=== PATIENT | female | born 1960 | race Caucasian/White ===

== ENCOUNTER → 2016-06-18 | Outpatient (CLI) | payer MEDICAID ==
[2016-06-18 16:48] LABS: MEAN PLATELET VOLUME 10.9 FL (7.4-10.4); RED BLOOD COUNT 4.73 10^6/uL (4.35-5.85); RED CELL DISTRIBUTION WIDTH 14.8 % (10.0-14.5)
[2016-06-18 17:09] LABS: ALBUMIN 4.1 G/DL (3.2-4.5); CALCIUM 8.8 MG/DL (8.5-10.1); CREATININE SERUM 1.57 MG/DL (0.60-1.30); MAGNESIUM 1.9 MG/DL (1.8-2.4); PHOSPHORUS 4.1 MG/DL (2.3-4.7)
[2016-06-18 17:16] LABS: BILIRUBIN,URINE NEGATIVE (NEGATIVE); KETONES,URINE NEGATIVE (NEGATIVE); LEUKOCYTE ESTERASE ,URINE 3+ (NEGATIVE); NITRITE,URINE NEGATIVE (NEGATIVE); PH,URINE 5 (5-9); PROTEIN,URINE 1+ (NEGATIVE); UROBILINOGEN,URINE NORMAL (NORMAL)
[2016-06-18 17:37] LABS: SQUAMOUS EPITHELIAL CELL,UR 25-50 /HPF; WBC,URINE 50-100 /HPF
[2016-06-18 17:45] LABS: PROTEIN/CREATININE RATIO 0.05
== END ==
LOC: LAB 16:12
PROVIDERS: ATTEND Internal Medicine Nephrology
DX: N18.3 Chronic kidney disease, stage 3 (moderate) (principal); J44.9 Chronic obstructive pulmonary disease, unspecified; E55.9 Vitamin D deficiency, unspecified; R60.9 Edema, unspecified
CPT/HCPCS: 36415; 80069; 81000; 82306; 82570; 83735; 84156; 85027; 87088

== ENCOUNTER → 2016-12-20 | Outpatient (CLI) | payer MEDICAID ==
[2016-12-20 12:57] LABS: BASOPHILS % (AUTO) 0 % (0-10); EOSINOPHILS # (AUTO) 0.2 10^3/uL (0.0-0.3); EOSINOPHILS % (AUTO) 3 % (0-10); LYMPHOCYTES # (AUTO) 1.6 X 10^3 (1.0-4.0); LYMPHOCYTES % (AUTO) 26 % (12-44); MEAN CORPUSCULAR HEMOGLOBIN 29 PG (25-34); MEAN CORPUSCULAR HGB CONC 33 G/DL (32-36); MEAN CORPUSCULAR VOLUME 89 FL (80-99); MEAN PLATELET VOLUME 10.7 FL (7.4-10.4); MONOCYTES # (AUTO) 0.4 X 10^3 (0.0-1.0); MONOCYTES % (AUTO) 6 % (0-12); NEUTROPHILS # (AUTO) 3.8 X 10^3 (1.8-7.8); NEUTROPHILS % (AUTO) 64 % (42-75); PLATELET COUNT 203 10^3/uL (130-400); RED BLOOD COUNT 4.82 10^6/uL (4.35-5.85); RED CELL DISTRIBUTION WIDTH 14.3 % (10.0-14.5)
[2016-12-20 13:16] LABS: ALBUMIN 4.3 GM/DL (3.2-4.5); CALCIUM 9.4 MG/DL (8.5-10.1); CREATININE SERUM 1.31 MG/DL (0.60-1.30); PHOSPHORUS 3.5 MG/DL (2.3-4.7); POTASSIUM 4.1 MMOL/L (3.6-5.0); URIC ACID 8.4 MG/DL (2.6-7.2)
[2016-12-20 13:26] LABS: PROTEIN/CREATININE RATIO 0.06
--- NOTE | 2016-12-20 13:35 | Diagnostic Imaging Report ---
PROCEDURE: CT abdomen and pelvis without contrast. TECHNIQUE: Multiple contiguous axial images were obtained through the abdomen and pelvis without the use of intravenous contrast. INDICATION: Followup renal cyst. COMPARISON: Renal ultrasound 06/23/2015. DISCUSSION: The visualized lung bases are well-aerated. Normal heart size. No pleural or pericardial fluid. The liver is enlarged measuring 20 cm. The spleen is also enlarged measuring 13.8 x 13.2 x 11.1 cm. The gallbladder is surgically absent. Suspect fatty infiltration of the liver. The stomach, pancreas, adrenal glands, and uterus are unremarkable. Urinary bladder is decompressed. 4 mm ill-defined calcification noted within the cortex of the right kidney. There are likely cysts noted within the bilateral kidneys, though evaluation is severely limited due to lack of intravenous contrast. No hydronephrosis or renal stone identified otherwise. Contrast is noted within the colon which is otherwise unremarkable. No abnormal small bowel loops are identified. No obstruction, pneumatosis, pneumoperitoneum. Fat-containing ventral hernia extends into the patient's lower abdominal wall and pannus. No ascites or pathologically enlarged lymph nodes identified. Degenerative changes are noted within the lumbar spine and sacroiliac joints. No acute osseous abnormality identified. IMPRESSION: 1. There are rounded low-attenuation lesions within the bilateral kidneys which could represent cyst, though are poorly characterized by CT due to lack of IV contrast. 2. 4 mm nonobstructing right renal calculus versus parenchymal calcification. 3. Hepatosplenomegaly of uncertain etiology. Dictated by: Dictated on workstation # [id number]
[2016-12-21 06:36] LABS: FOLIC ACID 7.2 ng/mL (1.5-24.0)
== END ==
LOC: RAD 12:29
PROVIDERS: ATTEND Internal Medicine Nephrology
DX: N20.0 Calculus of kidney (principal); N28.9 Disorder of kidney and ureter, unspecified; R16.2 Hepatomegaly with splenomegaly, not elsewhere classified; I12.9 Hypertensive chronic kidney disease with stage 1 through stage 4 chronic kidney disease, or unspecified chronic kidney disease; N18.3 Chronic kidney disease, stage 3 (moderate); E66.01 Morbid (severe) obesity due to excess calories; E21.1 Secondary hyperparathyroidism, not elsewhere classified
CPT/HCPCS: 36415; 74176; 80069; 82306; 82570; 82607; 82746; 83540; 83550; 83735; 84156; 84550; 85025

== ENCOUNTER → 2017-03-12 | Outpatient (CLI) | payer MEDICAID ==
--- NOTE | 2017-03-12 10:43 | Diagnostic Imaging Report ---
EXAMINATION: Upper and lower extremity pressure measurements of ankle/brachial index and pulse volume recording at the ankle. INDICATION: Claudication FINDINGS: The ankle/brachial index on the right side is 1.2, (1.2 PT, and 1.1 DP) and on the left is (1.2 PT, and 1.1 DP). Pulse volume recording waveforms appear normal . IMPRESSION: Normal ÁLVARO, bilaterally. Dictated by: Dictated on workstation # [id number]
== END ==
LOC: RAD 09:17
PROVIDERS: ATTEND Nurse Practitioner Family
DX: I67.2 Cerebral atherosclerosis (principal)
CPT/HCPCS: 93922

== ENCOUNTER → 2017-06-19 | Outpatient (CLI) | payer MEDICAID ==
[~2017-06-19] MED LIST: AMLO10TA2 PO; CHOL200059 PO; HYDR-34 PO; LEVO75TA6 PO; MULT-35 PO; PARO20TA5 PO
--- NOTE | 2017-06-19 14:20 | Diagnostic Imaging Report ---
Indication: Routine screening Comparison: No prior mammograms are available for comparison. The current study was also evaluated with a Computer Aided Detection (CAD) system. Findings: Both breasts are primarily involutional. Small nodular densities are noted in both breasts. There are benign calcifications bilaterally. No spiculated mass or malignant-appearing microcalcifications are seen. Axillae are unremarkable. Impression: BI-RADS category 2 No mammographic features suspicious for malignancy are identified. ACR BI-RADS Category 2: Benign findings. Result letter will be mailed to the patient. Note: At least 10% of breast cancer is not imaged by mammography. Dictated by: Dictated on workstation # [id number]
== END ==
LOC: RAD 12:27
PROVIDERS: ATTEND Nurse Practitioner Family
DX: Z12.31 Encounter for screening mammogram for malignant neoplasm of breast (principal)
CPT/HCPCS: 77067

== ENCOUNTER 2017-06-20 05:38 | Outpatient (CLI) | payer MEDICAID ==
[~2017-06-20] VITALS: Ht 152.4 cm; Wt 131.5 kg
[2017-06-20] MEDS ORDERED: HYDR-34 PO (10:21)
[2017-06-20] MEDS ORDERED: AMLO10TA2 PO (10:21)
[2017-06-20] MEDS ORDERED: CHOL200059 PO (10:21)
[2017-06-20] MEDS ORDERED: MULT-35 PO (10:21)
[2017-06-20] MEDS ORDERED: LEVO75TA6 PO (10:21)
[2017-06-20] MEDS ORDERED: PARO20TA5 PO ×2 (10:21)
== END 2017-06-20 10:28 ==
LOC: PREOP 05:38
PROVIDERS: ATTEND Surgery
DX: Z01.818 Encounter for other preprocedural examination (principal); Z12.11 Encounter for screening for malignant neoplasm of colon

== ENCOUNTER → 2017-06-25 | Outpatient (CLI) | payer MEDICAID ==
[2017-06-25 12:24] LABS: BASOPHILS # (AUTO) 0.1 10^3/uL (0.0-0.1); BASOPHILS % (AUTO) 1 % (0-10); EOSINOPHILS # (AUTO) 0.3 10^3/uL (0.0-0.3); EOSINOPHILS % (AUTO) 3 % (0-10); HEMATOCRIT 45 % (35-52); HEMOGLOBIN 14.9 G/DL (11.5-16.0); LYMPHOCYTES # (AUTO) 2.8 X 10^3 (1.0-4.0); LYMPHOCYTES % (AUTO) 28 % (12-44); MEAN CORPUSCULAR HEMOGLOBIN 30 PG (25-34); MEAN CORPUSCULAR HGB CONC 33 G/DL (32-36); MEAN CORPUSCULAR VOLUME 89 FL (80-99); MEAN PLATELET VOLUME 10.7 FL (7.4-10.4); MONOCYTES # (AUTO) 0.6 X 10^3 (0.0-1.0); MONOCYTES % (AUTO) 6 % (0-12); NEUTROPHILS # (AUTO) 6.2 X 10^3 (1.8-7.8); NEUTROPHILS % (AUTO) 62 % (42-75); PLATELET COUNT 249 10^3/uL (130-400); RED BLOOD COUNT 5.05 10^6/uL (4.35-5.85); RED CELL DISTRIBUTION WIDTH 14.1 % (10.0-14.5); WHITE BLOOD COUNT 9.9 10^3/uL (4.3-11.0)
[2017-06-25 12:30] LABS: BILIRUBIN,URINE NEGATIVE (NEGATIVE); CLARITY,URINE CLEAR; COLOR,URINE YELLOW; GLUCOSE, URINE (UA) NEGATIVE (NEGATIVE); KETONES,URINE NEGATIVE (NEGATIVE); LEUKOCYTE ESTERASE ,URINE 1+ (NEGATIVE); NITRITE,URINE NEGATIVE (NEGATIVE); PH,URINE 7 (5-9); PROTEIN,URINE NEGATIVE (NEGATIVE); UROBILINOGEN,URINE NORMAL (NORMAL)
[2017-06-25 12:38] LABS: BACTERIA,URINE TRACE /HPF
[2017-06-25 12:42] LABS: ALBUMIN 4.3 GM/DL (3.2-4.5); CALCIUM 9.8 MG/DL (8.5-10.1); CREATININE SERUM 1.27 MG/DL (0.60-1.30); PHOSPHORUS 3.2 MG/DL (2.3-4.7); POTASSIUM 4.3 MMOL/L (3.6-5.0)
[2017-06-25 12:47] LABS: URINE CREATININE FOR RATIO 93 MG/DL (30-125); URINE PROTEIN FOR RATIO ONLY < 6 MG/DL (6-12)
== END ==
LOC: LAB 11:55
PROVIDERS: ATTEND Internal Medicine Nephrology
DX: I12.9 Hypertensive chronic kidney disease with stage 1 through stage 4 chronic kidney disease, or unspecified chronic kidney disease (principal); N18.3 Chronic kidney disease, stage 3 (moderate); R60.9 Edema, unspecified; E21.1 Secondary hyperparathyroidism, not elsewhere classified
CPT/HCPCS: 36415; 80069; 81000; 82306; 82570; 83036; 83735; 83970; 84156; 85025

== ENCOUNTER → 2017-10-28 | Outpatient (CLI) | payer MEDICAID ==
[2017-10-28 11:58] LABS: ABG BASE EXCESS -2.4 MMOL/L (-2.5-2.5); ABG OXYGEN SATURATION 98 % (94-100); ABG PCO2 34 MMHG (35-45); ABG PH 7.42 (7.37-7.43); ABG PO2 93 MMHG (79-93); ABG TCO2 22.3 MMOL/L (21.0-31.0)
[2017-10-28 11:59] LABS: ALLENS TEST YES-POS; INSPIRED O2 ROOM AIR; PATIENT TEMP 99.9; VENTILATOR NO
== END ==
LOC: LAB 11:17
PROVIDERS: ATTEND Nurse Practitioner Family
DX: J98.4 Other disorders of lung (principal)
CPT/HCPCS: 36600; 82805

== ENCOUNTER → 2018-03-05 | Outpatient (CLI) | payer MEDICAID ==
[~2018-03-05] MED LIST changes: -AMLO10TA2 PO; +AMLO10TA6 PO
[2018-03-05 14:33] LABS: HEMOGLOBIN 13.4 G/DL (11.5-16.0); MEAN PLATELET VOLUME 11.3 FL (7.4-10.4); RED BLOOD COUNT 4.55 10^6/uL (4.35-5.85); RED CELL DISTRIBUTION WIDTH 14.4 % (10.0-14.5); WHITE BLOOD COUNT 8.1 10^3/uL (4.3-11.0)
[2018-03-05 14:50] LABS: BILIRUBIN,URINE NEGATIVE (NEGATIVE); CLARITY,URINE CLEAR; COLOR,URINE YELLOW; GLUCOSE, URINE (UA) NEGATIVE (NEGATIVE); KETONES,URINE NEGATIVE (NEGATIVE); LEUKOCYTE ESTERASE ,URINE 2+ (NEGATIVE); NITRITE,URINE NEGATIVE (NEGATIVE); PH,URINE 5 (5-9); PROTEIN,URINE 1+ (NEGATIVE); UROBILINOGEN,URINE NORMAL (NORMAL)
[2018-03-05 14:54] LABS: ALBUMIN 4.2 GM/DL (3.2-4.5); CALCIUM 9.2 MG/DL (8.5-10.1); CREATININE SERUM 1.84 MG/DL (0.60-1.30); PHOSPHORUS 3.5 MG/DL (2.3-4.7); POTASSIUM 4.2 MMOL/L (3.6-5.0)
== END ==
LOC: LAB 14:12
PROVIDERS: ATTEND Internal Medicine Nephrology
DX: I12.9 Hypertensive chronic kidney disease with stage 1 through stage 4 chronic kidney disease, or unspecified chronic kidney disease (principal); N18.3 Chronic kidney disease, stage 3 (moderate); E21.1 Secondary hyperparathyroidism, not elsewhere classified; E55.9 Vitamin D deficiency, unspecified
CPT/HCPCS: 36415; 80069; 81002; 82306; 82570; 83735; 83970; 84156; 85027

== ENCOUNTER → 2018-03-22 | Outpatient (CLI) | payer MEDICAID | LOC: RAD 09:26 | PROVIDERS: ATTEND Nurse Practitioner Family | DX: M19.011 Primary osteoarthritis, right shoulder (principal); Z53.8 Procedure and treatment not carried out for other reasons ==

== ENCOUNTER → 2018-03-31 | Outpatient (CLI) | payer MEDICAID ==
[2018-03-31 13:38] LABS: BASOPHILS % (AUTO) 0 % (0-10); EOSINOPHILS # (AUTO) 0.2 10^3/uL (0.0-0.3); EOSINOPHILS % (AUTO) 3 % (0-10); HEMATOCRIT 42 % (35-52); LYMPHOCYTES # (AUTO) 2.2 X 10^3 (1.0-4.0); LYMPHOCYTES % (AUTO) 29 % (12-44); MEAN CORPUSCULAR HEMOGLOBIN 29 PG (25-34); MEAN CORPUSCULAR HGB CONC 33 G/DL (32-36); MEAN CORPUSCULAR VOLUME 86 FL (80-99); MEAN PLATELET VOLUME 10.6 FL (7.4-10.4); MONOCYTES # (AUTO) 0.5 X 10^3 (0.0-1.0); MONOCYTES % (AUTO) 6 % (0-12); NEUTROPHILS # (AUTO) 4.5 X 10^3 (1.8-7.8); NEUTROPHILS % (AUTO) 61 % (42-75); PLATELET COUNT 243 10^3/uL (130-400); RED CELL DISTRIBUTION WIDTH 14.4 % (10.0-14.5); WHITE BLOOD COUNT 7.4 10^3/uL (4.3-11.0)
[2018-03-31 13:46] LABS: BILIRUBIN,URINE NEGATIVE (NEGATIVE); CLARITY,URINE CLEAR; COLOR,URINE YELLOW; GLUCOSE, URINE (UA) NEGATIVE (NEGATIVE); KETONES,URINE NEGATIVE (NEGATIVE); LEUKOCYTE ESTERASE ,URINE 1+ (NEGATIVE); NITRITE,URINE NEGATIVE (NEGATIVE); PH,URINE 5 (5-9); PROTEIN,URINE 1+ (NEGATIVE); UROBILINOGEN,URINE NORMAL (NORMAL)
--- NOTE | 2018-03-31 13:49 | Diagnostic Imaging Report ---
PROCEDURE: US Renal Bilateral. TECHNIQUE: Multiple real-time grayscale images were obtained over the kidneys in various projections bilaterally. INDICATION: Stage III chronic kidney disease and hypertension. FINDINGS: Right kidney measures 9.9 x 4.2 x 4.3 cm and the left kidney measures 10.2 x 4.3 x 5.7 cm. Cortical thickness and echogenicity is normal bilaterally. No calculi or hydronephrosis is identified. There are bilateral renal cysts. Largest cyst on the right is medially located measuring approximately 14 mm in diameter. Largest cyst on the left is approximately 2.8 x 3.3 cm. The bladder demonstrates a right ureteral jet. Left ureteral jet was not visualized. No bladder wall thickening or mass is seen IMPRESSION: Bilateral renal cysts. No other significant abnormality is seen. Dictated by: Dictated on workstation # [id number]
[2018-03-31 14:06] LABS: ALBUMIN 4.4 GM/DL (3.2-4.5); CALCIUM 9.8 MG/DL (8.5-10.1); CREATININE SERUM 1.37 MG/DL (0.60-1.30); MAGNESIUM 2.1 MG/DL (1.8-2.4); PHOSPHORUS 3.4 MG/DL (2.3-4.7); POTASSIUM 3.8 MMOL/L (3.6-5.0)
[2018-03-31 14:13] LABS: BACTERIA,URINE TRACE /HPF
== END ==
LOC: RAD 12:49
PROVIDERS: ATTEND Internal Medicine Nephrology
DX: N28.1 Cyst of kidney, acquired (principal); I12.9 Hypertensive chronic kidney disease with stage 1 through stage 4 chronic kidney disease, or unspecified chronic kidney disease; N18.3 Chronic kidney disease, stage 3 (moderate); E21.1 Secondary hyperparathyroidism, not elsewhere classified; E55.9 Vitamin D deficiency, unspecified
CPT/HCPCS: 36415; 76770; 80069; 81000; 82306; 82570; 83735; 83970; 84156; 85025; 87088

== ENCOUNTER → 2018-07-18 | Outpatient (CLI) | payer MEDICAID ==
[~2018-07-18] MED LIST changes: -AMLO10TA6 PO; +AMLO10TA7 PO
[2018-07-18 12:14] LABS: BASOPHILS % (AUTO) 0 % (0-10); EOSINOPHILS # (AUTO) 0.2 10^3/uL (0.0-0.3); EOSINOPHILS % (AUTO) 3 % (0-10); HEMATOCRIT 44 % (35-52); HEMOGLOBIN 14.2 G/DL (11.5-16.0); LYMPHOCYTES # (AUTO) 2.8 X 10^3 (1.0-4.0); LYMPHOCYTES % (AUTO) 30 % (12-44); MEAN CORPUSCULAR HEMOGLOBIN 28 PG (25-34); MEAN CORPUSCULAR HGB CONC 32 G/DL (32-36); MEAN CORPUSCULAR VOLUME 86 FL (80-99); MEAN PLATELET VOLUME 11.1 FL (7.4-10.4); MONOCYTES # (AUTO) 0.5 X 10^3 (0.0-1.0); MONOCYTES % (AUTO) 5 % (0-12); NEUTROPHILS # (AUTO) 5.9 X 10^3 (1.8-7.8); NEUTROPHILS % (AUTO) 62 % (42-75); PLATELET COUNT 282 10^3/uL (130-400); RED CELL DISTRIBUTION WIDTH 14.7 % (10.0-14.5); WHITE BLOOD COUNT 9.5 10^3/uL (4.3-11.0)
[2018-07-18 12:31] LABS: ALBUMIN 4.4 GM/DL (3.2-4.5); CREATININE SERUM 1.5 MG/DL (0.60-1.30); MAGNESIUM 2.2 MG/DL (1.8-2.4); PHOSPHORUS 3.4 MG/DL (2.3-4.7); POTASSIUM 3.9 MMOL/L (3.6-5.0)
== END ==
LOC: LAB 11:46
PROVIDERS: ATTEND Internal Medicine Nephrology
DX: I12.9 Hypertensive chronic kidney disease with stage 1 through stage 4 chronic kidney disease, or unspecified chronic kidney disease (principal); N18.4 Chronic kidney disease, stage 4 (severe); E21.1 Secondary hyperparathyroidism, not elsewhere classified; E87.2 Acidosis
CPT/HCPCS: 36415; 80069; 82570; 83735; 84156; 85025

== ENCOUNTER → 2018-08-26 | Outpatient (CLI) | payer MEDICAID ==
[~2018-08-26] VITALS: Ht 152.4 cm; Wt 142.0 kg
[~2018-08-26] MED LIST changes: +CATHETER FLUSH 10 ML SYR IV PRN; +REGADENOSON 0.4 MG/5 ML SYR (LEXISCAN) IV ONE
[2018-08-26 08:55] VITALS: BP 145/76
--- NOTE | 2018-08-26 19:50 | STRESS TEST ---
DATE OF SERVICE: 08/26/2018 RESTING AND POST REGADENOSON TECHNETIUM-99M TETROFOSMIN SPECT CT IMAGING ORDERING PHYSICIAN: Ricky Dave MD, STEPHON, FACP, FACC. PRIMARY PHYSICIAN: [facility]. CLINICAL DIAGNOSES: Shortness of breath. Baseline images were carried out after injection of 10.92 mCi technetium-99m Tetrofosmin. This was followed by 0.4 mg regadenoson and 31.6 mCi technetium-99m Tetrofosmin for stress imaging. The electrocardiogram showed sinus rhythm at baseline. It did not change significantly with regadenoson infusion. The patient noted some shortness of breath following the infusion. It resolved in a few minutes. Review of images at rest and following stress does not indicate any significant perfusion defects consistent with significant myocardial ischemia or infarction. Gated images show normal global left ventricular systolic function and normal regional wall motion. Left ventricular ejection fraction is calculated to be 74%. Left ventricular end diastolic volume is 57 mL. TID is absent (0.97). CONCLUSIONS: 1. No evidence of significant myocardial ischemia or infarction is seen. 2. Normal regional wall motion. 3. Normal global left ventricular systolic function with a calculated ejection fraction of 74%. Job ID: [id number] DocumentID: [id number] Dictated Date: 08/26/2018 16:29:00 [employer] Date: 08/26/2018 19:49:59 Dictated By: RICKY DAVE MD, STEPHON, FACP, FACC,
== END ==
LOC: CARD 07:00
PROVIDERS: ATTEND Internal Medicine Cardiovascular Disease
DX: R06.02 Shortness of breath (principal); G47.33 Obstructive sleep apnea (adult) (pediatric); I77.9 Disorder of arteries and arterioles, unspecified; I10 Essential (primary) hypertension; E66.8 Other obesity; R53.81 Other malaise
CPT/HCPCS: 78452; 93017; 93225; 93226

== ENCOUNTER → 2018-10-28 | Outpatient (CLI) | payer MEDICAID ==
[~2018-10-28] MED LIST changes: -CATHETER FLUSH 10 ML SYR IV PRN; -REGADENOSON 0.4 MG/5 ML SYR (LEXISCAN) IV ONE
--- NOTE | 2018-10-28 14:48 | Diagnostic Imaging Report ---
PROCEDURE: US Renal Bilateral. TECHNIQUE: Multiple real-time grayscale images were obtained over the kidneys in various projections bilaterally. INDICATION: Renal cysts. FINDINGS: The previous renal ultrasound exam of 03/31/2018 noted bilateral renal cysts. The largest cyst on the right measured 14 mm in maximum diameter while the largest cyst on the left was estimated to be 2.8 x 3.3 cm. The cyst arising from the left kidney seen on the previous exam is again visualized. The cyst now measures 2.6 x 1.8 x 3.0 cm and does appear to contain several internal echoes. This may be slightly complicated by infection and/or hemorrhage. The cyst associated with the right kidney seen previously now measures 1.4 x 1.0 x 1.4 cm. This cyst also contains internal echoes suggesting that it has been complicated by infection and/or hemorrhage. There is no other cyst identified and there is no sign of a solid mass. There is no evidence for hydronephrosis. The renal cortices are normal in thickness and echogenicity. The kidneys are normal in size with the right kidney measuring 10.8 x 4.2 x 5.2 cm and the left kidney estimated to be 10.2 x 4.6 x 3.5 cm. The bladder was not imaged during the course of this exam. IMPRESSION: The cysts associated with the kidneys seen previously now appear to be complicated by infection and/or hemorrhage. If further imaging is desired, then CT will be recommended. If the CT exam is not performed, then a short-term (three-month) follow-up renal ultrasound exam will be recommended for further study. Dictated by: Dictated on workstation # [id number]
== END ==
LOC: RAD 11:07
PROVIDERS: ATTEND Internal Medicine Nephrology
DX: N28.1 Cyst of kidney, acquired (principal)
CPT/HCPCS: 76770

== ENCOUNTER → 2018-11-12 | Outpatient (CLI) | payer MEDICAID ==
[2018-11-12 11:43] LABS: ALBUMIN 4.2 GM/DL (3.2-4.5); BILIRUBIN,TOTAL 0.8 MG/DL (0.1-1.0); CALCIUM 9.5 MG/DL (8.5-10.1); CREATININE SERUM 1.36 MG/DL (0.60-1.30)
== END ==
LOC: LAB 11:03
PROVIDERS: ATTEND Internal Medicine Cardiovascular Disease
DX: I12.9 Hypertensive chronic kidney disease with stage 1 through stage 4 chronic kidney disease, or unspecified chronic kidney disease (principal); N18.4 Chronic kidney disease, stage 4 (severe); R06.02 Shortness of breath; G47.33 Obstructive sleep apnea (adult) (pediatric); E78.5 Hyperlipidemia, unspecified; E66.8 Other obesity; Z68.44 Body mass index [BMI] 60.0-69.9, adult
CPT/HCPCS: 36415; 80053; 80061

== ENCOUNTER → 2019-01-16 | Outpatient (CLI) | payer MEDICAID ==
[2019-01-16 12:07] LABS: BILIRUBIN,URINE NEGATIVE (NEGATIVE); CLARITY,URINE CLEAR; COLOR,URINE YELLOW; GLUCOSE, URINE (UA) NEGATIVE (NEGATIVE); KETONES,URINE 1+ (NEGATIVE); LEUKOCYTE ESTERASE ,URINE 3+ (NEGATIVE); NITRITE,URINE NEGATIVE (NEGATIVE); PH,URINE 5 (5-9); PROTEIN,URINE 2+ (NEGATIVE); UROBILINOGEN,URINE NORMAL (NORMAL)
[2019-01-16 12:10] LABS: BASOPHILS % (AUTO) 0 % (0-10); EOSINOPHILS # (AUTO) 0.2 10^3/uL (0.0-0.3); EOSINOPHILS % (AUTO) 3 % (0-10); HEMATOCRIT 47 % (35-52); HEMOGLOBIN 15.4 G/DL (11.5-16.0); LYMPHOCYTES # (AUTO) 2.7 X 10^3 (1.0-4.0); LYMPHOCYTES % (AUTO) 28 % (12-44); MEAN CORPUSCULAR HEMOGLOBIN 28 PG (25-34); MEAN CORPUSCULAR HGB CONC 33 G/DL (32-36); MEAN CORPUSCULAR VOLUME 86 FL (80-99); MEAN PLATELET VOLUME 11.6 FL (7.4-10.4); MONOCYTES # (AUTO) 0.6 X 10^3 (0.0-1.0); MONOCYTES % (AUTO) 6 % (0-12); NEUTROPHILS % (AUTO) 63 % (42-75); PLATELET COUNT 249 10^3/uL (130-400); RED CELL DISTRIBUTION WIDTH 14.4 % (10.0-14.5); WHITE BLOOD COUNT 9.5 10^3/uL (4.3-11.0)
[2019-01-16 12:20] LABS: WBC,URINE 25-50 /HPF
[2019-01-16 12:22] LABS: BACTERIA,URINE MODERATE /HPF
[2019-01-16 12:28] LABS: ALBUMIN 4.5 GM/DL (3.2-4.5); CREATININE SERUM 1.52 MG/DL (0.60-1.30); MAGNESIUM 2.2 MG/DL (1.6-2.4); PHOSPHORUS 3.7 MG/DL (2.3-4.7); URIC ACID 9.5 MG/DL (2.6-7.2)
== END ==
LOC: LAB 11:46
PROVIDERS: ATTEND Internal Medicine Nephrology
DX: I12.9 Hypertensive chronic kidney disease with stage 1 through stage 4 chronic kidney disease, or unspecified chronic kidney disease (principal); N18.3 Chronic kidney disease, stage 3 (moderate); E21.1 Secondary hyperparathyroidism, not elsewhere classified; R60.9 Edema, unspecified
CPT/HCPCS: 36415; 80069; 81000; 82306; 82570; 83735; 83970; 84156; 84550; 85025; 87077; 87088

== ENCOUNTER → 2019-02-17 | Outpatient (CLI) | payer MEDICAID ==
--- NOTE | 2019-02-17 12:39 | Diagnostic Imaging Report ---
EXAMINATION: Right breast ultrasound, limited. INDICATION: Right axillary pain and lump. FINDINGS: The diagnostic mammogram performed earlier today failed to show any sign of malignancy or an acute abnormality involving the right axilla. On this exam, there is a single lymph node in this area. This lymph node measures 3.1 x 2.8 x 1.6 cm. While this is enlarged for a normal axillary lymph node (normal lymph node 1.5 cm or less), it does appear to be predominantly replaced by fat, and there is no abnormality of the cortex to suggest a neoplastic or infectious process. Even so, if clinical concern regarding an underlying abnormality persists, then biopsy should still be considered. No other abnormality is noted. IMPRESSION: There is a prominent lymph node in the right axilla, but there is no sign of malignancy and there is no acute abnormality identified. Clinical follow-up is recommended. ACR BI-RADS Category 1: Negative. Dictated by: Dictated on workstation # [id number]
--- NOTE | 2019-02-17 13:44 | Diagnostic Imaging Report ---
Bilateral diagnostic mammogram. Indication: Right axillary pain and lump. This study was compared to the prior exam of 06/19/2017. At this time the patient does complain of pain and a lump in the right axilla. A marker was placed over the area of concern. There is no primary or secondary sign of malignancy evident in this area. There is no acute abnormality to account for the patient's pain either. There is a prominent lymph node in this region measuring approximately 3.2 cm in maximum dimension. However this lymph node seems to be predominantly replaced by fat and consequently unlikely be related to a pathologic process. The breasts are predominantly fatty. There are benign-appearing calcifications both breasts. There is no primary or secondary sign malignancy noted. Impression: There is no evidence for malignancy and there is no acute abnormality to account for the pain in the right axilla. Ultrasound would be recommended for further study. ACR BI-RADS Category 0: Incomplete. (Needs additional imaging evaluation). Result letter will be mailed to the patient. Note: At least 10% of breast cancer is not imaged by mammography. Dictated by: Dictated on workstation # [id number]
== END ==
LOC: RAD 11:20
PROVIDERS: ATTEND Nurse Practitioner Family
DX: R59.0 Localized enlarged lymph nodes (principal); M79.601 Pain in right arm
CPT/HCPCS: 77066

== ENCOUNTER 2019-11-05 19:47 | Emergency (ER) | payer MEDICAID ==
[~2019-11-05] VITALS: Ht 152 cm; Wt 136.0 kg
[2019-11-05] MEDS ORDERED: ACETAMINOPHEN 325 MG TABLET PO ONE (20:00)
--- NOTE | 2019-11-05 20:00 | ED Fall/Injury ---
General Stated Complaint: FELL,LEFT ARM,RIGHT LEG PAIN Source: patient, RN/MD, RN notes reviewed Exam Limitations: no limitations History of Present Illness Date Seen by Provider: Nov 05, 2019 Time Seen by Provider: 19:50 Initial Comments This patient is a 59-year-old female presents to the emergency department for fall 2. Patient states that she does not walk well and has bad knees patient uses a scooter to ambulate around the house. And also uses a cane. When she stands. Patient states she is normally doesn't have issues with fall as she is off balance. Patient states she locked herself out of the house 2 days ago and tried to stand on a lawn chair to try to get the door unlocked and she had a fall. Patient states she subsequently had another fall tonight she just cannot turn and lost her balance. Patient states she's been underneath a lot of stress at home due to her brother's legal problems. And just not thinking clearly due to worry and not nursing home where she steps. Patient is complaining of right knee pain and left elbow pain. Patient checks in does have a low-grade temperature patient denies any cough or congestion. We'll do medical evaluation treatment is needed. Occurred: yesterday Injuries/Pain Location: upper extremity, lower extremity Context: lost balance Loss of Consciousness: no loss of consciousness Allergies and Home Medications Allergies Coded Allergies: No Known Allergies (Unverified Allergy, Unknown, 06/20/17) Home Medications Amlodipine Besylate 10 Mg Tablet, 10 MG PO DAILY, (Reported) Cholecalciferol (Vitamin D3) 2,000 Unit Tablet, 3,000 UNIT PO DAILY, (Reported) Hydrocodone Bit/Acetaminophen 1 Each Tablet, 1 EACH PO TID, (Reported) Levothyroxine Sodium 75 Mcg Tablet, 75 MCG PO DAILY, (Reported) Multivitamin 1 Each Tablet, 1 EACH PO DAILY, (Reported) Paroxetine HCl 20 Mg Tablet, 40 MG PO HS, (Reported) Paroxetine HCl 20 Mg Tablet, 20 MG PO DAILY, (Reported) Patient Home Medication List Home Medication List Reviewed: Yes Review of Systems Review of Systems Constitutional: see HPI Eyes: Denies No Symptoms Reported, Denies See HPI, Denies Blindness, Denies Blurred Vision, Denies Drainage, Denies Decreased Acuity, Denies Foreign Body Sensation, Denies Inflammation, Denies Pain, Denies Photophobia, Denies Previous Injury, Denies Shadows, Denies Tunnel Vision, Denies Vision Changes, Denies Contact Lenses, Denies Glasses, Denies Other Ears, Nose, Mouth, Throat: denies no symptoms reported, denies see HPI, denies ear pain, denies ear discharge, denies nose pain, denies nose discharge, denies epistaxis, denies mouth pain, denies mouth swelling, denies loose teeth, denies throat pain, denies throat swelling Respiratory: No no symptoms reported, No see HPI, No cough, No dyspnea on exertion, No hemoptysis, No orthopnea, No phlegm, No short of breath, No stridor, No wheezing, No other Cardiovascular: No no symptoms reported, No see HPI, No chest pain, No edema, No Hx of Intervention, No palpitations, No syncope, No vascular heart diseas, No other Genitourinary: No no symptoms reported, No see HPI, No decreased output, No discharge, No dysuria, No frequency, No hematuria, No hesitancy, No incontinence, No nocturia, No pain, No other Musculoskeletal: see HPI, joint pain Skin: No no symptoms reported, No see HPI, No change in color, No change in hair/nails, No dryness, No hx of skin cancer, No lesions, No lumps, No pruritus, No rash, No other All Other Systems Reviewed Negative Unless Noted: Yes Past Vhpiizs-Jgwtxt-Wcpnhf Hx Patient Social History Recent Foreign Travel: No Contact w/Someone Who Travel: No Physical Exam Vital Signs Vital Signs - First Documented 11/05/19 19:50 Temp 38.1 Pulse 88 Resp 18 B/P (MAP) 158/92 (114) Pulse Ox 96 O2 Delivery Room Air Capillary Refill : Height, Weight, BMI Height: 5'0.00" Weight: 313lbs. 0.0oz. 141.707647ko; 61.1 BMI Method: General Appearance: WD/WN, no apparent distress HEENT: PERRL/EOMI, normal ENT inspection, TMs normal, pharynx normal Neck: non-tender, full range of motion, supple, normal inspection Cardiovascular: normal peripheral pulses, regular rate, rhythm, no edema, no gallop, no JVD, no murmur Respiratory: chest non-tender, lungs clear, normal breath sounds, no respiratory distress, no accessory muscle use Gastrointestinal: normal bowel sounds, non tender, soft, no organomegaly, no pulsatile mass Back: normal inspection, no CVA tenderness, no vertebral tenderness Extremities: other (tender range of motion of left elbow. Patient states it h urts to try to straighten her elbow. No obvious signs of injury or deformity. Patient's right knee complains of soreness when bending. No obvious signs of injury. Patient is morbidly obese.) Progress/Results/Core Measures Results/Orders Lab Results Laboratory Tests Test 11/05/19 20:03 Range/Units Urine Color DARK YELLOW Urine Clarity SL CLOUDY Urine pH 5.5 5-9 Urine Specific [place] >=1.030 1.016-1.022 Urine Protein TRACE H NEGATIVE Urine Glucose (UA) NEGATIVE NEGATIVE Urine Ketones NEGATIVE NEGATIVE Urine Nitrite NEGATIVE NEGATIVE Urine Bilirubin NEGATIVE NEGATIVE Urine Urobilinogen 0.2 < = 1.0 MG/DL Urine Leukocyte Esterase TRACE H NEGATIVE Urine RBC (Auto) NEGATIVE NEGATIVE Urine RBC 0-2 /HPF Urine WBC 5-10 H /HPF Urine Squamous Epithelial Cells 10-25 H /HPF Urine Crystals NONE /LPF Urine Bacteria MODERATE H /HPF Urine Casts PRESENT /LPF Urine Hyaline Casts 5-10 H /LPF Urine Mucus LARGE H /LPF Urine Culture Indicated YES My Orders Orders - NANCIE LEACH MD Knee 3 View Right (11/05/19 19:56) Elbow 3 View Left (11/05/19 19:56) Urinalysis (11/05/19 19:56) Acetaminophen Tablet/Caplet (Tylenol T (11/05/19 20:00) Urine Culture (11/05/19 20:03) Medications Given in ED Current Medications Medications Dose Ordered Sig/Harini Route Start Time Stop Time Status Last Admin Dose Admin Acetaminophen 650 mg ONCE ONCE PO 11/05/19 20:00 11/05/19 20:01 DC 11/05/19 20:09 650 MG Vital Signs/I&O 11/05/19 19:50 Temp 38.1 Pulse 88 Resp 18 B/P (MAP) 158/92 (114) Pulse Ox 96 O2 Delivery Room Air Progress Progress Note : Time: 21:05 Progress Note Negative evaluation for anything acute.. I did discuss at length with patient about her chronic osteoarthritis of her knees in reporting that for status. Frankie olvera will need to be referred back to her primary care physician to discuss pain medications. Patient has chronic kidney disease and nonsteroidals would not be a good choice for the patient. The patient is reluctant to use hydrocodone she is a history of depression. She states understanding these instructions. We did also discuss patient's urinalysis. With significant amount of bacteria and WBCs. Trace leukocytes. Low-grade fever. Patient is agreeable to be placed on Keflex for the last couple of days. She will follow up with her PCP in 2-3 days. Patient states she will take Tylenol for fever. Encourage by mouth fluids. Tylenol as needed for fever or pain. Follow-up with her primary care physician address any other pain concerns. Take medications as prescribed. Understanding her urinalysis will be sent for culture. Diagnostic Imaging Diagonstic Imaging: Xray Plain Films/CT/US/NM/MRI: elbow, knee Comments Negative for acute patient's severe osteoarthritis in the knees. Reviewed: Reviewed [place] Study Departure Impression Primary Impression: Dysuria Additional Impressions: Fall Left elbow pain Right knee pain Osteoarthritis Disposition: 01 HOME, SELF-CARE Condition: Stable Departure-Patient Inst. Decision time for Depature: 21:08 Referrals: [facility] (PCP) Primary Care Physician ROB REYNOLDS APRN (Family) Primary Care Physician Patient Instructions: Chronic Knee Pain (DC), Osteoarthritis (DC) Add. Discharge Instructions: Encourage by mouth fluids. Tylenol as needed for fever or pain. Follow-up with her primary care physician address any other pain concerns. Take medications as prescribed. Understanding her urinalysis will be sent for culture. Scripts Cephalexin (Cephalexin) 500 Mg Tablet 500 MG PO BID, #10 TAB 0 Refills Prov: NANCIE LEACH MD 11/05/19 NANCIE LEACH MD Nov 05, 2019 20:00
[2019-11-05 20:14] LABS: CLARITY,URINE SL CLOUDY; COLOR,URINE DARK YELLOW
[2019-11-05 20:15] LABS: BACTERIA,URINE MODERATE /HPF; BILIRUBIN,URINE NEGATIVE (NEGATIVE); GLUCOSE, URINE (UA) NEGATIVE (NEGATIVE); KETONES,URINE NEGATIVE (NEGATIVE); LEUKOCYTE ESTERASE ,URINE TRACE (NEGATIVE); NITRITE,URINE NEGATIVE (NEGATIVE); PH,URINE 5.5 (5-9); PROTEIN,URINE TRACE (NEGATIVE); RBC,URINE 0-2 /HPF
--- NOTE | 2019-11-05 20:36 | Diagnostic Imaging Report ---
INDICATION: Knee pain. COMPARISON: None. EXAMINATION: Three radiographic views of the right knee were obtained. FINDINGS: There are advanced tricompartmental osteoarthritic changes. This consists of severe joint space narrowing with prominent osteophyte formations. There is also sclerotic remodeling of the articular surfaces, greatest involving the medial tibiofemoral compartment. There is, however, no evidence of acute fracture. Osseous structures are intact. Joint spaces are maintained. There is no large joint effusion. IMPRESSION: 1. No acute fracture or dislocation of the right knee. 2. Severe osteoarthritic changes of the right knee. Dictated by: Dictated on workstation # [id number]
--- NOTE | 2019-11-05 20:37 | Diagnostic Imaging Report ---
INDICATION: Elbow pain. COMPARISON: None. EXAMINATION: Three views of the left elbow. FINDINGS: No fracture, dislocation or other acute bony abnormality identified. Joint spaces are well maintained throughout. The soft tissues appear unremarkable. No radiopaque foreign body is identified. IMPRESSION: No acute fracture or dislocation of the left elbow. Dictated by: Dictated on workstation # [id number]
[2019-11-05] MEDS ORDERED: CEPH500T PO (21:10)
[2019-11-05 21:15] VITALS: BP 149/88
--- OUTSIDE RECORDS SUMMARY | 2019-11-05 22:16 | XMS REPORT ---
Author Author [employer] lead warehouse associate [employer] [facility] Address [address] [address] Care Team Providers Care Lithographic Etcher Name Role Phone MADL, POLY Unavailable MADL, POLY Unavailable Unavailable CAROL WHITLOCK Unavailable Unavailable CINTHYA ALI Unavailable Unavailable LEROY HOLT Unavailable NUSRAT MAX Unavailable CINTHYA, ALI Unavailable MADL, POLY Unavailable MADL, POLY Unavailable MADL, POLY Unavailable MADL, POLY Unavailable TATIANA DENNIS Unavailable MADL, POLY Unavailable MADL, POLY Unavailable TATIANA DENNIS Unavailable LALI CRUZ Unavailable JENS SIERRA Unavailable MADL, POLY Unavailable MADL, POLY Unavailable MADL, POLY Unavailable JENS Corado Unavailable MADL, POLY Unavailable MADL, POLY Unavailable MADL, POLY Unavailable MADL, POLY Unavailable MADL, POLY Unavailable MADL, POLY Unavailable MADL, POLY Unavailable ARTIE, DANII Unavailable ARTIE, DANII Unavailable ARTIE, DANII Unavailable CAROL WHITLOCK APRN Unavailable Unavailable OSMAR GUEVARA MD, V Unavailable Unavailable FATOU WHITEHEAD APRN Unavailable Unavailable CINTHYA [facility] Unavailable UnavailQUINTEN Contreras DO Unavailable Unavailable MADL, POLY Unavailable RODOLFO, ROB Unavailable RODOLFO, ROB Unavailable RODOLFO, ROB Unavailable RODOLFO, ROB Unavailable RODOLFO, ROB Unavailable CINTHYA [facility]COSO [facility] Unavailable UnavailOSMAR Diez MD, V Unavailable Unavailable LUIS KABA MD Unavailable Unavailable FATOU WHITEHEAD APRN Unavailable Unavailable CAROL WHITLOCK APRN Unavailable Unavailable MADL, POLY L TONGUE BINDER Unavailable Unavailable HUMBLE JUÁREZ DO Unavailable Unavailable QUINTEN SADLER DO Unavailable Unavailable ROB REYNOLDS CHIEF OF PLANNING Unavailable Unavailable ROB REYNOLDS Unavailable Unavailable [facility] PCP Unavailable Unavailable Unavailable Unavailable Unavailable Unavailable Unavailable Unavailable Allergies Normalized Allergy Reported Date of Reaction(s) Care Provider Facility Allergy Type classification allergen Allergy Onset Drug Allergy DULoxetine DULoxetine 12-20-2017 - Headaches [facility] (1 source.) Translations: [address]97 [facility] [ [facility]] [facility] (21920) DA (21 Unclassified No Known 04-21-2015 - no information FERNANDA NOVA Not Available sources.) Allergies CHINYERE (91496) Medications Current Medications Medication Ingredient Drug Dose Dates Status Sig Sig Care Class(es) (Normalized) (Original) Provid er cephalexin Cephalexin Cephalospor 11-06-19 Active no Cephale roland no 500 mg oral in 20 information Active 500 name tablet (1 Antibacteri ORAL Twice A source.) al Day November 05, 2019 9:10pm no Multivitami no Active no Multivitamin no information n information information Active 1 name (1 source.) preparation ORAL Daily Completed/Discontinued Medications Medication Ingredient Drug Dose Dates Status Sig Sig Care Class(es) (Normalized) (Original) Provid er DULoxetine DULoxetine Serotonin 30 mg 10-19-19 Suspende take 1 Cymbalta 30 no 60 mg Translation and 18 d capsule by MG Orally nam e delayed s: [ Norepinephr mouth once Once a day x release Cymbalta 60 ine daily, then 1 week then oral mg, Reuptake take 2 increase to capsule (4 duloxetine Inhibitor capsules by 2 caps po sources.) 30 MG mouth once daily 1 Delayed daily capsule Oct, 2017 30 Oral day(s) Capsule Not-Taking [Cymbalta], Cymbalta 30 MG, Cymbalta 30 MG, Cymbalta 60 mg] 60 mg 10-18-2017 Suspended no Cymbalta no name inform 60 mg ation Orally Once a day 1 capsule 24h Oct, 30 day(s) Not-Taki ng Problems Active Problems Problem Normalized Date Last Normalized Normalized Provider Fa cility Classification Problem(s) Recorded Problem Problem Sta tus Duration Fluid and Acidosis Episodic Active LUIS KHALID Not Avail able electrolyte MD (90189) disorders (2 sources.) Other upper Allergic Chronic Active FATOU Not Availab le respiratory rhinitis, VENTURA (99324) disease (3 unspecified sources.) Deficiency and Anemia due to Chronic Active LUIS KHALID [facility] Via other anemia enzyme , MD Abbott (2 sources.) disorder, Hospital - unspecified [place] (76340) Other nervous Anesthesia of Episodic Active POLY MADL [facility] system skin 43643 [facility] disorders (11 Translations: [place] sources.) [ - Numbness [place] (28946) of right foot R20.0, - Numbness of right foot R20.0] Other Body mass Chronic Active [facility] nutritional; index (BMI) 40225 [facility] endocrine; and 50-59.9 , of [facility] metabolic adult [place] (63112) disorders (14 Translations: sources.) [ - BMI 50.0-59.9, adult Z68.43] Other Body mass Chronic Active HONEY DAVE [facility] Via nutritional; index (BMI) MD FACC [facility] endocrine; and 60.0-69.9, Hospital - metabolic adult [place] disorders (1 (36993) source.) Calculus of Calculus of Episodic Active LUIS KHALID Not Available urinary tract kidney , (48347) (4 sources.) Other and Cardiomegaly Chronic Active POLY MADL Communi ty ill-defined Translations: 92335 [facility] heart disease [ - [place] (11 sources.) Cardiomegaly [place] (98245) I51.7, - Cardiomegaly I51.7] Other and Cardiomegaly Chronic Active POLY MADL Communi ty ill-defined Translations: 67679 [facility] heart disease [ - [place] (11 sources.) Cardiomegaly [place] (26099) 429.3, - Cardiomegaly 429.3] Other nervous Carpal tunnel Chronic Active POLY MADL [facility] system syndrome, 20000 [facility] disorders (11 right upper [place] sources.) limb [place] (25196) Translations: [ Carpal tunnel syndrome, right, Carpal tunnel syndrome, right] Other and Cerebral Chronic Active POLY MADL [facility] Via ill-defined atherosclerosi [place] cerebrovascula s Hospital - r disease (3 [place] sources.) (39265) Other diseases Cyst of Episodic Active LUIS KHALID [facility] Via of kidney and kidney, MD [facility] ureters (6 acquired Hospital - sources.) [place] (03411) Other Disorder of Chronic Active ALI CINTHYA , Not Beth ilable circulatory arteries and [facility] (14773) disease (3 arterioles, sources.) unspecified Other diseases Disorder of Episodic Active LUIS KHALID N ot Available of kidney and kidney and , (54352) ureters (4 ureter, sources.) unspecified Other liver Hepatomegaly Episodic Active LUIS KHALID Not Available diseases (4 with , (84496) sources.) splenomegaly, not elsewhere classified Disorders of Hyperlipidemia Chronic Active ALI CINTHYA , [facility] Via lipid , unspecified [facility] metabolism (1 Hospital - source.) [place] (47672) Lymphadenitis Localized Episodic Active ROB RODOLFO [facility] Vi a (2 sources.) enlarged lymph [facility] nodes Hospital - [place] (35076) Other Morbid Chronic Active QUINTEN DOROTEO , Not Avai lable nutritional; (severe) DO (68620) endocrine; and obesity due to metabolic excess disorders (21 calories sources.) Translations: [ - Morbid obesity E66.01, - Morbid obesity E66.01] Residual Obstructive Chronic Active CAROL Not Availa ble codes; sleep apnea CHINYERE (22056) unclassified (adult) (10 sources.) (pediatric) Other nervous Other chronic Chronic Active POLY MADL [facility] system pain 26305 [facility] disorders (20 Translations: of [facility] sources.) [ - Chronic [place] (35618) pain G89.29, - Chronic pain G89.29] Other lower Other Episodic Active [facility] Via respiratory disorders of [facility] (2 lung [facility] - sources.) [place] (22954) Other lower Other forms of Episodic Active POLY MADL Com munity respiratory dyspnea 09930 [facility] disease (11 Translations: of [facility] sources.) [ - Exertional [place] (89217) dyspnea R06.09, - Exertional dyspnea R06.09] Malaise and Other malaise Episodic Active ALI CINTHYA , Not Available fatigue (3 MD FACC (36985) sources.) Other Other obesity Chronic Active ALI CINTHYA , Not A vailable nutritional; FACC (79258) endocrine; and metabolic disorders (4 sources.) Other Pain in left Episodic Active POLY MADL Communi ty non-traumatic hip 01898 [facility] joint Translations: of [facility] disorders (20 [ - Left hip [place] (97251) sources.) pain M25.552, - Left hip pain M25.552] Other Pain in right Episodic Active ROB [facility] Vi a connective arm [facility] tissue disease Hospital - (2 sources.) [place] (55503) Other Pain in right Episodic Active POLY MADL Commun ity non-traumatic shoulder 47452 [facility] joint Translations: of [facility] disorders (13 [ - Pain in [place] (76214) sources.) right shoulder M25.511, - Pain in right shoulder M25.511] Other Pain in Episodic Active POLY MADL Community non-traumatic unspecified 46018 [facility] joint joint of [facility] disorders (11 Translations: [place] (55401) sources.) [ - Joint pain M25.50, - Joint pain M25.50] Other nervous Paresthesia of Episodic Active POLY MADL C [facility]munity system hand 80388 [facility] disorders (11 Translations: of [facility] sources.) [ Right hand [place] (22880) paresthesia, Right hand paresthesia] Other nervous Paresthesia of Episodic Active POLY MADL [facility]ity system skin 84311 [facility] disorders (11 Translations: of [facility] sources.) [ - Right hand [place] (98145) paresthesia R20.2, - Right hand paresthesia R20.2] Pneumonia Pneumonia, Episodic Active FATOU Not Availab le (except that unspecified VENTURA (63341) caused by organism tuberculosis or sexually transmitted disease) (3 sources.) Residual Procedure and Episodic Active ROB RODOLFO [facility] Vi a codes; treatment not [place] unclassified carried out Hospital - (1 source.) for other [place] reasons (39693) Other Secondary Chronic Active LUIS KHALID Not Avai lable endocrine hyperparathyMD franklin (81430) disorders (19 idism, not sources.) elsewhere classified Other Shoulder pain Episodic Active POLY MADL Commun ity non-traumatic Translations: 38437 [facility] joint [ Pain in of [place] disorders (11 right [place] (77100) sources.) shoulder, Pain in right shoulder] Asthma (3 Unspecified Chronic Active QUINTEN SADLER , Not A vailable sources.) asthma, DO (08249) uncomplicated Past or Other Problems Problem Normalized Date Last Normalized Normalized Provider Fa cility Classification Problem(s) Recorded Problem Problem Sta tus Duration Residual Edema, Episodic Completed OSMAR ISMAEL , Not Avail able codes; unspecified (84363) unclassified (12 sources.) Procedures Procedure Normalized Procedure Procedure Result Performer Facility Date 12-20-2017 Collection venous no information [facility] name [facility] blood venipuncture [facility] (46141) 12-20-2017 LAB NOT BILLED BY no information no name [facility] (03237) Immunizations The data below is from unstructured sources No Known ImmunizationsNo immunization records.No immunization records.No immunization records.No immunization records. No Known Immunizations No Known Immunizations No Known Immunizations No Known Immunizations No Known Immunizations No Known Immunizations No Known Immunizations No Known Immunizations No Known Immunizations No Known Immunizations No Known Immunizations No Known Immunizations No Known Immunizations No Known Immunizations No Known Immunizations No Known Immunizations No Known Immunizations No Known Immunizations No Known Immunizations No Known Immunizations No Known Immunizations No Known Immunizations No Known Immunizations No Known Immunizations No Known Immunizations No Known Immunizations No Known Immunizations No Known Immunizations No Known Immunizations No Known Immunizations No Known Immunizations No Known Immunizations No Known Immunizations No Known Immunizations No Known Immunizations No Known Immunizations No Known Immunizations No Known Immunizations No Known Immunizations No Known Immunizations No Known Immunizations No Known Immunizations No Known Immunizations No Known Immunizations No Known Immunizations No Known Immunizations No Known Immunizations No Known Immunizations No Known Immunizations No Known Immunizations No Known Immunizations No Known Immunizations No Known Immunizations No Known Immunizations No Known Immunizations No Known Immunizations No Known Immunizations No Known Immunizations No Known Immunizations No Known Immunizations No Known Immunizations No Known Immunizations No Known Immunizations No Known ImmunizationsNo Immunization Information AvailableNo Immunization Information Available Results Test Name Value Interpretation Reference Range Date Time Fa cility (Normalized) (Normalized) (Medline Reference) not yet categorized on 2019-06-02 Exp date Dec 2020 (no code) [facility] (64599) Lot [id number] (no code) [facility] (53185) Previous A1c none available (no code) [facility] (31088) laboratory on 2019-06-02 HbA1c (Bld) 6.0 % (no code) 0 - 5.7 % [facility] [Mass fraction] [facility] (57851) TSH Qn 4.39 m[IU]/L (N) 0.4 - 4 m[IU]/L [facility] (50929) laboratory on 2019-04-21 TSH Qn 5.30 m[IU]/L (H) 0.4 - 4 m[IU]/L [facility] (43914) other on 2018-08-20 Albumin/Globulin 1.8 (N) [facility] lth [Mass ratio] [facility] (11834) Calcidiol 45 ng/mL (N) 20 - 50 ng/mL [facility] [Mass/Vol] [facility] (27075) Cholesterol in 137 (H) [facility]alt [facility] LDL [Mass/Vol] [facility] (68548) Cholesterol non 175 (H) [facility] th HDL [Mass/Vol] [facility] (39331) Cholesterol.tota 4.8 (N) [facility] l/Cholesterol in [facility] HDL [Mass ratio] [facility] (44845) GFR/1.73 sq 44 (L) 90 - 120 [facility] M.predicted MDRD mL/min/{1.73_m2} mL/min/{1.73_m2} [facility] (S/P/Bld) [Vol [facility] rate/Area] (14946) Globulin (S) 2.6 (N) [facility] [Mass/Vol] [facility] (58348) metabolic panel on 2018-08-20 Albumin 4.7 g/dL (N) 3.4 - 5.4 g/dL [facility] [Mass/Vol] [facility] (00180) ALP [Catalytic 89 U/L (N) 44 - 147 U/L [facility] activity/Vol] [facility] (72606) ALT [Catalytic 38 U/L (H) 4 - 40 U/L Community ealt activity/Vol] [facility] (63782) AST [Catalytic 29 U/L (N) 10 - 34 U/L [facility] activity/Vol] [facility] (37923) Bilirubin 0.8 mg/dL (N) 0.1 - 1.2 mg/dL [facility] [Mass/Vol] [facility] (76252) Calcium 9.9 mg/dL (N) 8.5 - 10.2 mg/dL [facility] [Mass/Vol] [facility] (68429) Chloride 103 mmol/L (N) 95 - 106 mmol/L [facility] [Moles/Vol] [facility] (57254) CO2 [Moles/Vol] 24 mmol/L (N) 23 - 29 mmol/L [facility] (46132) Creatinine 1.33 mg/dL (H) [facility] [Mass/Vol] [facility] (71050) GFR/1.73 sq M 51 (L) 90 - 120 Community [facility] alth predicted among mL/min/{1.73_m2} mL/min/{1.73_m2} [facility] [place] MDRD [facility] (S/P/Bld) [Vol (72437) rate/Area] Glucose 143 mg/dL (H) 60 - 125 mg/dL [facility] [Mass/Vol] [facility] (53187) Magnesium 2.3 mg/dL (N) 1.7 - 2.2 mg/dL [facility] [Mass/Vol] [facility] (69875) Phosphate 3.8 mg/dL (N) 2.4 - 4.1 mg/dL [facility] [Mass/Vol] [facility] (70707) Potassium 4.4 mmol/L (N) 3.7 - 5.2 mmol/L [facility] [Moles/Vol] [facility] (69523) Protein 7.3 g/dL (N) 6.4 - 8.3 g/dL [facility] [Mass/Vol] [facility] (56522) Sodium 140 mmol/L (N) 135 - 145 mmol/L [facility] [Moles/Vol] [facility] (54772) Urea nitrogen 16 mg/dL (N) 7 - 20 mg/dL [facility] [Mass/Vol] [facility] (57340) Urea 12 mg/mg (N) 6 - 22 mg/mg Community alth nitrogen/Creatin [facility] [Mass ratio] [facility] (97023) cardiac on 2018-08-20 Cholesterol 221 mg/dL (H) 180 - 200 mg/dL [facility] [Mass/Vol] [facility] (79033) Cholesterol in 46 mg/dL (L) [facility] HDL [Mass/Vol] [facility] (11228) Triglyceride 248 mg/dL (H) 0 - 150 mg/dL [facility] [Mass/Vol] [facility] (35155) tsh on 2017-12-20 Thyrotropin Qn 3.15 m[IU]/L (no code) 0.4 - 4 m[IU]/L 12-20-2017 [facility] Health 13:00-0400 [facility] (39964) thyroid on 2017-02-28 Thyrotropin Qn 3.200 (no code) 02-28-2017 Not Availab le 08:26-0400 (01379) cardiac on 2017-02-28 Natriuretic 13.1 pg/mL (no code) 0 - 100 pg/mL 02-28-2017 no in formation peptide B mass 16:06-0400 conc (Bld) thyroid on 2016-11-14 TSH Qn 4.370 (no code) 11-14-2016 Not Available 07:48-0400 (82291) thyroid on 2016-07-13 TSH Qn 2.630 (no code) 07-13-2016 Not Available 09:110500 (60895) other on 2016-05-30 Albumin/Globulin 1.9 {ratio} (no code) 1 - 2.5 {ratio} 7 Not Available [Mass ratio] 09:51-0500 (37252) Globulin (S) 2.4 g/dL (no code) 2 - 3.5 g/dL 05-30-2016 Not Av ailable [Mass/Vol] 09:51-0500 (22901) metabolic panel on 2016-05-30 Albumin 4.6 g/dL (no code) 3.4 - 5.4 g/dL 05-30-2016 Not Beth ilable [Mass/Vol] 09:51-0500 (57267) ALP [Catalytic 78 U/L (no code) 44 - 147 U/L 05-30-2016 Not Available activity/Vol] 09:51-0500 (83822) ALT [Catalytic 24 U/L (no code) 4 - 40 U/L 05-30-2016 Not Av ailable activity/Vol] 09:51-0500 (77920) AST [Catalytic 24 U/L (no code) 10 - 34 U/L 05-30-2016 Not A vailable activity/Vol] 09:51-0500 (00262) Bilirubin 0.7 mg/dL (no code) 0.1 - 1.2 mg/dL 05-30-2016 Not Av ailable [Mass/Vol] 09:510500 (15019) Calcium 9.1 mg/dL (no code) 8.5 - 10.2 mg/dL 05-30-2016 Not A vailable [Mass/Vol] 09:510500 (96054) Chloride 100 mmol/L (no code) 95 - 106 mmol/L 05-30-2016 Not A vailable [Moles/Vol] 09:360500 (04955) CO2 [Moles/Vol] 19 mmol/L (no code) 23 - 29 mmol/L 05-30-2016 N ot Available 09:510500 (11874) Creatinine 1.63 mg/dL (H) 05-30-2016 Not Available [Mass/Vol] 09:510500 (13103) GFR/1.73 sq M 41 (L) 90 - 120 05-30-2016 Not Avai lable predicted among mL/min/{1.73_m2} mL/min/{1.73_m2} 09:510500 (71053) blacks MDRD (S/P/Bld) [Vol rate/Area] GFR/1.73 sq M 35 (L) 90 - 120 05-30-2016 Not Avai lable predicted among mL/min/{1.73_m2} mL/min/{1.73_m2} 09:510500 (01953) non-blacks MDRD (S/P/Bld) [Vol rate/Area] Glucose 116 mg/dL (H) 60 - 125 mg/dL 05-30-2016 Not Beth ilable [Mass/Vol] 09:510500 (68570) Potassium 4.5 mmol/L (no code) 3.7 - 5.2 mmol/L 05-30-2016 Not Available [Moles/Vol] 09:360500 (52285) Protein 7.0 g/dL (no code) 6.4 - 8.3 g/dL 05-30-2016 Not Beth ilable [Mass/Vol] 09:510500 (05010) Sodium 140 mmol/L (no code) 135 - 145 mmol/L 05-30-2016 Not Available [Moles/Vol] 09:36-0500 (32461) Urea nitrogen 18 mg/dL (no code) 7 - 20 mg/dL 05-30-2016 Not A vailable [Mass/Vol] 09:51-0500 (82327) Urea 11 mg/mg (no code) 6 - 22 mg/mg 05-30-2016 Not Avail able nitrogen/Creatin 09:51-0500 (96732) ine [Mass ratio] Vital Signs Vital Sign Value Interpretation Reference Date Time Care Prov ider Facility (Normalized) (Normalized) Range BMI (Body Mass 58.19 kg/m2 (no code) 15 - 25 kg/m2 12-20-2017 [facility] Community Index) 15:00-[address] [place] [address] (51194) BMI (Body Mass 56.83 kg/m2 (no code) 15 - 25 kg/m2 10-18-2017 [facility] Community Index) 14:20-[address] (85629) Body 98.3 [degF] (no code) 97.8 - 99.0 12-20-2017 [facility] Community Temperature [degF] 15:00-[address] [place] [address] (25643) Height 152.4 cm (no code) cm 12-20-2017 [facility] 15:00-[address] [place] [address] (31776) Height 152.4 cm (no code) cm 10-18-2017 [facility] 14:200400 [address] (72820) Weight 135.17 kg (no code) kg 12-20-2017 [facility] mmunity 15:00-[address] [place] [address] (71968) Weight 132 kg (no code) kg 10-18-2017 [facility] 14:20-[address] ([address]136) Interventions No Information Plan of Treatment Normalized Care Care Detail Care Activity Date Care Provider F acility Activity (ACUTE) Acute Visit [facility] 03-05-[address] [facility] [address] [place] [address] (25612) Bacteria identified no information no information [facility] Nom (U) [phone] (Work Phone: [place] [phone] ) (49213) Patient Education no information no information [facility] [address] [address] (Work Phone: [place] [phone] ) (93748) Patient referral no information no information [facility] [address] [address] (Work Phone: [place] [phone] ) (02308) Goals Patient Goal Desired Goal no information no information Social History Normalized Code Original Code Date Value no information no information 11-05-2019 Denies Use no information no information 11-05-2019 No Sex Assigned At Sex Assigned At no information F emale Functional Status The data below is from unstructured sourcesNo functional status results.No functional status results.No functional status results.No Functional Status information availableNo Functional Status information available Mental Status The data below is from unstructured sourcesNo Mental Status Information Available Encounters Encounter Normalized Encounter Encounter Diagnosis Care Provi efrain Organization Date Type 03-05-2018 (ACUTE) Acute Visit Pain in right shoulder TR ISTA RODOLFO (no phone) [facility] (no phone) 12-23-2017 [facility] Hypothyroidism, ROB RODOLFO ( no phone) [facility] unspecified (no phone) 11-05-2019 Emergency department no information (no phone) [facility] patient visit Hospital (no phone) 11-06-2019 03-31-2018 Patient encounter no information no name no or ganization name 03-22-2018 Patient encounter no information no name no or ganization name 03-05-2018 Patient encounter no information no name no or ganization name 12-20-2017 Patient encounter no information no name no or ganization name 10-28-2017 Patient encounter no information no name no or ganization name 10-18-2017 Patient encounter no information no name no or ganization name 09-11-2017 Patient encounter no information no name no or ganization name 08-28-2017 Patient encounter no information no name no or ganization name 06-25-2017 Patient encounter no information no name no or ganization name 06-20-2017 Patient encounter no information no name no or ganization name - 06-20-2017 06-19-2017 Patient encounter no information no name no or ganization name 06-04-2017 Patient encounter no information no name no or ganization name 03-12-2017 Patient encounter no information no name no or ganization name 12-20-2016 Patient encounter no information no name no or ganization name 06-18-2016 Patient encounter no information no name no or ganization name 02-01-2016 Patient encounter no information no name no or ganization name 10-13-2015 Patient encounter no information no name no or ganization name 10-13-2015 Patient encounter no information no name no or ganization name 07-18-2015 Patient encounter no information no name no or ganization name 04-21-2015 Patient encounter no information no name no or ganization name 04-20-2015 Patient encounter no information no name no or ganization name 03-01-2015 Patient encounter no information no name no or ganization name 09-23-2019 Patient encounter no information [facility] Marquita RODOLFO (no Community Health procedure phone) [facility] (no phone) 06-02-2019 Patient encounter no information no name no or ganization name procedure 04-21-2019 Patient encounter no information no name no or ganization name procedure 02-17-2019 Patient encounter no information no name no or ganization name procedure 02-17-2019 Patient encounter no information no name no or ganization name procedure 02-10-2019 Patient encounter no information no name no or ganization name procedure 01-27-2019 Patient encounter no information no name no or ganization name procedure 01-16-2019 Patient encounter no information no name no or ganization name procedure 11-12-2018 Patient encounter no information no name no or ganization name procedure 11-03-2018 Patient encounter no information no name no or ganization name procedure 11-03-2018 Patient encounter no information no name no or ganization name procedure 10-28-2018 Patient encounter no information no name no or ganization name procedure 10-28-2018 Patient encounter no information no name no or ganization name procedure 10-28-2018 Patient encounter no information no name no or ganization name procedure 08-26-2018 Patient encounter no information no name no or ganization name procedure 08-20-2018 Patient encounter no information no name no or ganization name procedure 07-18-2018 Patient encounter no information no name no or ganization name procedure 07-02-2018 Patient encounter no information no name no or ganization name procedure 05-29-2018 Patient encounter no information no name no or ganization name procedure 03-20-2018 Telephone encounter no information ROB RODOLFO (no phone) [facility] (no phone) 03-12-2018 Telephone encounter Primary ROB RODOLFO (no trini ne) [facility] osteoarthritis, right (no phone) shoulder 02-17-2018 Telephone encounter no information ROB RODOLFO (no phone) [facility] (no phone) no information Encounter for other no name no organiz ation name preprocedural examination Medical Equipment The data below is from unstructured sourcesNo Medical Equipment Information available Payers Normalized Payer Value Unknown no information ([id number]) Evaluation note Note Type Note Facility Evaluation No Assessments Information Available A scension note Via [facility] ([id number]) Summary Purpose eClinicalWorks SubmissioneClinicalWorks SubmissioneClinicalWorks SubmissioneClinicalWorks SubmissioneClinicalWorks SubmissioneClinicalWorks SubmissioneClinicalWorks SubmissioneClinicalWorks SubmissioneClinicalWorks SubmissioneClinicalWorks SubmissioneClinicalWorks SubmissioneClinicalWorks SubmissioneClinicalWorks SubmissioneClinicalWorks SubmissioneClinicalWorks SubmissioneClinicalWorks SubmissioneClinicalWorks SubmissioneClinicalWorks SubmissioneClinicalWorks SubmissioneClinicalWorks SubmissioneClinicalWorks SubmissioneClinicalWorks Submission Discharge Instructions No hospital discharge instructions. Advance Directives Advance Directive Response Recorded Date/Time Advance Directives No Ju 2019 7:50pm Health Care Power of [place] No November 05, 2019 7:50pm Resuscitation Status Full Code November 05, 2019 7:50pm Chief Complaint and Reason for Visit Chief Complaint Trauma-Non Activatio n Reason for Visit [id number] Additional Source Comments This clinical document has been generated using [employer] software that has been certified by the Office of the National Coordinator for Health Information Technology (ONC 15.99.04.3023.Diam.31.00.0.838300) and the National Committee for Cow [employer]er (NCQA, as an eMeasure certified technology). FOR RECORDS PERTAINING TO PATIENTS WHO ARE OR HAVE BEEN ENROLLED IN A CHEMICAL D EPENDENCY/SUBSTANCE ABUSE PROGRAM, SOME INFORMATION MAY BE OMITTED. This clinica l summary was aggregated from multiple sources. Caution should be exercised in using it in the provision of clinical care. This summary normalizes information from multiple sources, and as a consequence, information in this document may ma terially change the coding, format and clinical context of patient data. In jacki tion, data may be omitted in some cases. CLINICAL DECISIONS SHOULD BE BASED ON T HE PRIMARY CLINICAL RECORDS. [employer] provides no warranty or guara ntee of the accuracy or completeness of information in this document.The followi information is based on time limited clinical information UNRECOGNIZED CONTENT PROVIDED BELOW FOR UNRECOGNIZED SECTION MEDICAL (GENERAL) HISTORY Type Description Date Medical History Arthritis Medical History chronic obstructive pulmonary disease (COPD) Medical History depression Medical History cardiomegaly 2002 & Has Seen Dr. Dave Medical History Cervicalgia Medical History Anxiety and depression Medical History Hypothyroidism Medical History Carotid artery plaque Medical History Hypothyroidism, unspecifie d Medical History Elevated serum creatinine Medical History NO IV CONTRAST CKD P ER NEPHROLOGY Surgical History cholecystectomy 1988 Surgical History orthopedic surgery, right knee 2002 Surgical History section 1979 Surgical History tubal ligation 1979 Hospitalization History Pneumonia as a kid Type Description Date Medical History Arthritis Medical History chronic obstructive pulmonary disease (COPD) Medical History depression Medical History cardiomegaly 2002 & Has Seen Dr. Dave Medical History Cervicalgia Medical History Anxiety and depression Medical History Hypothyroidism Medical History Carotid artery plaque Medical History Elevated serum creatinine Medical History NO IV CONTRAST CKD P ER NEPHROLOGY Medical History Carpal Tunnel Bilaterally Medical History consult colonoscopy w [place] 06/19/17, did not go to procedure; pt reports she will reschedule 08/28/17 Surgical History cholecystectomy 1988 Surgical History orthopedic surgery, right knee 2002 Surgical History section 1979 Surgical History tubal ligation 1979 Hospitalization History Pneumonia as a kid Type Description Date Medical History Arthritis Medical History chronic obstructive pulmonary disease (COPD) Medical History depression Medical History cardiomegaly 2002 & Has Seen Dr. Dave Medical History Cervicalgia Medical History Anxiety and depression Medical History Hypothyroidism Medical History Carotid artery plaque Medical History Elevated serum creatinine Medical History NO IV CONTRAST CKD P ER NEPHROLOGY Medical History Carpal Tunnel Bilaterally Medical History consult colonoscopy w [place] 06/19/17, did not go to procedure; pt reports she will reschedule 08/28/17 Medical History Cataract Surgical History cholecystectomy 1988 Surgical History orthopedic surgery, right knee 2002 Surgical History section 1979 Surgical History tubal ligation 1979 Hospitalization History Pneumonia as a kid UNRECOGNIZED CONTENT PROVIDED BELOW FOR UNRECOGNIZED SECTION REASON FOR VISIT Eye examEstablish Care-tcuppettRN, Needing refills on medicationsrefill rxReques ts return callReturned callMRI order
--- OUTSIDE RECORDS SUMMARY | 2019-11-05 22:16 | XMS REPORT ---
Author Author Irasema REYNOLDS Organization [facility] Address [address] [place] [address] Care Team Providers Care Manager Division Name Role Phone HEDY REYNOLDSTA Unavailable PROBLEMS Type Condition ICD9-CM Code IOE95-SN Code Onset Dates Condition S tatus SNOMED Code Problem Carpal tunnel syndrome, right G56.01 Active 128624707191149 Problem Primary osteoarthritis of right shoulder M19.011 Active 36223435 Problem Cardiomegaly I51.7 Active 1060064 Problem OFELIA (obstructive sleep apnea) G47.33 Active 22517356 Problem COPD with acute exacerbation J44.1 A ctive 489922074 Problem Neck pain M54.2 Active 44205241 Problem Epigastric pain R10.13 Active 7992 2009 Problem Essential hypertension I10 Active 10086167 Problem Arthritis M19.90 Active 2897303 Problem Abnormal serum creatinine level R79.9 Active 669690970 Problem Chronic fatigue R53.82 Active 5270 2003 Problem Right hand paresthesia R20.2 Active 023647244 Problem Stasis dermatitis of both legs I87.2 Active 23042181 Problem Hypertension I10 Active 7761030 3 Problem Depression F32.9 Active 33350797 Problem Hypothyroid E03.9 Active 03273427 Problem Gastroesophageal reflux disease without esophagitis K21.9 Active 112871477 Problem CKD (chronic kidney disease) stage 3, GFR 30-59 ml/min N18.3 Active 685073543 Problem Nocturnal enuresis N39.44 Active 8 903471 Problem Vitamin D deficiency E55.9 Active 51013012 Problem Posttraumatic stress disorder F43.10 Active 06745393 Problem Sleep apnea G47.30 Active 36530596 Problem Low back pain M54.5 Active 147065 004 Problem Pain in right shoulder M25.511 Active 40276548 Problem Swelling of ankle M25.473 Active 26 0047921 Problem Cervical spine arthritis M46.92 Activ e 539107415 Problem Arthritis, lumbar spine M47.9 Active 929200617 Problem Chronic pain G89.29 Active 4285309 1 ALLERGIES No Information ENCOUNTERS Encounter Location Date Diagnosis [place] [address] [address] Mar, [place] [address] [place] [id number] [place] [phone] Feb, Primary osteoarthritis of ri ght shoulder M19.011 [place] [address] [place] [id number] [place] [id number] 17 Feb, 2018 Pain in right shoulder M25.5 11 and BMI 50.0-59.9, adult Z68.43 [place] [address] [address] Feb, [place] [address] [address] Dec, Hypothyroid E03.9 [place] [address] [address] Dec, [place] [address] [address] Dec, Hypothyroid E03.9 ; CKD (chr onic kidney disease) stage 3, GFR 30-59 ml/min N18.3 ; Chronic pain G89.29 ; Depression F32.9 and BMI 50.0-59.9, adult Z68.43 [place] [address] [address] Oct, [place] [address] [address] Oct, [place] [address] [address] Oct, BMI 50.0-59.9, adult Z68.43 ; OFELIA (obstructive sleep apnea) G47.33 ; Depression F32.9 and Hypertension I10 [place] [address] [address] September, [place] [address] [place] [id number] [place] [phone] September, [place] [address] [address] September, Chronic pain G89.29 [place] [id number] [place] [phone] Aug, Hypothyroid E03.9 ; Chronic pain G89.29 ; BMI 50.0-59.9, adult Z68.43 ; COPD with acute exacerbation J44.1 ; CKD (chronic kidney disease) stage 3, GFR 30-59 ml/min N18.3 ; Depression F32.9 ; Gastroesophageal reflux disease without esophagitis K21.9 ; Left hip pain M25.552 ; Swelling of both lower extremities M79.89 and Stasis dermatitis of both legs I87.2 [place] [id number] [place] [id number] 05 Jul, 2017 Chronic pain G89.29 [place] [address] [place] [id number] [place] [phone] May, Chronic pain G89.29 [place] [address] [place] [id number] [place] [id number] 16 May, 2017 [place] [address] [place] [id number] [place] [phone] May, Hypothyroid E03.9 ; Chronic pain G89.29 ; BMI 50.0-59.9, adult Z68.43 ; COPD with acute exacerbation J44.1 ; CKD (chronic kidney disease) stage 3, GFR 30-59 ml/min N18.3 ; Depression F32.9 ; Gastroesophageal reflux disease without esophagitis K21.9 ; Left hip pain M25.552 ; Swelling of both lower extremities M79.89 ; Stasis dermatitis of both legs I87.2 ; Screening breast examination Z12.31 and Encounter for screening colonoscopy Z12.11 [place] [id number] [place] [phone] May, Depression [address]32[address]9 [facility] [address] [id number] [address] [place] [phone] May, Chronic pain G89.29 [facility] [address] [id number] [address] [place] [phone] Apr, Chronic pain G89.29 and COPD with acute exacerbation J44.1 [facility] [address] [facility] [id number] [address] [place] [phone] Mar, [facility] [address] [facility] [id number] [address] [place] [phone] Mar, Chronic pain G89.29 [facility] [address] [facility] [id number] [address] [place] [phone] Mar, [facility] [address] [facility] [id number] [address] [place] [phone] Feb, Hypothyroid E03.9 ; Chronic pain G89.29 ; COPD with acute exacerbation J44.1 ; CKD (chronic kidney disease) stage 3, GFR 30-59 ml/min N18.3 ; Depression F32.9 ; Gastroesophageal reflux disease without esophagitis K21.9 ; Right hand paresthesia R20.2 ; Left hip pain M25.552 ; Swelling of both lower extremities M79.89 and Stasis dermatitis of both legs I87.2 [facility] [address] [facility] [id number] [address] [place] [id number] Jan, Depression F32.9 [facility] [address] [id number] [address] [place] [id number] Jan, Chronic pain G89.29 [facility] [address] [facility] [id number] [address] [place] [phone] Dec, Chronic pain G89.29 [facility] [address] [facility] [id number] [address] [place] [phone] Nov, [facility] [address] [facility] [id number] [address] [place] [phone] Nov, [facility] [address] [facility] [id number] [address] [place] [phone] Oct, Skin tag L91.8 ; Hypothyroid E03.9 ; Chronic pain G89.29 ; COPD with acute exacerbation J44.1 and CKD (chronic kidney disease) stage 3, GFR 30- 59 ml/min N18.3 [facility] [address] [facility] [id number] [address] [place] [phone] September, [facility] [address] [id number] [address] [place] [phone] September, [facility] [address] [facility] [id number] [address] [place] [phone] Jul, [facility] [address] [facility] [id number] [address] [place] [phone] Jul, [facility] [address] [facility] [id number] [address] [place] [phone] Jul, [facility] [address] [facility] [id number] [address] [place] [id number] Jul, Hypothyroid E03.9 [facility] [address] [facility] [id number] [address] [place] [phone] Jun, Hypothyroid E03.9 ; Chronic pain G89.29 ; CKD (chronic kidney disease) stage 3, GFR 30-59 ml/min N18.3 ; Arthritis M19.90 ; Hypertension I10 ; Depression F32.9 ; Gastroesophageal reflux disease without esophagitis K21.[address] [facility] [address] [facility] [id number] [address] [place] [phone] Jun, [facility] [address] [facility] [id number] [address] [place] [phone] Jun, Chronic pain G89.29 [facility] [address] [facility] [id number] [address] [place] [phone] May, Hypothyroid E03.9 ; Chronic pain G89.29 ; CKD (chronic kidney disease) stage 3, GFR 30-59 ml/min N18.3 ; Arthritis M19.90 ; Hypertension I10 and Depression F32.9 [place] [address] [facility] [id number] [address] [place] [phone] May, [place] [address] [place] [id number] [address] [place] [phone] Mar, Hypothyroid E03.9 [place] [address] [place] [id number] [address] [place] [phone] Mar, [place] [address] [place] [id number] [place] [phone] Mar, Chronic pain G89.29 ; CKD (c hronic kidney disease) stage 3, GFR 30- 59 ml/min N18.3 ; Hypothyroid E03.9 ; Arthritis M19.90 ; Vitamin D deficiency E55.9 ; Hypertension I10 ; Depression F32.9 and Nocturnal enuresis N39.44 [place] [address] [place] [id number] [place] [phone] Mar, [place] [address] [place] [id number] [place] [phone] Jan, Chronic pain G89.29 ; Arthri tis M19.90 ; Hypothyroid E03.9 ; Chronic fatigue R53.82 ; Depression F32.9 ; CKD (chronic kidney disease) stage 3, GFR 30-59 ml/min N18.3 ; Gastroesophageal reflux disease without esophagitis K21.9 and Numbness of right foot R20.0 [place] [address] [place] [id number] [address] [place] [id number] Nov, [place] [address] [place] [id number] [place] [phone] Nov, Chronic pain G89.29 ; Arthri tis M19.90 ; Abnormal serum creatinine level R79.9 ; Hypothyroid E03.9 and Chronic fatigue R53.82 [place] [address] [address] September, Chronic pain G89.29 ; Arthri tis M19.90 ; Epigastric pain R10.13 and COPD with acute exacerbation J44.1 [place] [address] [address] Aug, COPD with acute lower respir atory infection J44.0 ; Joint pain M25.50 and Chronic pain G89.29 [place] [address] [address] Aug, COPD with acute lower respir atory infection J44.0 [place] [address] [address] Aug, [place] [address] [address] Jul, Cervical spine arthritis M46 .92 ; Hypothyroid E03.9 ; Arthritis, lumbar spine M47.9 ; Sleep apnea G47.30 ; Chronic pain G89.29 and Swelling of ankle M25.473 [place] [address] [address] Jul, [place] [address] [address] Jun, [place] [address] [address] Jun, [place] [address] [address] Jun, Hypothyroid E03.9 ; OFELIA (obs tructive sleep apnea) G47.33 ; Pain in right shoulder M25.511 ; Neck pain M54.2 ; Low back pain M54.5 ; Depression F32.9 ; Hypertension I10 and Essential hypertension I10 [place] [address] [address] Jun, Posttraumatic stress disorde r F43.10 and Depression F32.[id number] [place] [phone] 10 Jun, 2015 Sleep apnea in adult G47.33 [facility] [address] [facility] [id number] [address] [place] [phone] [address], [address] [facility] [address] [facility] [id number] [address] [place] [phone] 03 Jun, 2015 Hypothyroidism, unspecified E03.9 ; Chronic obstructive pulmonary disease J44.9 ; Essential hypertension I10 and Morbid obesity E66.01 [place] [address] [facility] [id number] [address] [place] [phone] May, [place] [address] [facility] [id number] [address] [place] [phone] 22 Apr, 2015 COPD (chronic obstructive pu lmonary disease) J44.9 [place] [address] [place] [id number] [address] [place] [id number] 17 Apr, 2015 Shortness of breath R06.02 [place] [address] [facility] [id number] [address] [place] [phone] Apr, Chest discomfort R07.89 ; Ex ertional dyspnea R06.09 ; Morbid obesity E66.01 ; Bradycardia R00.1 and Hypothyroidism, unspecified E03.9 [place] [address] [facility] [id number] [address] [place] [phone] 18 Mar, 2015 Cardiomegaly I51.7 [place] [address] [facility] [id number] [address] [place] [phone] 18 Mar, 2015 [place] [address] [facility] [id number] [address] [place] [id number] 12 Mar, 2015 Hypothyroidism, unspecified E03.9 [place] [address] [facility] [id number] [address] [place] [phone] Mar, [place] [address] [facility] [id number] [address] [place] [phone] Mar, Shortness of breath R06.02 ; Midline low back pain without sciatica M54.5 and Hypothyroidism, unspecified E03.9 [place] [address] [address] Mar, Chest discomfort R07.89 ; Sh ortness of breath R06.02 ; Morbid obesity E66.01 and Bradycardia R00.1 [place] [address] [address] Mar, Shortness of breath R06.02 ; Hypothyroidism, unspecified E03.9 and Elevated serum creatinine R79.89 [place] [address] [address] Feb, Hypothyroidism, unspecified E03.9 and Hypothyroidism 244.9 [place] [address] [address] Feb, Midline low back pain withou t sciatica M54.5 [place] [address] [address] Jan, [place] [address] [address] Jan, Hypothyroidism 244.9 ; Anxie ty and depression 300.4 ; Carotid artery plaque 433.10 and Elevated serum creatinine 790.99 [place] [address] [address] Dec, [place] [address] [address] Dec, [place] [address] [address] Dec, [place] [address] [address] Dec, [place] [address] [address] Dec, Cardiomegaly 429.3 ; COPD (c hronic obstructive pulmonary disease) 496 ; Cervicalgia 723.1 and Anxiety and depression 300.4 IMMUNIZATIONS No Known Immunizations SOCIAL HISTORY Never Assessed REASON FOR VISIT MRI order PLAN OF CARE VITAL SIGNS MEDICATIONS Unknown Medications RESULTS No Results PROCEDURES No Known procedures INSTRUCTIONS MEDICATIONS ADMINISTERED No Known Medications MEDICAL (GENERAL) HISTORY Type Description Date Medical History Arthritis Medical History chronic obstructive pulmonary disease (C OPD) Medical History depression Medical History cardiomegaly 2002 & Has Seen Dr. Dave Medical History Cervicalgia Medical History Anxiety and depression Medical History Hypothyroidism Medical History Carotid artery plaque Medical History Elevated serum creatinine Medical History NO IV CONTRAST CKD PER NEPHROLOGY Medical History Carpal Tunnel Bilaterally Medical History consult colonoscopy w [place] 06/19/17, did not go to procedure; pt reports she will reschedule 08/28/17 Medical History Cataract Surgical History cholecystectomy 1988 Surgical History orthopedic surgery, right knee 2002 Surgical History section 1979 Surgical History tubal ligation 1979 Hospitalization History Pneumonia as a kid
--- OUTSIDE RECORDS SUMMARY | 2019-11-05 22:16 | XMS REPORT ---
Author Author Irasema REYNOLDS Organization [facility] Address [address] [place] [address] Care Team Providers Care Photolithographic Stripper Name Role Phone HEDY REYNOLDSTA Unavailable PROBLEMS Type Condition ICD9-CM Code [id number] Code Onset Dates Condition S tatus SNOMED Code Problem Carpal tunnel syndrome, right G56.01 Active [id number] Problem Primary osteoarthritis of right shoulder M19.011 Active 70097745 Problem Cardiomegaly I51.7 Active 8545432 Problem OFELIA (obstructive sleep apnea) G47.33 Active 99557555 Problem COPD with acute exacerbation J44.1 A ctive 813907822 Problem Neck pain M54.2 Active 38531442 Problem Epigastric pain R10.13 Active 7992 2009 Problem Essential hypertension I10 Active 76905898 Problem Arthritis M19.90 Active 4972031 Problem Abnormal serum creatinine level R79.9 Active 154524762 Problem Chronic fatigue R53.82 Active 5270 2003 Problem Right hand paresthesia R20.2 Active 427393817 Problem Stasis dermatitis of both legs I87.2 Active 19016719 Problem Hypertension I10 Active 5346425 3 Problem Depression F32.9 Active 68301251 Problem Hypothyroid E03.9 Active 86249550 Problem Gastroesophageal reflux disease without esophagitis K21.9 Active 122712386 Problem CKD (chronic kidney disease) stage 3, GFR 30-59 ml/min N18.3 Active 395585573 Problem Nocturnal enuresis N39.44 Active 8 339333 Problem Vitamin D deficiency E55.9 Active 50853623 Problem Posttraumatic stress disorder F43.10 Active 19141751 Problem Sleep apnea G47.30 Active 50332918 Problem Low back pain M54.5 Active 930436 004 Problem Pain in right shoulder M25.511 Active 07435251 Problem Swelling of ankle M25.473 Active 26 4517392 Problem Cervical spine arthritis M46.92 Activ e 024528868 Problem Arthritis, lumbar spine M47.9 Active 254229409 Problem Chronic pain G89.29 Active 3246217 1 ALLERGIES No Information ENCOUNTERS Encounter Location Date Diagnosis [facility] [address] [address] 24 Feb, 2018 Primary osteoarthritis of ri ght shoulder M19.011 [facility] [address] [place] [id number] [place] [phone] 17 Feb, 2018 Pain in right shoulder M25.5 11 and BMI 50.0-59.9, adult Z68.43 [place] [address] [place] [id number] [place] [address] Feb, [place] [address] [address] Dec, Hypothyroid E03.9 [place] [address] [address] Dec, [place] [address] [place] [id number] [place] [address] Dec, Hypothyroid E03.9 ; CKD ([facility] on kidney disease) stage 3, GFR 30-59 ml/min N18.3 ; Chronic pain G89.29 ; Depression F32.9 and BMI 50.0-59.9, adult Z68.43 [place] [address] [address] Oct, [place] [address] [address] Oct, [place] [address] [address] Oct, BMI 50.0-59.9, adult Z68.43 ; OFELIA (obstructive sleep apnea) G47.33 ; Depression F32.9 and Hypertension I10 [place] [address] [place] [id number] [place] [address] September, [facility] [id number] [place] [address] September, [place] [address] [address] September, Chronic pain G89.29 [place] [address] [address] 11 Aug, 2017 Hypothyroid E03.9 ; Chronic pain G89.29 ; BMI 50.0-59.9, adult Z68.43 ; COPD with acute exacerbation J44.1 ; CKD (chronic kidney disease) stage 3, GFR 30-59 ml/min N18.3 ; Depression F32.9 ; Gastroesophageal reflux disease without esophagitis K21.9 ; Left hip pain M25.552 ; Swelling of both lower extremities M79.89 and Stasis dermatitis of both legs I87.2 [place] [address] [place] [id number] [place] [address] 05 Jul, 2017 Chronic pain G89.29 [place] [address] [address] May, Chronic pain G89.29 [place] [address] [address] May, [place] [address] [address] 16 May, 2017 Hypothyroid E03.9 ; Chronic pain G89.29 ; [...] Z12.31 and Encounter for screening colonoscopy Z12.11 [place] [address] [place] [id number] [place] [address] 16 May, 2017 Depression F32.9 [place] [address] [place] [address] May, Chronic pain G89.29 [facility] [address] [facility] [id number] [address] [place] [address] Apr, Chronic pain G89.29 and COPD with acute exacerbation J44.1 [facility] [address] [facility] [id number] [address] [place] [address] Mar, [facility] [address] [facility] [id number] [address] [place] [address] Mar, Chronic pain G89.29 [facility] [address] [facility] [id number] [address] [place] [address] Mar, [facility] [address] [place] [id number] [place] [address] Feb, Hypothyroid E03.9 ; Chronic pain G89.29 ; COPD with acute exacerbation J44.1 ; CKD (chronic kidney disease) stage 3, GFR 30-59 ml/min N18.3 ; Depression F32.9 ; Gastroesophageal reflux disease without esophagitis K21.9 ; Right hand paresthesia R20.2 ; Left hip pain M25.552 ; Swelling of both lower extremities M79.89 and Stasis dermatitis of both legs I87.2 [facility] [address] [place] [id number] [place] [address] 08 Jan, 2017 Depression F32.9 [facility] [address] [place] [id number] [place] [address] 08 Jan, 2017 Chronic pain G89.29 [facility] [address] [facility] [id number] [address] [place] [address] Dec, Chronic pain G89.29 [facility] [address] [facility] [id number] [address] [place] [address] Nov, [facility] [address] [place] [id number] [place] [address] Nov, [facility] [address] [place] [id number] [place] [address] Oct, Skin tag L91.8 ; Hypothyroid E03.9 ; Chronic pain G89.29 ; COPD with acute exacerbation J44.1 and CKD (chronic kidney disease) stage 3, GFR 30- 59 ml/min N18.3 [facility] [address] [id number] [address] [place] [address] September, [facility] [address] [facility] [id number] [address] [place] [address] September, [facility] [address] [id number] [address] [place] [address] Jul, [facility] [address] [facility] [id number] [address] [place] [address] Jul, [facility] [address] [facility] [id number] [address] [place] [address] Jul, [facility] [address] [facility] [id number] [address] [place] [address] Jul, Hypothyroid E03.9 [facility] [address] [facility] [id number] [address] [place] [address] Jun, Hypothyroid E03.9 ; Chronic pain G89.29 ; CKD (chronic kidney disease) stage 3, GFR 30-59 ml/min N18.3 ; Arthritis M19.90 ; Hypertension I10 ; Depression F32.9 ; Gastroesophageal reflux disease without esophagitis K21.9 and Bronchitis J40 [facility] [address] [facility] [id number] [address] [place] [address] Jun, [facility] [address] [facility] [id number] [address] [place] [address] Jun, Chronic pain G89.29 [facility] [address] [facility] [id number] [address] [place] [address] May, Hypothyroid E03.9 ; Chronic pain G89.29 ; CKD (chronic kidney disease) stage 3, GFR 30-59 ml/min N18.3 ; Arthritis M19.90 ; Hypertension I10 and Depression F32.9 [place] [address] [place] [id number] [place] [address] May, [place] [address] [place] [id number] [place] [address] Mar, Hypothyroid E03.9 [place] [address] [place] [id number] [place] [address] Mar, [place] [address] [place] [id number] [place] [address] Mar, Chronic pain G89.29 ; CKD (c hronic kidney disease) stage 3, GFR 30- 59 ml/min N18.3 ; Hypothyroid E03.9 ; Arthritis M19.90 ; Vitamin D deficiency E55.9 ; Hypertension I10 ; Depression F32.9 and Nocturnal enuresis N39.44 [place] [address] [address] Mar, [place] [address] [place] [id number] [place] [address] Jan, Chronic pain G89.29 ; Arthri tis M19.90 ; Hypothyroid E03.9 ; Chronic fatigue R53.82 ; Depression F32.9 ; CKD (chronic kidney disease) stage 3, GFR 30-59 ml/min N18.3 ; Gastroesophageal reflux disease without esophagitis K21.9 and Numbness of right foot R20.0 [place] [address] [place] [id number] [place] [address] Nov, [place] [address] [place] [id number] [place] [address] Nov, Chronic pain G89.29 ; Arthri tis M19.90 ; Abnormal serum creatinine level R79.9 ; Hypothyroid E03.9 and Chronic fatigue R53.82 [place] [address] [place] [id number] [place] [address] September, Chronic pain G89.29 ; Arthri tis M19.90 ; Epigastric pain R10.13 and COPD with acute exacerbation J44.1 [place] [address] [place] [id number] [place] [address] Aug, COPD with acute lower respir atory infection J44.0 ; Joint pain M25.50 and Chronic pain G89.29 [place] [address] [place] [id number] [place] [phone] Aug, COPD with acute lower respir atory infection J44.0 [place] [address] [place] [id number] [place] [phone] Aug, [place] [address] [address] Jul, Cervical spine arthritis M46 .92 ; Hypothyroid E03.9 ; Arthritis, lumbar spine M47.9 ; Sleep apnea G47.30 ; Chronic pain G89.29 and Swelling of ankle M25.473 [place] [address] [place] [id number] [place] [address] Jul, [place] [address] [place] [id number] [place] [address] Jun, [place] [address] [address] Jun, [place] [address] [place] [id number] [place] [address] Jun, Hypothyroid E03.9 ; OFELIA (obs tructive sleep apnea) G47.33 ; Pain in right shoulder M25.511 ; Neck pain M54.2 ; Low back pain M54.5 ; Depression F32.9 ; Hypertension I10 and Essential hypertension I10 [place] [address] [place] [id number] [place] [phone] Jun, Posttraumatic stress disorde r F43.10 and Depression F32.9 [facility] [id number] [place] [address] 10 Feb, 2016 Sleep apnea in adult G47.33 [place] [address] [address] 08 Jun, 2015 [place] [address] [address] 03 Jun, 2015 Hypothyroidism, unspecified E03.9 ; Chronic obstructive pulmonary disease J44.9 ; Essential hypertension I10 and Morbid obesity E66.01 [place] [address] [address] May, [place] [address] [address] Apr, COPD (chronic obstructive pu lmonary disease) J44.9 [place] [address] [address] 17 Apr, 2015 Shortness of breath R06.02 [place] [address] [address] Apr, Chest discomfort R07.89 ; Ex ertional dyspnea R06.09 ; Morbid obesity E66.01 ; Bradycardia R00.1 and Hypothyroidism, unspecified E03.9 [place] [address] [address] Mar, Cardiomegaly I51.7 [place] [address] [address] Mar, [place] [address] [address] Mar, Hypothyroidism, unspecified E03.9 [place] [address] [address] Mar, [place] [address] [address] Mar, Shortness of breath R06.02 ; Midline low back pain without sciatica M54.5 and Hypothyroidism, unspecified E03.9 [place] [address] [address] Mar, Chest discomfort R07.89 ; Sh ortness of breath R06.02 ; Morbid obesity E66.01 and Bradycardia R00.1 [place] [address] [address] Mar, Shortness of breath R06.02 ; Hypothyroidism, unspecified E03.9 and Elevated serum creatinine R79.89 [place] [address] [address] Feb, Hypothyroidism, unspecified E03.9 and Hypothyroidism 244.[address] [address] Feb, Midline low back pain withou t sciatica M54.[address] [address] Jan, [place] [address] [address] Jan, Hypothyroidism 244.9 ; Anxie ty and depression 300.4 ; Carotid artery plaque 433.10 and Elevated serum creatinine 790.99 [place] [address] [address] Dec, [place] [address] [address] Dec, [place] [address] [address] Dec, [place] [address] [address] Dec, [place] [address] [address] Dec, Cardiomegaly 429.3 ; COPD (c hronic obstructive pulmonary disease) 496 ; Cervicalgia 723.1 and Anxiety and depression 300.4 IMMUNIZATIONS No Known Immunizations SOCIAL HISTORY Never Assessed REASON FOR VISIT Returned call PLAN OF CARE VITAL SIGNS MEDICATIONS Unknown [...]
--- OUTSIDE RECORDS SUMMARY | 2019-11-05 22:17 | XMS REPORT ---
Author Irasema Cool Organization [employer] Address Unknown Phone Unavailable Care Team Providers Care Breaker Up Name Role Phone CAROL WHITLOCK CP Unavailable Allergies No Known Allergies Problems Problem Type Condition ICD-9 Code Onset Dates Condition Statu s Problem Carotid artery plaque 433.10 Active Problem Cardiomegaly 429.3 Active Problem Hypothyroidism 244.9 Active Problem Anxiety and depression 300.4 Activ e Problem COPD (chronic obstructive pulmonary disease) 496 Active Problem Cervicalgia 723.1 Active Medications No Known Medications Results No Known Results Summary Purpose [employer] Submission
--- OUTSIDE RECORDS SUMMARY | 2019-11-05 22:17 | XMS REPORT ---
Author Irasema Porter Organization [employer] Address Unknown Phone Unavailable Care Team Providers Care Linux Systems Engineer Name Role Phone POLY STOKES CP Unavailable Allergies No Known Allergies Problems Problem Type Condition Code Onset Dates Condition Statu s Problem Neck pain M54.2 Active Problem OFELIA (obstructive sleep apnea) G47.33 Active Problem Pain in right shoulder M25.511 Activ e Problem Arthritis, lumbar spine M47.9 Acti ve Problem Sleep apnea G47.30 Active Problem Cervical spine arthritis M46.92 Act sahara Problem Posttraumatic stress disorder F43.10 Active Problem Hypothyroid E03.9 Active Problem Chronic pain G89.29 Active Problem Swelling of ankle M25.473 Active Problem Essential hypertension I10 Activ e Problem Hypertension I10 Active Problem Depression F32.9 Active Problem Cardiomegaly I51.7 Active Problem Low back pain M54.5 Active Medications No Known Medications Results No Known Results Summary Purpose [employer] Submission
--- OUTSIDE RECORDS SUMMARY | 2019-11-05 22:17 | XMS REPORT ---
Author Irasema Porter Organization [employer] Address Unknown Phone Unavailable Care Team Providers Care Technical Associate Name Role Phone POLY STOKES CP Unavailable Allergies No Known Allergies Problems Problem Type Condition Code Onset Dates Condition Statu s Problem Swelling of ankle M25.473 Active Problem Sleep apnea G47.30 Active Problem Chronic pain G89.29 Active Problem Chronic fatigue R53.82 Active Problem Arthritis M19.90 Active Problem Abnormal serum creatinine level R79.9 Active Problem Cervical spine arthritis M46.92 Act sahara Problem Arthritis, lumbar spine M47.9 Acti ve Problem Epigastric pain R10.13 Active Problem COPD with acute exacerbation J44.1 Active Problem Hypertension I10 Active Problem Depression F32.9 Active Problem Cardiomegaly I51.7 Active Problem Essential hypertension I10 Activ e Problem Pain in right shoulder M25.511 Activ e Problem OFELIA (obstructive sleep apnea) G47.33 Active Problem Low back pain M54.5 Active Problem Hypothyroid E03.9 Active Problem Neck pain M54.2 Active Problem Posttraumatic stress disorder F43.10 Active Medications No Known Medications Results No Known Results Summary Purpose [employer] Submission
--- OUTSIDE RECORDS SUMMARY | 2019-11-05 22:17 | XMS REPORT ---
Author Irasema Allen [facility] [employer] Address Unknown Phone Unavailable Care Team Providers Care Cupola Patcher Helper Name Role Phone HONEY MENDES CP Unavailable Allergies, Adverse Reactions, Alerts Substance Reaction Event Type N.K.D.A. Info Not Available Non Drug Allergy Problems Problem Type Condition Code Onset Dates Condition Statu s Problem Anxiety and depression 300.4 Activ e Problem COPD (chronic obstructive pulmonary disease) 496 Active Problem Cervicalgia 723.1 Active Problem Hypothyroidism, unspecified E03.9 Active Problem Midline low back pain without sciatica M54.5 Active Problem Shortness of breath R06.02 Active Problem Carotid artery plaque 433.10 Active Problem Cardiomegaly 429.3 Active Problem Elevated serum creatinine R79.89 Ac tive Problem Hypothyroidism 244.9 Active Assessment Bradycardia R00.1 Active Assessment Morbid obesity E66.01 Active Assessment Shortness of breath R06.02 Active Assessment Chest discomfort R07.89 Active Medications Medication Code System Code Instructions Start Date End Date Status Dosage Lasix [facility] [address]-59 20 MG Orally Once a day for 5 days Mar 28, 2015 1 tablet Paxil [facility] [address]-72 20 MG Orally 2 times a day 1 tablet in the morning Flovent HFA [facility] [address]-98 44 MCG/ACT Inhalation Twice a day Dec 23, 2014 2 puffs Lisinopril [facility] [address]-37 20 MG Orally Once a day 1 tablet Albuterol Sulfate [facility] [address]-00 (2.5 MG/3ML) 0 .083% Inhalation every 6 hours as needed for shortness of breath Mar 28, 2015 3 ml Albuterol Sulfate HFA [facility] [address]-78 108 (90 Ba se) MCG/ACT Inhalation every 4 hrs Mar 28, 2015 2 puffs as neede d Levothyroxine Sodium [facility] [address]-83 50 MCG Orally Once a day Dec 24, 2014 1 tablet Procedures Procedure Coding System Code Date ELECTROCARDIOGRAM, TRACING CPT-4 42427 Mar 202014 Office Visit, Est Pt., Level 4 CPT-4 90721 N 2014 MEASURE BLOOD OXYGEN LEVEL CPT-4 57883 Mar 202014 Vital Signs Date/Time: Mar 30, 2015 Cardiac Monitoring Heart Rate 76 bpm Weight 298 lbs Height 60 in BMI 58.19 Index Oximetry 95 % Blood Pressure Diastolic 72 mmHg Blood Pressure Systolic 110 mmHg Results Name Result Date Reference Range Unit Abnormali ty Flag HOLTER MONITOR (OUTPATIENT) Summary Purpose [employer] Submission
--- OUTSIDE RECORDS SUMMARY | 2019-11-05 22:17 | XMS REPORT ---
Author Irasema Cool Organization [employer] Address Unknown Phone Unavailable Care Team Providers Care Compugraph Operator Name Role Phone CAROL WHITLOCK CP Unavailable [...] R79.89 Ac tive Problem Hypothyroidism 244.9 Active Medications No Known Medications Results No Known Results Summary Purpose [employer] Submission
--- OUTSIDE RECORDS SUMMARY | 2019-11-05 22:17 | XMS REPORT ---
Author Irasema Cool [facility] [employer] Address Unknown Phone Unavailable Care Team Providers Care Product Picker Name Role Phone CAROL WHITLOCK CP Unavailable Allergies, Adverse Reactions, Alerts Substance [...] Ac tive Problem Hypothyroidism 244.9 Active Assessment Hypothyroidism, unspecified E03.9 Active Assessment Midline low back pain without sciatica M54.5 Active Assessment Shortness of breath R06.02 Active Medications Medication Code System Code Instructions Start Date End Date Status Dosage Flovent HFA [facility] [address]-23 44 MCG/ACT Inhalation Twice a day Dec 23, 2014 2 puffs Paxil [facility] [address]-41 20 MG Orally 2 times a day 1 tablet in the morning Albuterol Sulfate HFA [facility] [address]-81 108 (90 Ba se) MCG/ACT Inhalation every 4 hrs Mar 28, 2015 2 puffs as neede d Lasix [facility] [address]-44 20 MG Orally Once a day for 5 days Mar 28, 2015 1 tablet Lisinopril [facility] [address]-87 20 MG Orally Once a day 1 tablet Levothyroxine Sodium [facility] [address]-08 75 MCG Orally Once a day Mar 30, 2015 1 tablet Albuterol Sulfate [facility] [address]-03 (2.5 MG/3ML) 0 .083% Inhalation every 6 hours as needed for shortness of breath Mar 28, 2015 3 ml Procedures Procedure Coding System Code Date Office Visit, Est Pt., Level 3 CPT-4 09855 N 2014 MEASURE BLOOD OXYGEN LEVEL CPT-4 30636 Mar 202014 Vital Signs Date/Time: Mar 30, 2015 Temperature 98.7 F Weight 299.5 lbs Height 60 in Oximetry 96 % Blood Pressure Diastolic 76 mmHg Blood Pressure Systolic 118 mmHg Cardiac Monitoring Heart Rate 70 bpm BMI 58.49 Index Results No Known Results Summary Purpose [employer] Submission
--- OUTSIDE RECORDS SUMMARY | 2019-11-05 22:17 | XMS REPORT ---
Author Irasema Porter Organization [employer] Address Unknown Phone Unavailable Care Team Providers Care Trials Manager Name Role Phone POLY STOKES CP Unavailable Allergies, Adverse Reactions, Alerts Substance [...] I10 Activ e Problem Hypertension I10 Active Assessment COPD with acute lower respiratory infection J44.0 Active Problem Depression F32.9 Active Problem Cardiomegaly I51.7 Active Problem Low back pain M54.5 Active Medications Medication Code System Code Instructions Start Date End Date Status Dosage PredniSONE [facility] [address]-65 10 MG Orally twice a day AugustSeptember 13, 2015 1 tablet Albuterol Sulfate [facility] [address]-59 (2.5 MG/3ML) 0 .083% Inhalation every 6 hours as needed for shortness of breath Mar 28, 2015 3 ml Paxil [facility] [address]-79 20 MG Orally 2 times a day 1 tablet in the morning Levaquin [facility] [address]-20 500 MG Orally Once a day September 07 016 September 19, 2015 1 tablet day one then 1/2 tablet x 10 da ys [employer] [facility] [address]-31 7.5-325 MG Orally 1 bid prn August 10, 2015 1 tablet as needed Flovent HFA [facility] [address]-26 44 MCG/ACT Inhalation Twice a day Dec 23, 2014 2 puffs Albuterol Sulfate HFA [facility] [address]-21 108 (90 Ba se) MCG/ACT Inhalation every 4 hrs Mar 28, 2015 2 puffs as neede d Levothyroxine Sodium [facility] [address]-80 75 MCG Orally Once a day 1 Procedures Procedure Coding System Code Date CHEST X-RAY CPT-4 77735 September 08, 2015 Office Visit, Est Pt., Level 4 CPT-4 10651 A pril 2015 MEASURE BLOOD OXYGEN LEVEL CPT-4 09913 September 08, 2015 THER/PROPH/DIAG INJ, SC/IM CPT-4 80803 September 08, 2015 ROCEPHIN 1 GM (IM) CPT-4 J0696 September 07 6 Vital Signs Date/Time: September 08, 2015 Temperature 98.1 F Weight 310.7 lbs Height 60 in Oximetry 97 % Blood Pressure Diastolic 84 mmHg Blood Pressure Systolic 122 mmHg Cardiac Monitoring Heart Rate 90 bpm BMI 60.67 Index Results No Known Results Summary Purpose [employer] Submission
--- OUTSIDE RECORDS SUMMARY | 2019-11-05 22:17 | XMS REPORT ---
Author Irasema Porter Organization [employer] Address Unknown Phone Unavailable Care Team Providers Care Rubber Goods Repairer Name Role Phone POLY STOKES CP Unavailable Allergies, Adverse Reactions, Alerts Substance Reaction Event Type N.K.D.A. Info Not Available Non Drug Allergy Problems Problem Type Condition Code Onset Dates Condition Statu s Problem Hypothyroid E03.9 Active Assessment Chronic fatigue R53.82 Active Problem Posttraumatic stress disorder F43.10 Active Assessment Hypothyroid E03.9 Active Problem Swelling of ankle M25.473 Active Problem Sleep apnea G47.30 Active Problem Chronic pain G89.29 Active Problem Chronic fatigue R53.82 Active Problem Arthritis M19.90 Active Assessment Chronic pain G89.29 Active Assessment Arthritis M19.90 Active Problem Abnormal serum creatinine level R79.9 Active Assessment Abnormal serum creatinine level R79.9 Active Problem [...] Problem Low back pain M54.5 Active Problem Neck pain M54.2 Active Medications Medication Code System Code Instructions Start Date End Date Status Dosage Flovent HFA [facility] [address]-39 44 MCG/ACT Inhalation Twice a day Dec 23, 2014 2 puffs Albuterol Sulfate HFA [facility] [address]-50 108 (90 Ba se) MCG/ACT Inhalation every 4 hrs Mar 28, 2015 2 puffs as neede d Vale [facility] [address]-88 7.5-325 MG Orally 1 bid prn 1 tablet as needed Omeprazole [facility] [address]-02 40 mg Orally Once a day October 13, 2015 1 capsule Paroxetine HCl [facility] [address]-17 20 MG CRISTO E ONE TABLET BY MOUTH TWICE DAILY Levothyroxine Sodium [facility] [address]-74 75 MCG Orally Once a day 1 Albuterol Sulfate [facility] [address]-04 (2.5 MG/3ML) 0 .083% Inhalation every 6 hours as needed for shortness of breath 3 ml Procedures Procedure Coding System Code Date COMPREHEN METABOLIC PANEL CPT-4 35411 November VENIPUNCT, ROUTINE* CPT-4 07187 November 23 6 ASSAY THYROID STIM HORMONE CPT-4 83565 November 24, 2015 Office Visit, Est Pt., Level 4 CPT-4 50430 J [facility] 2015 Vital Signs Date/Time: November 24, 2015 Cardiac Monitoring Heart Rate 66 bpm Weight 317.4 lbs Height 60 in Blood Pressure Diastolic 63 mmHg Blood Pressure Systolic 139 mmHg Results No Known Results Summary Purpose eClinicalWorks Submission
--- OUTSIDE RECORDS SUMMARY | 2019-11-05 22:17 | XMS REPORT ---
Author Irasema Cool Organization [employer] Address Unknown Phone Unavailable Care Team Providers Care Box Printer Name Role Phone CAROL WHITLOCK CP Unavailable Allergies No Known Allergies Problems Problem Type Condition Code Onset Dates Condition Statu s Problem Cervicalgia 723.1 Active Problem Cardiomegaly 429.3 Active Problem COPD (chronic obstructive pulmonary disease) 496 Active Problem Anxiety and depression 300.4 Activ e Problem Shortness of breath R06.02 Active Problem Hypothyroidism, unspecified E03.9 Active Problem Cardiomegaly I51.7 Active Problem Hypothyroidism 244.9 Active Problem Carotid artery plaque 433.10 Active Problem Midline low back pain without sciatica M54.5 Active Problem Elevated serum creatinine R79.89 Ac tive Medications Medication Code System Code Instructions Start Date End Date Status Dosage Levothyroxine Sodium [facility] [address]-83 75 MCG Orally Once a day 1 Results No Known Results Summary Purpose eClinicalWorks Submission
--- OUTSIDE RECORDS SUMMARY | 2019-11-05 22:17 | XMS REPORT ---
Author Irasema Cool Organization [employer] Address Unknown Phone Unavailable Care Team Providers Care Rn Outpatient Surgery Name Role Phone CAROL WHITLOCK CP Unavailable Allergies No Known Allergies Problems Problem Type Condition Code Onset Dates Condition Statu s Problem Anxiety and depression 300.4 Activ e Problem COPD (chronic obstructive pulmonary disease) 496 Active Problem Cervicalgia 723.1 Active Assessment Hypothyroidism, unspecified E03.9 Active Problem Hypothyroidism, unspecified E03.9 Active Problem Midline low back pain without sciatica M54.5 Active Problem Shortness of breath R06.02 Active Problem Carotid artery plaque 433.10 Active Problem Cardiomegaly 429.3 Active Problem Elevated serum creatinine R79.89 Ac tive Problem Hypothyroidism 244.9 Active Medications No Known Medications Results No Known Results Summary Purpose eClinicalWorks Submission
--- OUTSIDE RECORDS SUMMARY | 2019-11-05 22:17 | XMS REPORT ---
Author Irasema Cool Organization [employer] Address Unknown Phone Unavailable Care Team Providers Care Sulfonation Equipment Operator Name Role Phone CAROL WHITLOCK CP Unavailable Allergies No Known Allergies Problems Problem Type Condition Code Onset Dates Condition Statu s Problem Cervicalgia 723.1 Active Problem Cardiomegaly 429.3 Active Problem COPD (chronic obstructive pulmonary disease) 496 Active Assessment COPD (chronic obstructive pulmonary disease) J44.9 Active Problem Anxiety and depression 300.4 Activ e Problem Shortness of breath R06.02 Active Problem Hypothyroidism, unspecified E03.9 Active Problem Cardiomegaly I51.7 Active Problem Hypothyroidism 244.9 Active Problem Carotid artery plaque 433.10 Active Problem Midline low back pain without sciatica M54.5 Active Problem Elevated serum creatinine R79.89 Ac tive Medications No Known Medications Results No Known Results Summary Purpose eClinicalWorks Submission
--- OUTSIDE RECORDS SUMMARY | 2019-11-05 22:17 | XMS REPORT ---
Author Author Irasema REYNOLDS Organization [facility] Address [address] [place] [address] Care Team Providers Care Linoleum Floor Installer Name Role Phone KING ROB Unavailable PROBLEMS Type Condition ICD9-CM Code KWS66-MT Code Onset Dates Condition S tatus SNOMED Code Problem Carpal tunnel syndrome, right G56.01 Active [id number] Problem Cardiomegaly I51.7 Active 2723178 Problem OFELIA (obstructive sleep apnea) G47.33 Active 46793714 Problem COPD with acute exacerbation J44.1 A ctive 153178963 Problem Neck pain M54.2 Active 53289389 Problem Epigastric pain R10.13 Active 7992 2009 Problem Essential hypertension I10 Active 54625081 Problem Arthritis M19.90 Active 5329854 Problem Abnormal serum creatinine level R79.9 Active 378439520 Problem Chronic fatigue R53.82 Active 5270 2003 Problem Right hand paresthesia R20.2 Active 555941270 Problem Stasis dermatitis of both legs I87.2 Active 81221342 Problem Hypertension I10 Active 5777792 3 Problem Depression F32.9 Active 36263963 Problem Hypothyroid E03.9 Active 26489967 Problem Gastroesophageal reflux disease without esophagitis K21.9 Active 535448592 Problem CKD (chronic kidney disease) stage 3, GFR 30-59 ml/min N18.3 Active 429810348 Problem Nocturnal enuresis N39.44 Active 8 296538 Problem Vitamin D deficiency E55.9 Active 30477476 Problem Posttraumatic stress disorder F43.10 Active 54767096 Problem Sleep apnea G47.30 Active 33936650 Problem Low back pain M54.5 Active 081332 004 Problem Pain in right shoulder M25.511 Active 95340889 Problem Swelling of ankle M25.473 Active 26 7541481 Problem Cervical spine arthritis M46.92 Activ e 224034335 Problem Arthritis, lumbar spine M47.9 Active 646180746 Problem Chronic pain G89.29 Active 2611072 1 ALLERGIES No Information ENCOUNTERS Encounter Location Date Diagnosis [facility] [address] [facility] [id number] [address] [place] [phone] Feb, [facility] [address] [facility] [id number] [address] [place] [phone] Feb, [facility] [address] [place] [id number] [place] [phone] Dec, Hypothyroid E03.9 [facility] [address] [place] [id number] [place] [phone] Dec, [facility] [address] [facility] [id number] [place] [phone] Dec, Hypothyroid E03.9 ; CKD ([facility] on kidney disease) stage 3, GFR 30-59 ml/min N18.3 ; Chronic pain G89.29 ; Depression F32.9 and BMI 50.0-59.9, adult Z68.43 [facility] [address] [place] [id number] [place] [phone] Oct, [facility] [address] [place] [id number] [place] [phone] Oct, [facility] [address] [place] [id number] [place] [phone] Oct, BMI 50.0-59.9, adult Z68.43 ; OFELIA (obstructive sleep apnea) G47.33 ; Depression F32.9 and Hypertension I10 [facility] [address] [place] [id number] [place] [phone] September, [facility] [address] [facility] [id number] [address] [place] [phone] September, [facility] [address] [place] [id number] [place] [phone] September, Chronic pain G89.29 [facility] [address] [place] [id number] [place] [phone] Aug, Hypothyroid E03.9 ; Chronic pain G89.29 ; BMI 50.0-59.9, adult Z68.43 ; COPD with acute exacerbation J44.1 ; CKD (chronic kidney disease) stage 3, GFR 30-59 ml/min N18.3 ; Depression F32.9 ; Gastroesophageal reflux disease without esophagitis K21.9 ; Left hip pain M25.552 ; Swelling of both lower extremities M79.89 and Stasis dermatitis of both legs I87.2 [place] [address] [facility] [id number] [address] [place] [phone] Jul, Chronic pain G89.29 [place] [address] [facility] [id number] [address] [place] [phone] May, Chronic pain G89.29 [place] [address] [place] [id number] [place] [phone] May, [place] [address] [place] [id number] [place] [phone] May, Hypothyroid E03.9 ; Chronic pain G89.29 [...] Z12.31 and Encounter for screening colonoscopy Z12.11 [place] [address] [facility] [id number] [address] [place] [phone] 16 May, 2017 Depression F32.9 [place] [address] [facility] [id number] [address] [place] [phone] 04 May, 2017 Chronic pain G89.29 [place] [address] [place] [id number] [place] [phone] Apr, Chronic pain G89.29 and COPD with acute exacerbation J44.1 [place] [address] [place] [id number] [place] [phone] Mar, [facility] [address] [facility] [id number] [address] [place] [phone] Mar, Chronic pain G89.29 [facility] [address] [facility] [id number] [address] [place] [phone] Mar, [facility] [address] [place] [id number] [place] [phone] Feb, Hypothyroid E03.9 ; Chronic pain G89.29 ; COPD with acute exacerbation J44.1 ; CKD (chronic kidney disease) stage 3, GFR 30-59 ml/min N18.3 ; Depression F32.9 ; Gastroesophageal reflux disease without esophagitis K21.9 ; Right hand paresthesia R20.2 ; Left hip pain M25.552 ; Swelling of both lower extremities M79.89 and Stasis dermatitis of both legs I87.2 [place] [address] [place] [id number] [place] [phone] Jan, Depression F32.9 [facility] [address] [facility] [id number] [address] [place] [phone] Jan, Chronic pain G89.29 [facility] [address] [place] [id number] [place] [phone] Dec, Chronic pain G89.29 [place] [address] [facility] [id number] [address] [place] [phone] Nov, [facility] [address] [place] [id number] [place] [phone] Nov, [facility] [address] [facility] [id number] [address] [place] [phone] Oct, Skin tag L91.8 ; Hypothyroid E03.9 ; Chronic pain G89.29 ; COPD with acute exacerbation J44.1 and CKD (chronic kidney disease) stage 3, GFR 30- 59 ml/min N18.3 [facility] [address] [place] [id number] [place] [phone] September, [facility] [address] [facility] [id number] [address] [place] [phone] September, [facility] [address] [facility] [id number] [address] [place] [phone] Jul, [facility] [address] [facility] [id number] [address] [place] [phone] Jul, [facility] [address] [facility] [id number] [address] [place] [phone] Jul, [facility] [address] [facility] [id number] [address] [place] [phone] Jul, Hypothyroid E03.9 [facility] [address] [facility] [id number] [address] [place] [phone] Jun, Hypothyroid E03.9 ; Chronic pain G89.29 ; CKD (chronic kidney disease) stage 3, GFR 30-59 ml/min N18.3 ; Arthritis M19.90 ; Hypertension I10 ; Depression F32.9 ; Gastroesophageal reflux disease without esophagitis K21.9 and Bronchitis J40 [facility] [address] [facility] [id number] [address] [place] [phone] Jun, [facility] [address] [facility] [id number] [address] [place] [phone] Jun, Chronic pain G89.29 [facility] [address] [facility] [id number] [address] [place] [phone] May, Hypothyroid E03.9 ; Chronic pain G89.29 ; CKD (chronic kidney disease) stage 3, GFR 30-59 ml/min N18.3 ; Arthritis M19.90 ; Hypertension I10 and Depression F32.9 [facility] [address] [facility] [id number] [address] [place] [phone] May, [facility] [address] [facility] [id number] [address] [place] [phone] Mar, Hypothyroid E03.9 [place] [address] [place] [id number] [address] [place] [phone] Mar, [place] [address] [address] Mar, Chronic pain G89.29 ; CKD (c hronic kidney disease) stage 3, GFR 30- 59 ml/min N18.3 ; Hypothyroid E03.9 ; Arthritis M19.90 ; Vitamin D deficiency E55.9 ; Hypertension I10 ; Depression F32.9 and Nocturnal enuresis N39.44 [place] [address] [address] Mar, [address] [address] 14 Jan, 2016 Chronic pain G89.29 ; Arthri tis M19.90 ; Hypothyroid E03.9 ; Chronic fatigue R53.82 ; Depression F32.9 ; CKD (chronic kidney disease) stage 3, GFR 30-59 ml/min N18.3 ; Gastroesophageal reflux disease without esophagitis K21.9 and Numbness of right foot R20.[address] [address] Nov, [address] [address] Nov, Chronic pain G89.29 ; Arthri tis M19.90 ; Abnormal serum creatinine level R79.9 ; Hypothyroid E03.9 and Chronic fatigue R53.82 [place] [address] [place] [id number] [place] [phone] September, Chronic pain G89.29 ; Arthri tis M19.90 ; Epigastric pain R10.13 and COPD with acute exacerbation J44.[address] [phone] Aug, COPD with acute lower respir atory infection J44.0 ; Joint pain M25.50 and Chronic pain G89.[address] [id number] [address] [place] [phone] Aug, COPD with acute lower respir atory infection J44.0 [place] [address] [address] Aug, [place] [address] [address] Jul, Cervical spine arthritis M46 .92 ; Hypothyroid E03.9 ; Arthritis, lumbar spine M47.9 ; Sleep apnea G47.30 ; Chronic pain G89.29 and Swelling of ankle M25.473 [place] [address] [address] Jul, [place] [address] [address] Jun, [place] [address] [address] Jun, [place] [address] [address] Jun, Hypothyroid E03.9 ; OFELIA (obs tructive sleep apnea) G47.33 ; Pain in right shoulder M25.511 ; Neck pain M54.2 ; Low back pain M54.5 ; Depression F32.9 ; Hypertension I10 and Essential hypertension I10 [address] [address] Jun, Posttraumatic stress disorde r F43.10 and Depression F32.9 [facility] [id number] [place] [phone] Jun, Sleep apnea in adult G47.33 [place] [id number] [place] [phone] 08 Jun, 2015 [place] [address] [place] [id number] [place] [phone] Jun, Hypothyroidism, unspecified E03.9 ; Chronic obstructive pulmonary disease J44.9 ; Essential hypertension I10 and Morbid obesity E66.01 [facility] [address] [place] [id number] [place] [phone] 18 May, 2015 [facility] [address] [place] [id number] [place] [phone] Apr, COPD (chronic obstructive pu lmonary disease) J44.9 [facility] [address] [place] [id number] [place] [phone] 17 Apr, 2015 Shortness of breath R06.02 [place] [address] [place] [id number] [place] [phone] 09 Apr, 2015 Chest discomfort R07.89 ; Ex ertional dyspnea R06.09 ; Morbid obesity E66.01 ; Bradycardia R00.1 and Hypothyroidism, unspecified E03.9 [place] [address] [address] 18 Mar, 2015 Cardiomegaly I51.7 [place] [address] [place] [id number] [place] [phone] 18 Mar, 2015 [place] [address] [address] 12 Mar, 2015 Hypothyroidism, unspecified E03.9 [place] [address] [address] 11 Mar, 2015 [place] [address] [place] [id number] [place] [phone] Mar, Shortness of breath R06.02 ; Midline low back pain without sciatica M54.5 and Hypothyroidism, unspecified E03.9 [place] [address] [place] [id number] [place] [address] 11 Mar, 2015 Chest discomfort R07.89 ; Sh ortness of breath R06.02 ; Morbid obesity E66.01 and Bradycardia R00.1 [place] [address] [address] Mar, Shortness of breath R06.02 ; Hypothyroidism, unspecified E03.9 and Elevated serum creatinine R79.89 [place] [address] [address] Feb, Hypothyroidism, unspecified E03.9 and Hypothyroidism 244.9 [place] [address] [address] Feb, Midline low back pain withou t sciatica M54.5 [place] [address] [address] Jan, [place] [address] [address] Jan, Hypothyroidism 244.9 ; Anxie ty and depression 300.4 ; Carotid artery plaque 433.10 and Elevated serum creatinine 790.99 [place] [address] [address] Dec, [place] [address] [address] Dec, [place] [address] [address] Dec, [place] [address] [address] Dec, [place] [address] [address] Dec, Cardiomegaly 429.3 ; COPD (c hronic obstructive pulmonary disease) 496 ; Cervicalgia 723.1 and Anxiety and depression 300.4 IMMUNIZATIONS No Known Immunizations SOCIAL HISTORY Never Assessed REASON FOR VISIT Requests return call PLAN OF CARE VITAL SIGNS MEDICATIONS [...] Tunnel Bilaterally Medical History consult colonoscopy w Gonzalez 06/19/17, did not go to procedure; pt reports she will reschedule 08/28/17 Medical History Cataract Surgical History cholecystectomy 1988 Surgical History orthopedic surgery, right knee 2002 Surgical History section 1979 Surgical History tubal ligation 1979 Hospitalization History Pneumonia as a kid
--- OUTSIDE RECORDS SUMMARY | 2019-11-05 22:17 | XMS REPORT ---
Author Irasema Porter Organization [employer] Address Unknown Phone Unavailable Care Team Providers Care City Carrier Name Role Phone POLY STOKES CP Unavailable [...] Active Problem Swelling of ankle M25.473 Active Assessment Chronic pain G89.29 Active Assessment Joint pain M25.50 Active Problem Essential hypertension I10 Activ e Problem Hypertension I10 Active Assessment COPD with acute lower respiratory infection J44.0 Active Problem Depression F32.9 Active Problem Cardiomegaly I51.7 Active Problem Low back pain M54.5 Active Medications Medication Code System Code Instructions Start Date End Date Status Dosage Albuterol Sulfate [facility] [address]-90 (2.5 MG/3ML) 0 .083% Inhalation every 6 hours as needed for shortness of breath 3 ml Lamont [facility] [address]-72 7.5-325 MG Orally 1 bid prn August 10, 2015 1 tablet as needed Paroxetine HCl [facility] [address]-68 20 MG CRISTO E ONE TABLET BY MOUTH TWICE DAILY Albuterol Sulfate HFA [facility] [address]-71 108 (90 Ba se) MCG/ACT Inhalation every 4 hrs Mar 28, 2015 2 puffs as neede d Levothyroxine Sodium [facility] [address]-62 75 MCG Orally Once a day [address] [facility] [address]-95 500 MG Orally Once a day 1 tablet day one then 1/2 tablet x 10 days Flovent HFA [facility] [address]-83 44 MCG/ACT Inhalation Twice a day Dec 23, 2014 2 puffs Procedures Procedure Coding System Code Date RHEUMATOID FACTOR, QUANT CPT-4 21749 August 192015 RBC SED RATE, AUTOMATED CPT-4 88917 August MEASURE BLOOD OXYGEN LEVEL CPT-4 03330 September 14, 2015 C-REACTIVE PROTEIN CPT-4 66973 September 13 6 ANTINUCLEAR ANTIBODIES CPT-4 17392 September 14, 2015 Office Visit, Est Pt., Level 4 CPT-4 56013 A pril 2015 VENIPUNCT, ROUTINE* CPT-4 71796 September 13 16 Vital Signs Date/Time: September 14, 2015 Temperature 98.2 F Weight 314.9 lbs Height 60 in Oximetry 94 % Blood Pressure Diastolic 78 mmHg Blood Pressure Systolic 130 mmHg Cardiac Monitoring Heart Rate 80 bpm BMI 61.49 Index Results No Known Results Summary Purpose eClinicalWorks Submission
--- OUTSIDE RECORDS SUMMARY | 2019-11-05 22:17 | XMS REPORT ---
Author Irasema Allen [facility] eClinicalWorks Address Unknown Phone Unavailable Care Team Providers Care Medical Office Professional Instructor Name Role Phone HONEY MENDES CP Unavailable Allergies, Adverse Reactions, Alerts Substance Reaction Event Type N.K.D.A. Info Not Available Non Drug Allergy Problems Problem Type Condition Code Onset Dates Condition Statu s Problem Cervicalgia 723.1 Active Problem Cardiomegaly 429.3 Active Problem COPD (chronic obstructive pulmonary disease) 496 Active Problem Shortness of breath R06.02 Active Problem Hypothyroidism, unspecified E03.9 Active Problem Cardiomegaly I51.7 Active Problem Hypothyroidism 244.9 Active Problem Carotid artery plaque 433.10 Active Problem Midline low back pain without sciatica M54.5 Active Problem Elevated serum creatinine R79.89 Ac tive Assessment Morbid obesity E66.01 Active Assessment Exertional dyspnea R06.09 Active Assessment Hypothyroidism, unspecified E03.9 Active Assessment Chest discomfort R07.89 Active Assessment Bradycardia R00.1 Active Problem Anxiety and depression 300.4 Activ e Medications Medication Code System Code Instructions Start Date End Date Status Dosage Levothyroxine Sodium [facility] [address]-31 75 MCG Orally Once a day Mar 30, 2015 1 tablet Lisinopril [facility] [address]-25 20 MG Orally Once a day 1 tablet Albuterol Sulfate [facility] [address]-50 (2.5 MG/3ML) 0 .083% Inhalation every 6 hours as needed for shortness of breath Mar 28, 2015 3 ml Paxil [facility] [address]-57 20 MG Orally 2 times a day 1 tablet in the morning Albuterol Sulfate A [facility] [address]-20 108 (90 Ba se) MCG/ACT Inhalation every 4 hrs Mar 28, 2015 2 puffs as neede d Flovent HFA [facility] [address]-35 44 MCG/ACT Inhalation Twice a day Dec 23, 2014 2 puffs Procedures Procedure Coding System Code Date Office Visit, Est Pt., Level 4 CPT-4 46760 D ec 2014 MEASURE BLOOD OXYGEN LEVEL CPT-4 04835 Apr Vital Signs Date/Time: Apr 27, 2015 Cardiac Monitoring Heart Rate 72 bpm Weight 299 lbs Height 60 in BMI 58.39 Index Oximetry 96 % Blood Pressure Diastolic 74 mmHg Blood Pressure Systolic 124 mmHg Results No Known Results Summary Purpose eClinicalWorks Submission
--- OUTSIDE RECORDS SUMMARY | 2019-11-05 22:17 | XMS REPORT ---
Author Irasema Cool Organization eClinicalWorks Address Unknown Phone Unavailable Care Team Providers Care Optician Manager Name Role Phone CAROL WHITLOCK CP Unavailable Allergies No Known Allergies Problems Problem Type Condition Code Onset Dates Condition Statu s Problem Cervicalgia 723.1 Active Problem Cardiomegaly 429.3 Active Problem COPD (chronic obstructive pulmonary disease) 496 Active Assessment Shortness of breath R06.02 Active Problem Anxiety and depression 300.4 Activ [...]
--- OUTSIDE RECORDS SUMMARY | 2019-11-05 22:17 | XMS REPORT ---
Author Irasema Porter Organization eClinicalWorks Address Unknown Phone Unavailable Care Team Providers Care Dumper Mold Cleaner Name Role Phone POLY STOKES CP Unavailable [...]
--- OUTSIDE RECORDS SUMMARY | 2019-11-05 22:17 | XMS REPORT ---
Author Irasema Cool [facility] eClinicalWorks Address Unknown Phone Unavailable Care Team Providers Care Molder Name Role Phone CAROL WHITLOCK CP Unavailable Allergies, Adverse Reactions, Alerts Substance Reaction Event Type N.K.D.A. Info Not Available Non Drug Allergy Problems Problem Type Condition Code Onset Dates Condition Statu s Assessment Hypothyroidism, unspecified E03.9 Active Problem Anxiety and depression 300.4 Activ e Assessment Shortness of breath R06.02 Active Assessment Elevated serum creatinine R79.89 Ac tive Problem Elevated serum creatinine R79.89 Ac tive Problem Hypothyroidism 244.9 Active Problem Midline low back pain without sciatica M54.5 Active Problem COPD (chronic obstructive pulmonary disease) 496 Active Problem Cervicalgia 723.1 Active Problem Carotid artery plaque 433.10 Active Problem Cardiomegaly 429.3 Active Medications Medication Code System Code Instructions Start Date End Date Status Dosage Flovent HFA [facility] [address]-37 44 MCG/ACT Inhalation Twice a day Dec 23, 2014 2 puffs Lisinopril [facility] [address]-12 20 MG Orally Once a day 1 tablet Levothyroxine Sodium [facility] [address]-99 50 MCG Orally Once a day Dec 24, 2014 1 tablet Lasix [facility] [address]-55 20 MG Orally Once a day Mar 28, 2015 1 tablet Albuterol Sulfate [facility] [address]-31 (2.5 MG/3ML) 0 .083% Inhalation every 6 hours as needed for shortness of breath Mar 28, 2015 3 ml Albuterol Sulfate HFA [facility] [address]-28 108 (90 Ba se) MCG/ACT Inhalation every 4 hrs Mar 28, 2015 2 puffs as neede d Paxil [facility] [address]-08 20 MG Orally 2 times a day 1 tablet in the morning Procedures Procedure Coding System Code Date VENIPUNCT, ROUTINE* CPT-4 76178 Mar 28, 2015 COMPLETE CBC W/AUTO DIFF WBC CPT-4 67495 Mar 28, 2015 COMPREHEN METABOLIC PANEL CPT-4 95377 Mar MEASURE BLOOD OXYGEN LEVEL CPT-4 27937 Mar THER/PROPH/DIAG INJ, SC/IM CPT-4 52223 Mar DEPO MEDROL 40 MG/ML CPT-4 J1030 Mar 28 5 DEXAMETHASONE 4MG/ML (PER 1 MG) CPT-4 J1100 Mar 28, 2015 NATRIURETIC PEPTIDE CPT-4 55339 Mar 28, 2015 ASSAY THYROID STIM HORMONE CPT-4 93710 Mar Office Visit, Est Pt., Level 3 CPT-4 12839 N 2014 CHEST X-RAY CPT-4 80143 Mar 28, 2015 Vital Signs Date/Time: Mar 28, 2015 Temperature 98.4 F Weight 298.3 lbs Height 60 in Oximetry 96 % Blood Pressure Diastolic 89 mmHg Blood Pressure Systolic 113 mmHg Cardiac Monitoring Heart Rate 77 bpm BMI 58.25 Index Results Name Result Date Reference Range Unit Abnormali ty Flag Xray : Chest (IN HOUSE) ROUTINE VENIPUNCTURE TSH Summary Purpose eClinicalWorks Submission
--- OUTSIDE RECORDS SUMMARY | 2019-11-05 22:17 | XMS REPORT ---
Author Irasema Cool Organization eClinicalWorks Address Unknown Phone Unavailable Care Team Providers Care Room Cleaner Name Role Phone CAROL WHITLOCK CP Unavailable Allergies No Known Allergies Problems Problem Type Condition Code Onset Dates Condition Statu s Problem Cervicalgia 723.1 Active Problem Cardiomegaly 429.3 Active Problem COPD (chronic obstructive pulmonary disease) 496 Active Assessment Cardiomegaly I51.7 Active Problem Anxiety and depression 300.4 Activ e Problem Shortness of breath R06.02 Active Problem Hypothyroidism, unspecified E03.9 Active Problem Cardiomegaly I51.7 Active Problem Hypothyroidism 244.9 Active Problem Carotid artery plaque 433.10 Active Problem Midline low back pain without sciatica M54.5 Active Problem Elevated serum creatinine R79.89 Ac tive Medications Medication Code System Code Instructions Start Date End Date Status Dosage Lisinopril [facility] [address]-70 20 MG Orally Once a day 1 tablet Results No Known Results Summary Purpose eClinicalWorks Submission
--- OUTSIDE RECORDS SUMMARY | 2019-11-05 22:17 | XMS REPORT ---
Author Irasema Cool Organization eClinicalWorks Address Unknown Phone Unavailable Care Team Providers Care V Groove Cutter Name Role Phone CAROL WHITLOCK CP Unavailable Allergies, Adverse Reactions, Alerts Substance Reaction Event Type N.K.D.A. Info Not Available Non Drug Allergy Problems Problem Type Condition ICD-9 Code Onset Dates Condition Statu s Assessment Elevated serum creatinine 790.99 Ac tive Assessment Anxiety and depression 300.4 Activ e Assessment Carotid artery plaque 433.10 Active Problem Carotid artery plaque 433.10 Active Problem Cardiomegaly 429.3 Active Problem Hypothyroidism 244.9 Active Problem Anxiety and depression 300.4 Activ e Assessment Hypothyroidism 244.9 Active Problem COPD (chronic obstructive pulmonary disease) 496 Active Problem Cervicalgia 723.1 Active Medications Medication Code System Code Instructions Start Date End Date Status Dosage Flovent HFA [facility] [address]-33 44 MCG/ACT Inhalation Twice a day Dec 23, 2014 2 puffs Levothyroxine Sodium [facility] [address]-59 50 MCG Orally Once a day Dec 24, 2014 1 tablet Lisinopril [facility] [address]-38 20 MG Orally Once a day 1 tablet Paxil [facility] [address]-65 20 MG Orally 2 times a day 1 tablet in the morning Procedures Procedure Coding System Code Date Office Visit, Est Pt., Level 3 CPT-4 57384 S ept 2014 COMPREHEN METABOLIC PANEL CPT-4 87736 Jan Vital Signs Date/Time: Jan 26, 2015 Temperature 98.6 F Weight 301.3 lbs Height 60 in BMI 58.84 Index Blood Pressure Diastolic 80 mmHg Blood Pressure Systolic 118 mmHg Cardiac Monitoring Heart Rate 92 bpm Results Name Result Date Reference Range Unit Abnormali ty Flag CMP Summary Purpose eClinicalWorks Submission
--- OUTSIDE RECORDS SUMMARY | 2019-11-05 22:17 | XMS REPORT ---
Author Irasema Cool Organization eClinicalWorks Address Unknown Phone Unavailable Care Team Providers Care Workplace Rehabilitation Officer Name Role Phone CAROL WHITLOCK CP Unavailable Allergies No Known Allergies Problems Problem Type Condition Code Onset Dates Condition Statu s Assessment Midline low back pain without sciatica M54.5 Active Problem Hypothyroidism 244.9 Active Problem Carotid artery plaque 433.10 Active Problem Midline low back pain without sciatica M54.5 Active Problem Cervicalgia 723.1 Active Problem Anxiety and depression 300.4 Activ e Problem Cardiomegaly 429.3 Active Problem COPD (chronic obstructive pulmonary disease) 496 Active Medications Medication Code System Code Instructions Start Date End Date Status Dosage Tramadol HCl [facility] [address]-55 50 MG Orally Once a day Mar 01, 2015 Mar 31, 2015 1 tablet as needed Results No Known Results Summary Purpose eClinicalWorks Submission
--- OUTSIDE RECORDS SUMMARY | 2019-11-05 22:18 | XMS REPORT ---
Author Author Irasema STOKES [facility] Address [address] [place] [address] Care Team Providers Care Radio Machinist Name Role Phone POLY STOKES Unavailable PROBLEMS Type Condition ICD9-CM Code MRZ09-FH Code Onset Dates Condition S tatus SNOMED Code Problem Carpal tunnel syndrome, right G56.01 Active 635416422257387 Problem Cardiomegaly I51.7 Active 3953243 Problem OFELIA (obstructive sleep apnea) G47.33 Active 75435898 Problem COPD with acute exacerbation J44.1 A ctive 311670555 Problem Neck pain M54.2 Active 43953878 Problem Epigastric pain R10.13 Active 7992 2009 Problem Essential hypertension I10 Active 85187971 Problem Arthritis M19.90 Active 7106366 Problem Abnormal serum creatinine level R79.9 Active 671471004 Problem Chronic fatigue R53.82 Active 5270 2003 Problem Right hand paresthesia R20.2 Active 518531331 Problem Stasis dermatitis of both legs I87.2 Active 65706998 Problem Hypertension I10 Active 3494478 3 Problem Depression F32.9 Active 19986909 Problem Hypothyroid E03.9 Active 70407666 Problem Gastroesophageal reflux disease without esophagitis K21.9 Active 332844659 Problem CKD (chronic kidney disease) stage 3, GFR 30-59 ml/min N18.3 Active 557367095 Problem Nocturnal enuresis N39.44 Active 8 759273 Problem Vitamin D deficiency E55.9 Active 28965421 Problem Posttraumatic stress disorder F43.10 Active 18694697 Problem Sleep apnea G47.30 Active 20291313 Problem Low back pain M54.5 Active 095104 004 Problem Pain in right shoulder M25.511 Active 72495391 Problem Swelling of ankle M25.473 Active 26 3961118 Problem Cervical spine arthritis M46.92 Activ e 869011337 Problem Arthritis, lumbar spine M47.9 Active 819010853 Problem Chronic pain G89.29 Active 0281776 1 ALLERGIES No Information ENCOUNTERS Encounter Location Date Diagnosis [facility] [address] [address] Dec, Hypothyroid E03.9 [facility] [address] [address] Dec, [place] [address] [address] Dec, Hypothyroid E03.9 ; CKD (chr onic kidney disease) stage 3, GFR 30-59 ml/min N18.3 ; Chronic pain G89.29 ; Depression F32.9 and BMI 50.0-59.9, adult Z68.43 [place] [address] [address] Oct, [place] [address] [address] Oct, [place] [address] [address] Oct, BMI 50.0-59.9, adult Z68.43 ; OFELIA (obstructive sleep apnea) G47.33 ; Depression F32.9 and Hypertension I10 [place] [address] [address] September, [place] [address] [address] September, [place] [address] [address] September, Chronic pain G89.29 [place] [address] [address] Aug, Hypothyroid E03.9 ; Chronic pain G89.29 ; BMI 50.0-59.9, adult Z68.43 ; COPD with acute exacerbation J44.1 ; CKD (chronic kidney disease) stage 3, GFR 30-59 ml/min N18.3 ; Depression F32.9 ; Gastroesophageal reflux disease without esophagitis K21.9 ; Left hip pain M25.552 ; Swelling of both lower extremities M79.89 and Stasis dermatitis of both legs I87.2 [place] [address] [address] [facility] [id number] [address] [place] [address] Jul, Chronic pain G89.29 [place] [address] [address] [facility] [id number] [address] [place] [address] May, Chronic pain G89.29 [place] [address] [place] [id number] [address] [place] [address] May, [place] [address] [place] [id number] [place] [address] May, Hypothyroid E03.9 ; Chronic pain G89.29 [...] Z12.31 and Encounter for screening colonoscopy Z12.11 [place] [address] [place] [id number] [address] [place] [address] 16 May, 2017 Depression F32.9 [place] [address] [address] [facility] [id number] [address] [place] [phone] 04 May, 2017 Chronic pain G89.29 [place] [address] [address] [facility] [id number] [address] [place] [address] Apr, Chronic pain G89.29 and COPD with acute exacerbation J44.1 [place] [address] [address] [facility] [id number] [address] [place] [address] Mar, [place] [address] [address] [facility] [id number] [address] [place] [address] Mar, Chronic pain G89.29 [facility] [address] [id number] [address] [place] [address] Mar, [facility] [address] [id number] [address] [place] [address] Feb, Hypothyroid E03.9 ; Chronic pain G89.29 ; COPD with acute exacerbation J44.1 ; CKD (chronic kidney disease) stage 3, GFR 30-59 ml/min N18.3 ; Depression F32.9 ; Gastroesophageal reflux disease without esophagitis K21.9 ; Right hand paresthesia R20.2 ; Left hip pain M25.552 ; Swelling of both lower extremities M79.89 and Stasis dermatitis of both legs I87.2 [facility] [address] [id number] [address] [place] [phone] Jan, Depression F32.9 [facility] [address] [id number] [address] [place] [address] Jan, Chronic pain G89.29 [facility] [address] [id number] [address] [place] [address] Dec, Chronic pain G89.29 [facility] [address] [id number] [address] [place] [phone] Nov, [facility] [address] [id number] [address] [place] [address] Nov, [facility] [address] [id number] [address] [place] [phone] Oct, Skin tag L91.8 ; Hypothyroid E03.9 ; Chronic pain G89.29 ; COPD with acute exacerbation J44.1 and CKD (chronic kidney disease) stage 3, GFR 30- 59 ml/min N18.3 [facility] [address] [id number] [address] [place] [phone] September, [facility] [address] [id number] [address] [place] [address] September, [facility] [address] [id number] [address] [place] [address] Jul, [facility] [address] [facility] [id number] [address] [place] [phone] Jul, [facility] [address] [place] [id number] [address] [place] [phone] Jul, [facility] [address] [place] [id number] [address] [place] [address] Jul, Hypothyroid E03.9 [facility] [address] [place] [id number] [address] [place] [address] Jun, Hypothyroid E03.9 ; Chronic pain G89.29 ; CKD (chronic kidney disease) stage 3, GFR 30-59 ml/min N18.3 ; Arthritis M19.90 ; Hypertension I10 ; Depression F32.9 ; Gastroesophageal reflux disease without esophagitis K21.9 and Bronchitis J40 [facility] [address] [place] [id number] [address] [place] [address] Jun, [facility] [address] [place] [id number] [address] [place] [address] Jun, Chronic pain G89.29 [facility] [address] [place] [id number] [address] [place] [address] May, Hypothyroid E03.9 ; Chronic pain G89.29 ; CKD (chronic kidney disease) stage 3, GFR 30-59 ml/min N18.3 ; Arthritis M19.90 ; Hypertension I10 and Depression F32.9 [facility] [address] [facility] [id number] [address] [place] [phone] May, [facility] [address] [place] [id number] [address] [place] [id number] Mar, Hypothyroid E03.9 [facility] [address] [facility] [id number] [address] [place] [phone] Mar, [facility] [address] [place] [id number] [address] [place] [address] Mar, Chronic pain G89.29 ; CKD (c hronic kidney disease) stage 3, GFR 30- 59 ml/min N18.3 ; Hypothyroid E03.9 ; Arthritis M19.90 ; Vitamin D deficiency E55.9 ; Hypertension I10 ; Depression F32.9 and Nocturnal enuresis N39.44 [place] [id number] [place] [address] Mar, [place] [address] [address] Jan, Chronic pain G89.29 ; Arthri tis M19.90 ; Hypothyroid E03.9 ; Chronic fatigue R53.82 ; Depression F32.9 ; CKD (chronic kidney disease) stage 3, GFR 30-59 ml/min N18.3 ; Gastroesophageal reflux disease without esophagitis K21.9 and Numbness of right foot R20.[address] [address] Nov, [place] [address] [address] Nov, Chronic pain G89.29 ; Arthri tis M19.90 ; Abnormal serum creatinine level R79.9 ; Hypothyroid E03.9 and Chronic fatigue R53.82 [place] [address] [place] [id number] [place] [address] September, Chronic pain G89.29 ; Arthri tis M19.90 ; Epigastric pain R10.13 and COPD with acute exacerbation J44.1 [place] [address] [place] [id number] [address] [place] [address] Aug, COPD with acute lower respir atory infection J44.0 ; Joint pain M25.50 and Chronic pain G89.29 [place] [address] [place] [id number] [place] [address] Aug, COPD with acute lower respir atory infection J44.0 [place] [address] [place] [id number] [place] [address] Aug, [place] [address] [place] [id number] [place] [address] Jul, Cervical spine arthritis M46 .92 ; Hypothyroid E03.9 ; Arthritis, lumbar spine M47.9 ; Sleep apnea G47.30 ; Chronic pain G89.29 and Swelling of ankle M25.473 [place] [address] [address] Jul, [place] [address] [address] Jun, [place] [address] [address] Jun, [place] [address] [address] Jun, Hypothyroid E03.9 ; OFELIA (obs tructive sleep apnea) G47.33 ; Pain in right shoulder M25.511 ; Neck pain M54.2 ; Low back pain M54.5 ; Depression F32.9 ; Hypertension I10 and Essential hypertension I10 [address] [address] Jun, Posttraumatic stress disorde r F43.10 and Depression F32.9 [place] [id number] [place] [address] Jun, Sleep apnea in adult G47.33 [place] [address] [place] [id number] [place] [address] Jun, [place] [address] [place] [id number] [place] [address] Jun, Hypothyroidism, unspecified E03.9 ; Chronic obstructive pulmonary disease J44.9 ; Essential hypertension I10 and Morbid obesity E66.01 [place] [address] [place] [id number] [place] [phone] May, [place] [id number] [place] [address] Apr, COPD (chronic obstructive pu lmonary disease) J44.9 [place] [address] [address] 17 Apr, 2015 Shortness of breath R06.02 [place] [address] [address] Apr, Chest discomfort R07.89 ; Ex ertional dyspnea R06.09 ; Morbid obesity E66.01 ; Bradycardia R00.1 and Hypothyroidism, unspecified E03.9 [place] [address] [address] Mar, Cardiomegaly I51.7 [place] [address] [address] 18 Mar, 2015 [place] [address] [address] Mar, Hypothyroidism, unspecified E03.9 [place] [address] [address] Mar, [place] [address] [address] Mar, Shortness of breath R06.02 ; Midline low back pain without sciatica M54.5 and Hypothyroidism, unspecified E03.9 [place] [address] [address] Mar, Chest discomfort R07.89 ; Sh ortness of breath R06.02 ; Morbid obesity E66.01 and Bradycardia R00.1 [place] [address] [address] Mar, Shortness of breath R06.02 ; Hypothyroidism, unspecified E03.9 and Elevated serum creatinine R79.89 [place] [address] [address] Feb, Hypothyroidism, unspecified E03.9 and Hypothyroidism 244.9 [facility] [address] [address] Feb, Midline low back pain withou t sciatica M54.5 [facility] [address] [place] [id number] [place] [address] Jan, [facility] [address] [address] Jan, Hypothyroidism 244.9 ; Anxie ty and depression 300.4 ; Carotid artery plaque 433.10 and Elevated serum creatinine 790.99 [place] [address] [address] Dec, [facility] [address] [address] Dec, [place] [address] [address] Dec, [place] [address] [address] Dec, [place] [address] [address] Dec, Cardiomegaly 429.3 ; COPD (c hronic obstructive pulmonary disease) 496 ; Cervicalgia 723.1 and Anxiety and depression 300.4 IMMUNIZATIONS No Known Immunizations SOCIAL HISTORY Never Assessed REASON FOR VISIT Eye exam PLAN OF CARE VITAL SIGNS MEDICATIONS Unknown [...]
--- OUTSIDE RECORDS SUMMARY | 2019-11-05 22:18 | XMS REPORT ---
Author Author Irasema CRUZ [facility] Address [address] [place] [address] Care Team Providers Care Life Science Technician Name Role Phone LALI CRUZ Unavailable PROBLEMS Type Condition ICD9-CM Code RAP72-IB Code Onset Dates Condition S tatus SNOMED Code Problem Carpal tunnel syndrome, right G56.01 Active [id number] Problem Cardiomegaly I51.7 Active 7662257 Problem OFELIA (obstructive sleep apnea) G47.33 Active 28341921 Problem COPD with acute exacerbation J44.1 A ctive 279760788 Problem Neck pain M54.2 Active 44325694 Problem Epigastric pain R10.13 Active 7992 2009 Problem Essential hypertension I10 Active 80909311 Problem Arthritis M19.90 Active 5108825 Problem Abnormal serum creatinine level R79.9 Active 327598260 Problem Chronic fatigue R53.82 Active 5270 2003 Problem Right hand paresthesia R20.2 Active 875980236 Problem Stasis dermatitis of both legs I87.2 Active 18827432 Problem Hypertension I10 Active 6274046 3 Problem Depression F32.9 Active 50780057 Problem Hypothyroid E03.9 Active 93285145 Problem Gastroesophageal reflux disease without esophagitis K21.9 Active 977737137 Problem CKD (chronic kidney disease) stage 3, GFR 30-59 ml/min N18.3 Active 763197177 Problem Nocturnal enuresis N39.44 Active 8 821963 Problem Vitamin D deficiency E55.9 Active 74547759 Problem Posttraumatic stress disorder F43.10 Active 71966011 Problem Sleep apnea G47.30 Active 84261508 Problem Low back pain M54.5 Active 033254 004 Problem Pain in right shoulder M25.511 Active 72117833 Problem Swelling of ankle M25.473 Active 26 3001443 Problem Cervical spine arthritis M46.92 Activ e 501156908 Problem Arthritis, lumbar spine M47.9 Active 687217583 Problem Chronic pain G89.29 Active 5011070 1 ALLERGIES No Information ENCOUNTERS Encounter Location Date Diagnosis [place] [id number] [place] [id number] [place] [phone] 11 Aug, 2017 Hypothyroid E03.9 ; Chronic pain G89.29 ; BMI 50.0-59.9, adult Z68.43 ; COPD with acute exacerbation J44.1 ; CKD (chronic kidney disease) stage 3, GFR 30-59 ml/min N18.3 ; Depression F32.9 ; Gastroesophageal reflux disease without esophagitis K21.9 ; Left hip pain M25.552 ; Swelling of both lower extremities M79.89 and Stasis dermatitis of both legs I87.2 [place] [address] [address] 05 Jul, 2017 Chronic pain G89.29 [place] [address] [place] [id number] [place] [phone] May, Chronic pain G89.29 [place] [address] [address] 16 May, 2017 [place] [address] [address] 16 May, 2017 Hypothyroid E03.9 ; Chronic [...] Z12.31 and Encounter for screening colonoscopy Z12.[address] [address] 16 May, 2017 Depression F32.9 [place] [address] [place] [id number] [place] [id number] 04 May, 2017 Chronic pain G89.29 [place] [address] [address] Apr, Chronic pain G89.29 and COPD with acute exacerbation J44.1 [facility] [address] [id number] [address] [place] [phone] Mar, [facility] [address] [id number] [address] [place] [phone] Mar, Chronic pain G89.29 [facility] [address] [id number] [address] [place] [phone] Mar, [facility] [address] [id number] [address] [place] [phone] Feb, Hypothyroid E03.9 ; Chronic pain G89.29 ; COPD with acute exacerbation J44.1 ; CKD (chronic kidney disease) stage 3, GFR 30-59 ml/min N18.3 ; Depression F32.9 ; Gastroesophageal reflux disease without esophagitis K21.9 ; Right hand paresthesia R20.2 ; Left hip pain M25.552 ; Swelling of both lower extremities M79.89 and Stasis dermatitis of both legs I87.2 [facility] [address] [id number] [address] [place] [phone] 08 Jan, 2017 Depression F32.9 [facility] [address] [id number] [address] [place] [phone] 08 Jan, 2017 Chronic pain G89.29 [facility] [address] [id number] [address] [place] [phone] Dec, Chronic pain G89.29 [facility] [address] [id number] [address] [place] [phone] Nov, [facility] [address] [id number] [address] [place] [phone] Nov, [facility] [address] [id number] [address] [place] [phone] Oct, Skin tag L91.8 ; Hypothyroid E03.9 ; Chronic pain G89.29 ; COPD with acute exacerbation J44.1 and CKD (chronic kidney disease) stage 3, GFR 30- 59 ml/min N18.3 [facility] [address] [id number] [address] [place] [phone] September, [facility] [address] [id number] [address] [place] [phone] September, [facility] [address] [id number] [address] [place] [phone] Jul, [facility] [address] [id number] [address] [place] [phone] Jul, [facility] [address] [id number] [address] [place] [phone] Jul, [facility] [address] [id number] [address] [place] [phone] Jul, Hypothyroid E03.9 [facility] [address] [id number] [address] [place] [phone] Jun, Hypothyroid E03.9 ; Chronic pain G89.29 ; CKD (chronic kidney disease) stage 3, GFR 30-59 ml/min N18.3 ; Arthritis M19.90 ; Hypertension I10 ; Depression F32.9 ; Gastroesophageal reflux disease without esophagitis K21.9 and Bronchitis J40 [facility] [address] [place] [id number] [place] [phone] Jun, [facility] [address] [id number] [address] [place] [phone] Jun, Chronic pain G89.29 [facility] [address] [id number] [address] [place] [address] May, Hypothyroid E03.9 ; Chronic pain G89.29 ; CKD (chronic kidney disease) stage 3, GFR 30-59 ml/min N18.3 ; Arthritis M19.90 ; Hypertension I10 and Depression F32.9 [facility] [address] [place] [id number] [place] [phone] May, [place] [address] [address] Mar, Hypothyroid E03.9 [place] [address] [address] Mar, [place] [address] [address] Mar, Chronic pain G89.29 ; CKD (c hronic kidney disease) stage 3, GFR 30- 59 ml/min N18.3 ; Hypothyroid E03.9 ; Arthritis M19.90 ; Vitamin D deficiency E55.9 ; Hypertension I10 ; Depression F32.9 and Nocturnal enuresis N39.44 [place] [address] [address] Mar, [place] [address] [address] Jan, Chronic pain G89.29 ; Arthri tis M19.90 ; Hypothyroid E03.9 ; Chronic fatigue R53.82 ; Depression F32.9 ; CKD (chronic kidney disease) stage 3, GFR 30-59 ml/min N18.3 ; Gastroesophageal reflux disease without esophagitis K21.9 and Numbness of right foot R20.0 [place] [address] [address] Nov, [place] [address] [address] Nov, Chronic pain G89.29 ; Arthri tis M19.90 ; Abnormal serum creatinine level R79.9 ; Hypothyroid E03.9 and Chronic fatigue R53.82 [place] [address] [address] September, Chronic pain G89.29 ; Arthri tis M19.90 ; Epigastric pain R10.13 and COPD with acute exacerbation J44.1 [place] [address] [address] Aug, COPD with acute lower respir atory infection J44.0 ; Joint pain M25.50 and Chronic pain G89.29 [place] [address] [address] Aug, COPD with acute lower respir atory infection J44.0 [place] [address] [address] Aug, [place] [address] [address] Jul, Cervical spine arthritis M46 .92 ; Hypothyroid E03.9 ; Arthritis, lumbar spine M47.9 ; Sleep apnea G47.30 ; Chronic pain G89.29 and Swelling of ankle M25.473 [place] [address] [address] Jul, [place] [address] [address] Jun, [place] [address] [address] Jun, [place] [address] [address] Jun, Hypothyroid E03.9 ; OFELIA (obs tructive sleep apnea) G47.33 ; Pain in right shoulder M25.511 ; Neck pain M54.2 ; Low back pain M54.5 ; Depression F32.9 ; Hypertension I10 and Essential hypertension I10 [place] [id number] [place] [address] Jun, Posttraumatic stress disorde r F43.10 and Depression F32.9 [facility] [id number] [address] Jun, Sleep apnea in adult G47.33 [place] [address] [place] [id number] [place] [id number] 08 Jun, 2015 [place] [address] [id number] [address] [place] [phone] 03 Jun, 2015 Hypothyroidism, unspecified E03.9 ; Chronic obstructive pulmonary disease J44.9 ; Essential hypertension I10 and Morbid obesity E66.01 [facility] [address] [id number] [address] [place] [phone] 18 May, 2015 [place] [address] [address] Apr, COPD (chronic obstructive pu lmonary disease) J44.9 [place] [address] [place] [id number] [place] [phone] 17 Apr, 2015 Shortness of breath R06.02 [place] [address] [place] [id number] [place] [address] 09 Apr, 2015 Chest discomfort R07.89 ; Ex ertional dyspnea R06.09 ; Morbid obesity E66.01 ; Bradycardia R00.1 and Hypothyroidism, unspecified E03.9 [place] [address] [address] 18 Mar, 2015 Cardiomegaly I51.7 [place] [address] [place] [id number] [place] [phone] 18 Mar, 2015 [place] [address] [address] Mar, Hypothyroidism, unspecified E03.9 [place] [address] [place] [id number] [place] [phone] Mar, [place] [address] [address] Mar, Shortness of breath R06.02 ; Midline low back pain without sciatica M54.5 and Hypothyroidism, unspecified E03.9 [place] [address] [place] [id number] [place] [phone] 11 Mar, 2015 Chest discomfort R07.89 ; Sh ortness of breath R06.02 ; Morbid obesity E66.01 and Bradycardia R00.1 [place] [address] [address] Mar, Shortness of breath R06.02 ; Hypothyroidism, unspecified E03.9 and Elevated serum creatinine R79.89 [place] [address] [address] Feb, Hypothyroidism, unspecified E03.9 and Hypothyroidism 244.9 [place] [address] [address] Feb, Midline low back pain withou t sciatica M54.5 [place] [address] [address] Jan, [place] [address] [address] Jan, Hypothyroidism 244.9 ; Anxie ty and depression 300.4 ; Carotid artery plaque 433.10 and Elevated serum creatinine 790.99 [place] [address] [address] Dec, [place] [address] [address] Dec, [place] [address] [address] Dec, [place] [address] [address] Dec, [place] [address] [address] Dec, Cardiomegaly 429.3 ; COPD (c hronic obstructive pulmonary disease) 496 ; Cervicalgia 723.1 and Anxiety and depression 300.4 IMMUNIZATIONS No Known Immunizations SOCIAL HISTORY Never Assessed REASON FOR VISIT Controlled Med Refill PLAN OF CARE VITAL SIGNS MEDICATIONS Medication Instructions Dosage Frequency Start Date End Date Duration S tatus Otoe 7.5-325 MG Orally 3 times a day TAKE ONE TABLET BY MOUTH THREE TIMES DAILY NEEDED 8h 08 Jan, 2017 28 Active RESULTS No Results PROCEDURES No Known procedures [...]
--- OUTSIDE RECORDS SUMMARY | 2019-11-05 22:18 | XMS REPORT ---
Author Irasema Cool Organization [employer] Address Unknown Phone Unavailable Care Team Providers Care Railroad Car Letterer Name Role Phone CAROL WHITLOCK CP Unavailable Allergies No Known Allergies Problems Problem Type Condition Code Onset Dates Condition Statu s Assessment Hypothyroidism, unspecified E03.9 Active Assessment Hypothyroidism 244.9 Active Problem Hypothyroidism 244.9 Active Problem Carotid artery plaque 433.10 Active Problem Hypothyroidism, unspecified E03.9 Active Problem Cervicalgia 723.1 Active Problem Anxiety and depression 300.4 Activ e Problem Cardiomegaly 429.3 Active Problem COPD (chronic obstructive pulmonary disease) 496 Active Medications Medication Code System Code Instructions Start Date End Date Status Dosage Levothyroxine Sodium [facility] [id number] 50 MCG Orally Once a day Dec 24, 2014 1 tablet Results No Known Results Summary Purpose [employer] Submission
--- OUTSIDE RECORDS SUMMARY | 2019-11-05 22:18 | XMS REPORT ---
Author Author Irasema ALVA [facility] Address [address] [place] [address] Care Team Providers Care Time Buyer Name Role Phone DANII ALVA Unavailable PROBLEMS Type Condition ICD9-CM Code [id number] Code Onset Dates Condition S tatus SNOMED Code Problem Carpal tunnel syndrome, right G56.01 Active [id number] Problem Cardiomegaly I51.7 Active 9611750 Problem OFELIA (obstructive sleep apnea) G47.33 Active 70004306 Problem COPD with acute exacerbation J44.1 A ctive 756332265 Problem Neck pain M54.2 Active 09438319 Problem Epigastric pain R10.13 Active 7992 2009 Problem Essential hypertension I10 Active 18649602 Problem Arthritis M19.90 Active 2332121 Problem Abnormal serum creatinine level R79.9 Active 018982825 Problem Chronic fatigue R53.82 Active 5270 2003 Problem Right hand paresthesia R20.2 Active 869028970 Problem Stasis dermatitis of both legs I87.2 Active 14825247 Problem Hypertension I10 Active 2502813 3 Problem Depression F32.9 Active 63031343 Problem Hypothyroid E03.9 Active 36532533 Problem Gastroesophageal reflux disease without esophagitis K21.9 Active 510147115 Problem CKD (chronic kidney disease) stage 3, GFR 30-59 ml/min N18.3 Active 601415070 Problem Nocturnal enuresis N39.44 Active 8 701296 Problem Vitamin D deficiency E55.9 Active 41499699 Problem Posttraumatic stress disorder F43.10 Active 00256782 Problem Sleep apnea G47.30 Active 73753647 Problem Low back pain M54.5 Active 600889 004 Problem Pain in right shoulder M25.511 Active 99560469 Problem Swelling of ankle M25.473 Active 26 6217943 Problem Cervical spine arthritis M46.92 Activ e 347590372 Problem Arthritis, lumbar spine M47.9 Active 287090555 Problem Chronic pain G89.29 Active 4268842 1 ALLERGIES No Information ENCOUNTERS Encounter Location Date Diagnosis [place] [id number] [address] Dec, Hypothyroid E03.9 [facility] [address] [address] Dec, [place] [address] [address] Dec, Hypothyroid E03.9 ; CKD (chr onic kidney disease) stage 3, GFR 30-59 ml/min N18.3 ; Chronic pain G89.29 ; Depression F32.9 and BMI 50.0-59.9, adult Z68.43 [place] [address] [address] Oct, [place] [address] [address] Oct, [place] [address] [address] Oct, BMI 50.0-59.9, adult Z68.43 ; OFELIA (obstructive sleep apnea) G47.33 ; Depression F32.9 and Hypertension I10 [place] [address] [address] September, [place] [address] [address] September, [place] [address] [address] September, Chronic pain G89.29 [place] [address] [address] Aug, Hypothyroid E03.9 ; Chronic pain G89.29 ; BMI 50.0-59.9, adult Z68.43 ; COPD with acute exacerbation J44.1 ; CKD (chronic kidney disease) stage 3, GFR 30-59 ml/min N18.3 ; Depression F32.9 ; Gastroesophageal reflux disease without esophagitis K21.9 ; Left hip pain M25.552 ; Swelling of both lower extremities M79.89 and Stasis dermatitis of both legs I87.2 [place] [address] [place] [id number] [place] [address] Jul, Chronic pain G89.29 [place] [address] [place] [id number] [address] [place] [address] May, Chronic pain G89.29 [place] [address] [place] [id number] [place] [address] May, [place] [address] [place] [id number] [place] [address] May, Hypothyroid E03.9 ; Chronic pain G89.29 [...] Z12.31 and Encounter for screening colonoscopy Z12.11 [place] [address] [place] [id number] [place] [address] May, Depression F32.9 [place] [address] [place] [id number] [place] [address] 04 May, 2017 Chronic pain G89.29 [place] [address] [place] [id number] [place] [address] Apr, Chronic pain G89.29 and COPD with acute exacerbation J44.1 [place] [address] [place] [id number] [place] [address] Mar, [place] [address] [place] [id number] [place] [address] Mar, Chronic pain G89.29 [facility] [address] [id number] [address] [place] [address] Mar, [facility] [address] [id number] [address] [place] [address] Feb, Hypothyroid E03.9 ; Chronic pain G89.29 ; COPD with acute exacerbation J44.1 ; CKD (chronic kidney disease) stage 3, GFR 30-59 ml/min N18.3 ; Depression F32.9 ; Gastroesophageal reflux disease without esophagitis K21.9 ; Right hand paresthesia R20.2 ; Left hip pain M25.552 ; Swelling of both lower extremities M79.89 and Stasis dermatitis of both legs I87.2 [facility] [address] [id number] [address] [place] [address] Jan, Depression F32.9 [facility] [address] [id number] [address] [place] [address] Jan, Chronic pain G89.29 [facility] [address] [id number] [address] [place] [address] Dec, Chronic pain G89.29 [facility] [address] [id number] [address] [place] [address] Nov, [facility] [address] [id number] [address] [place] [address] Nov, [facility] [address] [id number] [address] [place] [address] Oct, Skin tag L91.8 ; Hypothyroid E03.9 ; Chronic pain G89.29 ; COPD with acute exacerbation J44.1 and CKD (chronic kidney disease) stage 3, GFR 30- 59 ml/min N18.3 [facility] [address] [id number] [address] [place] [address] September, [facility] [address] [id number] [address] [place] [address] September, [facility] [address] [id number] [address] [place] [address] Jul, [facility] [address] [facility] [place] [place] [id number] [address] [place] [address] Jul, [facility] [address] [place] [id number] [address] [place] [address] Jul, [facility] [address] [place] [id number] [address] [place] [address] Jul, Hypothyroid E03.9 [facility] [address] [place] [id number] [address] [place] [address] Jun, Hypothyroid E03.9 ; Chronic pain G89.29 ; CKD (chronic kidney disease) stage 3, GFR 30-59 ml/min N18.3 ; Arthritis M19.90 ; Hypertension I10 ; Depression F32.9 ; Gastroesophageal reflux disease without esophagitis K21.9 and Bronchitis J40 [facility] [address] [place] [id number] [address] [place] [address] Jun, [facility] [address] [place] [id number] [address] [place] [address] Jun, Chronic pain G89.29 [facility] [address] [place] [id number] [place] [address] May, Hypothyroid E03.9 ; Chronic pain G89.29 ; CKD (chronic kidney disease) stage 3, GFR 30-59 ml/min N18.3 ; Arthritis M19.90 ; Hypertension I10 and Depression F32.9 [facility] [address] [facility] [place] [place] [id number] [address] [place] [address] May, [facility] [address] [place] [id number] [address] [place] [address] Mar, Hypothyroid E03.9 [facility] [address] [facility] [place] [id number] [address] [place] [address] Mar, [facility] [address] [place] [id number] [address] [place] [address] Mar, Chronic pain G89.29 ; CKD (c hronic kidney disease) stage 3, GFR 30- 59 ml/min N18.3 ; Hypothyroid E03.9 ; Arthritis M19.90 ; Vitamin D deficiency E55.9 ; Hypertension I10 ; Depression F32.9 and Nocturnal enuresis N39.44 [place] [address] [place] [id number] [address] [place] [address] Mar, [place] [address] [place] [id number] [address] [place] [address] Jan, Chronic pain G89.29 ; Arthri tis M19.90 ; Hypothyroid E03.9 ; Chronic fatigue R53.82 ; Depression F32.9 ; CKD (chronic kidney disease) stage 3, GFR 30-59 ml/min N18.3 ; Gastroesophageal reflux disease without esophagitis K21.9 and Numbness of right foot R20.0 [place] [address] [place] [id number] [address] [place] [address] Nov, [place] [address] [place] [id number] [address] [place] [address] Nov, Chronic pain G89.29 ; Arthri tis M19.90 ; Abnormal serum creatinine level R79.9 ; Hypothyroid E03.9 and Chronic fatigue R53.82 [place] [address] [place] [id number] [address] [place] [address] September, Chronic pain G89.29 ; Arthri tis M19.90 ; Epigastric pain R10.13 and COPD with acute exacerbation J44.1 [place] [address] [facility] [place] [id number] [address] [place] [address] Aug, COPD with acute lower respir atory infection J44.0 ; Joint pain M25.50 and Chronic pain G89.29 [place] [address] [facility] [place] [id number] [address] [place] [address] Aug, COPD with acute lower respir atory infection J44.0 [place] [address] [place] [id number] [address] [place] [address] Aug, [place] [id number] [place] [address] Jul, Cervical spine arthritis M46 .92 ; Hypothyroid E03.9 ; Arthritis, lumbar spine M47.9 ; Sleep apnea G47.30 ; Chronic pain G89.29 and Swelling of ankle M25.473 [place] [address] [address] Jul, [place] [address] [place] [id number] [address] [place] [address] Jun, [place] [address] [address] Jun, [place] [address] [place] [id number] [address] [place] [address] Jun, Hypothyroid E03.9 ; OFELIA (obs tructive sleep apnea) G47.33 ; Pain in right shoulder M25.511 ; Neck pain M54.2 ; Low back pain M54.5 ; Depression F32.9 ; Hypertension I10 and Essential hypertension I10 [place] [address] [place] [id number] [address] [place] [address] Jun, Posttraumatic stress disorde r F43.10 and Depression F32.9 [place] [id number] [place] [phone] Jun, Sleep apnea in adult G47.33 [place] [address] [place] [id number] [address] [place] [address] Jun, [place] [address] [place] [id number] [address] [place] [address] Jun, Hypothyroidism, unspecified E03.9 ; Chronic obstructive pulmonary disease J44.9 ; Essential hypertension I10 and Morbid obesity E66.01 [place] [address] [place] [id number] [address] [place] [address] May, [place] [address] [address] Apr, COPD (chronic obstructive pu lmonary disease) J44.9 [place] [address] [address] 17 Apr, 2015 Shortness of breath R06.02 [place] [address] [address] Apr, Chest discomfort R07.89 ; Ex ertional dyspnea R06.09 ; Morbid obesity E66.01 ; Bradycardia R00.1 and Hypothyroidism, unspecified E03.9 [place] [address] [address] Mar, Cardiomegaly I51.7 [place] [address] [address] 18 Mar, 2015 [place] [address] [address] Mar, Hypothyroidism, unspecified E03.9 [place] [address] [address] Mar, [place] [address] [address] Mar, Shortness of breath R06.02 ; Midline low back pain without sciatica M54.5 and Hypothyroidism, unspecified E03.9 [place] [address] [address] Mar, Chest discomfort R07.89 ; Sh ortness of breath R06.02 ; Morbid obesity E66.01 and Bradycardia R00.1 [place] [address] [address] Mar, Shortness of breath R06.02 ; Hypothyroidism, unspecified E03.9 and Elevated serum creatinine R79.89 [place] [address] [address] Feb, Hypothyroidism, unspecified E03.9 and Hypothyroidism 244.9 [facility] [address] [address] Feb, Midline low back pain withou t sciatica M54.5 [facility] [address] [facility] [place] [id number] [address] [place] [address] Jan, [facility] [address] [address] Jan, Hypothyroidism 244.9 ; Anxie ty and depression 300.4 ; Carotid artery plaque 433.10 and Elevated serum creatinine 790.99 [place] [address] [address] Dec, [facility] [address] [address] Dec, [place] [address] [address] Dec, [place] [address] [address] Dec, [place] [address] [address] Dec, Cardiomegaly 429.3 ; COPD (c hronic obstructive pulmonary disease) 496 ; Cervicalgia 723.1 and Anxiety and depression 300.4 IMMUNIZATIONS No Known Immunizations SOCIAL HISTORY Never Assessed REASON FOR VISIT home health PLAN OF CARE VITAL SIGNS MEDICATIONS Unknown [...]
--- OUTSIDE RECORDS SUMMARY | 2019-11-05 22:18 | XMS REPORT ---
Author Author Irasema [facility]OK[facility] Address [address] [place] [address] Care Team Providers Care Brim Buster Name Role Phone POLY STOKES Unavailable PROBLEMS Type Condition ICD9-CM Code [id number] Code Onset Dates Condition S tatus SNOMED Code Problem Cardiomegaly I51.7 Active 6424017 Problem OFELIA (obstructive sleep apnea) G47.33 Active 32865425 Problem COPD with acute exacerbation J44.1 A ctive 999040400 Problem Neck pain M54.2 Active 75863905 Problem Epigastric pain R10.13 Active 7992 2009 Problem Essential hypertension I10 Active 88895192 Problem Arthritis M19.90 Active 5309904 Problem Abnormal serum creatinine level R79.9 Active 581355621 Problem Chronic fatigue R53.82 Active 5270 2003 Problem Right hand paresthesia R20.2 Active 925924725 Problem Stasis dermatitis of both legs I87.2 Active 85135083 Problem Hypertension I10 Active 5259942 3 Problem Depression F32.9 Active 36015993 Problem Hypothyroid E03.9 Active 55180059 Problem Gastroesophageal reflux disease without esophagitis K21.9 Active 719282997 Problem CKD (chronic kidney disease) stage 3, GFR 30-59 ml/min N18.3 Active 878384114 Problem Nocturnal enuresis N39.44 Active 8 477966 Problem Vitamin D deficiency E55.9 Active 31030670 Problem Posttraumatic stress disorder F43.10 Active 85136173 Problem Sleep apnea G47.30 Active 96202626 Problem Low back pain M54.5 Active 632512 004 Problem Pain in right shoulder M25.511 Active 30559358 Problem Swelling of ankle M25.473 Active 26 0725884 Problem Cervical spine arthritis M46.92 Activ e 621558245 Problem Arthritis, lumbar spine M47.9 Active 461990076 Problem Chronic pain G89.29 Active 9052590 1 ALLERGIES No Information SOCIAL HISTORY Never Assessed PLAN OF CARE VITAL SIGNS MEDICATIONS Medication Instructions Dosage Frequency Start Date End Date Duration S chana Nunez 7.5-325 MG TAKE ONE TABLET BY MOUTH THREE TIMES DAILY NEEDED 28 Active RESULTS No Results PROCEDURES No Known procedures IMMUNIZATIONS No Known Immunizations MEDICAL (GENERAL) HISTORY Type Description Date Medical History Arthritis Medical History chronic obstructive pulmonary disease (C OPD) Medical History depression Medical History cardiomegaly 2002 & Has Seen Dr. Dave Medical History Cervicalgia Medical History Anxiety and depression Medical History Hypothyroidism Medical History Carotid artery plaque Medical History Hypothyroidism, unspecified Medical History Elevated serum creatinine Medical History NO IV CONTRAST CKD PER NEPHROLOGY Surgical History cholecystectomy 1988 Surgical History orthopedic surgery, right knee 2002 Surgical History section 1979 Surgical History tubal ligation 1979 Hospitalization History Pneumonia as a kid
--- OUTSIDE RECORDS SUMMARY | 2019-11-05 22:18 | XMS REPORT ---
Author Author Irasema ALVA [facility] Address [address] [place] [address] Care Team Providers Care Quality Audit Representative Name Role Phone DANII ALVA Unavailable PROBLEMS Type Condition ICD9-CM Code [id number] Code Onset Dates Condition S tatus SNOMED Code Problem Carpal tunnel syndrome, right G56.01 Active 106099608247501 Problem Cardiomegaly I51.7 Active 1278729 Problem OFELIA (obstructive sleep apnea) G47.33 Active 34339273 Problem COPD with acute exacerbation J44.1 A ctive 806205344 Problem Neck pain M54.2 Active 25463734 Problem Epigastric pain R10.13 Active 7992 2009 Problem Essential hypertension I10 Active 27540742 Problem Arthritis M19.90 Active 9107695 Problem Abnormal serum creatinine level R79.9 Active 155166064 Problem Chronic fatigue R53.82 Active 5270 2003 Problem Right hand paresthesia R20.2 Active 349595860 Problem Stasis dermatitis of both legs I87.2 Active 95062045 Problem Hypertension I10 Active 3028063 3 Problem Depression F32.9 Active 95160049 Problem Hypothyroid E03.9 Active 91032584 Problem Gastroesophageal reflux disease without esophagitis K21.9 Active 575858750 Problem CKD (chronic kidney disease) stage 3, GFR 30-59 ml/min N18.3 Active 366727684 Problem Nocturnal enuresis N39.44 Active 8 523717 Problem Vitamin D deficiency E55.9 Active 04825603 Problem Posttraumatic stress disorder F43.10 Active 92508593 Problem Sleep apnea G47.30 Active 28705771 Problem Low back pain M54.5 Active 362713 004 Problem Pain in right shoulder M25.511 Active 03602270 Problem Swelling of ankle M25.473 Active 26 5921961 Problem Cervical spine arthritis M46.92 Activ e 629369427 Problem Arthritis, lumbar spine M47.9 Active 762926629 Problem Chronic pain G89.29 Active 9897998 1 ALLERGIES No Information ENCOUNTERS Encounter Location Date Diagnosis [place] [id number] [address] Dec, Hypothyroid E03.9 [facility] [address] [address] Dec, [place] [address] [address] Dec, Hypothyroid E03.9 ; CKD (chr onic kidney disease) stage 3, GFR 30-59 ml/min N18.3 ; Chronic pain G89.29 ; Depression F32.9 and BMI 50.0-59.9, adult Z68.43 [place] [address] [address] Oct, [place] [address] [address] Oct, [place] [address] [address] Oct, BMI 50.0-59.9, adult Z68.43 ; OFELIA (obstructive sleep apnea) G47.33 ; Depression F32.9 and Hypertension I10 [place] [address] [address] September, [place] [address] [address] September, [place] [address] [address] September, Chronic pain G89.29 [place] [address] [address] Aug, Hypothyroid E03.9 ; Chronic pain G89.29 ; BMI 50.0-59.9, adult Z68.43 ; COPD with acute exacerbation J44.1 ; CKD (chronic kidney disease) stage 3, GFR 30-59 ml/min N18.3 ; Depression F32.9 ; Gastroesophageal reflux disease without esophagitis K21.9 ; Left hip pain M25.552 ; Swelling of both lower extremities M79.89 and Stasis dermatitis of both legs I87.2 [place] [address] [address] [place] [id number] [place] [address] Jul, Chronic pain G89.29 [place] [address] [place] [id number] [place] [address] May, Chronic pain G89.29 [place] [address] [place] [id number] [place] [address] May, [place] [address] [place] [id number] [place] [address] May, Hypothyroid E03.9 ; Chronic pain G89.29 [...] Z12.31 and Encounter for screening colonoscopy Z12.11 [place] [address] [place] [id number] [place] [address] May, Depression F32.9 [place] [address] [place] [id number] [place] [phone] 04 May, 2017 Chronic pain G89.29 [place] [address] [place] [id number] [place] [address] Apr, Chronic pain G89.29 and COPD with acute exacerbation J44.1 [place] [address] [place] [id number] [place] [phone] Mar, [place] [address] [place] [id number] [place] [address] Mar, Chronic pain G89.29 [facility] [address] [id number] [address] [place] [address] Mar, [facility] [address] [id number] [address] [place] [address] Feb, Hypothyroid E03.9 ; Chronic pain G89.29 ; COPD with acute exacerbation J44.1 ; CKD (chronic kidney disease) stage 3, GFR 30-59 ml/min N18.3 ; Depression F32.9 ; Gastroesophageal reflux disease without esophagitis K21.9 ; Right hand paresthesia R20.2 ; Left hip pain M25.552 ; Swelling of both lower extremities M79.89 and Stasis dermatitis of both legs I87.2 [facility] [address] [id number] [address] [place] [address] Jan, Depression F32.9 [facility] [address] [id number] [address] [place] [address] Jan, Chronic pain G89.29 [facility] [address] [id number] [address] [place] [address] Dec, Chronic pain G89.29 [facility] [address] [id number] [address] [place] [address] Nov, [facility] [address] [id number] [address] [place] [address] Nov, [facility] [address] [id number] [address] [place] [address] Oct, Skin tag L91.8 ; Hypothyroid E03.9 ; Chronic pain G89.29 ; COPD with acute exacerbation J44.1 and CKD (chronic kidney disease) stage 3, GFR 30- 59 ml/min N18.3 [facility] [address] [id number] [address] [place] [address] September, [facility] [address] [id number] [address] [place] [address] September, [facility] [address] [id number] [address] [place] [address] Jul, [facility] [address] [facility] [id number] [address] [place] [address] Jul, [facility] [address] [place] [id number] [place] [address] Jul, [facility] [address] [place] [id number] [place] [address] Jul, Hypothyroid E03.9 [facility] [address] [place] [id number] [place] [address] Jun, Hypothyroid E03.9 ; Chronic pain G89.29 ; CKD (chronic kidney disease) stage 3, GFR 30-59 ml/min N18.3 ; Arthritis M19.90 ; Hypertension I10 ; Depression F32.9 ; Gastroesophageal reflux disease without esophagitis K21.9 and Bronchitis J40 [facility] [address] [place] [id number] [place] [address] Jun, [facility] [address] [place] [id number] [place] [address] Jun, Chronic pain G89.29 [facility] [address] [place] [id number] [place] [address] May, Hypothyroid E03.9 ; Chronic pain G89.29 ; CKD (chronic kidney disease) stage 3, GFR 30-59 ml/min N18.3 ; Arthritis M19.90 ; Hypertension I10 and Depression F32.9 [facility] [address] [facility] [id number] [address] [place] [address] May, [facility] [address] [place] [id number] [place] [address] Mar, Hypothyroid E03.9 [facility] [address] [facility] [id number] [address] [place] [address] Mar, [facility] [address] [place] [id number] [place] [address] Mar, Chronic pain G89.29 ; CKD (c hronic kidney disease) stage 3, GFR 30- 59 ml/min N18.3 ; Hypothyroid E03.9 ; Arthritis M19.90 ; Vitamin D deficiency E55.9 ; Hypertension I10 ; Depression F32.9 and Nocturnal enuresis N39.44 [place] [address] [place] [id number] [place] [address] Mar, [place] [address] [place] [id number] [place] [address] Jan, Chronic pain G89.29 ; Arthri tis M19.90 ; Hypothyroid E03.9 ; Chronic fatigue R53.82 ; Depression F32.9 ; CKD (chronic kidney disease) stage 3, GFR 30-59 ml/min N18.3 ; Gastroesophageal reflux disease without esophagitis K21.9 and Numbness of right foot R20.0 [place] [address] [place] [id number] [place] [address] Nov, [place] [address] [place] [id number] [place] [address] Nov, Chronic pain G89.29 ; Arthri tis M19.90 ; Abnormal serum creatinine level R79.9 ; Hypothyroid E03.9 and Chronic fatigue R53.82 [place] [address] [place] [id number] [place] [address] September, Chronic pain G89.29 ; Arthri tis M19.90 ; Epigastric pain R10.13 and COPD with acute exacerbation J44.1 [place] [address] [facility] [id number] [address] [place] [address] Aug, COPD with acute lower respir atory infection J44.0 ; Joint pain M25.50 and Chronic pain G89.29 [place] [address] [facility] [id number] [address] [place] [address] Aug, COPD with acute lower respir atory infection J44.0 [place] [address] [place] [id number] [place] [address] Aug, [place] [id number] [place] [address] Jul, Cervical spine arthritis M46 .92 ; Hypothyroid E03.9 ; Arthritis, lumbar spine M47.9 ; Sleep apnea G47.30 ; Chronic pain G89.29 and Swelling of ankle M25.473 [place] [address] [address] Jul, [place] [address] [place] [id number] [place] [address] Jun, [place] [address] [address] Jun, [place] [address] [place] [id number] [place] [address] Jun, Hypothyroid E03.9 ; OFELIA (obs tructive sleep apnea) G47.33 ; Pain in right shoulder M25.511 ; Neck pain M54.2 ; Low back pain M54.5 ; Depression F32.9 ; Hypertension I10 and Essential hypertension I10 [place] [address] [place] [id number] [place] [address] Jun, Posttraumatic stress disorde r F43.10 and Depression F32.9 [place] [id number] [place] [address] Jun, Sleep apnea in adult G47.33 [place] [address] [place] [id number] [place] [address] Jun, [place] [address] [place] [id number] [place] [address] Jun, Hypothyroidism, unspecified E03.9 ; Chronic obstructive pulmonary disease J44.9 ; Essential hypertension I10 and Morbid obesity E66.01 [place] [address] [place] [id number] [place] [address] May, [place] [address] [address] Apr, COPD (chronic obstructive pu lmonary disease) J44.9 [place] [address] [address] 17 Apr, 2015 Shortness of breath R06.02 [place] [address] [address] Apr, Chest discomfort R07.89 ; Ex ertional dyspnea R06.09 ; Morbid obesity E66.01 ; Bradycardia R00.1 and Hypothyroidism, unspecified E03.9 [place] [address] [address] Mar, Cardiomegaly I51.7 [place] [address] [address] 18 Mar, 2015 [place] [address] [address] Mar, Hypothyroidism, unspecified E03.9 [place] [address] [address] Mar, [place] [address] [address] Mar, Shortness of breath R06.02 ; Midline low back pain without sciatica M54.5 and Hypothyroidism, unspecified E03.9 [place] [address] [address] Mar, Chest discomfort R07.89 ; Sh ortness of breath R06.02 ; Morbid obesity E66.01 and Bradycardia R00.1 [place] [address] [address] Mar, Shortness of breath R06.02 ; Hypothyroidism, unspecified E03.9 and Elevated serum creatinine R79.89 [place] [address] [address] Feb, Hypothyroidism, unspecified E03.9 and Hypothyroidism 244.9 [facility] [address] [address] Feb, Midline low back pain withou t sciatica M54.5 [facility] [address] [facility] [id number] [address] [place] [address] Jan, [facility] [address] [address] Jan, Hypothyroidism 244.9 ; Anxie ty and depression 300.4 ; Carotid artery plaque 433.10 and Elevated serum creatinine 790.99 [place] [address] [address] Dec, [place] [address] [address] Dec, [place] [address] [address] Dec, [place] [address] [address] Dec, [place] [address] [address] Dec, Cardiomegaly 429.3 ; COPD (c hronic [...]
--- OUTSIDE RECORDS SUMMARY | 2019-11-05 22:18 | XMS REPORT ---
Author Author Irasema STOKES [facility] Address [address] [place] [address] Care Team Providers Care Heat Treating Bluer Name Role Phone POLY STOKES Unavailable PROBLEMS Type Condition ICD9-CM Code SRD13-JL Code Onset Dates Condition S tatus SNOMED Code Problem Carpal tunnel syndrome, right G56.01 Active [id number] Problem Cardiomegaly I51.7 Active 8304283 Problem OFELIA (obstructive sleep apnea) G47.33 Active 06884527 Problem COPD with acute exacerbation J44.1 A ctive 256615335 Problem Neck pain M54.2 Active 39961366 Problem Epigastric pain R10.13 Active 7992 2009 Problem Essential hypertension I10 Active 23816322 Problem Arthritis M19.90 Active 4691847 Problem Abnormal serum creatinine level R79.9 Active 638469108 Problem Chronic fatigue R53.82 Active 5270 2003 Problem Right hand paresthesia R20.2 Active 850734631 Problem Stasis dermatitis of both legs I87.2 Active 39473083 Problem Hypertension I10 Active 6482435 3 Problem Depression F32.9 Active 97220797 Problem Hypothyroid E03.9 Active 59049841 Problem Gastroesophageal reflux disease without esophagitis K21.9 Active 506903029 Problem CKD (chronic kidney disease) stage 3, GFR 30-59 ml/min N18.3 Active 315788057 Problem Nocturnal enuresis N39.44 Active 8 104541 Problem Vitamin D deficiency E55.9 Active 29270623 Problem Posttraumatic stress disorder F43.10 Active 73755156 Problem Sleep apnea G47.30 Active 50271585 Problem Low back pain M54.5 Active 790263 004 Problem Pain in right shoulder M25.511 Active 43879618 Problem Swelling of ankle M25.473 Active 26 2262788 Problem Cervical spine arthritis M46.92 Activ e 264283305 Problem Arthritis, lumbar spine M47.9 Active 855455944 Problem Chronic pain G89.29 Active 1621501 1 ALLERGIES No Information ENCOUNTERS Encounter Location Date Diagnosis [facility] [address] [address] Dec, Hypothyroid E03.9 [facility] [address] [address] Dec, [place] [address] [address] Dec, Hypothyroid E03.9 ; CKD (chr onic kidney disease) stage 3, GFR 30-59 ml/min N18.3 ; Chronic pain G89.29 ; Depression F32.9 and BMI 50.0-59.9, adult Z68.43 [place] [address] [address] Oct, [place] [address] [address] Oct, [place] [address] [address] Oct, BMI 50.0-59.9, adult Z68.43 ; OFELIA (obstructive sleep apnea) G47.33 ; Depression F32.9 and Hypertension I10 [place] [address] [address] September, [place] [address] [address] September, [place] [address] [address] September, Chronic pain G89.29 [place] [address] [address] Aug, Hypothyroid E03.9 ; Chronic pain G89.29 ; BMI 50.0-59.9, adult Z68.43 ; COPD with acute exacerbation J44.1 ; CKD (chronic kidney disease) stage 3, GFR 30-59 ml/min N18.3 ; Depression F32.9 ; Gastroesophageal reflux disease without esophagitis K21.9 ; Left hip pain M25.552 ; Swelling of both lower extremities M79.89 and Stasis dermatitis of both legs I87.2 [place] [address] [address] [facility] [id number] [address] [place] [address] Jul, Chronic pain G89.29 [place] [address] [address] [facility] [id number] [address] [place] [address] May, Chronic pain G89.29 [place] [address] [address] [place] [id number] [address] [place] [address] May, [place] [address] [place] [id number] [place] [address] May, Hypothyroid E03.9 ; Chronic pain G89.29 [...] Z12.31 and Encounter for screening colonoscopy Z12.11 [place] [address] [address] [place] [id number] [address] [place] [address] 16 May, 2017 Depression F32.9 [place] [address] [address] [facility] [id number] [address] [place] [address] 04 May, 2017 Chronic pain G89.29 [place] [address] [address] [facility] [id number] [address] [place] [address] Apr, Chronic pain G89.29 and COPD with acute exacerbation J44.1 [place] [address] [address] [facility] [id number] [address] [place] [address] Mar, [place] [address] [address] [facility] [id number] [address] [place] [address] Mar, Chronic pain G89.29 [facility] [address] [id number] [address] [place] [address] Mar, [facility] [address] [id number] [address] [place] [address] Feb, Hypothyroid E03.9 ; Chronic pain G89.29 ; COPD with acute exacerbation J44.1 ; CKD (chronic kidney disease) stage 3, GFR 30-59 ml/min N18.3 ; Depression F32.9 ; Gastroesophageal reflux disease without esophagitis K21.9 ; Right hand paresthesia R20.2 ; Left hip pain M25.552 ; Swelling of both lower extremities M79.89 and Stasis dermatitis of both legs I87.2 [facility] [address] [id number] [address] [place] [address] Jan, Depression F32.9 [facility] [address] [id number] [address] [place] [address] Jan, Chronic pain G89.29 [facility] [address] [id number] [address] [place] [address] Dec, Chronic pain G89.29 [facility] [address] [id number] [address] [place] [address] Nov, [facility] [address] [id number] [address] [place] [address] Nov, [facility] [address] [id number] [address] [place] [address] Oct, Skin tag L91.8 ; Hypothyroid E03.9 ; Chronic pain G89.29 ; COPD with acute exacerbation J44.1 and CKD (chronic kidney disease) stage 3, GFR 30- 59 ml/min N18.3 [facility] [address] [id number] [address] [place] [address] September, [facility] [address] [id number] [address] [place] [address] September, [facility] [address] [id number] [address] [place] [address] Jul, [facility] [address] [facility] [id number] [address] [place] [address] Jul, [facility] [address] [place] [id number] [address] [place] [address] Jul, [facility] [address] [place] [id number] [address] [place] [address] Jul, Hypothyroid E03.9 [facility] [address] [place] [id number] [address] [place] [address] Jun, Hypothyroid E03.9 ; Chronic pain G89.29 ; CKD (chronic kidney disease) stage 3, GFR 30-59 ml/min N18.3 ; Arthritis M19.90 ; Hypertension I10 ; Depression F32.9 ; Gastroesophageal reflux disease without esophagitis K21.9 and Bronchitis J40 [facility] [address] [place] [id number] [address] [place] [address] Jun, [facility] [address] [place] [id number] [address] [place] [address] Jun, Chronic pain G89.29 [facility] [address] [place] [id number] [address] [place] [address] May, Hypothyroid E03.9 ; Chronic pain G89.29 ; CKD (chronic kidney disease) stage 3, GFR 30-59 ml/min N18.3 ; Arthritis M19.90 ; Hypertension I10 and Depression F32.9 [facility] [address] [facility] [id number] [address] [place] [address] May, [facility] [address] [place] [id number] [address] [place] [address] Mar, Hypothyroid E03.9 [facility] [address] [facility] [id number] [address] [place] [address] Mar, [facility] [address] [place] [id number] [address] [place] [address] Mar, Chronic pain G89.29 ; CKD (c hronic kidney disease) stage 3, GFR 30- 59 ml/min N18.3 ; Hypothyroid E03.9 ; Arthritis M19.90 ; Vitamin D deficiency E55.9 ; Hypertension I10 ; Depression F32.9 and Nocturnal enuresis N39.44 [place] [id number] [place] [address] Mar, [place] [address] [address] Jan, Chronic pain G89.29 ; Arthri tis M19.90 ; Hypothyroid E03.9 ; Chronic fatigue R53.82 ; Depression F32.9 ; CKD (chronic kidney disease) stage 3, GFR 30-59 ml/min N18.3 ; Gastroesophageal reflux disease without esophagitis K21.9 and Numbness of right foot R20.[address] [address] Nov, [place] [address] [address] Nov, Chronic pain G89.29 ; Arthri tis M19.90 ; Abnormal serum creatinine level R79.9 ; Hypothyroid E03.9 and Chronic fatigue R53.82 [place] [address] [address] [place] [id number] [address] [place] [address] September, Chronic pain G89.29 ; Arthri tis M19.90 ; Epigastric pain R10.13 and COPD with acute exacerbation J44.1 [place] [address] [place] [id number] [address] [place] [address] Aug, COPD with acute lower respir atory infection J44.0 ; Joint pain M25.50 and Chronic pain G89.29 [place] [address] [place] [id number] [address] [place] [address] Aug, COPD with acute lower respir atory infection J44.0 [place] [address] [place] [id number] [place] [address] Aug, [place] [address] [place] [id number] [address] [place] [address] Jul, Cervical spine arthritis M46 .92 ; Hypothyroid E03.9 ; Arthritis, lumbar spine M47.9 ; Sleep apnea G47.30 ; Chronic pain G89.29 and Swelling of ankle M25.473 [place] [address] [address] Jul, [place] [address] [address] Jun, [place] [address] [address] Jun, [place] [address] [address] Jun, Hypothyroid E03.9 ; OFELIA (obs tructive sleep apnea) G47.33 ; Pain in right shoulder M25.511 ; Neck pain M54.2 ; Low back pain M54.5 ; Depression F32.9 ; Hypertension I10 and Essential hypertension I10 [address] [address] Jun, Posttraumatic stress disorde r F43.10 and Depression F32.9 [place] [address] [id number] [place] [address] Jun, Sleep apnea in adult G47.33 [place] [address] [place] [id number] [address] [place] [address] Jun, [place] [address] [place] [id number] [address] [place] [address] Jun, Hypothyroidism, unspecified E03.9 ; Chronic obstructive pulmonary disease J44.9 ; Essential hypertension I10 and Morbid obesity E66.01 [place] [address] [address] [place] [id number] [address] [place] [address] May, [place] [id number] [place] [address] Apr, COPD (chronic obstructive pu lmonary disease) J44.9 [place] [address] [address] 17 Apr, 2015 Shortness of breath R06.02 [place] [address] [address] Apr, Chest discomfort R07.89 ; Ex ertional dyspnea R06.09 ; Morbid obesity E66.01 ; Bradycardia R00.1 and Hypothyroidism, unspecified E03.9 [place] [address] [address] Mar, Cardiomegaly I51.7 [place] [address] [address] 18 Mar, 2015 [place] [address] [address] Mar, Hypothyroidism, unspecified E03.9 [place] [address] [address] Mar, [place] [address] [address] Mar, Shortness of breath R06.02 ; Midline low back pain without sciatica M54.5 and Hypothyroidism, unspecified E03.9 [place] [address] [address] Mar, Chest discomfort R07.89 ; Sh ortness of breath R06.02 ; Morbid obesity E66.01 and Bradycardia R00.1 [place] [address] [address] Mar, Shortness of breath R06.02 ; Hypothyroidism, unspecified E03.9 and Elevated serum creatinine R79.89 [place] [address] [address] Feb, Hypothyroidism, unspecified E03.9 and Hypothyroidism 244.9 [facility] [address] [address] Feb, Midline low back pain withou t sciatica M54.5 [facility] [address] [place] [id number] [address] [place] [address] Jan, [facility] [address] [address] Jan, Hypothyroidism 244.9 ; Anxie ty and depression 300.4 ; Carotid artery plaque 433.10 and Elevated serum creatinine 790.99 [place] [address] [address] Dec, [facility] [address] [address] Dec, [place] [address] [address] Dec, [facility] [address] [address] Dec, [place] [address] [address] Dec, Cardiomegaly 429.3 ; COPD (c hronic obstructive pulmonary disease) 496 ; Cervicalgia 723.1 and Anxiety and depression 300.4 IMMUNIZATIONS No Known Immunizations SOCIAL HISTORY Never Assessed REASON FOR VISIT Medication question PLAN OF CARE VITAL SIGNS MEDICATIONS Unknown [...]
--- OUTSIDE RECORDS SUMMARY | 2019-11-05 22:18 | XMS REPORT ---
Author Irasema Cool Organization [employer] Address Unknown Phone Unavailable Care Team Providers Care Toddler Caregiver Name Role Phone CAROL WHITLOCK CP Unavailable [...]
--- OUTSIDE RECORDS SUMMARY | 2019-11-05 22:18 | XMS REPORT ---
Author Author Irasema REYNOLDS Organization [facility] Address [address] [place] [address] Care Team Providers Care Segment Assembler Name Role Phone HEDY REYNOLDSTA Unavailable PROBLEMS Type Condition ICD9-CM Code XNB97-SX Code Onset Dates Condition S tatus SNOMED Code Problem Carpal tunnel syndrome, right G56.01 Active [id number] Problem Cardiomegaly I51.7 Active 5301414 Problem OFELIA (obstructive sleep apnea) G47.33 Active 44536892 Problem COPD with acute exacerbation J44.1 A ctive 627876037 Problem Neck pain M54.2 Active 90306774 Problem Epigastric pain R10.13 Active 7992 2009 Problem Essential hypertension I10 Active 83463727 Problem Arthritis M19.90 Active 3845783 Problem Abnormal serum creatinine level R79.9 Active 896227206 Problem Chronic fatigue R53.82 Active 5270 2003 Problem Right hand paresthesia R20.2 Active 729673452 Problem Stasis dermatitis of both legs I87.2 Active 01268797 Problem Hypertension I10 Active 9057959 3 Problem Depression F32.9 Active 20047066 Problem Hypothyroid E03.9 Active 44723643 Problem Gastroesophageal reflux disease without esophagitis K21.9 Active 210328387 Problem CKD (chronic kidney disease) stage 3, GFR 30-59 ml/min N18.3 Active 032781618 Problem Nocturnal enuresis N39.44 Active 8 665157 Problem Vitamin D deficiency E55.9 Active 86173657 Problem Posttraumatic stress disorder F43.10 Active 03374086 Problem Sleep apnea G47.30 Active 77023272 Problem Low back pain M54.5 Active 145982 004 Problem Pain in right shoulder M25.511 Active 89730599 Problem Swelling of ankle M25.473 Active 26 8104682 Problem Cervical spine arthritis M46.92 Activ e 394267210 Problem Arthritis, lumbar spine M47.9 Active 575014603 Problem Chronic pain G89.29 Active 2168890 1 ALLERGIES Substance Reaction Event Type Date Status Snow Headaches Drug Allergy Dec, Active ENCOUNTERS Encounter Location Date Diagnosis [facility] [address] [address] Dec, Hypothyroid E03.9 [facility] [address] [address] Dec, [facility] [address] [address] Dec, Hypothyroid E03.9 ; CKD (chr onic kidney disease) stage 3, GFR 30-59 ml/min N18.3 ; Chronic pain G89.29 ; Depression F32.9 and BMI 50.0-59.9, adult Z68.43 [facility] [address] [address] Oct, [place] [address] [address] Oct, [facility] [address] [address] Oct, BMI 50.0-59.9, adult Z68.43 ; OFELIA (obstructive sleep apnea) G47.33 ; Depression F32.9 and Hypertension I10 [facility] [address] [address] September, [facility] [address] [address] September, [place] [address] [address] September, Chronic pain G89.29 [place] [address] [place] [id number] [place] [address] Aug, Hypothyroid E03.9 ; Chronic pain G89.29 ; BMI 50.0-59.9, adult Z68.43 ; COPD with acute exacerbation J44.1 ; CKD (chronic kidney disease) stage 3, GFR 30-59 ml/min N18.3 ; Depression F32.9 ; Gastroesophageal reflux disease without esophagitis K21.9 ; Left hip pain M25.552 ; Swelling of both lower extremities M79.89 and Stasis dermatitis of both legs I87.2 [place] [address] [facility] [id number] [address] [place] [address] Jul, Chronic pain G89.29 [place] [address] [place] [id number] [place] [address] May, Chronic pain G89.29 [place] [address] [place] [id number] [place] [address] May, [place] [address] [place] [id number] [place] [address] May, Hypothyroid E03.9 ; Chronic pain G89.29 [...] Z12.31 and Encounter for screening colonoscopy Z12.11 [place] [address] [place] [id number] [place] [address] 16 May, 2017 Depression F32.9 [place] [address] [facility] [id number] [address] [place] [phone] 04 May, 2017 Chronic pain G89.29 [place] [address] [facility] [id number] [address] [place] [address] Apr, Chronic pain G89.29 and COPD with acute exacerbation J44.1 [place] [address] [place] [id number] [place] [address] Mar, [place] [address] [place] [id number] [place] [address] Mar, Chronic pain G89.29 [facility] [address] [facility] [id number] [address] [place] [address] Mar, [facility] [address] [facility] [id number] [address] [place] [address] Feb, Hypothyroid E03.9 ; Chronic pain G89.29 ; COPD with acute exacerbation J44.1 ; CKD (chronic kidney disease) stage 3, GFR 30-59 ml/min N18.3 ; Depression F32.9 ; Gastroesophageal reflux disease without esophagitis K21.9 ; Right hand paresthesia R20.2 ; Left hip pain M25.552 ; Swelling of both lower extremities M79.89 and Stasis dermatitis of both legs I87.2 [facility] [address] [facility] [id number] [address] [place] [address] Jan, Depression F32.9 [facility] [address] [place] [id number] [place] [address] Jan, Chronic pain G89.29 [facility] [address] [facility] [id number] [address] [place] [address] Dec, Chronic pain G89.29 [facility] [address] [facility] [id number] [address] [place] [address] Nov, [facility] [address] [place] [id number] [place] [address] Nov, [facility] [address] [place] [id number] [place] [address] Oct, Skin tag L91.8 ; Hypothyroid E03.9 ; Chronic pain G89.29 ; COPD with acute exacerbation J44.1 and CKD (chronic kidney disease) stage 3, GFR 30- 59 ml/min N18.3 [facility] [address] [facility] [id number] [address] [place] [address] September, [facility] [address] [place] [id number] [place] [address] September, [facility] [address] [facility] [id number] [address] [place] [address] Jul, [facility] [address] [facility] [id number] [address] [place] [address] Jul, [facility] [address] [facility] [id number] [address] [place] [address] Jul, [facility] [address] [facility] [id number] [address] [place] [address] Jul, Hypothyroid E03.9 [facility] [address] [facility] [id number] [address] [place] [address] Jun, Hypothyroid E03.9 ; Chronic pain G89.29 ; CKD (chronic kidney disease) stage 3, GFR 30-59 ml/min N18.3 ; Arthritis M19.90 ; Hypertension I10 ; Depression F32.9 ; Gastroesophageal reflux disease without esophagitis K21.9 and Bronchitis J40 [facility] [address] [facility] [id number] [address] [place] [address] Jun, [facility] [address] [facility] [id number] [address] [place] [address] Jun, Chronic pain G89.29 [facility] [address] [facility] [id number] [address] [place] [address] May, Hypothyroid E03.9 ; Chronic pain G89.29 ; CKD (chronic kidney disease) stage 3, GFR 30-59 ml/min N18.3 ; Arthritis M19.90 ; Hypertension I10 and Depression F32.9 [facility] [address] [facility] [id number] [address] [place] [address] May, [facility] [address] [facility] [id number] [address] [place] [address] Mar, Hypothyroid E03.9 [facility] [address] [facility] [id number] [address] [place] [address] Mar, [facility] [address] [facility] [id number] [address] [place] [address] Mar, Chronic pain G89.29 ; CKD (c hronic kidney disease) stage 3, GFR 30- 59 ml/min N18.3 ; Hypothyroid E03.9 ; Arthritis M19.90 ; Vitamin D deficiency E55.9 ; Hypertension I10 ; Depression F32.9 and Nocturnal enuresis N39.44 [place] [address] [facility] [id number] [address] [place] [address] Mar, [place] [address] [facility] [id number] [address] [place] [address] Jan, Chronic pain G89.29 ; Arthri tis M19.90 ; Hypothyroid E03.9 ; Chronic fatigue R53.82 ; Depression F32.9 ; CKD (chronic kidney disease) stage 3, GFR 30-59 ml/min N18.3 ; Gastroesophageal reflux disease without esophagitis K21.9 and Numbness of right foot R20.0 [place] [address] [place] [id number] [address] [place] [address] Nov, [place] [address] [place] [id number] [place] [address] Nov, Chronic pain G89.29 ; Arthri tis M19.90 ; Abnormal serum creatinine level R79.9 ; Hypothyroid E03.9 and Chronic fatigue R53.82 [place] [address] [facility] [id number] [address] [place] [id number] September, Chronic pain G89.29 ; Arthri tis M19.90 ; Epigastric pain R10.13 and COPD with acute exacerbation J44.1 [place] [address] [facility] [id number] [address] [place] [address] Aug, COPD with acute lower respir atory infection J44.0 ; Joint pain M25.50 and Chronic pain G89.29 [place] [address] [facility] [id number] [address] [place] [address] Aug, COPD with acute lower respir atory infection J44.0 [place] [address] [place] [id number] [place] [address] Aug, [place] [address] [address] Jul, Cervical spine arthritis M46 .92 ; Hypothyroid E03.9 ; Arthritis, lumbar spine M47.9 ; Sleep apnea G47.30 ; Chronic pain G89.29 and Swelling of ankle M25.473 [place] [address] [address] Jul, [place] [address] [address] Jun, [address] [address] Jun, [place] [address] [address] Jun, Hypothyroid E03.9 ; OFELIA (obs tructive sleep apnea) G47.33 ; Pain in right shoulder M25.511 ; Neck pain M54.2 ; Low back pain M54.5 ; Depression F32.9 ; Hypertension I10 and Essential hypertension I10 [place] [id number] [place] [address] 18 Jun, 2015 Posttraumatic stress disorde r F43.10 and Depression F32.9 [facility] [id number] [place] [address] Jun, Sleep apnea in adult G47.[address] [id number] [address] [place] [address] Jun, [address] [address] 03 Jun, 2015 Hypothyroidism, unspecified E03.9 ; Chronic obstructive pulmonary disease J44.9 ; Essential hypertension I10 and Morbid obesity E66.[address] [address] May, [facility] [address] [address] Apr, COPD (chronic obstructive pu lmonary disease) J44.9 [place] [address] [address] 17 Apr, 2015 Shortness of breath R06.02 [place] [address] [address] Apr, Chest discomfort R07.89 ; Ex ertional dyspnea R06.09 ; Morbid obesity E66.01 ; Bradycardia R00.1 and Hypothyroidism, unspecified E03.9 [place] [address] [address] 18 Mar, 2015 Cardiomegaly I51.7 [place] [address] [address] 18 Mar, 2015 [place] [address] [address] Mar, Hypothyroidism, unspecified E03.9 [place] [address] [address] Mar, [place] [address] [address] Mar, Shortness of breath R06.02 ; Midline low back pain without sciatica M54.5 and Hypothyroidism, unspecified E03.9 [place] [address] [address] Mar, Chest discomfort R07.89 ; Sh ortness of breath R06.02 ; Morbid obesity E66.01 and Bradycardia R00.1 [place] [address] [address] 09 Mar, 2015 Shortness of breath R06.02 ; Hypothyroidism, unspecified E03.9 and Elevated serum creatinine R79.89 [place] [address] [address] Feb, Hypothyroidism, unspecified E03.9 and Hypothyroidism 244.9 [place] [address] [address] Feb, Midline low back pain withou t sciatica M54.5 [place] [address] [place] [id number] [place] [address] Jan, [place] [address] [address] Jan, Hypothyroidism 244.9 ; Anxie ty and depression 300.4 ; Carotid artery plaque 433.10 and Elevated serum creatinine 790.99 [place] [address] [address] Dec, [place] [address] [address] Dec, [place] [address] [address] Dec, [place] [address] [address] Dec, [place] [address] [address] Dec, Cardiomegaly 429.3 ; COPD (c hronic obstructive pulmonary disease) 496 ; Cervicalgia 723.1 and Anxiety and depression 300.4 IMMUNIZATIONS No Known Immunizations SOCIAL HISTORY Never Assessed REASON FOR VISIT Establish Care-[facility], Needing refills on medications PLAN OF CARE Activity Details Follow Up 3 months or as indicated by lab Reason:HTN VITAL SIGNS Height 60 in 2017-12-20 Weight 298.0 lbs 2017-12-20 Temperature 98.3 degrees Fahrenheit 2017-12-20 Heart Rate 84 bpm 2017-12-20 Respiratory Rate 20 2017-12-20 BMI 58.19 kg/m2 2017-12-20 Blood pressure systolic 118 mmHg 2017-12-20 Blood pressure diastolic 76 mmHg 2017-12-20 MEDICATIONS Medication Instructions Dosage Frequency Start Date End Date Duration S tatus Vitamin D Orally Once a day 1 tablet 24h Act sahara Norvasc 10 MG Orally Once a day 1 tablet 24h Active Multi For Her Active Cymbalta 30 MG Orally Once a day x 1 week then increase to 2 caps po daily 1 capsule Oct, 30 day(s) Not-Taking Omeprazole 40 mg Orally Once a day 1 capsule 24h 30 day(s) Active ProAir HFA 108 (90 Base) MCG/ACT Inhalation every 4 hrs prn 2 puffs as needed Active Cymbalta 60 mg Orally Once a day 1 capsule 24h Oct, 30 day(s) Not-Taking Levothyroxine Sodium 88 MCG Orally Once a day 1 tablet 24h Active RESULTS Name Result Date Reference Range TSH 2017-12-20 TSH 3.15 0.40-4.50 PROCEDURES Procedure Date Ordered Result Body Site [facility] Dec 20, 2017 VENIPUNCT, ROUTINE* Dec 20, 2017 INSTRUCTIONS MEDICATIONS ADMINISTERED No Known Medications MEDICAL [...]
--- OUTSIDE RECORDS SUMMARY | 2019-11-05 22:19 | XMS REPORT ---
Author Author Irasema REYNOLDS Organization [facility] Address [address] [place] [address] Care Team Providers Care Principal Biostatistician Name Role Phone HEDY REYNOLDSTA Unavailable PROBLEMS Type Condition ICD9-CM Code UWF95-VC Code Onset Dates Condition S tatus SNOMED Code Problem Carpal tunnel syndrome, right G56.01 Active [id number] Problem Cardiomegaly I51.7 Active 3326824 Problem OFELIA (obstructive sleep apnea) G47.33 Active 87647175 Problem COPD with acute exacerbation J44.1 A ctive 444905743 Problem Neck pain M54.2 Active 84795000 Problem Epigastric pain R10.13 Active 7992 2009 Problem Essential hypertension I10 Active 90344313 Problem Arthritis M19.90 Active 1591071 Problem Abnormal serum creatinine level R79.9 Active 440485211 Problem Chronic fatigue R53.82 Active 5270 2003 Problem Right hand paresthesia R20.2 Active 374619654 Problem Stasis dermatitis of both legs I87.2 Active 94487779 Problem Hypertension I10 Active 5810745 3 Problem Depression F32.9 Active 15007924 Problem Hypothyroid E03.9 Active 87394663 Problem Gastroesophageal reflux disease without esophagitis K21.9 Active 000075632 Problem CKD (chronic kidney disease) stage 3, GFR 30-59 ml/min N18.3 Active 947719833 Problem Nocturnal enuresis N39.44 Active 8 014052 Problem Vitamin D deficiency E55.9 Active 03082032 Problem Posttraumatic stress disorder F43.10 Active 15079842 Problem Sleep apnea G47.30 Active 30033757 Problem Low back pain M54.5 Active 771938 004 Problem Pain in right shoulder M25.511 Active 13334374 Problem Swelling of ankle M25.473 Active 26 2641261 Problem Cervical spine arthritis M46.92 Activ e 662804295 Problem Arthritis, lumbar spine M47.9 Active 612444346 Problem Chronic pain G89.29 Active 4804871 1 ALLERGIES No Information ENCOUNTERS Encounter Location Date Diagnosis [place] [id number] [address] Dec, Hypothyroid E03.9 [place] [address] [address] Dec, [place] [address] [address] Dec, Hypothyroid E03.9 ; CKD (chr onic kidney disease) stage 3, GFR 30-59 ml/min N18.3 ; Chronic pain G89.29 ; Depression F32.9 and BMI 50.0-59.9, adult Z68.43 [place] [address] [address] Oct, [place] [address] [address] Oct, [place] [address] [address] Oct, BMI 50.0-59.9, adult Z68.43 ; OFELIA (obstructive sleep apnea) G47.33 ; Depression F32.9 and Hypertension I10 [place] [address] [address] September, [place] [address] [address] September, [place] [address] [address] September, Chronic pain G89.29 [place] [address] [address] Aug, Hypothyroid E03.9 ; Chronic pain G89.29 ; BMI 50.0-59.9, adult Z68.43 ; COPD with acute exacerbation J44.1 ; CKD (chronic kidney disease) stage 3, GFR 30-59 ml/min N18.3 ; Depression F32.9 ; Gastroesophageal reflux disease without esophagitis K21.9 ; Left hip pain M25.552 ; Swelling of both lower extremities M79.89 and Stasis dermatitis of both legs I87.2 [place] [address] [address] Jul, Chronic pain G89.29 [place] [address] [address] May, Chronic pain G89.29 [place] [address] [place] [id number] [place] [address] May, [place] [address] [address] May, Hypothyroid E03.9 ; Chronic pain G89.29 [...] Z12.31 and Encounter for screening colonoscopy Z12.11 [place] [address] [address] 16 May, 2017 Depression F32.9 [place] [address] [address] 04 May, 2017 Chronic pain G89.29 [place] [address] [place] [id number] [place] [phone] Apr, Chronic pain G89.29 and COPD with acute exacerbation J44.1 [place] [address] [place] [id number] [place] [phone] Mar, [place] [address] [place] [id number] [place] [address] Mar, Chronic pain G89.29 [place] [address] [facility] [id number] [address] [place] [phone] Mar, [facility] [address] [facility] [id number] [address] [place] [phone] Feb, Hypothyroid E03.9 ; Chronic pain G89.29 ; COPD with acute exacerbation J44.1 ; CKD (chronic kidney disease) stage 3, GFR 30-59 ml/min N18.3 ; Depression F32.9 ; Gastroesophageal reflux disease without esophagitis K21.9 ; Right hand paresthesia R20.2 ; Left hip pain M25.552 ; Swelling of both lower extremities M79.89 and Stasis dermatitis of both legs I87.2 [facility] [address] [facility] [id number] [address] [place] [phone] Jan, Depression F32.9 [facility] [address] [facility] [id number] [address] [place] [phone] Jan, Chronic pain G89.29 [facility] [address] [facility] [id number] [address] [place] [address] Dec, Chronic pain G89.29 [facility] [address] [id number] [address] [place] [phone] Nov, [facility] [address] [facility] [id number] [address] [place] [phone] Nov, [facility] [address] [facility] [id number] [address] [place] [phone] Oct, Skin tag L91.8 ; Hypothyroid E03.9 ; Chronic pain G89.29 ; COPD with acute exacerbation J44.1 and CKD (chronic kidney disease) stage 3, GFR 30- 59 ml/min N18.3 [facility] [address] [id number] [address] [place] [address] September, [facility] [address] [facility] [id number] [address] [place] [phone] September, [facility] [address] [place] [id number] [place] [phone] Jul, [facility] [address] [facility] [id number] [address] [place] [address] Jul, [facility] [address] [facility] [id number] [address] [place] [phone] Jul, [facility] [address] [facility] [id number] [address] [place] [phone] Jul, Hypothyroid E03.9 [facility] [address] [facility] [id number] [address] [place] [id number] Jun, Hypothyroid E03.9 ; Chronic pain G89.29 ; CKD (chronic kidney disease) stage 3, GFR 30-59 ml/min N18.3 ; Arthritis M19.90 ; Hypertension I10 ; Depression F32.9 ; Gastroesophageal reflux disease without esophagitis K21.[address] [facility] [address] [facility] [id number] [address] [place] [phone] Jun, [facility] [address] [facility] [id number] [address] [place] [id number] Jun, Chronic pain G89.29 [facility] [address] [facility] [id number] [address] [place] [phone] May, Hypothyroid E03.9 ; Chronic pain G89.29 ; CKD (chronic kidney disease) stage 3, GFR 30-59 ml/min N18.3 ; Arthritis M19.90 ; Hypertension I10 and Depression F32.9 [facility] [address] [facility] [id number] [address] [place] [phone] May, [facility] [address] [facility] [id number] [address] [place] [phone] Mar, Hypothyroid E03.9 [facility] [address] [facility] [id number] [address] [place] [id number] Mar, [facility] [address] [facility] [id number] [address] [place] [address] Mar, Chronic pain G89.29 ; CKD (c hronic kidney disease) stage 3, GFR 30- 59 ml/min N18.3 ; Hypothyroid E03.9 ; Arthritis M19.90 ; Vitamin D deficiency E55.9 ; Hypertension I10 ; Depression F32.9 and Nocturnal enuresis N39.44 [place] [address] [address] Mar, [place] [address] [address] Jan, Chronic pain G89.29 ; Arthri tis M19.90 ; Hypothyroid E03.9 ; Chronic fatigue R53.82 ; Depression F32.9 ; CKD (chronic kidney disease) stage 3, GFR 30-59 ml/min N18.3 ; Gastroesophageal reflux disease without esophagitis K21.9 and Numbness of right foot R20.[address] [address] Nov, [address] [address] Nov, Chronic pain G89.29 ; Arthri tis M19.90 ; Abnormal serum creatinine level R79.9 ; Hypothyroid E03.9 and Chronic fatigue R53.[address] [address] September, Chronic pain G89.29 ; Arthri tis M19.90 ; Epigastric pain R10.13 and COPD with acute exacerbation J44.[address] [address] Aug, COPD with acute lower respir atory infection J44.0 ; Joint pain M25.50 and Chronic pain G89.[address] [address] Aug, COPD with acute lower respir atory infection J44.[address] [address] Aug, [facility] [address] [place] [address] Jul, Cervical spine arthritis M46 .92 ; Hypothyroid E03.9 ; Arthritis, lumbar spine M47.9 ; Sleep apnea G47.30 ; Chronic pain G89.29 and Swelling of ankle M25.473 [facility] [address] [place] [address] Jul, [place] [address] [place] [id number] [address] [place] [phone] Jun, [place] [address] [address] Jun, [place] [address] [address] Jun, Hypothyroid E03.9 ; OFELIA (obs tructive sleep apnea) G47.33 ; Pain in right shoulder M25.511 ; Neck pain M54.2 ; Low back pain M54.5 ; Depression F32.9 ; Hypertension I10 and Essential hypertension I10 [place] [id number] [place] [address] Jun, Posttraumatic stress disorde r F43.10 and Depression F32.9 [facility] [id number] [place] [address] 10 Jun, 2015 Sleep apnea in adult G47.33 [place] [address] [place] [id number] [place] [phone] Jun, [place] [address] [place] [id number] [address] [place] [phone] Jun, Hypothyroidism, unspecified E03.9 ; Chronic obstructive pulmonary disease J44.9 ; Essential hypertension I10 and Morbid obesity E66.01 [place] [address] [place] [id number] [place] [phone] May, [place] [address] [address] Apr, COPD (chronic obstructive pu lmonary disease) J44.9 [place] [address] [place] [address] 17 Apr, 2015 Shortness of breath R06.02 [place] [address] [address] Apr, Chest discomfort R07.89 ; Ex ertional dyspnea R06.09 ; Morbid obesity E66.01 ; Bradycardia R00.1 and Hypothyroidism, unspecified E03.9 [place] [address] [address] Mar, Cardiomegaly I51.7 [place] [address] [address] 18 Mar, 2015 [place] [address] [address] Mar, Hypothyroidism, unspecified E03.9 [place] [address] [address] Mar, [place] [address] [address] Mar, Shortness of breath R06.02 ; Midline low back pain without sciatica M54.5 and Hypothyroidism, unspecified E03.9 [place] [address] [address] Mar, Chest discomfort R07.89 ; Sh ortness of breath R06.02 ; Morbid obesity E66.01 and Bradycardia R00.1 [place] [address] [address] 09 Mar, 2015 Shortness of breath R06.02 ; Hypothyroidism, unspecified E03.9 and Elevated serum creatinine R79.89 [place] [address] [address] Feb, Hypothyroidism, unspecified E03.[address] [facility] [address] [place] [id number] [place] [address] Feb, Midline low back pain withou t sciatica M54.5 [facility] [address] [facility] [id number] [address] [place] [phone] Jan, [facility] [address] [address] Jan, Hypothyroidism 244.9 ; Anxie ty and depression 300.4 ; Carotid artery plaque 433.10 and Elevated serum creatinine 790.99 [place] [address] [address] Dec, [place] [address] [place] [id number] [place] [address] Dec, [place] [address] [address] Dec, [place] [address] [place] [id number] [place] [phone] Dec, [place] [address] [address] Dec, Cardiomegaly 429.3 ; COPD (c hronic obstructive pulmonary disease) 496 ; Cervicalgia 723.1 and Anxiety and depression 300.4 IMMUNIZATIONS No Known Immunizations SOCIAL HISTORY Never Assessed REASON FOR VISIT refill rx PLAN OF CARE VITAL SIGNS MEDICATIONS Medication Instructions Dosage Frequency Start Date End Date Duration S tatus Levothyroxine Sodium 88 MCG Orally Once a day 1 tablet 24h 30 days Active RESULTS No Results PROCEDURES No Known [...] Carpal Tunnel Bilaterally Medical History consult colonoscopy ana Gonzalez 06/19/17, did not go to procedure; pt reports she will reschedule 08/28/17 Medical History Cataract Surgical History cholecystectomy 1988 Surgical History orthopedic surgery, right knee 2002 Surgical History section 1979 Surgical History tubal ligation 1979 Hospitalization History Pneumonia as a kid
--- OUTSIDE RECORDS SUMMARY | 2019-11-05 22:19 | XMS REPORT ---
Author Author Irasema ALVA [facility] Address [address] [place] [address] Care Team Providers Care Intelligence Specialist Name Role Phone DANII ALVA Unavailable PROBLEMS Type Condition ICD9-CM Code YDH74-CH Code Onset Dates Condition S tatus SNOMED Code Problem Carpal tunnel syndrome, right G56.01 Active [id number] Problem Cardiomegaly I51.7 Active 0168147 Problem OFELIA (obstructive sleep apnea) G47.33 Active 79854294 Problem COPD with acute exacerbation J44.1 A ctive 730403156 Problem Neck pain M54.2 Active 28534790 Problem Epigastric pain R10.13 Active 7992 2009 Problem Essential hypertension I10 Active 94075192 Problem Arthritis M19.90 Active 3578365 Problem Abnormal serum creatinine level R79.9 Active 853735653 Problem Chronic fatigue R53.82 Active 5270 2003 Problem Right hand paresthesia R20.2 Active 318804326 Problem Stasis dermatitis of both legs I87.2 Active 59933174 Problem Hypertension I10 Active 2794570 3 Problem Depression F32.9 Active 32511087 Problem Hypothyroid E03.9 Active 21751826 Problem Gastroesophageal reflux disease without esophagitis K21.9 Active 134733976 Problem CKD (chronic kidney disease) stage 3, GFR 30-59 ml/min N18.3 Active 910579087 Problem Nocturnal enuresis N39.44 Active 8 497568 Problem Vitamin D deficiency E55.9 Active 58290632 Problem Posttraumatic stress disorder F43.10 Active 18851357 Problem Sleep apnea G47.30 Active 49199582 Problem Low back pain M54.5 Active 679827 004 Problem Pain in right shoulder M25.511 Active 07296764 Problem Swelling of ankle M25.473 Active 26 5336038 Problem Cervical spine arthritis M46.92 Activ e 779424487 Problem Arthritis, lumbar spine M47.9 Active 897046219 Problem Chronic pain G89.29 Active 4194899 1 ALLERGIES No Known Allergies ENCOUNTERS Encounter Location Date Diagnosis [place] [address] [address] Dec, Hypothyroid E03.9 [facility] [address] [address] Dec, [place] [address] [address] Dec, Hypothyroid E03.9 ; CKD ([facility] on kidney disease) stage 3, GFR 30-59 ml/min N18.3 ; Chronic pain G89.29 ; Depression F32.9 and BMI 50.0-59.9, adult Z68.43 [place] [address] [address] Oct, [place] [address] [address] Oct, [place] [address] [address] Oct, BMI 50.0-59.9, adult Z68.43 ; OFELIA (obstructive sleep apnea) G47.33 ; Depression F32.9 and Hypertension I10 [place] [address] [address] September, [place] [address] [address] September, [place] [address] [address] September, Chronic pain G89.29 [place] [address] [address] Aug, Hypothyroid E03.9 ; Chronic pain G89.29 ; BMI 50.0-59.9, adult Z68.43 ; COPD with acute exacerbation J44.1 ; CKD (chronic kidney disease) stage 3, GFR 30-59 ml/min N18.3 ; Depression F32.9 ; Gastroesophageal reflux disease without esophagitis K21.9 ; Left hip pain M25.552 ; Swelling of both lower extremities M79.89 and Stasis dermatitis of both legs I87.2 [place] [address] [address] [facility] [id number] [address] [place] [address] Jul, Chronic pain G89.29 [place] [address] [address] [facility] [id number] [address] [place] [address] May, Chronic pain G89.29 [place] [address] [address] [place] [id number] [place] [address] May, [place] [address] [address] [place] [id number] [place] [address] May, Hypothyroid E03.9 ; Chronic pain G89.29 [...] Z12.31 and Encounter for screening colonoscopy Z12.11 [place] [address] [address] [place] [id number] [place] [address] 16 May, 2017 Depression F32.9 [place] [address] [address] [place] [id number] [place] [address] 04 May, 2017 Chronic pain G89.29 [place] [address] [address] [place] [id number] [place] [address] Apr, Chronic pain G89.29 and COPD with acute exacerbation J44.1 [place] [address] [address] [place] [id number] [place] [address] Mar, [place] [address] [address] [place] [id number] [place] [address] Mar, Chronic pain G89.29 [facility] [address] [id number] [address] [place] [address] Mar, [facility] [address] [id number] [address] [place] [address] Feb, Hypothyroid E03.9 ; Chronic pain G89.29 ; COPD with acute exacerbation J44.1 ; CKD (chronic kidney disease) stage 3, GFR 30-59 ml/min N18.3 ; Depression F32.9 ; Gastroesophageal reflux disease without esophagitis K21.9 ; Right hand paresthesia R20.2 ; Left hip pain M25.552 ; Swelling of both lower extremities M79.89 and Stasis dermatitis of both legs I87.2 [facility] [address] [id number] [address] [place] [address] Jan, Depression F32.9 [facility] [address] [id number] [address] [place] [address] Jan, Chronic pain G89.29 [facility] [address] [id number] [address] [place] [address] Dec, Chronic pain G89.29 [facility] [address] [id number] [address] [place] [address] Nov, [facility] [address] [id number] [address] [place] [address] Nov, [facility] [address] [id number] [address] [place] [address] Oct, Skin tag L91.8 ; Hypothyroid E03.9 ; Chronic pain G89.29 ; COPD with acute exacerbation J44.1 and CKD (chronic kidney disease) stage 3, GFR 30- 59 ml/min N18.3 [facility] [address] [id number] [address] [place] [address] September, [facility] [address] [id number] [address] [place] [phone] September, [facility] [address] [id number] [address] [place] [address] Jul, [facility] [address] [facility] [id number] [address] [place] [address] Jul, [facility] [address] [place] [id number] [address] [place] [address] Jul, [facility] [address] [place] [id number] [place] [address] Jul, Hypothyroid E03.9 [facility] [address] [place] [id number] [address] [place] [address] Jun, Hypothyroid E03.9 ; Chronic pain G89.29 ; CKD (chronic kidney disease) stage 3, GFR 30-59 ml/min N18.3 ; Arthritis M19.90 ; Hypertension I10 ; Depression F32.9 ; Gastroesophageal reflux disease without esophagitis K21.9 and Bronchitis J40 [facility] [address] [place] [id number] [address] [place] [address] Jun, [facility] [address] [place] [id number] [place] [address] Jun, Chronic pain G89.29 [facility] [address] [place] [id number] [place] [address] May, Hypothyroid E03.9 ; Chronic pain G89.29 ; CKD (chronic kidney disease) stage 3, GFR 30-59 ml/min N18.3 ; Arthritis M19.90 ; Hypertension I10 and Depression F32.9 [facility] [address] [place] [id number] [address] [place] [address] May, [facility] [address] [place] [id number] [address] [place] [address] Mar, Hypothyroid E03.9 [facility] [address] [place] [id number] [address] [place] [address] Mar, [facility] [address] [place] [id number] [address] [place] [address] Mar, Chronic pain G89.29 ; CKD (c hronic kidney disease) stage 3, GFR 30- 59 ml/min N18.3 ; Hypothyroid E03.9 ; Arthritis M19.90 ; Vitamin D deficiency E55.9 ; Hypertension I10 ; Depression F32.9 and Nocturnal enuresis N39.44 [place] [address] [address] [place] [id number] [address] [place] [address] Mar, [place] [address] [address] [place] [id number] [place] [address] Jan, Chronic pain G89.29 ; Arthri tis M19.90 ; Hypothyroid E03.9 ; Chronic fatigue R53.82 ; Depression F32.9 ; CKD (chronic kidney disease) stage 3, GFR 30-59 ml/min N18.3 ; Gastroesophageal reflux disease without esophagitis K21.9 and Numbness of right foot R20.0 [place] [address] [address] [place] [id number] [place] [address] Nov, [place] [address] [address] [place] [id number] [place] [address] Nov, Chronic pain G89.29 ; Arthri tis M19.90 ; Abnormal serum creatinine level R79.9 ; Hypothyroid E03.9 and Chronic fatigue R53.82 [place] [id number] [place] [address] September, Chronic pain G89.29 ; Arthri tis M19.90 ; Epigastric pain R10.13 and COPD with acute exacerbation J44.1 [place] [address] [address] [place] [id number] [place] [address] Aug, COPD with acute lower respir atory infection J44.0 ; Joint pain M25.50 and Chronic pain G89.29 [place] [address] [address] [facility] [id number] [address] [place] [address] Aug, COPD with acute lower respir atory infection J44.0 [place] [address] [address] [place] [id number] [address] [place] [address] Aug, [place] [address] [place] [address] Jul, Cervical spine arthritis M46 .92 ; Hypothyroid E03.9 ; Arthritis, lumbar spine M47.9 ; Sleep apnea G47.30 ; Chronic pain G89.29 and Swelling of ankle M25.473 [place] [address] [address] [place] [id number] [place] [address] Jul, [place] [address] [address] [place] [id number] [address] [place] [address] Jun, [place] [address] [address] Jun, [place] [address] [address] [place] [id number] [address] [place] [address] Jun, Hypothyroid E03.9 ; OFELIA (obs tructive sleep apnea) G47.33 ; Pain in right shoulder M25.511 ; Neck pain M54.2 ; Low back pain M54.5 ; Depression F32.9 ; Hypertension I10 and Essential hypertension I10 [place] [id number] [place] [phone] Jun, Posttraumatic stress disorde r F43.10 and Depression F32.9 [facility] [id number] [place] [address] Jun, Sleep apnea in adult G47.33 [place] [address] [address] [place] [id number] [address] [place] [phone] Jun, [place] [address] [address] [place] [id number] [address] [place] [address] Jun, Hypothyroidism, unspecified E03.9 ; Chronic obstructive pulmonary disease J44.9 ; Essential hypertension I10 and Morbid obesity E66.01 [place] [address] [address] [place] [id number] [address] [place] [address] May, [place] [address] [address] Apr, COPD (chronic obstructive pu lmonary disease) J44.9 [place] [address] [address] 17 Apr, 2015 Shortness of breath R06.02 [place] [address] [address] Apr, Chest discomfort R07.89 ; Ex ertional dyspnea R06.09 ; Morbid obesity E66.01 ; Bradycardia R00.1 and Hypothyroidism, unspecified E03.9 [place] [address] [address] Mar, Cardiomegaly I51.7 [place] [address] [address] Mar, [place] [address] [address] Mar, Hypothyroidism, unspecified E03.9 [place] [address] [address] Mar, [place] [address] [address] Mar, Shortness of breath R06.02 ; Midline low back pain without sciatica M54.5 and Hypothyroidism, unspecified E03.9 [place] [address] [address] Mar, Chest discomfort R07.89 ; Sh ortness of breath R06.02 ; Morbid obesity E66.01 and Bradycardia R00.1 [place] [address] [address] Mar, Shortness of breath R06.02 ; Hypothyroidism, unspecified E03.9 and Elevated serum creatinine R79.89 [place] [address] [address] Feb, Hypothyroidism, unspecified E03.9 and Hypothyroidism 244.9 [place] [address] [address] Feb, Midline low back pain withou t sciatica M54.5 [place] [address] [address] [place] [id number] [place] [address] Jan, [place] [address] [address] Jan, Hypothyroidism 244.9 ; Anxie ty and depression 300.4 ; Carotid artery plaque 433.10 and Elevated serum creatinine 790.99 [place] [address] [address] Dec, [place] [address] [address] Dec, [place] [address] [address] Dec, [place] [address] [address] Dec, [address] [address] Dec, Cardiomegaly 429.3 ; COPD (c hronic obstructive pulmonary disease) 496 ; Cervicalgia 723.1 and Anxiety and depression 300.4 IMMUNIZATIONS No Known Immunizations SOCIAL HISTORY Never Assessed REASON FOR VISIT Pt began taking Paroxetine in 1985 and it has become ineffective - even after ad justing the dose multiple times. Pt is hesitant to begin a new medication becau se she is afraid to gain weight., Pt states she feels everyone is "gone", increasingly now so that [facility] will no longer be treating her. She has become so dependent on her dog (Chantell) that she begins to panic when she has to leave her at home. Her son/her son's family has in the patients words "disowned" her, due to her emotional instability., Pt has stopped taking pain medication since it makes her sleep more than typical - would like to discuss a different me dication to manage her pain. sriram PLAN OF CARE Activity Details Follow Up 4 Weeks Reason:depression VITAL SIGNS Height 60 in 2017-10-18 Weight 291 lbs 2017-10-18 Heart Rate 100 bpm 2017-10-18 Respiratory Rate 28 2017-10-18 BMI 56.83 kg/m2 2017-10-18 Blood pressure systolic 150 mmHg 2017-10-18 Blood pressure diastolic 84 mmHg 2017-10-18 MEDICATIONS Medication Instructions Dosage Frequency Start Date End Date Duration S tatus Norvasc 10 MG Orally Once a day 1 tablet 24h Active Omeprazole 40 mg Orally Once a day 1 capsule 24h 30 day(s) Active Levothyroxine Sodium 88 MCG Orally Once a day 1 tablet 24h 30 Active Cymbalta 60 mg Orally Once a day 1 capsule 24h Oct, 30 day(s) Active Multi For Her Active Vitamin D Orally Once a day 1 tablet 24h Act sahara ProAir HFA 108 (90 Base) MCG/ACT Inhalation every 4 hrs prn 2 puffs as needed Not-Taking Cymbalta 30 MG Orally Once a day x 1 week then increase to 2 caps po daily 1 capsule Oct, 30 day(s) Active RESULTS No Results PROCEDURES No Known [...]
--- OUTSIDE RECORDS SUMMARY | 2019-11-05 22:19 | XMS REPORT ---
Author Author Irasema STOKES [facility] Address [address] [place] [address] Care Team Providers Care [employer] Teacher Name Role Phone POLY STOKES Unavailable PROBLEMS Type Condition ICD9-CM Code CAP75-KI Code Onset Dates Condition S tatus SNOMED Code Problem Carpal tunnel syndrome, right G56.01 Active [id number] Problem Cardiomegaly I51.7 Active 0004678 Problem OFELIA (obstructive sleep apnea) G47.33 Active 33433981 Problem COPD with acute exacerbation J44.1 A ctive 148255094 Problem Neck pain M54.2 Active 67563620 Problem Epigastric pain R10.13 Active 7992 2009 Problem Essential hypertension I10 Active 92871775 Problem Arthritis M19.90 Active 8710662 Problem Abnormal serum creatinine level R79.9 Active 740039048 Problem Chronic fatigue R53.82 Active 5270 2003 Problem Right hand paresthesia R20.2 Active 501864248 Problem Stasis dermatitis of both legs I87.2 Active 14020457 Problem Hypertension I10 Active 5710450 3 Problem Depression F32.9 Active 59751070 Problem Hypothyroid E03.9 Active 63834237 Problem Gastroesophageal reflux disease without esophagitis K21.9 Active 108672469 Problem CKD (chronic kidney disease) stage 3, GFR 30-59 ml/min N18.3 Active 379110163 Problem Nocturnal enuresis N39.44 Active 8 264995 Problem Vitamin D deficiency E55.9 Active 16958882 Problem Posttraumatic stress disorder F43.10 Active 57430302 Problem Sleep apnea G47.30 Active 07179358 Problem Low back pain M54.5 Active 178779 004 Problem Pain in right shoulder M25.511 Active 99280166 Problem Swelling of ankle M25.473 Active 26 9598428 Problem Cervical spine arthritis M46.92 Activ e 249552059 Problem Arthritis, lumbar spine M47.9 Active 373826799 Problem Chronic pain G89.29 Active 5562288 1 ALLERGIES No Known Allergies ENCOUNTERS Encounter Location Date Diagnosis [facility] [address] [address] Dec, [facility] [address] [place] [id number] [place] [address] Dec, [facility] [address] [address] Oct, [facility] [address] [address] Oct, [facility] [address] [address] Oct, BMI 50.0-59.9, adult Z68.43 ; OFELIA (obstructive sleep apnea) G47.33 ; Depression F32.9 and Hypertension I10 [place] [address] [address] September, [facility] [address] [address] September, [facility] [address] [address] September, Chronic pain G89.29 [facility] [address] [address] Aug, Hypothyroid E03.9 ; Chronic pain G89.29 ; BMI 50.0-59.9, adult Z68.43 ; COPD with acute exacerbation J44.1 ; CKD (chronic kidney disease) stage 3, GFR 30-59 ml/min N18.3 ; Depression F32.9 ; Gastroesophageal reflux disease without esophagitis K21.9 ; Left hip pain M25.552 ; Swelling of both lower extremities M79.89 and Stasis dermatitis of both legs I87.2 [facility] [address] [address] Jul, Chronic pain G89.29 [facility] [address] [place] [place] [address] May, Chronic pain G89.29 [facility] [address] [place] [id number] [place] [address] May, [facility] [address] [place] [address] [id number] [place] [address] May, Hypothyroid E03.9 ; Chronic pain G89.29 [...] Z12.31 and Encounter for screening colonoscopy Z12.11 [place] [address] [place] [id number] [place] [address] 16 May, 2017 Depression F32.9 [place] [address] [place] [id number] [place] [address] 04 May, 2017 Chronic pain G89.29 [place] [address] [place] [id number] [place] [address] 07 Apr, 2017 Chronic pain G89.29 and COPD with acute exacerbation J44.1 [place] [id number] [place] [address] Mar, [place] [address] [place] [id number] [place] [address] Mar, Chronic pain G89.29 [place] [address] [place] [id number] [place] [address] Mar, [place] [address] [place] [id number] [place] [address] Feb, Hypothyroid E03.9 ; Chronic pain G89.29 ; COPD with acute exacerbation J44.1 ; CKD (chronic kidney disease) stage 3, GFR 30-59 ml/min N18.3 ; Depression F32.9 ; Gastroesophageal reflux disease without esophagitis K21.9 ; Right hand paresthesia R20.2 ; Left hip pain M25.552 ; Swelling of both lower extremities M79.89 and Stasis dermatitis of both legs I87.2 [facility] [address] [id number] [address] [place] [address] Jan, Depression F32.9 [facility] [address] [id number] [address] [place] [address] Jan, Chronic pain G89.29 [facility] [address] [id number] [address] [place] [address] Dec, Chronic pain G89.29 [facility] [address] [id number] [address] [place] [address] Nov, [facility] [address] [id number] [address] [place] [address] Nov, [facility] [address] [id number] [address] [place] [address] Oct, Skin tag L91.8 ; Hypothyroid E03.9 ; Chronic pain G89.29 ; COPD with acute exacerbation J44.1 and CKD (chronic kidney disease) stage 3, GFR 30- 59 ml/min N18.3 [facility] [address] [id number] [address] [place] [address] September, [facility] [address] [id number] [address] [place] [address] September, [facility] [address] [id number] [address] [place] [address] Jul, [facility] [address] [id number] [address] [place] [address] Jul, [facility] [address] [id number] [address] [place] [address] Jul, [facility] [address] [address] Jul, Hypothyroid E03.9 [place] [address] [address] Jun, Hypothyroid E03.9 ; Chronic pain G89.29 ; CKD (chronic kidney disease) stage 3, GFR 30-59 ml/min N18.3 ; Arthritis M19.90 ; Hypertension I10 ; Depression F32.9 ; Gastroesophageal reflux disease without esophagitis K21.9 and Bronchitis J40 [place] [address] [address] Jun, [place] [address] [address] Jun, Chronic pain G89.29 [place] [address] [address] May, Hypothyroid E03.9 ; Chronic pain G89.29 ; CKD (chronic kidney disease) stage 3, GFR 30-59 ml/min N18.3 ; Arthritis M19.90 ; Hypertension I10 and Depression F32.9 [place] [address] [address] May, [place] [address] [address] Mar, Hypothyroid E03.9 [place] [address] [address] Mar, [place] [address] [address] Mar, Chronic pain G89.29 ; CKD (c hronic kidney disease) stage 3, GFR 30- 59 ml/min N18.3 ; Hypothyroid E03.9 ; Arthritis M19.90 ; Vitamin D deficiency E55.9 ; Hypertension I10 ; Depression F32.9 and Nocturnal enuresis N39.44 [place] [address] [address] Mar, [place] [address] [address] Jan, Chronic pain G89.29 ; Arthri tis M19.90 ; Hypothyroid E03.9 ; Chronic fatigue R53.82 ; Depression F32.9 ; CKD (chronic kidney disease) stage 3, GFR 30-59 ml/min N18.3 ; Gastroesophageal reflux disease without esophagitis K21.9 and Numbness of right foot R20.[address] [address] Nov, [address] [address] Nov, Chronic pain G89.29 ; Arthri tis M19.90 ; Abnormal serum creatinine level R79.9 ; Hypothyroid E03.9 and Chronic fatigue R53.[address] [address] September, Chronic pain G89.29 ; Arthri tis M19.90 ; Epigastric pain R10.13 and COPD with acute exacerbation J44.[address] [address] Aug, COPD with acute lower respir atory infection J44.0 ; Joint pain M25.50 and Chronic pain G89.[address] [address] Aug, COPD with acute lower respir atory infection J44.0 [place] [id number] [place] [address] Aug, [address] [address] Jul, Cervical spine arthritis M46 .92 ; Hypothyroid E03.9 ; Arthritis, lumbar spine M47.9 ; Sleep apnea G47.30 ; Chronic pain G89.29 and Swelling of ankle M25.473 [facility] [place] [facility] [address] [address] Jul, [facility] [address] [address] Jun, [facility] [address] [address] Jun, [place] [address] [address] Jun, Hypothyroid E03.9 ; OFELIA (obs tructive sleep apnea) G47.33 ; Pain in right shoulder M25.511 ; Neck pain M54.2 ; Low back pain M54.5 ; Depression F32.9 ; Hypertension I10 and Essential hypertension I10 [place] [address] [address] Jun, Posttraumatic stress disorde r F43.10 and Depression F32.9 [address] [place] [id number] [place] [address] Jun, Sleep apnea in adult G47.[address] [address] Jun, [place] [address] [address] Jun, Hypothyroidism, unspecified E03.9 ; Chronic obstructive pulmonary disease J44.9 ; Essential hypertension I10 and Morbid obesity E66.01 [place] [address] [address] May, [place] [address] [address] Apr, COPD (chronic obstructive pu lmonary disease) J44.9 [place] [address] [place] [id number] [place] [address] Apr, Shortness of breath R06.02 [place] [address] [address] Apr, Chest discomfort R07.89 ; Ex ertional dyspnea R06.09 ; Morbid obesity E66.01 ; Bradycardia R00.1 and Hypothyroidism, unspecified E03.9 [facility] [address] [facility] [id number] [address] [place] [address] Mar, Cardiomegaly I51.7 [facility] [address] [facility] [id number] [address] [place] [address] Mar, [facility] [address] [facility] [id number] [address] [place] [address] Mar, Hypothyroidism, unspecified E03.9 [place] [address] [place] [id number] [place] [address] Mar, [place] [address] [place] [id number] [place] [address] Mar, Shortness of breath R06.02 ; Midline low back pain without sciatica M54.5 and Hypothyroidism, unspecified E03.9 [place] [address] [place] [id number] [place] [address] Mar, Chest discomfort R07.89 ; Sh ortness of breath R06.02 ; Morbid obesity E66.01 and Bradycardia R00.1 [place] [address] [place] [id number] [place] [address] Mar, Shortness of breath R06.02 ; Hypothyroidism, unspecified E03.9 and Elevated serum creatinine R79.89 [facility] [address] [facility] [id number] [address] [place] [address] Feb, Hypothyroidism, unspecified E03.9 and Hypothyroidism 244.9 [place] [address] [facility] [id number] [address] [place] [address] Feb, Midline low back pain withou t sciatica M54.5 [place] [address] [facility] [id number] [address] [place] [address] Jan, [place] [address] [facility] [id number] [address] [place] [address] Jan, Hypothyroidism 244.9 ; Anxie ty and depression 300.4 ; Carotid artery plaque 433.10 and Elevated serum creatinine 790.99 [facility] [address] [facility] [id number] [address] [place] [address] Dec, [facility] [address] [facility] [id number] [address] [place] [address] Dec, [facility] [address] [facility] [id number] [address] [place] [address] Dec, [facility] [address] [facility] [id number] [address] [place] [address] Dec, [facility] [address] [facility] [id number] [address] [place] [address] Dec, Cardiomegaly 429.3 ; COPD (c hronic obstructive pulmonary disease) 496 ; Cervicalgia 723.1 and Anxiety and depression 300.4 IMMUNIZATIONS No Known Immunizations SOCIAL HISTORY Never Assessed REASON FOR VISIT htn fu -- carmen castanon PLAN OF CARE Activity Details Follow Up 3 Months Reason:HTN VITAL SIGNS Height 60 in 2017-08-28 Weight 287.0 lbs 2017-08-28 Temperature 98.0 degrees Fahrenheit 2017-08-28 Heart Rate 66 bpm 2017-08-28 Respiratory Rate 24 2017-08-28 Oximetry 98 % 2017-08-28 BMI 56.04 kg/m2 2017-08-28 Blood pressure systolic 144 mmHg 2017-08-28 Blood pressure diastolic 72 mmHg 2017-08-28 MEDICATIONS Medication Instructions Dosage Frequency Start Date End Date Duration S chana Encisoco 7.5-325 MG Orally 3 times a day TAKE ONE TABLET BY MOUTH THREE TIMES DAILY NEEDED 8h Aug, 28 Active ProAir HFA 108 (90 Base) MCG/ACT Inhalation every 4 hrs prn 2 puffs as needed Active Multi For Her Active Levothyroxine Sodium 88 MCG Orally Once a day 1 tablet 24h 30 Active Norvasc 10 MG Orally Once a day 1 tablet 24h Active Flovent HFA 44 MCG/ACT Inhalation Twice a day 2 puffs 12h Active Omeprazole 40 mg Orally Once a day 1 capsule 24h 30 day(s) Active Vitamin D Orally Once a day 1 tablet 24h Act sahara Albuterol Sulfate (2.5 MG/3ML) 0.083% Inhalation every 6 hours as needed for shortness of breath 3 ml Activ e Paroxetine HCl 20 mg 2 tablet in the morning and 1 in the pm. 30 Active RESULTS No Results PROCEDURES No Known [...]
--- OUTSIDE RECORDS SUMMARY | 2019-11-05 22:19 | XMS REPORT ---
Author Author Irasema STOKES [facility] Address [address] [place] [address] Care Team Providers Care Core Feeder Name Role Phone POLY STOKES Unavailable PROBLEMS Type Condition ICD9-CM Code OLX55-SO Code Onset Dates Condition S tatus SNOMED Code Problem Carpal tunnel syndrome, right G56.01 Active [id number] Problem Cardiomegaly I51.7 Active 5720624 Problem OFELIA (obstructive sleep apnea) G47.33 Active 86736349 Problem COPD with acute exacerbation J44.1 A ctive 191308434 Problem Neck pain M54.2 Active 99629245 Problem Epigastric pain R10.13 Active 7992 2009 Problem Essential hypertension I10 Active 60896095 Problem Arthritis M19.90 Active 7377893 Problem Abnormal serum creatinine level R79.9 Active 862444058 Problem Chronic fatigue R53.82 Active 5270 2003 Problem Right hand paresthesia R20.2 Active 665032575 Problem Stasis dermatitis of both legs I87.2 Active 89018378 Problem Hypertension I10 Active 3585047 3 Problem Depression F32.9 Active 50669146 Problem Hypothyroid E03.9 Active 04385985 Problem Gastroesophageal reflux disease without esophagitis K21.9 Active 678907417 Problem CKD (chronic kidney disease) stage 3, GFR 30-59 ml/min N18.3 Active 535627851 Problem Nocturnal enuresis N39.44 Active 8 043873 Problem Vitamin D deficiency E55.9 Active 02467103 Problem Posttraumatic stress disorder F43.10 Active 81469221 Problem Sleep apnea G47.30 Active 03820915 Problem Low back pain M54.5 Active 034506 004 Problem Pain in right shoulder M25.511 Active 95473586 Problem Swelling of ankle M25.473 Active 26 7411244 Problem Cervical spine arthritis M46.92 Activ e 203304545 Problem Arthritis, lumbar spine M47.9 Active 244782108 Problem Chronic pain G89.29 Active 1032468 1 ALLERGIES No Information ENCOUNTERS Encounter Location Date Diagnosis [facility] [address] [address] Dec, [facility] [address] [place] [id number] [place] [address] Dec, [facility] [address] [address] Oct, [facility] [address] [address] Oct, [facility] [address] [address] Oct, BMI 50.0-59.9, adult Z68.43 ; OFELIA (obstructive sleep apnea) G47.33 ; Depression F32.9 and Hypertension I10 [place] [address] [address] September, [facility] [address] [address] September, [facility] [address] [address] September, Chronic pain G89.29 [facility] [address] [address] Aug, Hypothyroid E03.9 ; Chronic pain G89.29 ; BMI 50.0-59.9, adult Z68.43 ; COPD with acute exacerbation J44.1 ; CKD (chronic kidney disease) stage 3, GFR 30-59 ml/min N18.3 ; Depression F32.9 ; Gastroesophageal reflux disease without esophagitis K21.9 ; Left hip pain M25.552 ; Swelling of both lower extremities M79.89 and Stasis dermatitis of both legs I87.2 [facility] [address] [address] Jul, Chronic pain G89.29 [facility] [address] [place] [address] May, Chronic pain G89.29 [facility] [address] [place] [id number] [place] [address] May, [facility] [address] [place] [id number] [place] [id number] 16 May, 2017 Hypothyroid E03.9 ; Chronic [...] Z12.31 and Encounter for screening colonoscopy Z12.11 [place] [address] [place] [id number] [place] [address] 16 May, 2017 Depression F32.9 [place] [address] [place] [id number] [place] [address] 04 May, 2017 Chronic pain G89.29 [place] [address] [place] [id number] [place] [id number] 07 Apr, 2017 Chronic pain G89.29 and COPD with acute exacerbation J44.1 [place] [address] [place] [id number] [place] [address] Mar, [place] [address] [place] [id number] [place] [address] Mar, Chronic pain G89.29 [place] [address] [place] [id number] [place] [address] Mar, [place] [address] [place] [id number] [place] [phone] Feb, Hypothyroid E03.9 ; Chronic pain G89.29 ; COPD with acute exacerbation J44.1 ; CKD (chronic kidney disease) stage 3, GFR 30-59 ml/min N18.3 ; Depression F32.9 ; Gastroesophageal reflux disease without esophagitis K21.9 ; Right hand paresthesia R20.2 ; Left hip pain M25.552 ; Swelling of both lower extremities M79.89 and Stasis dermatitis of both legs I87.2 [facility] [address] [id number] [address] [place] [address] Jan, Depression F32.9 [facility] [address] [id number] [address] [place] [address] Jan, Chronic pain G89.29 [facility] [address] [id number] [address] [place] [phone] Dec, Chronic pain G89.29 [facility] [address] [id number] [address] [place] [address] Nov, [facility] [address] [id number] [address] [place] [phone] Nov, [facility] [address] [id number] [address] [place] [address] Oct, Skin tag L91.8 ; Hypothyroid E03.9 ; Chronic pain G89.29 ; COPD with acute exacerbation J44.1 and CKD (chronic kidney disease) stage 3, GFR 30- 59 ml/min N18.3 [facility] [address] [id number] [address] [place] [address] September, [facility] [address] [id number] [address] [place] [phone] September, [facility] [address] [id number] [address] [place] [phone] Jul, [facility] [address] [id number] [address] [place] [phone] Jul, [facility] [address] [id number] [address] [place] [address] Jul, [facility] [address] [address] Jul, Hypothyroid E03.9 [place] [address] [address] Jun, Hypothyroid E03.9 ; Chronic pain G89.29 ; CKD (chronic kidney disease) stage 3, GFR 30-59 ml/min N18.3 ; Arthritis M19.90 ; Hypertension I10 ; Depression F32.9 ; Gastroesophageal reflux disease without esophagitis K21.9 and Bronchitis J40 [place] [address] [address] Jun, [place] [address] [address] Jun, Chronic pain G89.29 [place] [address] [address] May, Hypothyroid E03.9 ; Chronic pain G89.29 ; CKD (chronic kidney disease) stage 3, GFR 30-59 ml/min N18.3 ; Arthritis M19.90 ; Hypertension I10 and Depression F32.9 [place] [address] [address] May, [place] [address] [address] Mar, Hypothyroid E03.9 [place] [address] [address] Mar, [place] [address] [address] Mar, Chronic pain G89.29 ; CKD (c hronic kidney disease) stage 3, GFR 30- 59 ml/min N18.3 ; Hypothyroid E03.9 ; Arthritis M19.90 ; Vitamin D deficiency E55.9 ; Hypertension I10 ; Depression F32.9 and Nocturnal enuresis N39.44 [place] [address] [address] Mar, [place] [address] [place] [id number] [place] [address] Jan, Chronic pain G89.29 ; Arthri tis M19.90 ; Hypothyroid E03.9 ; Chronic fatigue R53.82 ; Depression F32.9 ; CKD (chronic kidney disease) stage 3, GFR 30-59 ml/min N18.3 ; Gastroesophageal reflux disease without esophagitis K21.9 and Numbness of right foot R20.[address] [address] Nov, [address] [address] Nov, Chronic pain G89.29 ; Arthri tis M19.90 ; Abnormal serum creatinine level R79.9 ; Hypothyroid E03.9 and Chronic fatigue R53.[address] [address] September, Chronic pain G89.29 ; Arthri tis M19.90 ; Epigastric pain R10.13 and COPD with acute exacerbation J44.[address] [address] Aug, COPD with acute lower respir atory infection J44.0 ; Joint pain M25.50 and Chronic pain G89.[address] [address] Aug, COPD with acute lower respir atory infection J44.0 [place] [id number] [place] [address] Aug, [address] [address] Jul, Cervical spine arthritis M46 .92 ; Hypothyroid E03.9 ; Arthritis, lumbar spine M47.9 ; Sleep apnea G47.30 ; Chronic pain G89.29 and Swelling of ankle M25.473 [place] [id number] [place] [address] Jul, [place] [address] [address] Jun, [facility] [address] [address] Jun, [place] [address] [address] Jun, Hypothyroid E03.9 ; OFELIA (obs tructive sleep apnea) G47.33 ; Pain in right shoulder M25.511 ; Neck pain M54.2 ; Low back pain M54.5 ; Depression F32.9 ; Hypertension I10 and Essential hypertension I10 [place] [address] [address] Jun, Posttraumatic stress disorde r F43.10 and Depression F32.9 [facility] [id number] [place] [address] Jun, Sleep apnea in adult G47.[address] [address] Jun, [place] [address] [address] Jun, Hypothyroidism, unspecified E03.9 ; Chronic obstructive pulmonary disease J44.9 ; Essential hypertension I10 and Morbid obesity E66.01 [place] [address] [place] [id number] [place] [address] May, [place] [address] [address] Apr, COPD (chronic obstructive pu lmonary disease) J44.9 [place] [address] [place] [id number] [place] [address] Apr, Shortness of breath R06.02 [place] [address] [address] Apr, Chest discomfort R07.89 ; Ex ertional dyspnea R06.09 ; Morbid obesity E66.01 ; Bradycardia R00.1 and Hypothyroidism, unspecified E03.9 [facility] [address] [facility] [id number] [address] [place] [phone] Mar, Cardiomegaly I51.7 [facility] [address] [facility] [id number] [address] [place] [address] Mar, [facility] [address] [facility] [id number] [address] [place] [address] Mar, Hypothyroidism, unspecified E03.9 [place] [address] [facility] [id number] [address] [place] [id number] Mar, [place] [address] [place] [id number] [place] [address] Mar, Shortness of breath R06.02 ; Midline low back pain without sciatica M54.5 and Hypothyroidism, unspecified E03.9 [facility] [address] [facility] [id number] [address] [place] [address] Mar, Chest discomfort R07.89 ; Sh ortness of breath R06.02 ; Morbid obesity E66.01 and Bradycardia R00.1 [facility] [address] [facility] [id number] [address] [place] [address] Mar, Shortness of breath R06.02 ; Hypothyroidism, unspecified E03.9 and Elevated serum creatinine R79.89 [facility] [address] [facility] [id number] [address] [place] [address] Feb, Hypothyroidism, unspecified E03.9 and Hypothyroidism 244.9 [place] [address] [facility] [id number] [address] [place] [phone] Feb, Midline low back pain withou t sciatica M54.5 [facility] [address] [facility] [id number] [address] [place] [address] Jan, [place] [address] [facility] [id number] [address] [place] [address] Jan, Hypothyroidism 244.9 ; Anxie ty and depression 300.4 ; Carotid artery plaque 433.10 and Elevated serum creatinine 790.99 [facility] [address] [facility] [id number] [address] [place] [address] Dec, [facility] [address] [facility] [id number] [address] [place] [address] Dec, [facility] [address] [facility] [id number] [address] [place] [address] Dec, [facility] [address] [facility] [id number] [address] [place] [phone] Dec, [facility] [address] [facility] [id number] [address] [place] [address] Dec, Cardiomegaly 429.3 ; COPD (c hronic obstructive pulmonary disease) 496 ; Cervicalgia 723.1 and Anxiety and depression 300.4 IMMUNIZATIONS No Known Immunizations SOCIAL HISTORY Never Assessed REASON FOR VISIT Controlled Med Refill PLAN OF CARE VITAL SIGNS MEDICATIONS Medication Instructions Dosage Frequency Start Date End Date Duration S chana Nunez 7.5-325 MG Orally 3 times a day TAKE ONE TABLET BY MOUTH THREE TIMES DAILY NEEDED 8h Jul, 28 Active RESULTS No Results PROCEDURES No [...]
--- OUTSIDE RECORDS SUMMARY | 2019-11-05 22:19 | XMS REPORT ---
Author Author Irasema STOKES [facility] Address [address] [place] [address] Care Team Providers Care Drawing Tender Name Role Phone POLY STOKES Unavailable PROBLEMS Type Condition ICD9-CM Code DUL28-BC Code Onset Dates Condition S tatus SNOMED Code Problem Carpal tunnel syndrome, right G56.01 Active [id number] Problem Cardiomegaly I51.7 Active 8300929 Problem OFELIA (obstructive sleep apnea) G47.33 Active 38249328 Problem COPD with acute exacerbation J44.1 A ctive 437281698 Problem Neck pain M54.2 Active 78299466 Problem Epigastric pain R10.13 Active 7992 2009 Problem Essential hypertension I10 Active 70536996 Problem Arthritis M19.90 Active 8661925 Problem Abnormal serum creatinine level R79.9 Active 853949057 Problem Chronic fatigue R53.82 Active 5270 2003 Problem Right hand paresthesia R20.2 Active 357925653 Problem Stasis dermatitis of both legs I87.2 Active 42047369 Problem Hypertension I10 Active 9573277 3 Problem Depression F32.9 Active 94203040 Problem Hypothyroid E03.9 Active 15100338 Problem Gastroesophageal reflux disease without esophagitis K21.9 Active 123901251 Problem CKD (chronic kidney disease) stage 3, GFR 30-59 ml/min N18.3 Active 589675901 Problem Nocturnal enuresis N39.44 Active 8 805671 Problem Vitamin D deficiency E55.9 Active 89444503 Problem Posttraumatic stress disorder F43.10 Active 61666264 Problem Sleep apnea G47.30 Active 41826997 Problem Low back pain M54.5 Active 437561 004 Problem Pain in right shoulder M25.511 Active 37303905 Problem Swelling of ankle M25.473 Active 26 6402868 Problem Cervical spine arthritis M46.92 Activ e 514232785 Problem Arthritis, lumbar spine M47.9 Active 688403556 Problem Chronic pain G89.29 Active 2253175 1 ALLERGIES No Information ENCOUNTERS Encounter Location Date Diagnosis [facility] [address] [address] Dec, Hypothyroid E03.9 [facility] [address] [address] Dec, [place] [address] [address] Dec, Hypothyroid E03.9 ; CKD (chr onic kidney disease) stage 3, GFR 30-59 ml/min N18.3 ; Chronic pain G89.29 ; Depression F32.9 and BMI 50.0-59.9, adult Z68.43 [place] [address] [address] Oct, [place] [address] [address] Oct, [place] [address] [address] Oct, BMI 50.0-59.9, adult Z68.43 ; OFELIA (obstructive sleep apnea) G47.33 ; Depression F32.9 and Hypertension I10 [place] [address] [address] September, [place] [address] [address] September, [place] [address] [address] September, Chronic pain G89.29 [place] [address] [address] Aug, Hypothyroid E03.9 ; Chronic pain G89.29 ; BMI 50.0-59.9, adult Z68.43 ; COPD with acute exacerbation J44.1 ; CKD (chronic kidney disease) stage 3, GFR 30-59 ml/min N18.3 ; Depression F32.9 ; Gastroesophageal reflux disease without esophagitis K21.9 ; Left hip pain M25.552 ; Swelling of both lower extremities M79.89 and Stasis dermatitis of both legs I87.2 [place] [address] [address] [facility] [id number] [address] [place] [address] Jul, Chronic pain G89.29 [place] [address] [address] [facility] [id number] [address] [place] [address] May, Chronic pain G89.29 [place] [address] [place] [id number] [address] [place] [address] May, [place] [address] [place] [id number] [place] [address] May, Hypothyroid E03.9 ; Chronic pain G89.29 [...] Z12.31 and Encounter for screening colonoscopy Z12.11 [place] [address] [place] [id number] [address] [place] [address] 16 May, 2017 Depression F32.9 [place] [address] [address] [facility] [id number] [address] [place] [address] 04 May, 2017 Chronic pain G89.29 [place] [address] [address] [facility] [id number] [address] [place] [address] Apr, Chronic pain G89.29 and COPD with acute exacerbation J44.1 [place] [address] [facility] [id number] [address] [place] [address] Mar, [place] [address] [address] [facility] [id number] [address] [place] [address] Mar, Chronic pain G89.29 [facility] [address] [id number] [address] [place] [address] Mar, [facility] [address] [id number] [address] [place] [address] Feb, Hypothyroid E03.9 ; Chronic pain G89.29 ; COPD with acute exacerbation J44.1 ; CKD (chronic kidney disease) stage 3, GFR 30-59 ml/min N18.3 ; Depression F32.9 ; Gastroesophageal reflux disease without esophagitis K21.9 ; Right hand paresthesia R20.2 ; Left hip pain M25.552 ; Swelling of both lower extremities M79.89 and Stasis dermatitis of both legs I87.2 [facility] [address] [id number] [address] [place] [address] Jan, Depression F32.9 [facility] [address] [id number] [address] [place] [address] Jan, Chronic pain G89.29 [facility] [address] [id number] [address] [place] [address] Dec, Chronic pain G89.29 [facility] [address] [id number] [address] [place] [address] Nov, [facility] [address] [id number] [address] [place] [address] Nov, [facility] [address] [id number] [address] [place] [address] Oct, Skin tag L91.8 ; Hypothyroid E03.9 ; Chronic pain G89.29 ; COPD with acute exacerbation J44.1 and CKD (chronic kidney disease) stage 3, GFR 30- 59 ml/min N18.3 [facility] [address] [id number] [address] [place] [address] September, [facility] [address] [id number] [address] [place] [address] September, [facility] [address] [id number] [address] [place] [address] Jul, [facility] [address] [facility] [id number] [address] [place] [address] Jul, [facility] [address] [place] [id number] [address] [place] [address] Jul, [facility] [address] [place] [id number] [address] [place] [address] Jul, Hypothyroid E03.9 [facility] [address] [place] [id number] [address] [place] [address] Jun, Hypothyroid E03.9 ; Chronic pain G89.29 ; CKD (chronic kidney disease) stage 3, GFR 30-59 ml/min N18.3 ; Arthritis M19.90 ; Hypertension I10 ; Depression F32.9 ; Gastroesophageal reflux disease without esophagitis K21.9 and Bronchitis J40 [facility] [address] [place] [id number] [address] [place] [address] Jun, [facility] [address] [place] [id number] [address] [place] [address] Jun, Chronic pain G89.29 [facility] [address] [place] [id number] [address] [place] [address] May, Hypothyroid E03.9 ; Chronic pain G89.29 ; CKD (chronic kidney disease) stage 3, GFR 30-59 ml/min N18.3 ; Arthritis M19.90 ; Hypertension I10 and Depression F32.9 [facility] [address] [facility] [id number] [address] [place] [address] May, [facility] [address] [place] [id number] [address] [place] [address] Mar, Hypothyroid E03.9 [facility] [address] [facility] [id number] [address] [place] [address] Mar, [facility] [address] [place] [id number] [address] [place] [address] Mar, Chronic pain G89.29 ; CKD (c hronic kidney disease) stage 3, GFR 30- 59 ml/min N18.3 ; Hypothyroid E03.9 ; Arthritis M19.90 ; Vitamin D deficiency E55.9 ; Hypertension I10 ; Depression F32.9 and Nocturnal enuresis N39.44 [place] [id number] [place] [address] Mar, [place] [address] [address] Jan, Chronic pain G89.29 ; Arthri tis M19.90 ; Hypothyroid E03.9 ; Chronic fatigue R53.82 ; Depression F32.9 ; CKD (chronic kidney disease) stage 3, GFR 30-59 ml/min N18.3 ; Gastroesophageal reflux disease without esophagitis K21.9 and Numbness of right foot R20.[address] [address] Nov, [place] [address] [address] Nov, Chronic pain G89.29 ; Arthri tis M19.90 ; Abnormal serum creatinine level R79.9 ; Hypothyroid E03.9 and Chronic fatigue R53.82 [place] [address] [place] [id number] [address] [place] [address] September, Chronic pain G89.29 ; Arthri tis M19.90 ; Epigastric pain R10.13 and COPD with acute exacerbation J44.1 [place] [address] [place] [id number] [address] [place] [address] Aug, COPD with acute lower respir atory infection J44.0 ; Joint pain M25.50 and Chronic pain G89.29 [place] [address] [place] [id number] [address] [place] [address] Aug, COPD with acute lower respir atory infection J44.0 [place] [address] [place] [id number] [place] [address] Aug, [place] [address] [place] [id number] [address] [place] [address] Jul, Cervical spine arthritis M46 .92 ; Hypothyroid E03.9 ; Arthritis, lumbar spine M47.9 ; Sleep apnea G47.30 ; Chronic pain G89.29 and Swelling of ankle M25.473 [place] [address] [address] Jul, [place] [address] [address] Jun, [place] [address] [address] Jun, [place] [address] [address] Jun, Hypothyroid E03.9 ; OFELIA (obs tructive sleep apnea) G47.33 ; Pain in right shoulder M25.511 ; Neck pain M54.2 ; Low back pain M54.5 ; Depression F32.9 ; Hypertension I10 and Essential hypertension I10 [address] [address] Jun, Posttraumatic stress disorde r F43.10 and Depression F32.9 [place] [address] [id number] [place] [address] Jun, Sleep apnea in adult G47.33 [place] [address] [place] [id number] [address] [place] [address] Jun, [place] [address] [place] [id number] [address] [place] [address] Jun, Hypothyroidism, unspecified E03.9 ; Chronic obstructive pulmonary disease J44.9 ; Essential hypertension I10 and Morbid obesity E66.01 [place] [address] [place] [id number] [address] [place] [address] May, [place] [id number] [place] [address] Apr, COPD (chronic obstructive pu lmonary disease) J44.9 [place] [address] [address] 17 Apr, 2015 Shortness of breath R06.02 [place] [address] [address] Apr, Chest discomfort R07.89 ; Ex ertional dyspnea R06.09 ; Morbid obesity E66.01 ; Bradycardia R00.1 and Hypothyroidism, unspecified E03.9 [place] [address] [address] Mar, Cardiomegaly I51.7 [place] [address] [address] 18 Mar, 2015 [place] [address] [address] Mar, Hypothyroidism, unspecified E03.9 [place] [address] [address] Mar, [place] [address] [address] Mar, Shortness of breath R06.02 ; Midline low back pain without sciatica M54.5 and Hypothyroidism, unspecified E03.9 [place] [address] [address] Mar, Chest discomfort R07.89 ; Sh ortness of breath R06.02 ; Morbid obesity E66.01 and Bradycardia R00.1 [place] [address] [address] Mar, Shortness of breath R06.02 ; Hypothyroidism, unspecified E03.9 and Elevated serum creatinine R79.89 [place] [address] [address] Feb, Hypothyroidism, unspecified E03.9 and Hypothyroidism 244.9 [facility] [address] [address] Feb, Midline low back pain withou t sciatica M54.5 [facility] [address] [place] [id number] [address] [place] [address] Jan, [facility] [address] [address] Jan, Hypothyroidism 244.9 ; Anxie ty and depression 300.4 ; Carotid artery plaque 433.10 and Elevated serum creatinine 790.99 [place] [address] [address] Dec, [place] [address] [address] Dec, [place] [address] [address] Dec, [place] [address] [address] Dec, [place] [address] [address] Dec, Cardiomegaly 429.3 ; COPD (c hronic [...] BY MOUTH THREE TIMES DAILY NEEDED 8h September, 28 Active RESULTS No Results PROCEDURES No [...]
--- OUTSIDE RECORDS SUMMARY | 2019-11-05 22:19 | XMS REPORT ---
Author Author Irasema STOKES [facility] Address [address] [place] [address] Care Team Providers Care Auto Service Representative Name Role Phone POLY STOKES Unavailable PROBLEMS Type Condition ICD9-CM Code NQQ60-NS Code Onset Dates Condition S tatus SNOMED Code Problem Carpal tunnel syndrome, right G56.01 Active [id number] Problem Cardiomegaly I51.7 Active 9154985 Problem OFELIA (obstructive sleep apnea) G47.33 Active 09978745 Problem COPD with acute exacerbation J44.1 A ctive 783791967 Problem Neck pain M54.2 Active 16111412 Problem Epigastric pain R10.13 Active 7992 2009 Problem Essential hypertension I10 Active 14086008 Problem Arthritis M19.90 Active 0012136 Problem Abnormal serum creatinine level R79.9 Active 787159837 Problem Chronic fatigue R53.82 Active 5270 2003 Problem Right hand paresthesia R20.2 Active 870628329 Problem Stasis dermatitis of both legs I87.2 Active 03959380 Problem Hypertension I10 Active 3052807 3 Problem Depression F32.9 Active 49883252 Problem Hypothyroid E03.9 Active 39067439 Problem Gastroesophageal reflux disease without esophagitis K21.9 Active 267032239 Problem CKD (chronic kidney disease) stage 3, GFR 30-59 ml/min N18.3 Active 463024517 Problem Nocturnal enuresis N39.44 Active 8 489155 Problem Vitamin D deficiency E55.9 Active 60571862 Problem Posttraumatic stress disorder F43.10 Active 86727255 Problem Sleep apnea G47.30 Active 32242501 Problem Low back pain M54.5 Active 747610 004 Problem Pain in right shoulder M25.511 Active 88421311 Problem Swelling of ankle M25.473 Active 26 6270963 Problem Cervical spine arthritis M46.92 Activ e 187695317 Problem Arthritis, lumbar spine M47.9 Active 688430732 Problem Chronic pain G89.29 Active 4517102 1 ALLERGIES No Information ENCOUNTERS Encounter Location Date Diagnosis [facility] [address] [address] Dec, Hypothyroid E03.9 [facility] [address] [address] Dec, [place] [address] [address] Dec, Hypothyroid E03.9 ; CKD (chr onic kidney disease) stage 3, GFR 30-59 ml/min N18.3 ; Chronic pain G89.29 ; Depression F32.9 and BMI 50.0-59.9, adult Z68.43 [place] [address] [address] Oct, [place] [address] [address] Oct, [place] [address] [address] Oct, BMI 50.0-59.9, adult Z68.43 ; OFELIA (obstructive sleep apnea) G47.33 ; Depression F32.9 and Hypertension I10 [place] [address] [address] September, [place] [address] [address] September, [place] [address] [address] September, Chronic pain G89.29 [place] [address] [address] Aug, Hypothyroid E03.9 ; Chronic pain G89.29 ; BMI 50.0-59.9, adult Z68.43 ; COPD with acute exacerbation J44.1 ; CKD (chronic kidney disease) stage 3, GFR 30-59 ml/min N18.3 ; Depression F32.9 ; Gastroesophageal reflux disease without esophagitis K21.9 ; Left hip pain M25.552 ; Swelling of both lower extremities M79.89 and Stasis dermatitis of both legs I87.2 [place] [address] [address] [facility] [id number] [address] [place] [address] Jul, Chronic pain G89.29 [place] [address] [address] [facility] [id number] [address] [place] [address] May, Chronic pain G89.29 [place] [address] [address] [place] [id number] [address] [place] [address] May, [place] [address] [address] [place] [id number] [place] [address] May, Hypothyroid E03.9 ; Chronic pain G89.29 [...] Z12.31 and Encounter for screening colonoscopy Z12.11 [place] [address] [address] [place] [id number] [address] [place] [id number] 16 May, 2017 Depression F32.9 [place] [address] [address] [facility] [id number] [address] [place] [address] 04 May, 2017 Chronic pain G89.29 [place] [address] [address] [facility] [id number] [address] [place] [address] Apr, Chronic pain G89.29 and COPD with acute exacerbation J44.1 [place] [address] [address] [facility] [id number] [address] [place] [address] Mar, [place] [address] [address] [facility] [id number] [address] [place] [address] Mar, Chronic pain G89.29 [facility] [address] [id number] [address] [place] [address] Mar, [facility] [address] [id number] [address] [place] [address] Feb, Hypothyroid E03.9 ; Chronic pain G89.29 ; COPD with acute exacerbation J44.1 ; CKD (chronic kidney disease) stage 3, GFR 30-59 ml/min N18.3 ; Depression F32.9 ; Gastroesophageal reflux disease without esophagitis K21.9 ; Right hand paresthesia R20.2 ; Left hip pain M25.552 ; Swelling of both lower extremities M79.89 and Stasis dermatitis of both legs I87.2 [facility] [address] [id number] [address] [place] [address] Jan, Depression F32.9 [facility] [address] [id number] [address] [place] [address] Jan, Chronic pain G89.29 [facility] [address] [id number] [address] [place] [address] Dec, Chronic pain G89.29 [facility] [address] [id number] [address] [place] [address] Nov, [facility] [address] [id number] [address] [place] [address] Nov, [facility] [address] [id number] [address] [place] [address] Oct, Skin tag L91.8 ; Hypothyroid E03.9 ; Chronic pain G89.29 ; COPD with acute exacerbation J44.1 and CKD (chronic kidney disease) stage 3, GFR 30- 59 ml/min N18.3 [facility] [address] [id number] [address] [place] [address] September, [facility] [address] [id number] [address] [place] [address] September, [facility] [address] [id number] [address] [place] [address] Jul, [facility] [address] [facility] [id number] [address] [place] [address] Jul, [facility] [address] [place] [id number] [address] [place] [phone] Jul, [facility] [address] [place] [id number] [address] [place] [address] Jul, Hypothyroid E03.9 [facility] [address] [place] [id number] [address] [place] [address] Jun, Hypothyroid E03.9 ; Chronic pain G89.29 ; CKD (chronic kidney disease) stage 3, GFR 30-59 ml/min N18.3 ; Arthritis M19.90 ; Hypertension I10 ; Depression F32.9 ; Gastroesophageal reflux disease without esophagitis K21.9 and Bronchitis J40 [facility] [address] [place] [id number] [address] [place] [address] Jun, [facility] [address] [place] [id number] [address] [place] [address] Jun, Chronic pain G89.29 [facility] [address] [place] [id number] [address] [place] [address] May, Hypothyroid E03.9 ; Chronic pain G89.29 ; CKD (chronic kidney disease) stage 3, GFR 30-59 ml/min N18.3 ; Arthritis M19.90 ; Hypertension I10 and Depression F32.9 [facility] [address] [facility] [id number] [address] [place] [address] May, [facility] [address] [place] [id number] [address] [place] [address] Mar, Hypothyroid E03.9 [facility] [address] [facility] [id number] [address] [place] [address] Mar, [facility] [address] [place] [id number] [address] [place] [address] Mar, Chronic pain G89.29 ; CKD (c hronic kidney disease) stage 3, GFR 30- 59 ml/min N18.3 ; Hypothyroid E03.9 ; Arthritis M19.90 ; Vitamin D deficiency E55.9 ; Hypertension I10 ; Depression F32.9 and Nocturnal enuresis N39.44 [place] [id number] [place] [address] Mar, [place] [address] [address] Jan, Chronic pain G89.29 ; Arthri tis M19.90 ; Hypothyroid E03.9 ; Chronic fatigue R53.82 ; Depression F32.9 ; CKD (chronic kidney disease) stage 3, GFR 30-59 ml/min N18.3 ; Gastroesophageal reflux disease without esophagitis K21.9 and Numbness of right foot R20.[address] [address] Nov, [place] [address] [address] Nov, Chronic pain G89.29 ; Arthri tis M19.90 ; Abnormal serum creatinine level R79.9 ; Hypothyroid E03.9 and Chronic fatigue R53.82 [place] [address] [address] [place] [id number] [address] [place] [address] September, Chronic pain G89.29 ; Arthri tis M19.90 ; Epigastric pain R10.13 and COPD with acute exacerbation J44.1 [place] [address] [address] [place] [id number] [address] [place] [address] Aug, COPD with acute lower respir atory infection J44.0 ; Joint pain M25.50 and Chronic pain G89.29 [place] [address] [address] [place] [id number] [address] [place] [phone] Aug, COPD with acute lower respir atory infection J44.0 [place] [address] [address] [place] [id number] [place] [address] Aug, [place] [address] [address] [place] [id number] [address] [place] [address] Jul, Cervical spine arthritis M46 .92 ; Hypothyroid E03.9 ; Arthritis, lumbar spine M47.9 ; Sleep apnea G47.30 ; Chronic pain G89.29 and Swelling of ankle M25.473 [place] [address] [address] Jul, [place] [address] [address] Jun, [place] [address] [address] Jun, [place] [address] [address] Jun, Hypothyroid E03.9 ; OFELIA (obs tructive sleep apnea) G47.33 ; Pain in right shoulder M25.511 ; Neck pain M54.2 ; Low back pain M54.5 ; Depression F32.9 ; Hypertension I10 and Essential hypertension I10 [address] [address] Jun, Posttraumatic stress disorde r F43.10 and Depression F32.9 [place] [address] [id number] [place] [address] Jun, Sleep apnea in adult G47.33 [place] [address] [address] [place] [id number] [address] [place] [address] Jun, [place] [address] [address] [place] [id number] [address] [place] [address] Jun, Hypothyroidism, unspecified E03.9 ; Chronic obstructive pulmonary disease J44.9 ; Essential hypertension I10 and Morbid obesity E66.01 [place] [address] [address] [place] [id number] [address] [place] [address] May, [place] [id number] [place] [address] Apr, COPD (chronic obstructive pu lmonary disease) J44.9 [place] [address] [address] 17 Apr, 2015 Shortness of breath R06.02 [place] [address] [address] Apr, Chest discomfort R07.89 ; Ex ertional dyspnea R06.09 ; Morbid obesity E66.01 ; Bradycardia R00.1 and Hypothyroidism, unspecified E03.9 [place] [address] [address] Mar, Cardiomegaly I51.7 [place] [address] [address] 18 Mar, 2015 [place] [address] [address] Mar, Hypothyroidism, unspecified E03.9 [place] [address] [address] Mar, [place] [address] [address] Mar, Shortness of breath R06.02 ; Midline low back pain without sciatica M54.5 and Hypothyroidism, unspecified E03.9 [place] [address] [address] Mar, Chest discomfort R07.89 ; Sh ortness of breath R06.02 ; Morbid obesity E66.01 and Bradycardia R00.1 [place] [address] [address] Mar, Shortness of breath R06.02 ; Hypothyroidism, unspecified E03.9 and Elevated serum creatinine R79.89 [place] [address] [address] Feb, Hypothyroidism, unspecified E03.9 and Hypothyroidism 244.9 [facility] [address] [address] Feb, Midline low back pain withou t sciatica M54.5 [facility] [address] [place] [id number] [address] [place] [address] Jan, [facility] [address] [address] Jan, Hypothyroidism 244.9 ; Anxie ty and depression 300.4 ; Carotid artery plaque 433.10 and Elevated serum creatinine 790.99 [place] [address] [address] Dec, [facility] [address] [address] Dec, [place] [address] [address] Dec, [place] [address] [address] Dec, [place] [address] [address] Dec, Cardiomegaly 429.3 ; COPD (c hronic [...]
--- OUTSIDE RECORDS SUMMARY | 2019-11-05 22:19 | XMS REPORT ---
Author Author Irasema STOKES [facility] Address [address] [place] [address] Care Team Providers Care Yarn Texture Machine Operator Name Role Phone POLY STOKES Unavailable PROBLEMS Type Condition ICD9-CM Code FHZ43-NM Code Onset Dates Condition S tatus SNOMED Code Problem Carpal tunnel syndrome, right G56.01 Active [id number] Problem Cardiomegaly I51.7 Active 6274779 Problem OFELIA (obstructive sleep apnea) G47.33 Active 76925784 Problem COPD with acute exacerbation J44.1 A ctive 269957220 Problem Neck pain M54.2 Active 82862213 Problem Epigastric pain R10.13 Active 7992 2009 Problem Essential hypertension I10 Active 60737770 Problem Arthritis M19.90 Active 1693762 Problem Abnormal serum creatinine level R79.9 Active 271833542 Problem Chronic fatigue R53.82 Active 5270 2003 Problem Right hand paresthesia R20.2 Active 081334206 Problem Stasis dermatitis of both legs I87.2 Active 52661709 Problem Hypertension I10 Active 0880147 3 Problem Depression F32.9 Active 78260192 Problem Hypothyroid E03.9 Active 07945904 Problem Gastroesophageal reflux disease without esophagitis K21.9 Active 934576999 Problem CKD (chronic kidney disease) stage 3, GFR 30-59 ml/min N18.3 Active 561898932 Problem Nocturnal enuresis N39.44 Active 8 869773 Problem Vitamin D deficiency E55.9 Active 32041918 Problem Posttraumatic stress disorder F43.10 Active 27882796 Problem Sleep apnea G47.30 Active 20064799 Problem Low back pain M54.5 Active 771516 004 Problem Pain in right shoulder M25.511 Active 91484421 Problem Swelling of ankle M25.473 Active 26 4312876 Problem Cervical spine arthritis M46.92 Activ e 840577204 Problem Arthritis, lumbar spine M47.9 Active 682487360 Problem Chronic pain G89.29 Active 6912819 1 ALLERGIES No Information ENCOUNTERS Encounter Location Date Diagnosis [facility] [address] [address] Dec, [facility] [address] [place] [id number] [place] [address] Dec, [facility] [address] [address] Oct, [facility] [address] [address] Oct, [facility] [address] [address] Oct, BMI 50.0-59.9, adult Z68.43 ; OFELIA (obstructive sleep apnea) G47.33 ; Depression F32.9 and Hypertension I10 [place] [address] [address] September, [facility] [address] [address] September, [facility] [address] [address] September, Chronic pain G89.29 [facility] [address] [address] Aug, Hypothyroid E03.9 ; Chronic pain G89.29 ; BMI 50.0-59.9, adult Z68.43 ; COPD with acute exacerbation J44.1 ; CKD (chronic kidney disease) stage 3, GFR 30-59 ml/min N18.3 ; Depression F32.9 ; Gastroesophageal reflux disease without esophagitis K21.9 ; Left hip pain M25.552 ; Swelling of both lower extremities M79.89 and Stasis dermatitis of both legs I87.2 [facility] [address] [address] Jul, Chronic pain G89.29 [facility] [address] [place] [address] May, Chronic pain G89.29 [facility] [address] [place] [id number] [place] [address] May, [facility] [address] [place] [id number] [place] [id number] 16 May, 2017 Hypothyroid E03.9 ; Chronic [...] Z12.31 and Encounter for screening colonoscopy Z12.11 [place] [address] [place] [id number] [place] [address] 16 May, 2017 Depression F32.9 [place] [address] [place] [id number] [place] [id number] 04 May, 2017 Chronic pain G89.29 [place] [address] [place] [id number] [place] [id number] 07 Apr, 2017 Chronic pain G89.29 and COPD with acute exacerbation J44.1 [place] [address] [place] [id number] [place] [address] Mar, [place] [address] [place] [id number] [place] [address] Mar, Chronic pain G89.29 [place] [address] [place] [id number] [place] [address] Mar, [place] [address] [place] [id number] [place] [address] Feb, Hypothyroid E03.9 ; Chronic pain G89.29 ; COPD with acute exacerbation J44.1 ; CKD (chronic kidney disease) stage 3, GFR 30-59 ml/min N18.3 ; Depression F32.9 ; Gastroesophageal reflux disease without esophagitis K21.9 ; Right hand paresthesia R20.2 ; Left hip pain M25.552 ; Swelling of both lower extremities M79.89 and Stasis dermatitis of both legs I87.2 [facility] [address] [id number] [address] [place] [id number] Jan, Depression F32.9 [facility] [address] [id number] [address] [place] [id number] Jan, Chronic pain G89.29 [facility] [address] [id number] [address] [place] [id number] Dec, Chronic pain G89.29 [facility] [address] [id number] [address] [place] [id number] Nov, [facility] [address] [id number] [address] [place] [address] Nov, [facility] [address] [id number] [address] [place] [phone] Oct, Skin tag L91.8 ; Hypothyroid E03.9 ; Chronic pain G89.29 ; COPD with acute exacerbation J44.1 and CKD (chronic kidney disease) stage 3, GFR 30- 59 ml/min N18.3 [facility] [address] [id number] [address] [place] [address] September, [facility] [address] [id number] [address] [place] [address] September, [facility] [address] [id number] [address] [place] [phone] Jul, [facility] [address] [id number] [address] [place] [phone] Jul, [facility] [address] [id number] [address] [place] [phone] Jul, [facility] [address] [address] Jul, Hypothyroid E03.9 [place] [address] [address] Jun, Hypothyroid E03.9 ; Chronic pain G89.29 ; CKD (chronic kidney disease) stage 3, GFR 30-59 ml/min N18.3 ; Arthritis M19.90 ; Hypertension I10 ; Depression F32.9 ; Gastroesophageal reflux disease without esophagitis K21.9 and Bronchitis J40 [place] [address] [address] Jun, [place] [address] [address] Jun, Chronic pain G89.29 [place] [address] [address] May, Hypothyroid E03.9 ; Chronic pain G89.29 ; CKD (chronic kidney disease) stage 3, GFR 30-59 ml/min N18.3 ; Arthritis M19.90 ; Hypertension I10 and Depression F32.9 [place] [address] [address] May, [place] [address] [address] Mar, Hypothyroid E03.9 [place] [address] [address] Mar, [place] [address] [address] Mar, Chronic pain G89.29 ; CKD (c hronic kidney disease) stage 3, GFR 30- 59 ml/min N18.3 ; Hypothyroid E03.9 ; Arthritis M19.90 ; Vitamin D deficiency E55.9 ; Hypertension I10 ; Depression F32.9 and Nocturnal enuresis N39.44 [place] [address] [address] Mar, [place] [address] [place] [id number] [place] [address] Jan, Chronic pain G89.29 ; Arthri tis M19.90 ; Hypothyroid E03.9 ; Chronic fatigue R53.82 ; Depression F32.9 ; CKD (chronic kidney disease) stage 3, GFR 30-59 ml/min N18.3 ; Gastroesophageal reflux disease without esophagitis K21.9 and Numbness of right foot R20.[address] [address] Nov, [address] [address] Nov, Chronic pain G89.29 ; Arthri tis M19.90 ; Abnormal serum creatinine level R79.9 ; Hypothyroid E03.9 and Chronic fatigue R53.[address] [address] September, Chronic pain G89.29 ; Arthri tis M19.90 ; Epigastric pain R10.13 and COPD with acute exacerbation J44.[address] [address] Aug, COPD with acute lower respir atory infection J44.0 ; Joint pain M25.50 and Chronic pain G89.[address] [address] Aug, COPD with acute lower respir atory infection J44.0 [place] [id number] [place] [phone] Aug, [address] [address] Jul, Cervical spine arthritis M46 .92 ; Hypothyroid E03.9 ; Arthritis, lumbar spine M47.9 ; Sleep apnea G47.30 ; Chronic pain G89.29 and Swelling of ankle M25.473 [place] [id number] [place] [address] Jul, [place] [address] [address] Jun, [facility] [address] [address] Jun, [place] [address] [address] Jun, Hypothyroid E03.9 ; OFELIA (obs tructive sleep apnea) G47.33 ; Pain in right shoulder M25.511 ; Neck pain M54.2 ; Low back pain M54.5 ; Depression F32.9 ; Hypertension I10 and Essential hypertension I10 [place] [address] [address] Jun, Posttraumatic stress disorde r F43.10 and Depression F32.9 [facility] [id number] [place] [address] Jun, Sleep apnea in adult G47.[address] [address] Jun, [place] [address] [address] Jun, Hypothyroidism, unspecified E03.9 ; Chronic obstructive pulmonary disease J44.9 ; Essential hypertension I10 and Morbid obesity E66.01 [place] [address] [place] [id number] [place] [address] May, [place] [address] [address] Apr, COPD (chronic obstructive pu lmonary disease) J44.9 [place] [address] [place] [id number] [place] [address] Apr, Shortness of breath R06.02 [place] [address] [address] Apr, Chest discomfort R07.89 ; Ex ertional dyspnea R06.09 ; Morbid obesity E66.01 ; Bradycardia R00.1 and Hypothyroidism, unspecified E03.9 [facility] [address] [facility] [id number] [address] [place] [address] Mar, Cardiomegaly I51.7 [facility] [address] [facility] [id number] [address] [place] [phone] Mar, [facility] [address] [facility] [id number] [address] [place] [id number] Mar, Hypothyroidism, unspecified E03.9 [place] [address] [facility] [id number] [address] [place] [id number] Mar, [place] [address] [place] [id number] [place] [id number] Mar, Shortness of breath R06.02 ; Midline low back pain without sciatica M54.5 and Hypothyroidism, unspecified E03.9 [facility] [address] [facility] [id number] [address] [place] [address] Mar, Chest discomfort R07.89 ; Sh ortness of breath R06.02 ; Morbid obesity E66.01 and Bradycardia R00.1 [facility] [address] [facility] [id number] [address] [place] [address] Mar, Shortness of breath R06.02 ; Hypothyroidism, unspecified E03.9 and Elevated serum creatinine R79.89 [facility] [address] [facility] [id number] [address] [place] [address] Feb, Hypothyroidism, unspecified E03.9 and Hypothyroidism 244.9 [place] [address] [facility] [id number] [address] [place] [phone] Feb, Midline low back pain withou t sciatica M54.5 [facility] [address] [facility] [id number] [address] [place] [phone] Jan, [place] [address] [facility] [id number] [address] [place] [address] Jan, Hypothyroidism 244.9 ; Anxie ty and depression 300.4 ; Carotid artery plaque 433.10 and Elevated serum creatinine 790.99 [facility] [address] [facility] [id number] [address] [place] [address] Dec, [facility] [address] [facility] [id number] [address] [place] [id number] Dec, [facility] [address] [facility] [id number] [address] [place] [id number] Dec, [facility] [address] [facility] [id number] [address] [place] [phone] Dec, [facility] [address] [facility] [id number] [address] [place] [address] Dec, Cardiomegaly 429.3 ; COPD (c hronic obstructive pulmonary disease) 496 ; Cervicalgia 723.1 and Anxiety and depression 300.4 IMMUNIZATIONS No Known Immunizations SOCIAL HISTORY Never Assessed REASON FOR VISIT PA for Lidocaine patches (Appeal) PLAN OF CARE VITAL SIGNS MEDICATIONS Unknown [...]
--- OUTSIDE RECORDS SUMMARY | 2019-11-05 22:20 | XMS REPORT ---
Author Author Irasema STOKES [facility] Address [address] [place] [address] Care Team Providers Care Preflight Inspector Name Role Phone POLY STOKES Unavailable PROBLEMS Type Condition ICD9-CM Code XBR00-CW Code Onset Dates Condition S tatus SNOMED Code Problem Carpal tunnel syndrome, right G56.01 Active [id number] Problem Cardiomegaly I51.7 Active 3750652 Problem OFELIA (obstructive sleep apnea) G47.33 Active 41052324 Problem COPD with acute exacerbation J44.1 A ctive 256321333 Problem Neck pain M54.2 Active 41414711 Problem Epigastric pain R10.13 Active 7992 2009 Problem Essential hypertension I10 Active 11724462 Problem Arthritis M19.90 Active 2764328 Problem Abnormal serum creatinine level R79.9 Active 043407903 Problem Chronic fatigue R53.82 Active 5270 2003 Problem Right hand paresthesia R20.2 Active 349143979 Problem Stasis dermatitis of both legs I87.2 Active 44397770 Problem Hypertension I10 Active 7463118 3 Problem Depression F32.9 Active 92378044 Problem Hypothyroid E03.9 Active 09445622 Problem Gastroesophageal reflux disease without esophagitis K21.9 Active 489731494 Problem CKD (chronic kidney disease) stage 3, GFR 30-59 ml/min N18.3 Active 846485991 Problem Nocturnal enuresis N39.44 Active 8 862227 Problem Vitamin D deficiency E55.9 Active 74241037 Problem Posttraumatic stress disorder F43.10 Active 16892412 Problem Sleep apnea G47.30 Active 92798423 Problem Low back pain M54.5 Active 337182 004 Problem Pain in right shoulder M25.511 Active 72207301 Problem Swelling of ankle M25.473 Active 26 5288514 Problem Cervical spine arthritis M46.92 Activ e 751857691 Problem Arthritis, lumbar spine M47.9 Active 427817016 Problem Chronic pain G89.29 Active 7296307 1 ALLERGIES No Information ENCOUNTERS Encounter Location Date Diagnosis [facility] [id number] [place] [phone] Nov, [facility] [id number] [place] [id number] Oct, [facility] [address] [address] Oct, BMI 50.0-59.9, adult Z68.43 ; OFELIA (obstructive sleep apnea) G47.33 ; Depression F32.9 and Hypertension I10 [place] [address] [address] September, [place] [address] [address] September, [place] [address] [address] September, Chronic pain G89.29 [place] [address] [address] Aug, Hypothyroid E03.9 ; Chronic pain G89.29 ; BMI 50.0-59.9, adult Z68.43 ; COPD with acute exacerbation J44.1 ; CKD (chronic kidney disease) stage 3, GFR 30-59 ml/min N18.3 ; Depression F32.9 ; Gastroesophageal reflux disease without esophagitis K21.9 ; Left hip pain M25.552 ; Swelling of both lower extremities M79.89 and Stasis dermatitis of both legs I87.2 [facility] [id number] [place] [address] Jul, Chronic pain G89.29 [place] [id number] [place] [address] May, Chronic pain G89.29 [facility] [id number] [place] [address] May, [place] [id number] [place] [address] 16 May, 2017 Hypothyroid E03.9 ; Chronic [...] Z12.31 and Encounter for screening colonoscopy Z12.11 [place] [id number] [place] [address] 16 May, 2017 Depression F32.9 [place] [address] [address] [id number] [place] [id number] 04 May, 2017 Chronic pain G89.29 [place] [id number] [place] [phone] 07 Apr, 2017 Chronic pain G89.29 and COPD with acute exacerbation J44.1 [place] [address] [place] [address] [id number] [place] [address] Mar, [place] [address] [place] [id number] [place] [address] Mar, Chronic pain G89.29 [place] [id number] [place] [id number] Mar, [place] [address] [place] [address] [id number] [place] [address] Feb, Hypothyroid E03.9 ; Chronic pain G89.29 ; COPD with acute exacerbation J44.1 ; CKD (chronic kidney disease) stage 3, GFR 30-59 ml/min N18.3 ; Depression F32.9 ; Gastroesophageal reflux disease without esophagitis K21.9 ; Right hand paresthesia R20.2 ; Left hip pain M25.552 ; Swelling of both lower extremities M79.89 and Stasis dermatitis of both legs I87.2 [facility] [address] [id number] [address] [place] [address] Jan, Depression F32.9 [facility] [address] [id number] [address] [place] [address] Jan, Chronic pain G89.29 [facility] [address] [facility] [place] [id number] [address] [place] [phone] Dec, Chronic pain G89.29 [facility] [address] [id number] [address] [place] [phone] Nov, [facility] [address] [id number] [address] [place] [phone] Nov, [facility] [address] [facility] [place] [id number] [address] [place] [address] Oct, Skin tag L91.8 ; Hypothyroid E03.9 ; Chronic pain G89.29 ; COPD with acute exacerbation J44.1 and CKD (chronic kidney disease) stage 3, GFR 30- 59 ml/min N18.3 [facility] [address] [facility] [place] [id number] [address] [place] [phone] September, [facility] [address] [facility] [place] [id number] [address] [place] [phone] September, [facility] [address] [facility] [place] [id number] [address] [place] [phone] Jul, [facility] [address] [facility] [place] [id number] [address] [place] [phone] Jul, [facility] [address] [facility] [place] [id number] [address] [place] [phone] Jul, [facility] [address] [facility] [place] [id number] [address] [place] [phone] Jul, Hypothyroid E03.9 [facility] [address] [facility] [place] [id number] [address] [place] [phone] Jun, Hypothyroid E03.9 ; Chronic pain G89.29 ; CKD (chronic kidney disease) stage 3, GFR 30-59 ml/min N18.3 ; Arthritis M19.90 ; Hypertension I10 ; Depression F32.9 ; Gastroesophageal reflux disease without esophagitis K21.9 and Bronchitis J40 [facility] [id number] [place] [phone] 15 Jun, 2016 [place] [address] [address] Jun, Chronic pain G89.29 [place] [address] [place] [id number] [place] [address] May, Hypothyroid E03.9 ; Chronic pain G89.29 ; CKD (chronic kidney disease) stage 3, GFR 30-59 ml/min N18.3 ; Arthritis M19.90 ; Hypertension I10 and Depression F32.9 [place] [address] [id number] [place] [address] May, [place] [address] [place] [id number] [place] [phone] Mar, Hypothyroid E03.9 [place] [address] [address] Mar, [place] [address] [place] [id number] [place] [address] Mar, Chronic pain G89.29 ; CKD (c hronic kidney disease) stage 3, GFR 30- 59 ml/min N18.3 ; Hypothyroid E03.9 ; Arthritis M19.90 ; Vitamin D deficiency E55.9 ; Hypertension I10 ; Depression F32.9 and Nocturnal enuresis N39.44 [place] [address] [place] [id number] [place] [phone] Mar, [place] [address] [place] [id number] [place] [phone] 14 Jan, 2016 Chronic pain G89.29 ; Arthri tis M19.90 ; Hypothyroid E03.9 ; Chronic fatigue R53.82 ; Depression F32.9 ; CKD (chronic kidney disease) stage 3, GFR 30-59 ml/min N18.3 ; Gastroesophageal reflux disease without esophagitis K21.9 and Numbness of right foot R20.0 [place] [address] [address] [id number] [place] [phone] Nov, [place] [address] [address] Nov, Chronic pain G89.29 ; Arthri tis M19.90 ; Abnormal serum creatinine level R79.9 ; Hypothyroid E03.9 and Chronic fatigue R53.82 [place] [address] [address] September, Chronic pain G89.29 ; Arthri tis M19.90 ; Epigastric pain R10.13 and COPD with acute exacerbation J44.1 [place] [address] [address] Aug, COPD with acute lower respir atory infection J44.0 ; Joint pain M25.50 and Chronic pain G89.29 [place] [address] [address] Aug, COPD with acute lower respir atory infection J44.0 [place] [address] [place] [address] [id number] [place] [address] Aug, [place] [address] [address] Jul, Cervical spine arthritis M46 .92 ; Hypothyroid E03.9 ; Arthritis, lumbar spine M47.9 ; Sleep apnea G47.30 ; Chronic pain G89.29 and Swelling of ankle M25.473 [place] [address] [id number] [place] [phone] Jul, [place] [address] [place] [id number] [place] [phone] Jun, [place] [address] [address] [id number] [place] [address] Jun, [address] [address] Jun, Hypothyroid E03.9 ; OFELIA (obs tructive sleep apnea) G47.33 ; Pain in right shoulder M25.511 ; Neck pain M54.2 ; Low back pain M54.5 ; Depression F32.9 ; Hypertension I10 and Essential hypertension I10 [address] [address] Jun, Posttraumatic stress disorde r F43.10 and Depression F32.9 [place] [id number] [place] [address] Jun, Sleep apnea in adult G47.[address] [address] Jun, [address] [address] Jun, Hypothyroidism, unspecified E03.9 ; Chronic obstructive pulmonary disease J44.9 ; Essential hypertension I10 and Morbid obesity E66.[address] [address] May, [address] [address] Apr, COPD (chronic obstructive pu lmonary disease) J44.[address] [address] 17 Apr, 2015 Shortness of breath R06.[address] [address] Apr, Chest discomfort R07.89 ; Ex ertional dyspnea R06.09 ; Morbid obesity E66.01 ; Bradycardia R00.1 and Hypothyroidism, unspecified E03.9 [address] [place] [address] Mar, Cardiomegaly I51.7 [place] [address] [address] Mar, [facility] [address] [address] Mar, Hypothyroidism, unspecified E03.9 [place] [address] [address] Mar, [place] [address] [address] Mar, Shortness of breath R06.02 ; Midline low back pain without sciatica M54.5 and Hypothyroidism, unspecified E03.9 [place] [address] [address] Mar, Chest discomfort R07.89 ; Sh ortness of breath R06.02 ; Morbid obesity E66.01 and Bradycardia R00.1 [place] [address] [address] Mar, Shortness of breath R06.02 ; Hypothyroidism, unspecified E03.9 and Elevated serum creatinine R79.89 [place] [address] [address] Feb, Hypothyroidism, unspecified E03.9 and Hypothyroidism 244.9 [place] [address] [address] Feb, Midline low back pain withou t sciatica M54.5 [place] [address] [address] Jan, [place] [address] [address] Jan, Hypothyroidism 244.9 ; Anxie ty and depression 300.4 ; Carotid artery plaque 433.10 and Elevated serum creatinine 790.99 [place] [address] [id number] [place] [address] Dec, [facility] [address] [facility] [place] [id number] [address] [place] [phone] Dec, [facility] [address] [facility] [place] [id number] [address] [place] [address] Dec, [facility] [address] [facility] [place] [id number] [address] [place] [phone] Dec, [facility] [address] [facility] [place] [id number] [address] [place] [phone] Dec, Cardiomegaly 429.3 ; COPD (c hronic obstructive pulmonary disease) 496 ; Cervicalgia 723.1 and Anxiety and depression 300.4 IMMUNIZATIONS No Known Immunizations SOCIAL HISTORY Never Assessed REASON FOR VISIT Controlled Med Refill PLAN OF CARE VITAL SIGNS MEDICATIONS Medication Instructions Dosage Frequency Start Date End Date Duration S chana Bentley 7.5-325 MG Orally 3 times a day TAKE ONE TABLET BY MOUTH THREE TIMES DAILY NEEDED 8h May, 28 Active RESULTS No Results PROCEDURES No [...]
--- OUTSIDE RECORDS SUMMARY | 2019-11-05 22:20 | XMS REPORT ---
Author Author Irasema STOKES [facility] Address [address] [place] [address] Care Team Providers Care Death Surveys Coder Name Role Phone POLY STOKES Unavailable PROBLEMS Type Condition ICD9-CM Code DLV59-GD Code Onset Dates Condition S tatus SNOMED Code Problem Carpal tunnel syndrome, right G56.01 Active [id number] Problem Cardiomegaly I51.7 Active 5031888 Problem OFELIA (obstructive sleep apnea) G47.33 Active 86042853 Problem COPD with acute exacerbation J44.1 A ctive 620588493 Problem Neck pain M54.2 Active 68171621 Problem Epigastric pain R10.13 Active 7992 2009 Problem Essential hypertension I10 Active 72418621 Problem Arthritis M19.90 Active 7066154 Problem Abnormal serum creatinine level R79.9 Active 313690417 Problem Chronic fatigue R53.82 Active 5270 2003 Problem Right hand paresthesia R20.2 Active 155252700 Problem Stasis dermatitis of both legs I87.2 Active 51061708 Problem Hypertension I10 Active 4345371 3 Problem Depression F32.9 Active 54444742 Problem Hypothyroid E03.9 Active 05847251 Problem Gastroesophageal reflux disease without esophagitis K21.9 Active 267738728 Problem CKD (chronic kidney disease) stage 3, GFR 30-59 ml/min N18.3 Active 986894087 Problem Nocturnal enuresis N39.44 Active 8 320833 Problem Vitamin D deficiency E55.9 Active 78179831 Problem Posttraumatic stress disorder F43.10 Active 63709584 Problem Sleep apnea G47.30 Active 05113172 Problem Low back pain M54.5 Active 011199 004 Problem Pain in right shoulder M25.511 Active 61918875 Problem Swelling of ankle M25.473 Active 26 4889486 Problem Cervical spine arthritis M46.92 Activ e 139061818 Problem Arthritis, lumbar spine M47.9 Active 730073452 Problem Chronic pain G89.29 Active 3414819 1 ALLERGIES No Known Allergies ENCOUNTERS Encounter Location Date Diagnosis [place] [address] [address] 09 Sep, 2017 Chronic pain G89.29 [place] [address] [place] [id number] [place] [address] 11 Aug, 2017 Hypothyroid E03.9 ; Chronic pain G89.29 ; BMI 50.0-59.9, adult Z68.43 ; COPD with acute exacerbation J44.1 ; CKD (chronic kidney disease) stage 3, GFR 30-59 ml/min N18.3 ; Depression F32.9 ; Gastroesophageal reflux disease without esophagitis K21.9 ; Left hip pain M25.552 ; Swelling of both lower extremities M79.89 and Stasis dermatitis of both legs I87.2 [place] [address] [place] [id number] [place] [id number] 05 Jul, 2017 Chronic pain G89.29 [place] [address] [address] May, Chronic pain G89.29 [place] [address] [address] 16 May, 2017 [place] [address] [address] 16 May, 2017 Hypothyroid E03.9 ; Chronic [...] Z12.31 and Encounter for screening colonoscopy Z12.11 [place] [address] [place] [id number] [place] [id number] 16 May, 2017 Depression F32.9 [place] [id number] [place] [address] May, Chronic pain G89.29 [facility] [address] [facility] [id number] [place] [id number] Apr, Chronic pain G89.29 and COPD with acute exacerbation J44.1 [facility] [address] [facility] [id number] [place] [address] Mar, [facility] [address] [facility] [id number] [place] [address] Mar, Chronic pain G89.29 [facility] [address] [facility] [id number] [place] [address] Mar, [facility] [address] [facility] [id number] [place] [address] Feb, Hypothyroid E03.9 ; Chronic pain G89.29 ; COPD with acute exacerbation J44.1 ; CKD (chronic kidney disease) stage 3, GFR 30-59 ml/min N18.3 ; Depression F32.9 ; Gastroesophageal reflux disease without esophagitis K21.9 ; Right hand paresthesia R20.2 ; Left hip pain M25.552 ; Swelling of both lower extremities M79.89 and Stasis dermatitis of both legs I87.2 [facility] [address] [facility] [id number] [place] [phone] Jan, Depression F32.9 [facility] [address] [facility] [id number] [place] [id number] 08 Jan, 2017 Chronic pain G89.29 [facility] [address] [facility] [id number] [place] [phone] Dec, Chronic pain G89.29 [facility] [address] [facility] [id number] [place] [phone] Nov, [facility] [address] [facility] [id number] [place] [id number] Nov, [facility] [address] [facility] [id number] [place] [id number] Oct, Skin tag L91.8 ; Hypothyroid E03.9 ; Chronic pain G89.29 ; COPD with acute exacerbation J44.1 and CKD (chronic kidney disease) stage 3, GFR 30- 59 ml/min N18.3 [facility] [address] [facility] [id number] [place] [id number] September, [facility] [address] [facility] [id number] [place] [phone] September, [facility] [address] [facility] [id number] [place] [address] Jul, [facility] [address] [facility] [id number] [place] [id number] Jul, [facility] [address] [place] [id number] [place] [id number] Jul, [facility] [address] [place] [id number] [place] [address] Jul, Hypothyroid E03.9 [facility] [address] [facility] [id number] [place] [address] Jun, Hypothyroid E03.9 ; Chronic pain G89.29 ; CKD (chronic kidney disease) stage 3, GFR 30-59 ml/min N18.3 ; Arthritis M19.90 ; Hypertension I10 ; Depression F32.9 ; Gastroesophageal reflux disease without esophagitis K21.9 and Bronchitis J40 [facility] [address] [facility] [id number] [place] [id number] Jun, [facility] [address] [facility] [id number] [place] [id number] Jun, Chronic pain G89.29 [facility] [address] [facility] [id number] [place] [address] May, Hypothyroid E03.9 ; Chronic pain G89.29 ; CKD (chronic kidney disease) stage 3, GFR 30-59 ml/min N18.3 ; Arthritis M19.90 ; Hypertension I10 and Depression F32.9 [place] [address] [facility] [id number] [place] [address] May, [place] [address] [place] [id number] [place] [id number] Mar, Hypothyroid E03.9 [place] [address] [place] [id number] [place] [phone] Mar, [place] [address] [place] [id number] [place] [address] Mar, Chronic pain G89.29 ; CKD (c hronic kidney disease) stage 3, GFR 30- 59 ml/min N18.3 ; Hypothyroid E03.9 ; Arthritis M19.90 ; Vitamin D deficiency E55.9 ; Hypertension I10 ; Depression F32.9 and Nocturnal enuresis N39.44 [place] [address] [place] [id number] [place] [phone] Mar, [place] [address] [place] [id number] [place] [address] Jan, Chronic pain G89.29 ; Arthri tis M19.90 ; Hypothyroid E03.9 ; Chronic fatigue R53.82 ; Depression F32.9 ; CKD (chronic kidney disease) stage 3, GFR 30-59 ml/min N18.3 ; Gastroesophageal reflux disease without esophagitis K21.9 and Numbness of right foot R20.0 [place] [address] [place] [id number] [place] [phone] Nov, [place] [address] [place] [id number] [place] [address] Nov, Chronic pain G89.29 ; Arthri tis M19.90 ; Abnormal serum creatinine level R79.9 ; Hypothyroid E03.9 and Chronic fatigue R53.82 [place] [address] [place] [id number] [place] [address] September, Chronic pain G89.29 ; Arthri tis M19.90 ; Epigastric pain R10.13 and COPD with acute exacerbation J44.1 [place] [address] [address] Aug, COPD with acute lower respir atory infection J44.0 ; Joint pain M25.50 and Chronic pain G89.29 [place] [address] [place] [id number] [place] [address] Aug, COPD with acute lower respir atory infection J44.0 [place] [address] [place] [id number] [place] [address] Aug, [place] [address] [address] Jul, Cervical spine arthritis M46 .92 ; Hypothyroid E03.9 ; Arthritis, lumbar spine M47.9 ; Sleep apnea G47.30 ; Chronic pain G89.29 and Swelling of ankle M25.473 [place] [address] [place] [id number] [place] [address] Jul, [place] [address] [address] Jun, [place] [address] [address] Jun, [place] [address] [address] Jun, Hypothyroid E03.9 ; OFELIA (obs tructive sleep apnea) G47.33 ; Pain in right shoulder M25.511 ; Neck pain M54.2 ; Low back pain M54.5 ; Depression F32.9 ; Hypertension I10 and Essential hypertension I10 [place] [address] [place] [id number] [place] [phone] Jun, Posttraumatic stress disorde r F43.10 and Depression F32.9 [facility] [id number] [place] [address] 10 Feb, 2016 Sleep apnea in adult G47.33 [place] [address] [address] 08 Jun, 2015 [place] [address] [address] 03 Jun, 2015 Hypothyroidism, unspecified E03.9 ; Chronic obstructive pulmonary disease J44.9 ; Essential hypertension I10 and Morbid obesity E66.01 [place] [address] [address] 18 May, 2015 [place] [address] [address] Apr, COPD (chronic obstructive pu lmonary disease) J44.9 [place] [address] [address] 17 Apr, 2015 Shortness of breath R06.[address] [address] Apr, Chest discomfort R07.89 ; Ex ertional dyspnea R06.09 ; Morbid obesity E66.01 ; Bradycardia R00.1 and Hypothyroidism, unspecified E03.9 [place] [address] [address] Mar, Cardiomegaly I51.7 [place] [address] [address] Mar, [place] [address] [address] Mar, Hypothyroidism, unspecified E03.9 [place] [address] [address] Mar, [place] [address] [address] Mar, Shortness of breath R06.02 ; Midline low back pain without sciatica M54.5 and Hypothyroidism, unspecified E03.9 [place] [address] [address] Mar, Chest discomfort R07.89 ; Sh ortness of breath R06.02 ; Morbid obesity E66.01 and Bradycardia R00.1 [place] [address] [address] Mar, Shortness of breath R06.02 ; Hypothyroidism, unspecified E03.9 and Elevated serum creatinine R79.89 [place] [address] [address] Feb, Hypothyroidism, unspecified E03.9 and Hypothyroidism 244.9 [place] [address] [address] Feb, Midline low back pain withou t sciatica M54.[address] [address] Jan, [place] [address] [address] Jan, Hypothyroidism 244.9 ; Anxie ty and depression 300.4 ; Carotid artery plaque 433.10 and Elevated serum creatinine 790.99 [place] [address] [address] Dec, [place] [address] [address] Dec, [place] [address] [address] Dec, [place] [address] [address] Dec, [place] [address] [address] Dec, Cardiomegaly 429.3 ; COPD (c hronic obstructive pulmonary disease) 496 ; Cervicalgia 723.1 and Anxiety and depression 300.4 IMMUNIZATIONS No Known Immunizations SOCIAL HISTORY Never Assessed REASON FOR VISIT HTN, pt. requesting medication refill---LAUREN Mcgowan PLAN OF CARE Activity Details Follow Up 3 months or pending lab and testing Reason: VITAL SIGNS Height 60 in 2017-02-27 Weight 282.1 lbs 2017-02-27 Temperature 97.8 degrees Fahrenheit 2017-02-27 Heart Rate 84 bpm 2017-02-27 Respiratory Rate 22 2017-02-27 BMI 55.09 kg/m2 2017-02-27 Blood pressure systolic 141 mmHg 2017-02-27 Blood pressure diastolic 84 mmHg 2017-02-27 MEDICATIONS Medication Instructions Dosage Frequency Start Date End Date Duration S tatus Paroxetine HCl 20 mg 2 tablet in the morning and 1 in the pm. 30 Active Levothyroxine Sodium 88 MCG Orally Once a day 1 tablet 24h 30 Active Albuterol Sulfate HFA 108 (90 Base) MCG/ACT Inhalation every 4 hrs 2 puffs as needed 4h Mar, Active Vitamin D Orally Once a day 1 tablet 24h Act sahara ProAir HFA 108 (90 Base) MCG/ACT Inhalation every 4 hrs prn 2 puffs as needed Active Norvasc 10 MG Orally Once a day 1 tablet 24h Active Albuterol Sulfate (2.5 MG/3ML) 0.083% Inhalation every 6 hours as needed for shortness of breath 3 ml Activ e [place] 7.5-325 MG Orally 3 times a day TAKE ONE TABLET BY MOUTH THREE TIMES DAILY NEEDED 8h Feb, 28 Active Flovent HFA 44 MCG/ACT Inhalation Twice a day 2 puffs 12h Active Omeprazole 40 mg Orally Once a day 1 capsule 24h September, 30 day(s) Active RESULTS Name Result Date Reference Range Xray : Hip, Left 2 views (IN HOUSE) 2017-02-27 TSH 2017-02-27 TSH 3.200 0.450-4.500 BNP 2017-02-27 B-Type Natriuretic Peptide 13.1 0.0-1 00.0 ÁLVARO 2017-03-12 PROCEDURES Procedure Date Ordered Result Body Site X-RAY EXAM HIP UNI 2-3 VIEWS Feb 27, 2017 [facility], 2017 VENIPUNCT, ROUTINE* Feb 27, 2017 INSTRUCTIONS MEDICATIONS ADMINISTERED No Known Medications [...]
--- OUTSIDE RECORDS SUMMARY | 2019-11-05 22:20 | XMS REPORT ---
Author Author Irasema STOKES [facility] Address [address] [place] [address] Care Team Providers Care Physician Office Specialist Name Role Phone POLY STOKES Unavailable PROBLEMS Type Condition ICD9-CM Code [id number] Code Onset Dates Condition S tatus SNOMED Code Problem Carpal tunnel syndrome, right G56.01 Active [id number] Problem Cardiomegaly I51.7 Active 9372389 Problem OFELIA (obstructive sleep apnea) G47.33 Active 02304774 Problem COPD with acute exacerbation J44.1 A ctive 698175761 Problem Neck pain M54.2 Active 84663754 Problem Epigastric pain R10.13 Active 7992 2009 Problem Essential hypertension I10 Active 75311556 Problem Arthritis M19.90 Active 5292130 Problem Abnormal serum creatinine level R79.9 Active 161396551 Problem Chronic fatigue R53.82 Active 5270 2003 Problem Right hand paresthesia R20.2 Active 667729854 Problem Stasis dermatitis of both legs I87.2 Active 30013694 Problem Hypertension I10 Active 7391487 3 Problem Depression F32.9 Active 90009081 Problem Hypothyroid E03.9 Active 09689725 Problem Gastroesophageal reflux disease without esophagitis K21.9 Active 292972343 Problem CKD (chronic kidney disease) stage 3, GFR 30-59 ml/min N18.3 Active 465281383 Problem Nocturnal enuresis N39.44 Active 8 364550 Problem Vitamin D deficiency E55.9 Active 88523861 Problem Posttraumatic stress disorder F43.10 Active 85833210 Problem Sleep apnea G47.30 Active 02023316 Problem Low back pain M54.5 Active 356390 004 Problem Pain in right shoulder M25.511 Active 08906038 Problem Swelling of ankle M25.473 Active 26 2489403 Problem Cervical spine arthritis M46.92 Activ e 278938997 Problem Arthritis, lumbar spine M47.9 Active 688431624 Problem Chronic pain G89.29 Active 6701915 1 ALLERGIES No Information ENCOUNTERS Encounter Location Date Diagnosis [place] [address] [address] 09 Sep, 2017 Chronic pain G89.29 [place] [address] [address] 11 Aug, 2017 Hypothyroid E03.9 ; Chronic pain G89.29 ; BMI 50.0-59.9, adult Z68.43 ; COPD with acute exacerbation J44.1 ; CKD (chronic kidney disease) stage 3, GFR 30-59 ml/min N18.3 ; Depression F32.9 ; Gastroesophageal reflux disease without esophagitis K21.9 ; Left hip pain M25.552 ; Swelling of both lower extremities M79.89 and Stasis dermatitis of both legs I87.2 [place] [address] [address] 05 Jul, 2017 Chronic pain G89.29 [place] [address] [address] May, Chronic pain G89.29 [place] [address] [address] 16 May, 2017 [place] [address] [address] 16 May, 2017 Hypothyroid E03.9 ; Chronic [...] Z12.31 and Encounter for screening colonoscopy Z12.11 [place] [address] [place] [id number] [address] [place] [address] 16 May, 2017 Depression F32.9 [place] [address] [address] [place] [address] [place] [address] May, Chronic pain G89.29 [facility] [address] [facility] [id number] [address] [place] [address] Apr, Chronic pain G89.29 and COPD with acute exacerbation J44.1 [facility] [address] [facility] [id number] [address] [place] [address] Mar, [facility] [address] [facility] [id number] [address] [place] [address] Mar, Chronic pain G89.29 [facility] [address] [facility] [id number] [address] [place] [address] Mar, [facility] [address] [place] [id number] [address] [place] [address] Feb, Hypothyroid E03.9 ; Chronic pain G89.29 ; COPD with acute exacerbation J44.1 ; CKD (chronic kidney disease) stage 3, GFR 30-59 ml/min N18.3 ; Depression F32.9 ; Gastroesophageal reflux disease without esophagitis K21.9 ; Right hand paresthesia R20.2 ; Left hip pain M25.552 ; Swelling of both lower extremities M79.89 and Stasis dermatitis of both legs I87.2 [facility] [address] [facility] [id number] [address] [place] [address] Jan, Depression F32.9 [facility] [address] [facility] [id number] [address] [place] [address] 08 Jan, 2017 Chronic pain G89.29 [facility] [address] [facility] [id number] [address] [place] [address] Dec, Chronic pain G89.29 [facility] [address] [facility] [id number] [address] [place] [address] Nov, [facility] [address] [facility] [id number] [address] [place] [address] Nov, [facility] [address] [facility] [id number] [address] [place] [address] Oct, Skin tag L91.8 ; Hypothyroid E03.9 ; Chronic pain G89.29 ; COPD with acute exacerbation J44.1 and CKD (chronic kidney disease) stage 3, GFR 30- 59 ml/min N18.3 [facility] [address] [facility] [id number] [address] [place] [address] September, [facility] [address] [facility] [id number] [address] [place] [address] September, [facility] [address] [facility] [id number] [address] [place] [address] Jul, [facility] [address] [facility] [id number] [address] [place] [address] Jul, [facility] [address] [place] [id number] [address] [place] [address] Jul, [facility] [address] [facility] [id number] [address] [place] [address] Jul, Hypothyroid E03.9 [facility] [address] [facility] [id number] [address] [place] [address] Jun, Hypothyroid E03.9 ; Chronic pain G89.29 ; CKD (chronic kidney disease) stage 3, GFR 30-59 ml/min N18.3 ; Arthritis M19.90 ; Hypertension I10 ; Depression F32.9 ; Gastroesophageal reflux disease without esophagitis K21.9 and Bronchitis J40 [facility] [address] [facility] [id number] [address] [place] [address] Jun, [facility] [address] [facility] [id number] [address] [place] [address] Jun, Chronic pain G89.29 [facility] [address] [facility] [id number] [address] [place] [address] May, Hypothyroid E03.9 ; Chronic pain G89.29 ; CKD (chronic kidney disease) stage 3, GFR 30-59 ml/min N18.3 ; Arthritis M19.90 ; Hypertension I10 and Depression F32.9 [place] [address] [facility] [id number] [address] [place] [address] May, [place] [address] [place] [id number] [address] [place] [address] Mar, Hypothyroid E03.9 [place] [address] [place] [id number] [address] [place] [address] Mar, [place] [address] [place] [id number] [address] [place] [address] Mar, Chronic pain G89.29 ; CKD (c hronic kidney disease) stage 3, GFR 30- 59 ml/min N18.3 ; Hypothyroid E03.9 ; Arthritis M19.90 ; Vitamin D deficiency E55.9 ; Hypertension I10 ; Depression F32.9 and Nocturnal enuresis N39.44 [place] [address] [place] [id number] [address] [place] [address] Mar, [place] [address] [place] [id number] [address] [place] [address] Jan, Chronic pain G89.29 ; Arthri tis M19.90 ; Hypothyroid E03.9 ; Chronic fatigue R53.82 ; Depression F32.9 ; CKD (chronic kidney disease) stage 3, GFR 30-59 ml/min N18.3 ; Gastroesophageal reflux disease without esophagitis K21.9 and Numbness of right foot R20.0 [place] [address] [place] [id number] [address] [place] [address] Nov, [place] [address] [place] [id number] [address] [place] [address] Nov, Chronic pain G89.29 ; Arthri tis M19.90 ; Abnormal serum creatinine level R79.9 ; Hypothyroid E03.9 and Chronic fatigue R53.82 [place] [address] [place] [id number] [address] [place] [address] September, Chronic pain G89.29 ; Arthri tis M19.90 ; Epigastric pain R10.13 and COPD with acute exacerbation J44.1 [place] [address] [place] [id number] [address] [place] [address] Aug, COPD with acute lower respir atory infection J44.0 ; Joint pain M25.50 and Chronic pain G89.29 [place] [address] [place] [id number] [place] [address] Aug, COPD with acute lower respir atory infection J44.0 [place] [address] [facility] [id number] [address] [place] [address] Aug, [place] [address] [place] [id number] [place] [address] Jul, Cervical spine arthritis M46 .92 ; Hypothyroid E03.9 ; Arthritis, lumbar spine M47.9 ; Sleep apnea G47.30 ; Chronic pain G89.29 and Swelling of ankle M25.473 [place] [address] [place] [id number] [address] [place] [address] Jul, [place] [address] [place] [id number] [address] [place] [address] Jun, [place] [address] [place] [id number] [address] [place] [address] Jun, [place] [address] [address] Jun, Hypothyroid E03.9 ; OFELIA (obs tructive sleep apnea) G47.33 ; Pain in right shoulder M25.511 ; Neck pain M54.2 ; Low back pain M54.5 ; Depression F32.9 ; Hypertension I10 and Essential hypertension I10 [place] [address] [place] [id number] [address] [place] [address] Jun, Posttraumatic stress disorde r F43.10 and Depression F32.9 [facility] [id number] [place] [address] Jun, Sleep apnea in adult G47.33 [place] [address] [address] 08 Jun, 2015 [place] [address] [address] 03 Jun, 2015 Hypothyroidism, unspecified E03.9 ; Chronic obstructive pulmonary disease J44.9 ; Essential hypertension I10 and Morbid obesity E66.01 [place] [address] [address] May, [place] [address] [address] Apr, COPD (chronic obstructive pu lmonary disease) J44.9 [place] [address] [address] 17 Apr, 2015 Shortness of breath R06.[address] [address] Apr, Chest discomfort R07.89 ; Ex ertional dyspnea R06.09 ; Morbid obesity E66.01 ; Bradycardia R00.1 and Hypothyroidism, unspecified E03.9 [place] [address] [address] Mar, Cardiomegaly I51.[address] [address] Mar, [place] [address] [address] Mar, Hypothyroidism, unspecified E03.9 [place] [address] [address] Mar, [place] [address] [address] Mar, Shortness of breath R06.02 ; Midline low back pain without sciatica M54.5 and Hypothyroidism, unspecified E03.9 [place] [address] [address] Mar, Chest discomfort R07.89 ; Sh ortness of breath R06.02 ; Morbid obesity E66.01 and Bradycardia R00.1 [place] [address] [address] Mar, Shortness of breath R06.02 ; Hypothyroidism, unspecified E03.9 and Elevated serum creatinine R79.89 [place] [address] [address] Feb, Hypothyroidism, unspecified E03.9 and Hypothyroidism 244.[address] [address] Feb, Midline low back pain withou t sciatica M54.[address] [address] Jan, [place] [address] [address] Jan, Hypothyroidism 244.9 ; Anxie ty and depression 300.4 ; Carotid artery plaque 433.10 and Elevated serum creatinine 790.99 [place] [address] [address] Dec, [place] [address] [address] Dec, [place] [address] [address] Dec, [place] [address] [address] Dec, [place] [address] [address] Dec, Cardiomegaly 429.3 ; COPD (c hronic obstructive pulmonary disease) 496 ; Cervicalgia 723.1 and Anxiety and depression 300.4 IMMUNIZATIONS No Known Immunizations SOCIAL HISTORY Never Assessed REASON FOR VISIT triage - CBowmanRN PLAN OF CARE VITAL SIGNS MEDICATIONS Unknown [...]
--- OUTSIDE RECORDS SUMMARY | 2019-11-05 22:20 | XMS REPORT ---
Author Author Irasema Corado Organization [facility] Address [address] [place] [address] Care Team Providers Care Senior Compliance Analyst Name Role Phone JENS Corado Unavailable PROBLEMS Type Condition ICD9-CM Code [id number] Code Onset Dates Condition S tatus SNOMED Code Problem Carpal tunnel syndrome, right G56.01 Active 014939349575204 Problem Cardiomegaly I51.7 Active 4503295 Problem OFELIA (obstructive sleep apnea) G47.33 Active 87004843 Problem COPD with acute exacerbation J44.1 A ctive 853963783 Problem Neck pain M54.2 Active 63205858 Problem Epigastric pain R10.13 Active 7992 2009 Problem Essential hypertension I10 Active 64044559 Problem Arthritis M19.90 Active 2924088 Problem Abnormal serum creatinine level R79.9 Active 793331925 Problem Chronic fatigue R53.82 Active 5270 2003 Problem Right hand paresthesia R20.2 Active 707089569 Problem Stasis dermatitis of both legs I87.2 Active 82683456 Problem Hypertension I10 Active 2716106 3 Problem Depression F32.9 Active 42147660 Problem Hypothyroid E03.9 Active 38408244 Problem Gastroesophageal reflux disease without esophagitis K21.9 Active 970097352 Problem CKD (chronic kidney disease) stage 3, GFR 30-59 ml/min N18.3 Active 699690628 Problem Nocturnal enuresis N39.44 Active 8 845025 Problem Vitamin D deficiency E55.9 Active 29550161 Problem Posttraumatic stress disorder F43.10 Active 39382470 Problem Sleep apnea G47.30 Active 37940802 Problem Low back pain M54.5 Active 387599 004 Problem Pain in right shoulder M25.511 Active 60724429 Problem Swelling of ankle M25.473 Active 26 4661582 Problem Cervical spine arthritis M46.92 Activ e 136469867 Problem Arthritis, lumbar spine M47.9 Active 108148167 Problem Chronic pain G89.29 Active 6560528 1 ALLERGIES No Information ENCOUNTERS Encounter Location Date Diagnosis [facility] [address] [address] Nov, [facility] [address] [address] Oct, [facility] [address] [address] Oct, [facility] [address] [address] Oct, BMI 50.0-59.9, adult Z68.43 ; OFELIA (obstructive sleep apnea) G47.33 ; Depression F32.9 and Hypertension I10 [place] [address] [address] September, [place] [address] [address] September, [facility] [address] [address] September, Chronic pain G89.29 [place] [address] [address] Aug, Hypothyroid E03.9 ; Chronic pain G89.29 ; BMI 50.0-59.9, adult Z68.43 ; COPD with acute exacerbation J44.1 ; CKD (chronic kidney disease) stage 3, GFR 30-59 ml/min N18.3 ; Depression F32.9 ; Gastroesophageal reflux disease without esophagitis K21.9 ; Left hip pain M25.552 ; Swelling of both lower extremities M79.89 and Stasis dermatitis of both legs I87.2 [place] [address] [address] Jul, Chronic pain G89.29 [place] [address] [address] May, Chronic pain G89.29 [place] [address] [place] [id number] [place] [address] May, [address] [address] 16 May, 2017 Hypothyroid E03.9 ; Chronic [...] Z12.31 and Encounter for screening colonoscopy Z12.[address] [address] 16 May, 2017 Depression F32.[address] [address] 04 May, 2017 Chronic pain G89.29 [place] [address] [address] 07 Apr, 2017 Chronic pain G89.29 and COPD with acute exacerbation J44.1 [place] [address] [address] 10 Mar, [address] [address] Mar, Chronic pain G89.29 [place] [address] [place] [id number] [address] [place] [address] 03 Mar, [address] [address] Feb, Hypothyroid E03.9 ; Chronic pain G89.29 ; COPD with acute exacerbation J44.1 ; CKD (chronic kidney disease) stage 3, GFR 30-59 ml/min N18.3 ; Depression F32.9 ; Gastroesophageal reflux disease without esophagitis K21.9 ; Right hand paresthesia R20.2 ; Left hip pain M25.552 ; Swelling of both lower extremities M79.89 and Stasis dermatitis of both legs I87.2 [facility] [address] [facility] [id number] [address] [place] [id number] 08 Jan, 2017 Depression F32.9 [facility] [address] [facility] [id number] [address] [place] [phone] Jan, Chronic pain G89.29 [facility] [address] [facility] [id number] [address] [place] [phone] Dec, Chronic pain G89.29 [facility] [address] [facility] [id number] [address] [place] [phone] Nov, [facility] [address] [place] [id number] [address] [place] [phone] Nov, [facility] [address] [place] [id number] [address] [place] [address] Oct, Skin tag L91.8 ; Hypothyroid E03.9 ; Chronic pain G89.29 ; COPD with acute exacerbation J44.1 and CKD (chronic kidney disease) stage 3, GFR 30- 59 ml/min N18.3 [facility] [address] [place] [id number] [address] [place] [phone] September, [facility] [address] [facility] [id number] [address] [place] [phone] September, [facility] [address] [facility] [id number] [address] [place] [address] Jul, [facility] [address] [facility] [id number] [address] [place] [phone] Jul, [facility] [address] [facility] [id number] [address] [place] [phone] Jul, [facility] [address] [place] [id number] [place] [address] Jul, Hypothyroid E03.9 [facility] [address] [place] [id number] [address] [place] [phone] Jun, Hypothyroid E03.9 ; Chronic pain G89.29 ; CKD (chronic kidney disease) stage 3, GFR 30-59 ml/min N18.3 ; Arthritis M19.90 ; Hypertension I10 ; Depression F32.9 ; Gastroesophageal reflux disease without esophagitis K21.9 and Bronchitis J40 [place] [address] [facility] [id number] [address] [place] [phone] Jun, [place] [address] [place] [id number] [place] [phone] Jun, Chronic pain G89.29 [place] [address] [place] [id number] [place] [address] May, Hypothyroid E03.9 ; Chronic pain G89.29 ; CKD (chronic kidney disease) stage 3, GFR 30-59 ml/min N18.3 ; Arthritis M19.90 ; Hypertension I10 and Depression F32.9 [place] [address] [place] [id number] [place] [phone] May, [place] [address] [place] [id number] [place] [phone] Mar, Hypothyroid E03.9 [place] [address] [place] [id number] [place] [address] Mar, [place] [address] [place] [id number] [place] [address] Mar, Chronic pain G89.29 ; CKD (c hronic kidney disease) stage 3, GFR 30- 59 ml/min N18.3 ; Hypothyroid E03.9 ; Arthritis M19.90 ; Vitamin D deficiency E55.9 ; Hypertension I10 ; Depression F32.9 and Nocturnal enuresis N39.44 [place] [address] [place] [id number] [place] [phone] Mar, [place] [address] [place] [id number] [place] [address] Jan, Chronic pain G89.29 ; Arthri tis M19.90 ; Hypothyroid E03.9 ; Chronic fatigue R53.82 ; Depression F32.9 ; CKD (chronic kidney disease) stage 3, GFR 30-59 ml/min N18.3 ; Gastroesophageal reflux disease without esophagitis K21.9 and Numbness of right foot R20.0 [place] [address] [place] [id number] [place] [phone] Nov, [place] [address] [place] [id number] [place] [address] Nov, Chronic pain G89.29 ; Arthri tis M19.90 ; Abnormal serum creatinine level R79.9 ; Hypothyroid E03.9 and Chronic fatigue R53.82 [place] [address] [place] [id number] [place] [address] September, Chronic pain G89.29 ; Arthri tis M19.90 ; Epigastric pain R10.13 and COPD with acute exacerbation J44.1 [place] [address] [place] [id number] [place] [address] Aug, COPD with acute lower respir atory infection J44.0 ; Joint pain M25.50 and Chronic pain G89.29 [place] [address] [place] [id number] [place] [phone] Aug, COPD with acute lower respir atory infection J44.0 [place] [address] [place] [id number] [place] [phone] Aug, [place] [address] [place] [id number] [place] [address] Jul, Cervical spine arthritis M46 .92 ; Hypothyroid E03.9 ; Arthritis, lumbar spine M47.9 ; Sleep apnea G47.30 ; Chronic pain G89.29 and Swelling of ankle M25.473 [place] [address] [place] [id number] [place] [address] Jul, [place] [address] [place] [id number] [place] [phone] Jun, [place] [address] [address] Jun, [place] [address] [place] [id number] [place] [address] Jun, Hypothyroid E03.9 ; OFELIA (obs tructive sleep apnea) G47.33 ; Pain in right shoulder M25.511 ; Neck pain M54.2 ; Low back pain M54.5 ; Depression F32.9 ; Hypertension I10 and Essential hypertension I10 [address] [address] Jun, Posttraumatic stress disorde r F43.10 and Depression F32.[id number] [place] [address] Jun, Sleep apnea in adult G47.33 [place] [address] [place] [id number] [place] [address] Jun, [address] [address] Jun, Hypothyroidism, unspecified E03.9 ; Chronic obstructive pulmonary disease J44.9 ; Essential hypertension I10 and Morbid obesity E66.01 [place] [id number] [place] [phone] May, [place] [address] [address] Apr, COPD (chronic obstructive pu lmonary disease) J44.[address] [address] 17 Apr, 2015 Shortness of breath R06.02 [place] [address] [place] [id number] [place] [address] 09 Apr, 2015 Chest discomfort R07.89 ; Ex ertional dyspnea R06.09 ; Morbid obesity E66.01 ; Bradycardia R00.1 and Hypothyroidism, unspecified E03.9 [place] [address] [address] Mar, Cardiomegaly I51.7 [place] [address] [place] [id number] [place] [address] Mar, [place] [address] [address] Mar, Hypothyroidism, unspecified E03.9 [place] [address] [address] Mar, [place] [address] [address] Mar, Shortness of breath R06.02 ; Midline low back pain without sciatica M54.5 and Hypothyroidism, unspecified E03.9 [place] [address] [address] Mar, Chest discomfort R07.89 ; Sh ortness of breath R06.02 ; Morbid obesity E66.01 and Bradycardia R00.1 [place] [address] [address] Mar, Shortness of breath R06.02 ; Hypothyroidism, unspecified E03.9 and Elevated serum creatinine R79.89 [place] [address] [address] Feb, Hypothyroidism, unspecified E03.9 and Hypothyroidism 244.9 [place] [address] [address] Feb, Midline low back pain withou t sciatica M54.5 [place] [address] [address] Jan, [place] [address] [address] Jan, Hypothyroidism 244.9 ; Anxie ty and depression 300.4 ; Carotid artery plaque 433.10 and Elevated serum creatinine 790.99 [facility] [address] [facility] [id number] [address] [place] [phone] Dec, [facility] [address] [facility] [id number] [address] [place] [address] Dec, [facility] [address] [facility] [id number] [address] [place] [address] Dec, [facility] [address] [facility] [id number] [address] [place] [phone] Dec, [facility] [address] [facility] [id number] [address] [place] [address] Dec, Cardiomegaly 429.3 ; COPD (c hronic obstructive pulmonary disease) 496 ; Cervicalgia 723.1 and Anxiety and depression 300.4 IMMUNIZATIONS No Known Immunizations SOCIAL HISTORY Never Assessed REASON FOR VISIT f/u PLAN OF CARE Activity Details Follow Up Next available Reason:Cases ramila, adjustment disorder VITAL SIGNS MEDICATIONS Unknown Medications RESULTS No Results PROCEDURES Procedure Date Ordered Result Body Site Psychotherapy, patient &/family, 60 minutes, established patient Jun 04, 2017 INSTRUCTIONS MEDICATIONS ADMINISTERED No Known Medications [...]
--- OUTSIDE RECORDS SUMMARY | 2019-11-05 22:20 | XMS REPORT ---
Author Author Irasema MENDES Organization [facility] Address [address] [place], [place] [id number] Care Team Providers Care Sterile Processing Manager Name Role Phone HONEY MENDES Unavailable PROBLEMS Type Condition ICD9-CM Code CDT72-UL Code Onset Dates Condition S tatus SNOMED Code Problem COPD with acute exacerbation J44.1 A ctive 574962765 Problem Arthritis M19.90 Active 3427582 Problem Epigastric pain R10.13 Active 7992 2009 Problem Nocturnal enuresis N39.44 Active 8 882636 Problem Hypothyroid E03.9 Active 83791426 Problem Vitamin D deficiency E55.9 Active 38812402 Problem Essential hypertension I10 Active 38870538 Problem Neck pain M54.2 Active 49995064 Problem Abnormal serum creatinine level R79.9 Active 085504469 Problem Chronic fatigue R53.82 Active 5270 2003 Problem Gastroesophageal reflux disease without esophagitis K21.9 Active 426204858 Problem CKD (chronic kidney disease) stage 3, GFR 30-59 ml/min N18.3 Active 410418939 Problem Low back pain M54.5 Active 943854 004 Problem Pain in right shoulder M25.511 Active 89347620 Problem Depression F32.9 Active 09160932 Problem Hypertension I10 Active 3673105 3 Problem Arthritis, lumbar spine M47.9 Active 518543220 Problem Chronic pain G89.29 Active 1587548 1 Problem Cardiomegaly I51.7 Active 8012773 Problem Posttraumatic stress disorder F43.10 Active 67602244 Problem Swelling of ankle M25.473 Active 26 2700187 Problem OFELIA (obstructive sleep apnea) G47.33 Active 93955265 Problem Sleep apnea G47.30 Active 27670409 Problem Cervical spine arthritis M46.92 Activ e [id number] ALLERGIES Unknown Allergies SOCIAL HISTORY No smoking Hx information available PLAN OF CARE VITAL SIGNS MEDICATIONS Unknown Medications RESULTS No Results PROCEDURES No Known procedures IMMUNIZATIONS No Known Immunizations
--- OUTSIDE RECORDS SUMMARY | 2019-11-05 22:20 | XMS REPORT ---
Author Author Irasema STOKES Organization [facility] Address [address] [place] [address] Care Team Providers Care Fabricator Industrial Furnace Name Role Phone POLY STOKES Unavailable PROBLEMS Type Condition ICD9-CM Code KMB46-UV Code Onset Dates Condition S tatus SNOMED Code Problem COPD with acute exacerbation J44.1 A ctive 193724698 Problem Arthritis M19.90 Active 3787228 Problem Epigastric pain R10.13 Active 7992 2009 Problem Nocturnal enuresis N39.44 Active 8 501523 Problem Hypothyroid E03.9 Active 11005478 Problem Vitamin D deficiency E55.9 Active 44371230 Problem Essential hypertension I10 Active 26763732 Problem Neck pain M54.2 Active 12046617 Problem Abnormal serum creatinine level R79.9 Active 672354931 Problem Chronic fatigue R53.82 Active 5270 2003 Problem Gastroesophageal reflux disease without esophagitis K21.9 Active 416862185 Problem CKD (chronic kidney disease) stage 3, GFR 30-59 ml/min N18.3 Active 302713922 Problem Low back pain M54.5 Active 416420 004 Problem Pain in right shoulder M25.511 Active 02019861 Problem Depression F32.9 Active 60329720 Problem Hypertension I10 Active 8874857 3 Problem Arthritis, lumbar spine M47.9 Active 830448840 Problem Chronic pain G89.29 Active 0872717 1 Problem Cardiomegaly I51.7 Active 9996148 Problem Posttraumatic stress disorder F43.10 Active 50377459 Problem Swelling of ankle M25.473 Active 26 4786126 Problem OFELIA (obstructive sleep apnea) G47.33 Active 47296956 Problem Sleep apnea G47.30 Active 61932555 Problem Cervical spine arthritis M46.92 Activ e [id number] ALLERGIES No Information SOCIAL HISTORY Never Assessed PLAN OF CARE VITAL SIGNS MEDICATIONS Unknown [...]
--- OUTSIDE RECORDS SUMMARY | 2019-11-05 22:20 | XMS REPORT ---
Author Author Irasema STOKES Organization [employer] Address Unknown Phone Unavailable Care Team Providers Care Sports Doctor Name Role Phone POLY STOKES CP Unavailable Allergies, Adverse Reactions, Alerts Substance Reaction Event Type N.K.D.A. Info Not Available Non Drug Allergy Problems Problem Type Condition Code Onset Dates Condition Statu s Assessment Depression F32.9 Active Assessment Nocturnal enuresis N39.44 Active Assessment Hypertension I10 Active Assessment Vitamin D deficiency E55.9 Active Assessment Arthritis M19.90 Active Assessment Hypothyroid E03.9 Active Assessment CKD (chronic kidney disease) stage 3, GFR 30-59 ml/min N18.3 Active Problem Sleep apnea G47.30 Active Assessment Chronic pain G89.29 Active Problem Arthritis, lumbar spine M47.9 Acti ve Problem Cardiomegaly I51.7 Active Problem Cervical spine arthritis M46.92 Act sahara Problem Epigastric pain R10.13 Active Problem COPD with acute exacerbation J44.1 Active Problem Nocturnal enuresis N39.44 Active Problem CKD (chronic kidney disease) stage 3, GFR 30-59 ml/min N18.3 Active Problem Depression F32.9 Active Problem Hypertension I10 Active Problem Vitamin D deficiency E55.9 Active Problem Essential hypertension I10 Activ e Problem Chronic fatigue R53.82 Active Problem Arthritis M19.90 Active Problem Gastroesophageal reflux disease without esophagitis K2 1.9 Active Problem Abnormal serum creatinine level R79.9 Active Problem Pain in right shoulder M25.511 Activ e Problem OFELIA (obstructive sleep apnea) G47.33 Active Problem Low back pain M54.5 Active Problem Neck pain M54.2 Active Problem Swelling of ankle M25.473 Active Problem Chronic pain G89.29 Active Problem Hypothyroid E03.9 Active Problem Posttraumatic stress disorder F43.10 Active Medications Medication Code System Code Instructions Start Date End [place] [address]-69 44 MCG/ACT Inhalation Twice a day Dec 23, 2014 2 [place] [address]-56 75 MCG Orally Once a day 1 Paroxetine HCl [facility] [address]-58 20 MG CRISTO E ONE TABLET BY MOUTH TWICE DAILY Albuterol Sulfate HFA [facility] [address]-37 108 (90 Ba se) MCG/ACT Inhalation every 4 hrs Mar 28, 2015 2 puffs as neede d Albuterol Sulfate [facility] [address]-71 (2.5 MG/3ML) 0 .083% Inhalation every 6 hours as needed for shortness of breath 3 ml Vitamin D [facility] [address]-49 Orally Once a day 1 tablet [place] [facility] [address]-73 7.5-325 MG Orally 1 bid prn 1 tablet as needed HM Vitamin D3 [facility] [address] 3000 UNIT Orally Once a day Apr 04, 2016 May 04, 2016 1 capsule Procedures Procedure Coding System Code Date COMPLETE CBC W/AUTO DIFF WBC CPT-4 53671 Apr 04, 2016 ASSAY THYROID STIM HORMONE CPT-4 67934 Mar 202015 COMPREHEN METABOLIC PANEL CPT-4 99651 Mar Office Visit, Est Pt., Level 4 CPT-4 24065 N 2015 URINALYSIS, AUTO, W/O SCOPE CPT-4 10129 Apr 04, 2016 VENIPUNCT, ROUTINE* CPT-4 80000 Apr 04, 2016 Vital Signs Date/Time: Apr 04, 2016 Cardiac Monitoring Heart Rate 108 bpm Weight 312.8 lbs Height 60 in BMI 61.08 Index Blood Pressure Diastolic 88 mmHg Blood Pressure Systolic 150 mmHg Results Name Result Date Reference Range Unit Abnormali ty Flag TSH ----TSH 7.360 12393149 0.450-4.500 uIU/mL H CBC ----Basos 0 53073642 % ----MCV 87 40887236 79-97 fL ----Hematocrit 42.8 39166752 34.0-46.6 % ----Eos 3 26787763 % ----MCHC 32.7 29647615 31.5-35.7 g/dL ----Monocytes 5 30226018 % ----MCH 28.5 67513401 26.6-33.0 pg ----Lymphs 28 75583853 % ----Eos (Absolute) 0.2 22865563 0.0-0.4 x10E3/uL ----WBC 7.9 73617693 3.4-10.8 x10E3/uL ----Monocytes(Absolute) 0.4 63780830 0.1-0.9 x10E3/uL ----Lymphs (Absolute) 2.2 83717381 0.7-3.1 x10E3/uL ----Hemoglobin 14.0 53159857 11.1-15.9 g/dL ----Neutrophils (Absolute) 5.0 57826429 1.4-7.0 x10E3/uL ----RBC 4.91 28371096 3.77-5.28 x10E6/uL ----Immature Grans (Abs) 0.0 16136244 0.0-0.1 x10E3/uL ----Immature Granulocytes 0 75383938 % ----Neutrophils 64 95993335 % ----Baso (Absolute) 0.0 24864239 0.0-0.2 x10E3/uL ----RDW 14.0 75047178 12.3-15.4 % ----Platelets 235 25072659 150-379 x10E3/uL ROUTINE VENIPUNCTURE UA LONG DIP (IN HOUSE) ----CELINA negative 20160404 ----GLU negative 20160404 ----SG 5.5 20160404 ----KET negative 20160404 ----pH 5.5 20160404 ----Protein negative 20160404 ----BLO negative 20160404 ----ISABELA negative 20160404 ----Color dark yellow 20160404 ----Odor none 20160404 ----Exp date 20160404 ----URO 0.2 20160404 ----NIT negative 20160404 ----Clarity clear 20160404 ----Lot # [id number] 20160404 CMP ----Potassium, Serum 4.3 20160404 3.5-5.2 mmol/L ----Sodium, Serum 144 20160404 136-144 mmol/L ----BUN/Creatinine Ratio 10 20160404 9-23 ----eGFR If Africn Am 48 65561549 >59 mL/min/1.73 L ----eGFR If NonAfricn Am 41 48809210 >59 mL/min/1.73 L ----Creatinine, Serum 1.43 92119112 0.57-1.00 mg/dL H ----BUN 14 20160404 6-24 mg/dL ----Glucose, Serum 112 14983081 65-99 mg/dL H ----AST (SGOT) 28 75718922 0-40 IU/L ----Globulin, Total 2.4 33092780 1.5-4.5 g/dL ----ALT (SGPT) 25 13116447 0-32 IU/L ----A/G Ratio 1.8 20160404 1.1-2.5 ----Bilirubin, Total 0.7 50722119 0.0-1.2 mg/dL ----Alkaline Phosphatase, S 72 82716634 39-117 IU/L ----Carbon Dioxide, Total 23 75459977 18-29 mmol/L ----Calcium, Serum 9.4 83324647 8.7-10.2 mg/dL ----Protein, Total, Serum 6.7 73126871 6.0-8.5 g/dL ----Albumin, Serum 4.3 81234573 3.5-5.5 g/dL ----Chloride, Serum 102 58199161 97-106 mmol/L Summary Purpose [employer] Submission
--- OUTSIDE RECORDS SUMMARY | 2019-11-05 22:20 | XMS REPORT ---
Author Author Irasema STOKES Organization [employer] Address Unknown Phone Unavailable Care Team Providers Care Anesthesia Attending Name Role Phone POLY STOKES CP Unavailable Allergies No Known Allergies Problems Problem Type Condition Code Onset Dates Condition Statu s Problem Cervical spine arthritis M46.92 Act sahara Problem Epigastric pain R10.13 Active Problem COPD with acute exacerbation J44.1 Active Problem Nocturnal enuresis N39.44 Active Problem Depression F32.9 Active Problem CKD (chronic kidney disease) stage 3, GFR 30-59 ml/min N18.3 Active Problem Hypertension I10 Active Problem Essential hypertension I10 Activ e Problem Vitamin D deficiency E55.9 Active Problem Chronic fatigue R53.82 Active Problem [...] G89.29 Active Problem Hypothyroid E03.9 Active Problem Sleep apnea G47.30 Active Problem Cardiomegaly I51.7 Active Problem Posttraumatic stress disorder F43.10 Active Problem Arthritis, lumbar spine M47.9 Acti ve Medications No Known Medications Results No Known Results Summary Purpose [employer] Submission
--- OUTSIDE RECORDS SUMMARY | 2019-11-05 22:20 | XMS REPORT ---
Author Author Irasema STOKES Organization [employer] Address Unknown Phone Unavailable Care Team Providers Care Information Systems Project Manager Name Role Phone POLY STOKES CP [...] Arthritis, lumbar spine M47.9 Acti ve Medications Medication Code System Code Instructions Start Date End Date Status Dosage Lisinopril [facility] [address]-55 20 mg Orally Once a day 1/2 tablet Results No Known Results Summary Purpose [employer] Submission
--- OUTSIDE RECORDS SUMMARY | 2019-11-05 22:20 | XMS REPORT ---
Author Author Irasema STOKES Organization [facility] [place] [facility] Address [address] [place] [address] Care Team Providers Care Bookie Name Role Phone POLY STOKES Unavailable PROBLEMS Type Condition ICD9-CM Code XOA25-AY Code Onset Dates Condition S tatus SNOMED Code Problem COPD with acute exacerbation J44.1 A ctive 494576715 Problem Arthritis M19.90 Active 9266055 Problem Epigastric pain R10.13 Active 7992 2009 Problem Nocturnal enuresis N39.44 Active 8 758974 Problem Hypothyroid E03.9 Active 95144310 Problem Vitamin D deficiency E55.9 Active 02934298 Problem Essential hypertension I10 Active 85375259 Problem Neck pain M54.2 Active 23747744 Problem Abnormal serum creatinine level R79.9 Active 890028666 Problem Chronic fatigue R53.82 Active 5270 2003 Problem Gastroesophageal reflux disease without esophagitis K21.9 Active 697627891 Problem CKD (chronic kidney disease) stage 3, GFR 30-59 ml/min N18.3 Active 053188279 Problem Low back pain M54.5 Active 421432 004 Problem Pain in right shoulder M25.511 Active 71240596 Problem Depression F32.9 Active 78908124 Problem Hypertension I10 Active 9906525 3 Problem Arthritis, lumbar spine M47.9 Active 390121439 Problem Chronic pain G89.29 Active 0492829 1 Problem Cardiomegaly I51.7 Active 5911331 Problem Posttraumatic stress disorder F43.10 Active 75309904 Problem Swelling of ankle M25.473 Active 26 1580310 Problem OFELIA (obstructive sleep apnea) G47.33 Active 21242531 Problem Sleep apnea G47.30 Active 48730116 Problem Cervical spine arthritis M46.92 Activ e [id number] ALLERGIES Substance Reaction Event Type Date Status N.K.D.A. Unknown Non Drug Allergy May, Unknown SOCIAL HISTORY No smoking Hx information available PLAN OF CARE Activity Details Follow Up 3 Months and feb lab Reason: Pain/ VITAL SIGNS Height 60 in 2016-05-29 Weight 308.0 lbs 2016-05-29 Temperature 99.6 degrees Fahrenheit 2016-05-29 Heart Rate 77 bpm 2016-05-29 Respiratory Rate 26 2016-05-29 BMI 60.15 kg/m2 2016-05-29 Blood pressure systolic 131 mmHg 2016-05-29 Blood pressure diastolic 83 mmHg 2016-05-29 MEDICATIONS Medication Instructions Dosage Frequency Start Date End Date Duration S chana Lisinopril 5 MG Orally Once a day prn 1 tablet Active Paroxetine HCl 20 MG TAKE ONE TABLET BY MOUTH TWICE DAILY 30 Active [place] 7.5-325 MG Orally 1 bid prn 1 tablet as needed Active Levothyroxine Sodium 88 MCG Orally Once a day 1 tablet 24h Active Albuterol Sulfate HFA 108 (90 Base) MCG/ACT Inhalation every 4 hrs 2 puffs as needed 4h Mar, Active Flovent HFA 44 MCG/ACT Inhalation Twice a day 2 puffs 12h Dec, 15 Active Albuterol Sulfate (2.5 MG/3ML) 0.083% Inhalation every 6 hours as needed for shortness of breath 3 ml Activ e Vitamin D Orally Once a day 1 tablet 24h Act sahara RESULTS Name Result Date Reference Range CMP 2016-05-29 Glucose, Serum 116 65-99 BUN 18 6-24 Creatinine, Serum 1.63 0.57-1.00 eGFR If NonAfricn Am 35 >59 eGFR If Africn Am 41 >59 BUN/Creatinine Ratio 11 9-23 Sodium, Serum 140 134-144 Potassium, Serum 4.5 3.5-5.2 Chloride, Serum 100 96-106 Carbon Dioxide, Total 19 18-29 Calcium, Serum 9.1 8.7-10.2 Protein, Total, Serum 7.0 6.0-8.5 Albumin, Serum 4.6 3.5-5.5 Globulin, Total 2.4 1.5-4.5 A/G Ratio 1.9 1.1-2.5 Bilirubin, Total 0.7 0.0-1.2 Alkaline Phosphatase, S 78 39-117 AST (SGOT) 24 0-40 ALT (SGPT) 24 0-32 PROCEDURES Procedure Date Ordered Related Diagnosis Body Site COMPREHEN METABOLIC PANEL May 29, 2016 Office Visit, Est Pt., Level 4 May 29, 2016 VENIPUNCT, ROUTINE* May 29, 2016 IMMUNIZATIONS No Known Immunizations
--- OUTSIDE RECORDS SUMMARY | 2019-11-05 22:21 | XMS REPORT ---
Author Author Irasema DENNIS Organization [facility] Address [address] [place] [address] Care Team Providers Care Yoke Setter Name Role Phone JEANNIE TATIANA Unavailable PROBLEMS Type Condition ICD9-CM Code [id number] Code Onset Dates Condition S tatus SNOMED Code Problem COPD with acute exacerbation J44.1 A ctive 378456573 Problem Arthritis M19.90 Active 4985304 Problem Epigastric pain R10.13 Active 7992 2009 Problem Nocturnal enuresis N39.44 Active 8 907851 Problem Hypothyroid E03.9 Active 49720275 Problem Vitamin D deficiency E55.9 Active 73643759 Problem Essential hypertension I10 Active 70928610 Problem Neck pain M54.2 Active 30574503 Problem Abnormal serum creatinine level R79.9 Active 306139984 Problem Chronic fatigue R53.82 Active 5270 2003 Problem Gastroesophageal reflux disease without esophagitis K21.9 Active 732467856 Problem CKD (chronic kidney disease) stage 3, GFR 30-59 ml/min N18.3 Active 873804248 Problem Low back pain M54.5 Active 519590 004 Problem Pain in right shoulder M25.511 Active 10058194 Problem Depression F32.9 Active 21568543 Problem Hypertension I10 Active 7512467 3 Problem Arthritis, lumbar spine M47.9 Active 523392276 Problem Chronic pain G89.29 Active 9346478 1 Problem Cardiomegaly I51.7 Active 3125055 Problem Posttraumatic stress disorder F43.10 Active 96690251 Problem Swelling of ankle M25.473 Active 26 2276588 Problem OFELIA (obstructive sleep apnea) G47.33 Active 16466402 Problem Sleep apnea G47.30 Active 49621318 Problem Cervical spine arthritis M46.92 Activ e [id number] ALLERGIES No Information SOCIAL HISTORY Never Assessed PLAN OF CARE VITAL SIGNS MEDICATIONS Medication Instructions Dosage Frequency Start Date End Date Duration S tatus [place] 7.5-325 MG Orally 1 bid prn 1 tablet as needed 28 Active RESULTS No Results PROCEDURES No [...]
--- OUTSIDE RECORDS SUMMARY | 2019-11-05 22:21 | XMS REPORT ---
Author Author Irasema SIERRA Organization [facility] Address [address] [place] [address] Care Team Providers Care Poker Dealer Name Role Phone JENS SIERRA Unavailable PROBLEMS Type Condition ICD9-CM Code [id number] Code Onset Dates Condition S tatus SNOMED Code Problem Carpal tunnel syndrome, right G56.01 Active [id number] Problem Cardiomegaly I51.7 Active 1660857 Problem OFELIA (obstructive sleep apnea) G47.33 Active 36215922 Problem COPD with acute exacerbation J44.1 A ctive 617360581 Problem Neck pain M54.2 Active 80473342 Problem Epigastric pain R10.13 Active 7992 2009 Problem Essential hypertension I10 Active 35399074 Problem Arthritis M19.90 Active 1252703 Problem Abnormal serum creatinine level R79.9 Active 521031026 Problem Chronic fatigue R53.82 Active 5270 2003 Problem Right hand paresthesia R20.2 Active 134459805 Problem Stasis dermatitis of both legs I87.2 Active 12106722 Problem Hypertension I10 Active 3360500 3 Problem Depression F32.9 Active 42458356 Problem Hypothyroid E03.9 Active 01885510 Problem Gastroesophageal reflux disease without esophagitis K21.9 Active 303526179 Problem CKD (chronic kidney disease) stage 3, GFR 30-59 ml/min N18.3 Active 994706823 Problem Nocturnal enuresis N39.44 Active 8 656508 Problem Vitamin D deficiency E55.9 Active 41576455 Problem Posttraumatic stress disorder F43.10 Active 84877823 Problem Sleep apnea G47.30 Active 52745069 Problem Low back pain M54.5 Active 936317 004 Problem Pain in right shoulder M25.511 Active 01600187 Problem Swelling of ankle M25.473 Active 26 7588056 Problem Cervical spine arthritis M46.92 Activ e 983672166 Problem Arthritis, lumbar spine M47.9 Active 024072098 Problem Chronic pain G89.29 Active 7530875 1 ALLERGIES No Information ENCOUNTERS Encounter Location Date Diagnosis [place] [address] [id number] 11 Aug, 2017 Hypothyroid E03.9 ; Chronic pain G89.29 ; BMI 50.0-59.9, adult Z68.43 ; COPD with acute exacerbation J44.1 ; CKD (chronic kidney disease) stage 3, GFR 30-59 ml/min N18.3 ; Depression F32.9 ; Gastroesophageal reflux disease without esophagitis K21.9 ; Left hip pain M25.552 ; Swelling of both lower extremities M79.89 and Stasis dermatitis of both legs I87.2 [place] [address] [address] 05 Jul, 2017 Chronic pain G89.29 [place] [address] [place] [id number] [place] [phone] May, Chronic pain G89.29 [place] [address] [place] [id number] [place] [phone] 16 May, 2017 [place] [address] [place] [id number] [place] [phone] 16 May, 2017 Hypothyroid E03.9 ; Chronic [...] Z12.31 and Encounter for screening colonoscopy Z12.11 [place] [address] [place] [id number] [place] [phone] 16 May, 2017 Depression F32.9 [place] [address] [place] [id number] [place] [phone] 04 May, 2017 Chronic pain G89.29 [place] [address] [place] [address] Apr, Chronic pain G89.29 and COPD with acute exacerbation J44.1 [facility] [address] [id number] [address] [place] [phone] Mar, [facility] [address] [facility] [place] [id number] [address] [place] [phone] Mar, Chronic pain G89.29 [facility] [address] [id number] [address] [place] [phone] Mar, [facility] [address] [facility] [place] [id number] [address] [place] [phone] Feb, Hypothyroid E03.9 ; Chronic pain G89.29 ; COPD with acute exacerbation J44.1 ; CKD (chronic kidney disease) stage 3, GFR 30-59 ml/min N18.3 ; Depression F32.9 ; Gastroesophageal reflux disease without esophagitis K21.9 ; Right hand paresthesia R20.2 ; Left hip pain M25.552 ; Swelling of both lower extremities M79.89 and Stasis dermatitis of both legs I87.2 [facility] [address] [id number] [address] [place] [id number] 08 Jan, [address] [facility] [address] [facility] [place] [id number] [address] [place] [phone] 08 Jan, [address] [facility] [address] [facility] [place] [id number] [address] [place] [phone] Dec, Chronic pain G89.29 [facility] [address] [facility] [place] [id number] [address] [place] [phone] Nov, [facility] [address] [facility] [place] [id number] [address] [place] [phone] Nov, [facility] [address] [facility] [place] [id number] [address] [place] [phone] Oct, Skin tag L91.8 ; Hypothyroid E03.9 ; Chronic pain G89.29 ; COPD with acute exacerbation J44.1 and CKD (chronic kidney disease) stage 3, GFR 30- 59 ml/min N18.3 [facility] [address] [facility] [place] [id number] [address] [place] [phone] September, [facility] [address] [facility] [place] [id number] [address] [place] [phone] September, [facility] [address] [facility] [place] [id number] [address] [place] [phone] Jul, [facility] [address] [facility] [place] [id number] [address] [place] [phone] Jul, [facility] [address] [facility] [place] [id number] [address] [place] [phone] Jul, [facility] [address] [facility] [place] [id number] [address] [place] [phone] Jul, Hypothyroid E03.9 [facility] [address] [facility] [place] [id number] [address] [place] [phone] Jun, Hypothyroid E03.9 ; Chronic pain G89.29 ; CKD (chronic kidney disease) stage 3, GFR 30-59 ml/min N18.3 ; Arthritis M19.90 ; Hypertension I10 ; Depression F32.9 ; Gastroesophageal reflux disease without esophagitis K21.[address] [facility] [address] [place] [id number] [place] [phone] Jun, [facility] [address] [facility] [place] [id number] [address] [place] [phone] Jun, Chronic pain G89.29 [facility] [address] [facility] [place] [id number] [address] [place] [phone] May, Hypothyroid E03.9 ; Chronic pain G89.29 ; CKD (chronic kidney disease) stage 3, GFR 30-59 ml/min N18.3 ; Arthritis M19.90 ; Hypertension I10 and Depression [address]32[address]9 [facility] [address] [facility] [place] [id number] [address] [place] [phone] May, [place] [address] [place] [id number] [place] [phone] Mar, Hypothyroid E03.9 [place] [address] [place] [id number] [place] [phone] Mar, [place] [address] [address] Mar, Chronic pain G89.29 ; CKD (c hronic kidney disease) stage 3, GFR 30- 59 ml/min N18.3 ; Hypothyroid E03.9 ; Arthritis M19.90 ; Vitamin D deficiency E55.9 ; Hypertension I10 ; Depression F32.9 and Nocturnal enuresis N39.44 [place] [address] [address] Mar, [place] [address] [address] Jan, Chronic pain G89.29 ; Arthri tis M19.90 ; Hypothyroid E03.9 ; Chronic fatigue R53.82 ; Depression F32.9 ; CKD (chronic kidney disease) stage 3, GFR 30-59 ml/min N18.3 ; Gastroesophageal reflux disease without esophagitis K21.9 and Numbness of right foot R20.0 [place] [address] [address] Nov, [place] [address] [address] Nov, Chronic pain G89.29 ; Arthri tis M19.90 ; Abnormal serum creatinine level R79.9 ; Hypothyroid E03.9 and Chronic fatigue R53.82 [place] [address] [address] September, Chronic pain G89.29 ; Arthri tis M19.90 ; Epigastric pain R10.13 and COPD with acute exacerbation J44.1 [place] [address] [address] Aug, COPD with acute lower respir atory infection J44.0 ; Joint pain M25.50 and Chronic pain G89.29 [place] [id number] [place] [phone] Aug, COPD with acute lower respir atory infection J44.0 [place] [id number] [place] [phone] Aug, [place] [address] [place] [id number] [place] [phone] Jul, Cervical spine arthritis M46 .92 ; Hypothyroid E03.9 ; Arthritis, lumbar spine M47.9 ; Sleep apnea G47.30 ; Chronic pain G89.29 and Swelling of ankle M25.473 [place] [address] [place] [id number] [place] [phone] Jul, [place] [address] [place] [id number] [place] [phone] Jun, [place] [address] [place] [phone] Jun, [place] [address] [place] [id number] [place] [phone] Jun, Hypothyroid E03.9 ; OFELIA (obs tructive sleep apnea) G47.33 ; Pain in right shoulder M25.511 ; Neck pain M54.2 ; Low back pain M54.5 ; Depression F32.9 ; Hypertension I10 and Essential hypertension I10 [place] [address] [facility] [place] [place] [id number] [address] [place] [phone] 18 Jun, 2015 Posttraumatic stress disorde r F43.[address] [facility] [id number] [place] [phone] 10 Jun, 2015 Sleep apnea in adult G47.33 [place] [address] [facility] [place] [id number] [address] [place] [phone] 08 Jun, 2015 [place] [address] [facility] [place] [id number] [address] [place] [phone] 03 Jun, 2015 Hypothyroidism, unspecified E03.9 ; Chronic obstructive pulmonary disease J44.9 ; Essential hypertension I10 and Morbid obesity E66.01 [place] [address] [facility] [place] [id number] [place] [phone] May, [place] [address] [phone] Apr, COPD (chronic obstructive pu lmonary disease) J44.9 [place] [address] [place] [id number] [place] [phone] 17 Apr, 2015 Shortness of breath R06.02 [place] [address] [place] [id number] [place] [phone] Apr, Chest discomfort R07.89 ; Ex ertional dyspnea R06.09 ; Morbid obesity E66.01 ; Bradycardia R00.1 and Hypothyroidism, unspecified E03.9 [place] [address] [address] 18 Mar, 2015 Cardiomegaly I51.7 [place] [address] [place] [id number] [place] [phone] 18 Mar, 2015 [place] [address] [place] [id number] [place] [phone] Mar, Hypothyroidism, unspecified E03.9 [place] [address] [place] [id number] [place] [address] Mar, [place] [address] [place] [id number] [place] [phone] Mar, Shortness of breath R06.02 ; Midline low back pain without sciatica M54.5 and Hypothyroidism, unspecified E03.9 [place] [address] [facility] [place] [id number] [address] [place] [phone] Mar, Chest discomfort R07.89 ; Sh ortness of breath R06.02 ; Morbid obesity E66.01 and Bradycardia R00.1 [place] [address] [facility] [place] [place] [id number] [address] [place] [phone] Mar, Shortness of breath R06.02 ; Hypothyroidism, unspecified E03.9 and Elevated serum creatinine R79.89 [place] [address] [facility] [place] [id number] [address] [place] [phone] Feb, Hypothyroidism, unspecified E03.9 and Hypothyroidism 244.9 [place] [address] [facility] [place] [id number] [address] [place] [phone] Feb, Midline low back pain withou t sciatica M54.5 [place] [address] [facility] [place] [id number] [address] [place] [phone] Jan, [place] [address] [address] Jan, Hypothyroidism 244.9 ; Anxie ty and depression 300.4 ; Carotid artery plaque 433.10 and Elevated serum creatinine 790.99 [place] [address] [place] [phone] Dec, [place] [address] [place] [id number] [place] [phone] Dec, [place] [address] [place] [id number] [place] [phone] Dec, [place] [address] [place] [id number] [place] [phone] Dec, [place] [address] [place] [id number] [place] [phone] Dec, Cardiomegaly 429.3 ; COPD (c hronic obstructive pulmonary disease) 496 ; Cervicalgia 723.1 and Anxiety and depression 300.4 IMMUNIZATIONS No Known Immunizations SOCIAL HISTORY Never Assessed REASON FOR VISIT intake PLAN OF CARE Activity Details Follow Up 2 Weeks Reason:Depression VITAL SIGNS MEDICATIONS No Known Medications RESULTS No Results PROCEDURES Procedure Date Ordered Result Body Site Psychotherapy, patient &/family, 45 minutes, established pat ient Jan 25, 2017 INSTRUCTIONS MEDICATIONS ADMINISTERED No Known Medications [...]
--- OUTSIDE RECORDS SUMMARY | 2019-11-05 22:21 | XMS REPORT ---
Author Author Irasema STOKES Organization [facility] Address [address] [place] [address] Care Team Providers Care Real Estate Job Titles Name Role Phone POLY STOKES Unavailable PROBLEMS Type Condition ICD9-CM Code [id number] Code Onset Dates Condition S tatus SNOMED Code Problem COPD with acute exacerbation J44.1 A ctive 304230752 Problem Arthritis M19.90 Active 4763829 Problem Epigastric pain R10.13 Active 7992 2009 Problem Nocturnal enuresis N39.44 Active 8 861834 Problem Hypothyroid E03.9 Active 69924820 Problem Vitamin D deficiency E55.9 Active 10661211 Problem Essential hypertension I10 Active 27232850 Problem Neck pain M54.2 Active 69869502 Problem Abnormal serum creatinine level R79.9 Active 028664156 Problem Chronic fatigue R53.82 Active 5270 2003 Problem Gastroesophageal reflux disease without esophagitis K21.9 Active 777263612 Problem CKD (chronic kidney disease) stage 3, GFR 30-59 ml/min N18.3 Active 004567344 Problem Low back pain M54.5 Active 705475 004 Problem Pain in right shoulder M25.511 Active 44399583 Problem Depression F32.9 Active 50205933 Problem Hypertension I10 Active 7816995 3 Problem Arthritis, lumbar spine M47.9 Active 895721983 Problem Chronic pain G89.29 Active 1593151 1 Problem Cardiomegaly I51.7 Active 3411917 Problem Posttraumatic stress disorder F43.10 Active 18431110 Problem Swelling of ankle M25.473 Active 26 5187164 Problem OFELIA (obstructive sleep apnea) G47.33 Active 19030088 Problem Sleep apnea G47.30 Active 00256676 Problem Cervical spine arthritis M46.92 Activ e 787500042 ALLERGIES No Information SOCIAL HISTORY Never Assessed [...]
--- OUTSIDE RECORDS SUMMARY | 2019-11-05 22:21 | XMS REPORT ---
Author Author Irasema STOKES [facility] Address [address] [place] [address] Care Team Providers Care Plumbing Contractor Name Role Phone POLY STOKES Unavailable PROBLEMS Type Condition ICD9-CM Code RSL78-WT Code Onset Dates Condition S tatus SNOMED Code Problem Carpal tunnel syndrome, right G56.01 Active 483013507597932 Problem Cardiomegaly I51.7 Active 5092087 Problem OFELIA (obstructive sleep apnea) G47.33 Active 27890514 Problem COPD with acute exacerbation J44.1 A ctive 116175125 Problem Neck pain M54.2 Active 56295727 Problem Epigastric pain R10.13 Active 7992 2009 Problem Essential hypertension I10 Active 31969420 Problem Arthritis M19.90 Active 8949939 Problem Abnormal serum creatinine level R79.9 Active 743724818 Problem Chronic fatigue R53.82 Active 5270 2003 Problem Right hand paresthesia R20.2 Active 977168647 Problem Stasis dermatitis of both legs I87.2 Active 59897327 Problem Hypertension I10 Active 4232055 3 Problem Depression F32.9 Active 65126436 Problem Hypothyroid E03.9 Active 72975114 Problem Gastroesophageal reflux disease without esophagitis K21.9 Active 323357821 Problem CKD (chronic kidney disease) stage 3, GFR 30-59 ml/min N18.3 Active 816890933 Problem Nocturnal enuresis N39.44 Active 8 442927 Problem Vitamin D deficiency E55.9 Active 03992966 Problem Posttraumatic stress disorder F43.10 Active 86133344 Problem Sleep apnea G47.30 Active 28657428 Problem Low back pain M54.5 Active 981822 004 Problem Pain in right shoulder M25.511 Active 98685803 Problem Swelling of ankle M25.473 Active 26 7700023 Problem Cervical spine arthritis M46.92 Activ e 695726213 Problem Arthritis, lumbar spine M47.9 Active 955350540 Problem Chronic pain G89.29 Active 7317500 1 ALLERGIES No Information ENCOUNTERS Encounter Location Date Diagnosis [place] [address] [address] Nov, [place] [address] [place] [id number] [place] [address] Oct, BMI 50.0-59.9, adult Z68.43 ; OFELIA (obstructive sleep apnea) G47.33 and Depression F32.9 [place] [address] [address] September, [place] [address] [address] September, [place] [address] [address] September, Chronic pain G89.29 [place] [address] [address] Aug, Hypothyroid E03.9 ; Chronic pain G89.29 ; BMI 50.0-59.9, adult Z68.43 ; COPD with acute exacerbation J44.1 ; CKD (chronic kidney disease) stage 3, GFR 30-59 ml/min N18.3 ; Depression F32.9 ; Gastroesophageal reflux disease without esophagitis K21.9 ; Left hip pain M25.552 ; Swelling of both lower extremities M79.89 and Stasis dermatitis of both legs I87.2 [place] [address] [address] Jul, Chronic pain G89.29 [place] [address] [place] [id number] [place] [address] May, Chronic pain G89.29 [place] [address] [place] [id number] [place] [address] May, [place] [address] [place] [id number] [place] [address] May, Hypothyroid E03.9 ; Chronic pain G89.29 [...] Encounter for screening colonoscopy Z12.11 [place] [address] [facility] [id number] [address] [place] [address] 16 May, 2017 Depression F32.9 [place] [address] [facility] [id number] [address] [place] [address] 04 May, 2017 Chronic pain G89.29 [place] [address] [place] [id number] [place] [address] 07 Apr, 2017 Chronic pain G89.29 and COPD with acute exacerbation J44.1 [place] [address] [place] [id number] [place] [address] 10 Mar, 2017 [place] [address] [place] [id number] [place] [address] 08 Mar, 2017 Chronic pain G89.29 [place] [address] [place] [id number] [place] [id number] 03 Mar, 2017 [place] [address] [place] [id number] [place] [address] 11 Feb, 2017 Hypothyroid E03.9 ; Chronic pain G89.29 ; COPD with acute exacerbation J44.1 ; CKD (chronic kidney disease) stage 3, GFR 30-59 ml/min N18.3 ; Depression F32.9 ; Gastroesophageal reflux disease without esophagitis K21.9 ; Right hand paresthesia R20.2 ; Left hip pain M25.552 ; Swelling of both lower extremities M79.89 and Stasis dermatitis of both legs I87.2 [place] [address] [place] [id number] [place] [id number] 08 Jan, 2017 Depression F32.9 [facility] [address] [facility] [id number] [address] [place] [address] Jan, Chronic pain G89.29 [facility] [address] [facility] [id number] [address] [place] [address] Dec, Chronic pain G89.29 [facility] [address] [facility] [id number] [address] [place] [phone] Nov, [facility] [address] [facility] [id number] [address] [place] [address] Nov, [facility] [address] [facility] [id number] [address] [place] [address] Oct, Skin tag L91.8 ; Hypothyroid E03.9 ; Chronic pain G89.29 ; COPD with acute exacerbation J44.1 and CKD (chronic kidney disease) stage 3, GFR 30- 59 ml/min N18.3 [facility] [address] [facility] [id number] [address] [place] [address] September, [facility] [address] [facility] [id number] [address] [place] [address] September, [facility] [address] [facility] [id number] [address] [place] [address] Jul, [facility] [address] [facility] [id number] [address] [place] [address] Jul, [facility] [address] [facility] [id number] [address] [place] [address] Jul, [facility] [address] [facility] [id number] [address] [place] [address] Jul, Hypothyroid E03.9 [facility] [address] [facility] [id number] [address] [place] [address] Jun, Hypothyroid E03.9 ; Chronic pain G89.29 ; CKD (chronic kidney disease) stage 3, GFR 30-59 ml/min N18.3 ; Arthritis M19.90 ; Hypertension I10 ; Depression F32.9 ; Gastroesophageal reflux disease without esophagitis K21.9 and Bronchitis J40 [place] [address] [place] [address] Jun, [place] [address] [place] [id number] [place] [phone] 10 Jun, 2016 Chronic pain G89.29 [place] [address] [address] May, Hypothyroid E03.9 ; Chronic pain G89.29 ; CKD (chronic kidney disease) stage 3, GFR 30-59 ml/min N18.3 ; Arthritis M19.90 ; Hypertension I10 and Depression F32.9 [place] [address] [place] [id number] [place] [phone] May, [place] [address] [address] Mar, Hypothyroid E03.9 [place] [address] [address] Mar, [place] [address] [address] Mar, Chronic pain G89.29 ; CKD (c hronic kidney disease) stage 3, GFR 30- 59 ml/min N18.3 ; Hypothyroid E03.9 ; Arthritis M19.90 ; Vitamin D deficiency E55.9 ; Hypertension I10 ; Depression F32.9 and Nocturnal enuresis N39.44 [place] [address] [place] [id number] [place] [address] Mar, [place] [address] [address] 14 Jan, 2016 Chronic pain G89.29 ; Arthri tis M19.90 ; Hypothyroid E03.9 ; Chronic fatigue R53.82 ; Depression F32.9 ; CKD (chronic kidney disease) stage 3, GFR 30-59 ml/min N18.3 ; Gastroesophageal reflux disease without esophagitis K21.9 and Numbness of right foot R20.0 [place] [address] [place] [id number] [place] [address] Nov, [place] [address] [place] [id number] [place] [address] Nov, Chronic pain G89.29 ; Arthri tis M19.90 ; Abnormal serum creatinine level R79.9 ; Hypothyroid E03.9 and Chronic fatigue R53.82 [place] [address] [address] September, Chronic pain G89.29 ; Arthri tis M19.90 ; Epigastric pain R10.13 and COPD with acute exacerbation J44.1 [place] [address] [address] Aug, COPD with acute lower respir atory infection J44.0 ; Joint pain M25.50 and Chronic pain G89.29 [place] [address] [address] Aug, COPD with acute lower respir atory infection J44.0 [place] [address] [address] Aug, [place] [address] [address] Jul, Cervical spine arthritis M46 .92 ; Hypothyroid E03.9 ; Arthritis, lumbar spine M47.9 ; Sleep apnea G47.30 ; Chronic pain G89.29 and Swelling of ankle M25.473 [place] [address] [place] [address] Jul, [place] [address] [address] Jun, [place] [address] [address] Jun, [place] [address] [address] 18 Jun, 2015 Hypothyroid E03.9 ; OFELIA (obs tructive sleep apnea) G47.33 ; Pain in right shoulder M25.511 ; Neck pain M54.2 ; Low back pain M54.5 ; Depression F32.9 ; Hypertension I10 and Essential hypertension I10 [address] [address] 18 Jun, 2015 Posttraumatic stress disorde r F43.10 and Depression F32.9 [address] [place] [id number] [place] [address] Jun, Sleep apnea in adult G47.[address] [address] 08 Jun, [address] [address] Jun, Hypothyroidism, unspecified E03.9 ; Chronic obstructive pulmonary disease J44.9 ; Essential hypertension I10 and Morbid obesity E66.[address] [address] May, [address] [address] Apr, COPD (chronic obstructive pu lmonary disease) J44.[address] [address] 17 Apr, 2015 Shortness of breath R06.[address] [address] 09 Apr, 2015 Chest discomfort R07.89 ; Ex ertional dyspnea R06.09 ; Morbid obesity E66.01 ; Bradycardia R00.1 and Hypothyroidism, unspecified E03.9 [place] [address] [address] Mar, Cardiomegaly I51.7 [place] [id number] [place] [address] Mar, [facility] [address] [address] Mar, Hypothyroidism, unspecified E03.9 [facility] [address] [address] Mar, [place] [address] [address] Mar, Shortness of breath R06.02 ; Midline low back pain without sciatica M54.5 and Hypothyroidism, unspecified E03.9 [place] [address] [address] Mar, Chest discomfort R07.89 ; Sh ortness of breath R06.02 ; Morbid obesity E66.01 and Bradycardia R00.1 [place] [address] [address] Mar, Shortness of breath R06.02 ; Hypothyroidism, unspecified E03.9 and Elevated serum creatinine R79.89 [place] [address] [address] Feb, Hypothyroidism, unspecified E03.9 and Hypothyroidism 244.9 [place] [address] [address] Feb, Midline low back pain withou t sciatica M54.5 [place] [address] [address] Jan, [place] [address] [address] Jan, Hypothyroidism 244.9 ; Anxie ty and depression 300.4 ; Carotid artery plaque 433.10 and Elevated serum creatinine 790.99 [place] [address] [address] Dec, [place] [address] [place] [address] [place] [address] Dec, [facility] [address] [facility] [id number] [address] [place] [address] Dec, [facility] [address] [facility] [id number] [address] [place] [address] Dec, [facility] [address] [facility] [id number] [address] [place] [address] Dec, Cardiomegaly 429.3 ; COPD (c hronic obstructive pulmonary disease) 496 ; Cervicalgia 723.1 and Anxiety and depression 300.4 IMMUNIZATIONS No Known Immunizations SOCIAL HISTORY Never Assessed REASON FOR VISIT Controlled Med Refill/Air Purifier PLAN OF CARE VITAL SIGNS MEDICATIONS Medication Instructions Dosage Frequency Start Date End Date Duration S chana [place] 7.5-325 MG Orally 3 times a day TAKE ONE TABLET BY MOUTH THREE TIMES DAILY NEEDED 8h Apr, 28 Active RESULTS No Results PROCEDURES No [...]
--- OUTSIDE RECORDS SUMMARY | 2019-11-05 22:21 | XMS REPORT ---
Author Author Irasema STOKES Organization [facility] Address [address] [place] [address] Care Team Providers Care Hogshead Inspector Name Role Phone POLY STOKES Unavailable PROBLEMS Type Condition ICD9-CM Code ARV33-AU Code Onset Dates Condition S tatus SNOMED Code Problem COPD with acute exacerbation J44.1 A ctive 418276734 Problem Arthritis M19.90 Active 9664201 Problem Epigastric pain R10.13 Active 7992 2009 Problem Nocturnal enuresis N39.44 Active 8 776472 Problem Hypothyroid E03.9 Active 02528434 Problem Vitamin D deficiency E55.9 Active 51784854 Problem Essential hypertension I10 Active 75277357 Problem Neck pain M54.2 Active 67235353 Problem Abnormal serum creatinine level R79.9 Active 952653505 Problem Chronic fatigue R53.82 Active 5270 2003 Problem Gastroesophageal reflux disease without esophagitis K21.9 Active 993404806 Problem CKD (chronic kidney disease) stage 3, GFR 30-59 ml/min N18.3 Active 018741642 Problem Low back pain M54.5 Active 942412 004 Problem Pain in right shoulder M25.511 Active 83555861 Problem Depression F32.9 Active 83053573 Problem Hypertension I10 Active 3989712 3 Problem Arthritis, lumbar spine M47.9 Active 658467958 Problem Chronic pain G89.29 Active 5984225 1 Problem Cardiomegaly I51.7 Active 2019832 Problem Posttraumatic stress disorder F43.10 Active 86811023 Problem Swelling of ankle M25.473 Active 26 5460823 Problem OFELIA (obstructive sleep apnea) G47.33 Active 84899620 Problem Sleep apnea G47.30 Active 13359024 Problem Cervical spine arthritis M46.92 Activ e 649774275 ALLERGIES No Known Allergies SOCIAL HISTORY Never Assessed PLAN OF CARE Activity Details Follow Up 3 Months Reason:pain/thyroid VITAL SIGNS Height 60 in 2016-07-12 Weight 304.8 lbs 2016-07-12 Temperature 100.1 degrees Fahrenheit 2016-07-12 Heart Rate 78 bpm 2016-07-12 Respiratory Rate 24 2016-07-12 BMI 59.52 kg/m2 2016-07-12 Blood pressure systolic 136 mmHg 2016-07-12 Blood pressure diastolic 82 mmHg 2016-07-12 MEDICATIONS Medication Instructions Dosage Frequency Start Date End Date Duration S tatus ProAir HFA 108 (90 Base) MCG/ACT Inhalation every 4 hrs prn 2 puffs as needed Jun, Active Azithromycin 250 MG Orally Once a day 2 tablets on the fi rst day, then 1 tablet daily for 4 days 24h Jun, Jun, 5 day(s) Active Omeprazole 40 mg Orally Once a day 1 capsule 24h September, 30 day(s) Active Paroxetine HCl 20 mg Orally 2 times a day 1 tablet 12h 30 Active Levothyroxine Sodium 88 MCG Orally Once a day 1 tablet 24h Active Albuterol Sulfate (2.5 MG/3ML) 0.083% Inhalation every 6 hours as needed for shortness of breath 3 ml Activ e Albuterol Sulfate HFA 108 (90 Base) MCG/ACT Inhalation every 4 hrs 2 puffs as needed 4h Mar, Active PredniSONE 20 mg Orally Once a day 1 tablet 24h Jun, Jun, 05 days Active Norvasc 10 MG Orally Once a day 1 tablet 24h Active Flovent HFA 44 MCG/ACT Inhalation Twice a day 2 puffs 12h Dec, 15 Active Vitamin D Orally Once a day 1 tablet 24h Act sa[facility] [place] 7.5-325 MG Orally 3 times a day 1 tablet as needed 8h Active RESULTS Name Result Date Reference Range TSH 2016-07-12 TSH 2.630 0.450-4.500 PROCEDURES Procedure Date Ordered Result Body Site [facility] Jul 12, 2016 VENIPUNCT, ROUTINE* Jul 12, 2016 IMMUNIZATIONS No Known Immunizations MEDICAL (GENERAL) HISTORY [...]
--- OUTSIDE RECORDS SUMMARY | 2019-11-05 22:21 | XMS REPORT ---
Author Author Irasema STOKES Organization [employer] Address Unknown Phone Unavailable Care Team Providers Care Adult Educator Name Role Phone POLY STOKES CP Unavailable Allergies No Known Allergies Problems Problem Type Condition Code Onset Dates Condition Statu s Problem Sleep apnea G47.30 Active Assessment Hypothyroid E03.9 Active Problem Arthritis, lumbar spine M47.9 Acti [...] Date End Date Status Dosage Levothyroxine Sodium [facility] [id number] 88 MCG Orally Once a day 1 tablet Results No Known Results Summary Purpose [employer] Submission
--- OUTSIDE RECORDS SUMMARY | 2019-11-05 22:21 | XMS REPORT ---
Author Author Irasema STOKES [facility] Address [address] [place] [address] Care Team Providers Care Figurine Maker Name Role Phone POLY STOKES Unavailable PROBLEMS Type Condition ICD9-CM Code [id number] Code Onset Dates Condition S tatus SNOMED Code Problem COPD with acute exacerbation J44.1 A ctive 723781495 Problem Arthritis M19.90 Active 8140411 Problem Epigastric pain R10.13 Active 7992 2009 Problem Nocturnal enuresis N39.44 Active 8 844333 Problem Hypothyroid E03.9 Active 83561714 Problem Vitamin D deficiency E55.9 Active 83497443 Problem Essential hypertension I10 Active 09462647 Problem Neck pain M54.2 Active 65160247 Problem Abnormal serum creatinine level R79.9 Active 999541598 Problem Chronic fatigue R53.82 Active 5270 2003 Problem Gastroesophageal reflux disease without esophagitis K21.9 Active 906304224 Problem CKD (chronic kidney disease) stage 3, GFR 30-59 ml/min N18.3 Active 792697388 Problem Low back pain M54.5 Active 073655 004 Problem Pain in right shoulder M25.511 Active 01203006 Problem Depression F32.9 Active 94499436 Problem Hypertension I10 Active 0771113 3 Problem Arthritis, lumbar spine M47.9 Active 701171559 Problem Chronic pain G89.29 Active 8632236 1 Problem Cardiomegaly I51.7 Active 8046242 Problem Posttraumatic stress disorder F43.10 Active 08269578 Problem Swelling of ankle M25.473 Active 26 4201591 Problem OFELIA (obstructive sleep apnea) G47.33 Active 92229754 Problem Sleep apnea G47.30 Active 71517236 Problem Cervical spine arthritis M46.92 Activ e 534059412 ALLERGIES No Information SOCIAL HISTORY Never Assessed PLAN OF CARE VITAL SIGNS MEDICATIONS Medication Instructions Dosage Frequency Start Date End Date Duration S tatus Levothyroxine Sodium 88 MCG Orally Once a day 1 tablet 24h Active RESULTS No Results PROCEDURES No Known [...]
--- OUTSIDE RECORDS SUMMARY | 2019-11-05 22:21 | XMS REPORT ---
Author Author Irasema STOKES [facility] Address [address] [place] [address] Care Team Providers Care Assistant Professor Of Chemistry Name Role Phone POLY STOKES Unavailable PROBLEMS Type Condition ICD9-CM Code EKH56-YL Code Onset Dates Condition S tatus SNOMED Code Problem Carpal tunnel syndrome, right G56.01 Active [id number] Problem Cardiomegaly I51.7 Active 9687975 Problem OFELIA (obstructive sleep apnea) G47.33 Active 05287302 Problem COPD with acute exacerbation J44.1 A ctive 989101969 Problem Neck pain M54.2 Active 58757081 Problem Epigastric pain R10.13 Active 7992 2009 Problem Essential hypertension I10 Active 48588438 Problem Arthritis M19.90 Active 3321633 Problem Abnormal serum creatinine level R79.9 Active 723435842 Problem Chronic fatigue R53.82 Active 5270 2003 Problem Right hand paresthesia R20.2 Active 998595011 Problem Stasis dermatitis of both legs I87.2 Active 29834002 Problem Hypertension I10 Active 0101858 3 Problem Depression F32.9 Active 86849592 Problem Hypothyroid E03.9 Active 84378070 Problem Gastroesophageal reflux disease without esophagitis K21.9 Active 922553464 Problem CKD (chronic kidney disease) stage 3, GFR 30-59 ml/min N18.3 Active 013444000 Problem Nocturnal enuresis N39.44 Active 8 946550 Problem Vitamin D deficiency E55.9 Active 73246756 Problem Posttraumatic stress disorder F43.10 Active 72690953 Problem Sleep apnea G47.30 Active 78868872 Problem Low back pain M54.5 Active 226404 004 Problem Pain in right shoulder M25.511 Active 70035899 Problem Swelling of ankle M25.473 Active 26 7945314 Problem Cervical spine arthritis M46.92 Activ e 964453527 Problem Arthritis, lumbar spine M47.9 Active 512078744 Problem Chronic pain G89.29 Active 0798166 1 ALLERGIES No Known Allergies ENCOUNTERS Encounter Location Date Diagnosis [facility] [address] [facility] [id number] [address] [place] [address] Aug, [facility] [address] [facility] [id number] [address] [place] [address] 05 Jul, 2017 Chronic pain G89.29 [facility] [address] [facility] [id number] [address] [place] [address] May, Chronic pain G89.29 [facility] [address] [facility] [id number] [address] [place] [address] May, [place] [address] [facility] [id number] [place] [address] 16 May, 2017 Hypothyroid E03.9 ; Chronic [...] Z12.31 and Encounter for screening colonoscopy Z12.11 [place] [address] [facility] [id number] [address] [place] [address] 16 May, 2017 Depression F32.9 [place] [address] [facility] [id number] [address] [place] [address] 04 May, 2017 Chronic pain G89.29 [facility] [address] [facility] [id number] [address] [place] [address] 07 Apr, 2017 Chronic pain G89.29 and COPD with acute exacerbation J44.1 [facility] [address] [facility] [id number] [address] [place] [address] Mar, [facility] [address] [facility] [id number] [address] [place] [address] Mar, Chronic pain G89.29 [facility] [address] [id number] [address] [place] [address] Mar, [facility] [address] [id number] [address] [place] [address] Feb, Hypothyroid E03.9 ; Chronic pain G89.29 ; COPD with acute exacerbation J44.1 ; CKD (chronic kidney disease) stage 3, GFR 30-59 ml/min N18.3 ; Depression F32.9 ; Gastroesophageal reflux disease without esophagitis K21.9 ; Right hand paresthesia R20.2 ; Left hip pain M25.552 ; Swelling of both lower extremities M79.89 and Stasis dermatitis of both legs I87.2 [facility] [address] [id number] [address] [place] [address] Jan, Depression F32.9 [facility] [address] [id number] [address] [place] [address] Jan, Chronic pain G89.29 [facility] [address] [id number] [address] [place] [address] Dec, Chronic pain G89.29 [facility] [address] [id number] [address] [place] [phone] Nov, [facility] [address] [id number] [address] [place] [phone] Nov, [facility] [address] [facility] [id number] [address] [place] [address] Oct, Skin tag L91.8 ; Hypothyroid E03.9 ; Chronic pain G89.29 ; COPD with acute exacerbation J44.1 and CKD (chronic kidney disease) stage 3, GFR 30- 59 ml/min N18.3 [facility] [address] [id number] [address] [place] [phone] September, [facility] [address] [id number] [address] [place] [address] September, [facility] [address] [facility] [id number] [address] [place] [phone] Jul, [facility] [address] [facility] [id number] [address] [place] [address] Jul, [facility] [address] [facility] [id number] [address] [place] [address] Jul, [facility] [address] [facility] [id number] [address] [place] [address] Jul, Hypothyroid E03.9 [facility] [address] [facility] [id number] [address] [place] [address] Jun, Hypothyroid E03.9 ; Chronic pain G89.29 ; CKD (chronic kidney disease) stage 3, GFR 30-59 ml/min N18.3 ; Arthritis M19.90 ; Hypertension I10 ; Depression F32.9 ; Gastroesophageal reflux disease without esophagitis K21.9 and Bronchitis J40 [facility] [address] [place] [id number] [address] [place] [address] Jun, [facility] [address] [place] [id number] [address] [place] [address] Jun, Chronic pain G89.29 [facility] [address] [place] [id number] [address] [place] [address] May, Hypothyroid E03.9 ; Chronic pain G89.29 ; CKD (chronic kidney disease) stage 3, GFR 30-59 ml/min N18.3 ; Arthritis M19.90 ; Hypertension I10 and Depression F32.9 [facility] [address] [facility] [id number] [address] [place] [phone] May, [facility] [address] [place] [id number] [address] [place] [address] Mar, Hypothyroid E03.9 [facility] [address] [facility] [id number] [address] [place] [phone] Mar, [facility] [address] [place] [id number] [address] [place] [address] Mar, Chronic pain G89.29 ; CKD (c hronic kidney disease) stage 3, GFR 30- 59 ml/min N18.3 ; Hypothyroid E03.9 ; Arthritis M19.90 ; Vitamin D deficiency E55.9 ; Hypertension I10 ; Depression F32.9 and Nocturnal enuresis N39.44 [place] [address] [place] [id number] [address] [place] [phone] Mar, [place] [address] [place] [id number] [address] [place] [address] Jan, Chronic pain G89.29 ; Arthri tis M19.90 ; Hypothyroid E03.9 ; Chronic fatigue R53.82 ; Depression F32.9 ; CKD (chronic kidney disease) stage 3, GFR 30-59 ml/min N18.3 ; Gastroesophageal reflux disease without esophagitis K21.9 and Numbness of right foot R20.0 [place] [id number] [place] [address] Nov, [place] [address] [place] [address] Nov, Chronic pain G89.29 ; Arthri tis M19.90 ; Abnormal serum creatinine level R79.9 ; Hypothyroid E03.9 and Chronic fatigue R53.82 [place] [address] [place] [id number] [address] [place] [address] September, Chronic pain G89.29 ; Arthri tis M19.90 ; Epigastric pain R10.13 and COPD with acute exacerbation J44.1 [place] [address] [place] [id number] [address] [place] [address] Aug, COPD with acute lower respir atory infection J44.0 ; Joint pain M25.50 and Chronic pain G89.29 [place] [address] [place] [id number] [address] [place] [address] Aug, COPD with acute lower respir atory infection J44.0 [place] [address] [place] [id number] [address] [place] [address] Aug, [place] [address] [place] [address] Jul, Cervical spine arthritis M46 .92 ; Hypothyroid E03.9 ; Arthritis, lumbar spine M47.9 ; Sleep apnea G47.30 ; Chronic pain G89.29 and Swelling of ankle M25.473 [place] [address] [address] Jul, [place] [address] [place] [id number] [address] [place] [address] Jun, [place] [address] [address] Jun, [place] [address] [address] Jun, Hypothyroid E03.9 ; OFELIA (obs tructive sleep apnea) G47.33 ; Pain in right shoulder M25.511 ; Neck pain M54.2 ; Low back pain M54.5 ; Depression F32.9 ; Hypertension I10 and Essential hypertension I10 [place] [id number] [place] [address] Jun, Posttraumatic stress disorde r F43.10 and Depression F32.9 [facility] [id number] [place] [address] Jun, Sleep apnea in adult G47.[address] [id number] [address] [place] [address] Jun, [address] [address] Jun, Hypothyroidism, unspecified E03.9 ; Chronic obstructive pulmonary disease J44.9 ; Essential hypertension I10 and Morbid obesity E66.01 [address] [place] [address] May, [place] [address] [address] Apr, COPD (chronic obstructive pu lmonary disease) J44.9 [place] [address] [address] 17 Apr, 2015 Shortness of breath R06.02 [place] [address] [address] Apr, Chest discomfort R07.89 ; Ex ertional dyspnea R06.09 ; Morbid obesity E66.01 ; Bradycardia R00.1 and Hypothyroidism, unspecified E03.9 [place] [address] [address] Mar, Cardiomegaly I51.7 [place] [address] [address] 18 Mar, 2015 [place] [address] [address] Mar, Hypothyroidism, unspecified E03.9 [place] [address] [address] Mar, [place] [address] [address] Mar, Shortness of breath R06.02 ; Midline low back pain without sciatica M54.5 and Hypothyroidism, unspecified E03.9 [place] [address] [address] Mar, Chest discomfort R07.89 ; Sh ortness of breath R06.02 ; Morbid obesity E66.01 and Bradycardia R00.1 [place] [address] [address] 09 Mar, 2015 Shortness of breath R06.02 ; Hypothyroidism, unspecified E03.9 and Elevated serum creatinine R79.89 [place] [address] [address] Feb, Hypothyroidism, unspecified E03.9 and Hypothyroidism 244.9 [facility] [address] [place] [id number] [place] [address] Feb, Midline low back pain withou t sciatica M54.5 [facility] [address] [facility] [id number] [address] [place] [address] Jan, [facility] [address] [place] [id number] [place] [address] Jan, Hypothyroidism 244.9 ; Anxie ty and depression 300.4 ; Carotid artery plaque 433.10 and Elevated serum creatinine 790.99 [place] [address] [place] [id number] [place] [address] Dec, [place] [address] [place] [id number] [place] [address] Dec, [place] [address] [place] [id number] [place] [address] Dec, [place] [address] [place] [id number] [address] [place] [address] Dec, [place] [address] [place] [id number] [place] [address] Dec, Cardiomegaly 429.3 ; COPD (c hronic obstructive pulmonary disease) 496 ; Cervicalgia 723.1 and Anxiety and depression 300.4 IMMUNIZATIONS No Known Immunizations SOCIAL HISTORY Never Assessed REASON FOR VISIT skin tag removal from upper left back-LAY Emery, Worsening shortnesss of brandy th/wheezing. PLAN OF CARE Activity Details Follow Up 3 Months Reason:Pain/Thyroid VITAL SIGNS Height 60 in 2016-11-13 Weight 303 lbs 2016-11-13 Temperature 98.2 degrees Fahrenheit 2016-11-13 Heart Rate 66 bpm 2016-11-13 Respiratory Rate 22 2016-11-13 Oximetry 97 % 2016-11-13 BMI 59.17 kg/m2 2016-11-13 Blood pressure systolic 131 mmHg 2016-11-13 Blood pressure diastolic 61 mmHg 2016-11-13 MEDICATIONS Medication Instructions Dosage Frequency Start Date End Date Duration Mitra zayas PredniSONE 20 MG Orally Once a day 1 tablet 24h Oct, Nov, 5 day(s) Active Albuterol Sulfate (2.5 MG/3ML) 0.083% Inhalation every 6 hours as needed for shortness of breath 3 ml Activ e Omeprazole 40 mg Orally Once a day 1 capsule 24h September, 30 day(s) Active [place] 7.5-325 MG Orally 3 times a day TAKE ONE TABLET BY MOUTH THREE TIMES DAILY NEEDED 8h Oct, 28 Active Levothyroxine Sodium 88 MCG Orally Once a day 1 tablet 24h 30 Active Flovent HFA 44 MCG/ACT Inhalation Twice a day 2 puffs 12h Dec, 15 Active Paroxetine HCl 20 mg Orally 2 times a day 1 tablet 12h 30 Active ProAir HFA 108 (90 Base) MCG/ACT Inhalation every 4 hrs prn 2 puffs as needed Jun, Active Norvasc 10 MG Orally Once a day 1 tablet 24h Active Vitamin D Orally Once a day 1 tablet 24h Act sahara RESULTS Name Result Date Reference Range TSH 2016-11-13 TSH 4.370 0.450-4.500 PROCEDURES Procedure Date Ordered Result Body Site MEASURE BLOOD OXYGEN LEVEL November 13, 2016 [facility] November 13, 2016 VENIPUNCT, ROUTINE* November 13, 2016 INSTRUCTIONS MEDICATIONS ADMINISTERED No Known Medications MEDICAL [...] PER NEPHROLOGY Medical History Carpal Tunnel Bilaterally Surgical History cholecystectomy 1988 Surgical History orthopedic surgery, right knee 2002 Surgical History section 1979 Surgical History tubal ligation 1979 Hospitalization History Pneumonia as a kid
--- OUTSIDE RECORDS SUMMARY | 2019-11-05 22:21 | XMS REPORT ---
Author Author Irasema STOKES [facility] Address [address] [place] [address] Care Team Providers Care Wellness Program Administrator Name Role Phone POLY STOKES Unavailable PROBLEMS Type Condition ICD9-CM Code [id number] Code Onset Dates Condition S tatus SNOMED Code Problem Arthritis, lumbar spine M47.9 Active 990090754 Problem COPD with acute exacerbation J44.1 A ctive 244555239 Problem Cervical spine arthritis M46.92 Activ e 077909339 Problem CKD (chronic kidney disease) stage 3, GFR 30-59 ml/min N18.3 Active 533568277 Problem Hypertension I10 Active 7987138 3 Problem Gastroesophageal reflux disease without esophagitis K21.9 Active 646908727 Problem Essential hypertension I10 Active 48387319 Problem Cardiomegaly I51.7 Active 4012087 Problem Arthritis M19.90 Active 9777001 Problem Epigastric pain R10.13 Active 7992 2009 Problem Abnormal serum creatinine level R79.9 Active 834288446 Problem Chronic fatigue R53.82 Active 5270 2003 Problem Neck pain M54.2 Active 24295660 Problem Pain in right shoulder M25.511 Active 90131925 Problem Depression F32.9 Active 90774453 Problem Low back pain M54.5 Active 658743 004 Problem Posttraumatic stress disorder F43.10 Active 60815196 Problem Swelling of ankle M25.473 Active 26 0970826 Assessment Numbness of right foot R20.0 14 Jan, 2016 Act sahara 961112768 Problem OFELIA (obstructive sleep apnea) G47.33 Active 70858584 Problem Chronic pain G89.29 Active 3023679 1 Assessment Chronic pain G89.29 14 Jan, 2016 Active 824 78186 Problem Hypothyroid E03.9 Active 41383274 Problem Sleep apnea G47.30 Active 74883628 ALLERGIES Substance Reaction Event Type Date Status N.K.D.A. Unknown Non Drug Allergy 14 Jan, 2016 Unknown SOCIAL HISTORY No smoking Hx information available PLAN OF CARE VITAL SIGNS Height 60 in 2016-02-01 Weight 322.9 lbs 2016-02-01 Heart Rate 70 bpm 2016-02-01 Respiratory Rate 26 2016-02-01 Oximetry 97 % 2016-02-01 BMI 63.06 kg/m2 2016-02-01 Blood pressure systolic 134 mmHg 2016-02-01 Blood pressure diastolic 90 mmHg 2016-02-01 MEDICATIONS Medication Instructions Dosage Frequency Start Date End Date Duration S tatus [place] 7.5-325 MG Orally 1 bid prn 1 tablet as needed Active Vitamin D Orally Once a day 1 tablet 24h Act sahara Albuterol Sulfate (2.5 MG/3ML) 0.083% Inhalation every 6 hours as needed for shortness of breath 3 ml Activ e Omeprazole 40 mg Orally Once a day 1 capsule 24h September, 30 day(s) Active Flovent HFA 44 MCG/ACT Inhalation Twice a day 2 puffs 12h 06 Dec, 15 Active Albuterol Sulfate HFA 108 (90 Base) MCG/ACT Inhalation every 4 hrs 2 puffs as needed 4h Mar, Active Lasix 40 MG Orally Once every other day 1 tablet Active Paroxetine HCl 20 MG TAKE ONE TABLET BY MOUTH TWICE DAILY 30 Active Potassium Chloride Nadia ER 10 MEQ Orally once every other da y 1 tablet with food Active Levothyroxine Sodium 75 MCG Orally Once a day 1 24h 30 Active RESULTS No Results PROCEDURES Procedure Date Ordered Related Diagnosis Body Site MEASURE BLOOD OXYGEN LEVEL Feb 01, 2016 Office Visit, Est Pt., Level 4 Feb 01, 2016 IMMUNIZATIONS No Known Immunizations
--- OUTSIDE RECORDS SUMMARY | 2019-11-05 22:21 | XMS REPORT ---
Author Author Irasema DENNIS Organization [facility] Address [address] [place] [address] Care Team Providers Care Research And Development Researcher Name Role Phone TATIANA DENNIS Unavailable PROBLEMS Type Condition ICD9-CM Code HTN64-AI Code Onset Dates Condition S tatus SNOMED Code Problem COPD with acute exacerbation J44.1 A ctive 698639469 Problem Arthritis M19.90 Active 7227075 Problem Epigastric pain R10.13 Active 7992 2009 Problem Nocturnal enuresis N39.44 Active 8 254771 Problem Hypothyroid E03.9 Active 47582600 Problem Vitamin D deficiency E55.9 Active 16075513 Problem Essential hypertension I10 Active 92386261 Problem Neck pain M54.2 Active 69410942 Problem Abnormal serum creatinine level R79.9 Active 595984340 Problem Chronic fatigue R53.82 Active 5270 2003 Problem Gastroesophageal reflux disease without esophagitis K21.9 Active 585991738 Problem CKD (chronic kidney disease) stage 3, GFR 30-59 ml/min N18.3 Active 965072354 Problem Low back pain M54.5 Active 016924 004 Problem Pain in right shoulder M25.511 Active 56864746 Problem Depression F32.9 Active 73279422 Problem Hypertension I10 Active 7077502 3 Problem Arthritis, lumbar spine M47.9 Active 406586704 Problem Chronic pain G89.29 Active 3998897 1 Problem Cardiomegaly I51.7 Active 3293495 Problem Posttraumatic stress disorder F43.10 Active 31059677 Problem Swelling of ankle M25.473 Active 26 8604806 Problem OFELIA (obstructive sleep apnea) G47.33 Active 47969942 Problem Sleep apnea G47.30 Active 94004413 Problem Cervical spine arthritis M46.92 Activ e 004553741 ALLERGIES No Information SOCIAL HISTORY Never Assessed PLAN OF CARE VITAL SIGNS MEDICATIONS Medication Instructions Dosage Frequency Start Date End Date Duration S tatus [place] 7.5-325 MG Orally 1 bid prn 1 tablet as needed Jun, 201 7 Active RESULTS No Results PROCEDURES No Known [...]
--- OUTSIDE RECORDS SUMMARY | 2019-11-05 22:21 | XMS REPORT ---
Author Author Irasema DENNIS Organization [facility] Address [address] [place] [address] Care Team Providers Care Bankruptcy Processor Name Role Phone DENNISDYLANTATIANA Unavailable PROBLEMS Type Condition ICD9-CM Code SKH53-BM Code Onset Dates Condition S tatus SNOMED Code Problem Carpal tunnel syndrome, right G56.01 Active 686837175593415 Problem Cardiomegaly I51.7 Active 7949304 Problem OFELIA (obstructive sleep apnea) G47.33 Active 97346163 Problem COPD with acute exacerbation J44.1 A ctive 487776014 Problem Neck pain M54.2 Active 29478987 Problem Epigastric pain R10.13 Active 7992 2009 Problem Essential hypertension I10 Active 92853752 Problem Arthritis M19.90 Active 1388950 Problem Abnormal serum creatinine level R79.9 Active 410193001 Problem Chronic fatigue R53.82 Active 5270 2003 Problem Right hand paresthesia R20.2 Active 589419953 Problem Stasis dermatitis of both legs I87.2 Active 39386970 Problem Hypertension I10 Active 8323290 3 Problem Depression F32.9 Active 83414079 Problem Hypothyroid E03.9 Active 78378015 Problem Gastroesophageal reflux disease without esophagitis K21.9 Active 128450154 Problem CKD (chronic kidney disease) stage 3, GFR 30-59 ml/min N18.3 Active 545374041 Problem Nocturnal enuresis N39.44 Active 8 675024 Problem Vitamin D deficiency E55.9 Active 33044943 Problem Posttraumatic stress disorder F43.10 Active 43677519 Problem Sleep apnea G47.30 Active 85498754 Problem Low back pain M54.5 Active 449233 004 Problem Pain in right shoulder M25.511 Active 10401372 Problem Swelling of ankle M25.473 Active 26 1278019 Problem Cervical spine arthritis M46.92 Activ e 521051039 Problem Arthritis, lumbar spine M47.9 Active 728179084 Problem Chronic pain G89.29 Active 9602684 1 ALLERGIES No Information SOCIAL HISTORY Never [...]
--- OUTSIDE RECORDS SUMMARY | 2019-11-05 22:22 | XMS REPORT | Continuity of Care Document ---
Demographics Preferred Language Unknown Marital Status Unknown Bahai Affiliation Unknown Race Unknown Ethnic Group Unknown Author Organization Unknown Address Unknown Phone Unavailable Allergies Active Description Code Type Severity Reaction Onset Reported/Identified Relationship to Patient Clinical Status Yes No Known Allergies [id number] Drug Allergy Unknown N/A 06/20/2017 Medications There is no data. Problems Date Dx Coded Attending Type Code Diagnosis Diagnosed By 03/31/2015 CAROL WHITLOCK PARAMEDIC RN Ot I65.29 04/25/2015 CINTHYA MOSCOSO [facility], HONEY FACP CCDS Ot R06.02 04/25/2015 CINTHYA MOSCOSO [facility], HONEY FACP CCDS Ot R07.89 04/29/2015 CAROL WHITLOCK PARAMEDIC RN Ot I65.29 06/22/2015 CAROL WHITLOCK PARAMEDIC RN Ot G47.33 OBSTRUCTIVE SLEEP APNEA (ADULT) (PEDIATR 06/29/2015 ISMAEL MOSCOSO OSMAR V Ot E66.0 1 06/29/2015 BRIAN GUEVARA MDRAT V Ot I12.9 06/29/2015 ISMAEL MOSCOSO OSMAR V Ot N18.3 07/25/2015 CAROL WHITLOCK PARAMEDIC RN Ot I65.29 07/25/2015 CINTHYA MOSCOSO [facility], HONEY FACP CCDS Ot R06.02 07/25/2015 CINTHYA MOSCOSO [facility], HONEY FACP CCDS Ot R07.89 07/25/2015 CINTHYA MOSCOSO [facility], ALI FACP CCDS Ot R07.89 07/25/2015 ISMAEL MOSCOSO OSMAR V Ot E66.0 1 07/25/2015 ISMAEL MOSCOSO OSMAR V Ot I12.9 07/25/2015 ISMAEL MOSCOSO OSMAR V Ot N18.3 07/25/2015 QUINTEN SADLER DO Ot E66. 01 07/25/2015 QUINTEN SADLER DO Ot J44. 9 07/25/2015 QUINTEN SADLER DO Ot J45.909 07/25/2015 CINTHYA MOSCOSO [facility], ALI FACP CCDS Ot R07.89 07/25/2015 ISMAEL MOSCOSO OSMAR V Ot E66.0 1 07/25/2015 ISMAEL MOSCOSO OSMAR V Ot I12.9 07/25/2015 ISMAEL MOSCOSO OSMAR V Ot N18.3 07/25/2015 QUINTEN SADLER DO Ot E66. 01 07/25/2015 QUINTEN SADLER DO Ot J44. 9 07/25/2015 QUINTEN SADLER DO Ot J45.909 08/11/2015 CINTHYA MOSCOSO FAC, ALI FACP CCDS Ot R06.02 08/11/2015 CINTHYA MOSCOSO FAC, ALI FACP CCDS Ot R07.89 08/11/2015 CINTHYA MOSCOSO FAC, ALI FACP CCDS Ot R07.89 08/11/2015 BRIAN GUEVARA MDRAT V Ot E66.0 1 08/11/2015 BRIAN GUEVARA MDRAT V Ot I12.9 08/11/2015 OSAMR GUEVARA MD V Ot N18.3 08/11/2015 QUINTEN SADLER DO Ot E66. 01 08/11/2015 QUINTEN SADLER DO Ot J44. 9 08/11/2015 QUINTEN SADLER DO Ot J45.909 09/12/2015 CAROL WHITLOCK PARAMEDIC RN Ot I65.29 OCCLUSION AND STENOSIS OF UNSPECIFIED CA 10/14/2015 FATOU WHTIEHEAD PARAMEDIC RN Ot E66.01 MORBID (SEVERE) OBESITY DUE TO EXCESS CA 10/14/2015 FATOU WHITEHEAD PARAMEDIC RN Ot G47.33 OBSTRUCTIVE SLEEP APNEA (ADULT) (PEDIATR 10/14/2015 FATOU WHITEHEAD PARAMEDIC RN Ot J18.9 PNEUMONIA, UNSPECIFIED ORGANISM 10/14/2015 FATOU WHITEHEAD PARAMEDIC RN Ot J30.9 ALLERGIC RHINITIS, UNSPECIFIED 10/14/2015 FATOU WHITEHEAD PARAMEDIC RN Ot R06.02 SHORTNESS OF BREATH 10/19/2015 FATOU WHITEHEAD PARAMEDIC RN Ot E66.01 MORBID (SEVERE) OBESITY DUE TO EXCESS CA 10/19/2015 FATOU WHITEHEAD PARAMEDIC RN Ot G47.33 OBSTRUCTIVE SLEEP APNEA (ADULT) (PEDIATR 10/19/2015 FATOU WHITEHEAD PARAMEDIC RN Ot J18.9 PNEUMONIA, UNSPECIFIED ORGANISM 10/19/2015 VENTURA, FATOU E PARAMEDIC RN Ot J30.9 ALLERGIC RHINITIS, UNSPECIFIED 10/19/2015 FATOU WHITEHEAD PARAMEDIC RN Ot R06.02 SHORTNESS OF BREATH 02/01/2016 CAROL WHITLOCK PARAMEDIC RN Ot I65.29 OCCLUSION AND STENOSIS OF UNSPECIFIED CA 02/01/2016 CINTHYA MOSCOSO [facility], ALI FACP CCDS Ot R06.02 SHORTNESS OF BREATH 02/01/2016 CINTHYA MOSCOSO [facility], [facility] CCDS Ot R07.89 OTHER CHEST PAIN 02/01/2016 CINTHYA MOSCOSO [facility], [facility] CCDS Ot R07.89 OTHER CHEST PAIN 02/01/2016 OSMAR GUEVARA MD V Ot E66.0 1 MORBID (SEVERE) OBESITY DUE TO EXCESS CA 02/01/2016 OSMAR GUEVARA MD, V Ot I12.9 HYPERTENSIVE CHRONIC KIDNEY DISEASE W ST 02/01/2016 OSMAR GUEVARA MD V Ot N18.3 CHRONIC KIDNEY DISEASE, STAGE 3 (MODERAT 02/01/2016 QUINTEN SADLER DO Ot E66. 01 MORBID (SEVERE) OBESITY DUE TO EXCESS CA 02/01/2016 QUINTEN SADLER DO Ot J44. 9 CHRONIC OBSTRUCTIVE PULMONARY DISEASE, U 02/01/2016 QUINTEN SADLER DO Ot J45.909 UNSPECIFIED ASTHMA, UNCOMPLICATED 02/01/2016 OSMAR GUEVARA MD V Ot E66.0 1 MORBID (SEVERE) OBESITY DUE TO EXCESS CA 02/01/2016 OSMAR GUEVARA MD, V Ot I10 ESSENTIAL (PRIMARY) HYPERTENSION 02/01/2016 OSMAR GUEVARA MD, V Ot J44.9 CHRONIC OBSTRUCTIVE PULMONARY DISEASE, U 02/01/2016 FATOU WHITEHEAD PARAMEDIC RN Ot E66.01 MORBID (SEVERE) OBESITY DUE TO EXCESS CA 02/01/2016 FATOU WHITEHEAD PARAMEDIC RN Ot G47.33 OBSTRUCTIVE SLEEP APNEA (ADULT) (PEDIATR 02/01/2016 FATOU WHITEHEAD PARAMEDIC RN Ot J18.9 PNEUMONIA, UNSPECIFIED ORGANISM 02/01/2016 FATOU WHITEHEAD PARAMEDIC RN Ot J30.9 ALLERGIC RHINITIS, UNSPECIFIED 02/01/2016 FATOU WHITEHEAD PARAMEDIC RN Ot R06.02 SHORTNESS OF BREATH 02/01/2016 FATOU WHITEHEAD PARAMEDIC RN Ot E66.01 MORBID (SEVERE) OBESITY DUE TO EXCESS CA 02/01/2016 FATOU WHITEHEAD PARAMEDIC RN Ot G47.33 OBSTRUCTIVE SLEEP APNEA (ADULT) (PEDIATR 02/01/2016 FATOU WHITEHEAD PARAMEDIC RN Ot J18.9 PNEUMONIA, UNSPECIFIED ORGANISM 02/01/2016 FATOU WHITEHEAD PARAMEDIC RN Ot J30.9 ALLERGIC RHINITIS, UNSPECIFIED 02/01/2016 FATOU WHITEHEAD APRN Ot R06.02 SHORTNESS OF BREATH 02/02/2016 BRIAN GUEVARA MDRAT V Ot E55.9 VITAMIN D DEFICIENCY, UNSPECIFIED 02/02/2016 TORRES GUEVARA MDT V Ot J44.9 CHRONIC OBSTRUCTIVE PULMONARY DISEASE, U 02/02/2016 OSMAR GUEVARA MD V Ot N18.3 CHRONIC KIDNEY DISEASE, STAGE 3 (MODERAT 02/02/2016 BRIAN GUEVARA MDRAT V Ot R60.9 EDEMA, UNSPECIFIED 02/02/2016 OSMAR GUEVARA MD V Ot E55.9 VITAMIN D DEFICIENCY, UNSPECIFIED 02/02/2016 ISMAEL MOSCOSO OSMAR V Ot J44.9 CHRONIC OBSTRUCTIVE PULMONARY DISEASE, U 02/02/2016 BRIAN GUEVARA MDRAT V Ot N18.3 CHRONIC KIDNEY DISEASE, STAGE 3 (MODERAT 02/02/2016 BRIAN GUEVARA MDRAT V Ot R60.9 EDEMA, UNSPECIFIED 02/14/2016 ISMAEL MOSCOSO OSMAR V Ot E66.0 1 MORBID (SEVERE) OBESITY DUE TO EXCESS CA 02/14/2016 OSMAR GUEVARA MD V Ot I10 ESSENTIAL (PRIMARY) HYPERTENSION 02/14/2016 BRIAN GUEVARA MDRAT V Ot J44.9 CHRONIC OBSTRUCTIVE PULMONARY DISEASE, U 02/14/2016 FATOU WHITEHEAD APRN Ot E66.01 MORBID (SEVERE) OBESITY DUE TO EXCESS CA 02/14/2016 FATOU WHITEHEAD APRN Ot G47.33 OBSTRUCTIVE SLEEP APNEA (ADULT) (PEDIATR 02/14/2016 FATOU WHITEHEAD PARAMEDIC RN Ot J18.9 PNEUMONIA, UNSPECIFIED ORGANISM 02/14/2016 FATOU WHITEHEAD PARAMEDIC RN Ot J30.9 ALLERGIC RHINITIS, UNSPECIFIED 02/14/2016 FATOU WHITEHEAD APRN Ot R06.02 SHORTNESS OF BREATH 02/14/2016 OSMAR GUEVARA MD V Ot E55.9 VITAMIN D DEFICIENCY, UNSPECIFIED 02/14/2016 OSMAR GUEVARA MD V Ot J44.9 CHRONIC OBSTRUCTIVE PULMONARY DISEASE, U 02/14/2016 BRIAN GUEVARA MDRAT V Ot N18.3 CHRONIC KIDNEY DISEASE, STAGE 3 (MODERAT 02/14/2016 OSMAR GUEVARA MD V Ot R60.9 EDEMA, UNSPECIFIED 06/19/2016 OSMAR GUEVARA MD V Ot E55.9 VITAMIN D DEFICIENCY, UNSPECIFIED 06/19/2016 ISMAEL MOSCOSO, OSMAR V Ot J44.9 CHRONIC OBSTRUCTIVE PULMONARY DISEASE, U 06/19/2016 OSMAR GUEVARA MD V Ot N18.3 CHRONIC KIDNEY DISEASE, STAGE 3 (MODERAT 06/19/2016 OSMAR GUEVARA MD V Ot R60.9 EDEMA, UNSPECIFIED 06/20/2016 OSMAR GUEVARA MD V Ot E55.9 VITAMIN D DEFICIENCY, UNSPECIFIED 06/20/2016 OSMAR GUEVARA MD V Ot J44.9 CHRONIC OBSTRUCTIVE PULMONARY DISEASE, U 06/20/2016 OSMAR GUEVARA MD V Ot N18.3 CHRONIC KIDNEY DISEASE, STAGE 3 (MODERAT 06/20/2016 OSMAR GUEVARA MD V Ot R60.9 EDEMA, UNSPECIFIED 07/05/2016 CAROL WHITLOCK APRN Ot I65.29 OCCLUSION AND STENOSIS OF UNSPECIFIED CA 07/05/2016 CINTHYA MOSCOSO FAC, ALI FACP CCDS Ot R06.02 SHORTNESS OF BREATH 07/05/2016 CINTHYA MOSCOSO FAC, ALI FACP CCDS Ot R07.89 OTHER CHEST PAIN 07/05/2016 CINTHYA MOSCOSO FAC, ALI FACP CCDS Ot R07.89 OTHER CHEST PAIN 07/05/2016 BRIAN GUEVARA MDRAT V Ot E66.0 1 MORBID (SEVERE) OBESITY DUE TO EXCESS CA 07/05/2016 OSMAR GUEVARA MD V Ot I12.9 HYPERTENSIVE CHRONIC KIDNEY DISEASE W ST 07/05/2016 ISMAEL MOSCOSO OSMAR V Ot N18.3 CHRONIC KIDNEY DISEASE, STAGE 3 (MODERAT 07/05/2016 QUINTEN SADLER DO Ot E66. 01 MORBID (SEVERE) OBESITY DUE TO EXCESS CA 07/05/2016 QUINTEN SADLER DO Ot J44. 9 CHRONIC OBSTRUCTIVE PULMONARY DISEASE, U 07/05/2016 QUINTEN SADLER DO Ot J45.909 UNSPECIFIED ASTHMA, UNCOMPLICATED 07/05/2016 OSMAR GUEVARA MD V Ot E66.0 1 MORBID (SEVERE) OBESITY DUE TO EXCESS CA 07/05/2016 OSMAR GUEVARA MD, V Ot I10 ESSENTIAL (PRIMARY) HYPERTENSION 07/05/2016 OSMAR GUEVARA MD, V Ot J44.9 CHRONIC OBSTRUCTIVE PULMONARY DISEASE, U 07/05/2016 FATOU WHITEHEAD APRN Ot E66.01 MORBID (SEVERE) OBESITY DUE TO EXCESS CA 07/05/2016 FATOU WHITEHEAD APRN Ot G47.33 OBSTRUCTIVE SLEEP APNEA (ADULT) (PEDIATR 07/05/2016 FATOU WHITEHEAD APRN Ot J18.9 PNEUMONIA, UNSPECIFIED ORGANISM 07/05/2016 FATOU WHITEHEAD APRN Ot J30.9 ALLERGIC RHINITIS, UNSPECIFIED 07/05/2016 FATOU WHITEHEAD APRN Ot R06.02 SHORTNESS OF BREATH 07/05/2016 OSMAR GUEVARA MD, V Ot E55.9 VITAMIN D DEFICIENCY, UNSPECIFIED 07/05/2016 OSMAR GUEVARA MD, V Ot J44.9 CHRONIC OBSTRUCTIVE PULMONARY DISEASE, U 07/05/2016 OSMAR GUEVARA MD V Ot N18.3 CHRONIC KIDNEY DISEASE, STAGE 3 (MODERAT 07/05/2016 OSMAR GUEVARA MD V Ot R60.9 EDEMA, UNSPECIFIED 07/05/2016 OSMAR GUEVARA MD, V Ot E55.9 VITAMIN D DEFICIENCY, UNSPECIFIED 07/05/2016 OSMAR GUEVARA MD V Ot J44.9 CHRONIC OBSTRUCTIVE PULMONARY DISEASE, U 07/05/2016 OSMAR GUEVARA MD V Ot N18.3 CHRONIC KIDNEY DISEASE, STAGE 3 (MODERAT 07/05/2016 OSMAR GUEVARA MD V Ot R60.9 EDEMA, UNSPECIFIED 07/05/2016 OSMAR GUEVARA MD V Ot E55.9 VITAMIN D DEFICIENCY, UNSPECIFIED 07/05/2016 OSMAR GUEVARA MD V Ot J44.9 CHRONIC OBSTRUCTIVE PULMONARY DISEASE, U 07/05/2016 OSMAR GUEVARA MD V Ot N18.3 CHRONIC KIDNEY DISEASE, STAGE 3 (MODERAT 07/05/2016 OSMAR GUEVARA MD, V Ot R60.9 EDEMA, UNSPECIFIED 07/20/2016 OSMAR GUEVARA MD, V Ot E55.9 VITAMIN D DEFICIENCY, UNSPECIFIED 07/20/2016 OSMAR GUEVARA MD V Ot J44.9 CHRONIC OBSTRUCTIVE PULMONARY DISEASE, U 07/20/2016 OSMAR GUEVARA MD V Ot N18.3 CHRONIC KIDNEY DISEASE, STAGE 3 (MODERAT 07/20/2016 OSMAR GUEVARA MD V Ot R60.9 EDEMA, UNSPECIFIED 07/20/2016 OSMAR GUEVARA MD V Ot E55.9 VITAMIN D DEFICIENCY, UNSPECIFIED 07/20/2016 OSMAR GUEVARA MD V Ot J44.9 CHRONIC OBSTRUCTIVE PULMONARY DISEASE, U 07/20/2016 OSMAR GUEVARA MD, V Ot N18.3 CHRONIC KIDNEY DISEASE, STAGE 3 (MODERAT 07/20/2016 OSMAR GUEVARA MD V Ot R60.9 EDEMA, UNSPECIFIED 12/20/2016 LUIS KABA MD Ot E21 .1 SECONDARY HYPERPARATHYROIDISM, NOT ELSEW 12/20/2016 LUIS KABA MD Ot E66.01 MORBID (SEVERE) OBESITY DUE TO EXCESS CA 12/20/2016 LUIS KABA MD Ot I12 .9 HYPERTENSIVE CHRONIC KIDNEY DISEASE W ST 12/20/2016 LUIS KABA MD, Ot N18 .3 CHRONIC KIDNEY DISEASE, STAGE 3 (MODERAT 12/20/2016 LUIS KABA MD Ot N20 .0 CALCULUS OF KIDNEY 12/20/2016 LUIS KABA MD, Ot N28 .9 DISORDER OF KIDNEY AND URETER, UNSPECIFI 12/20/2016 LUIS KABA MD Ot R16 .2 HEPATOMEGALY WITH SPLENOMEGALY, NOT ELSE 01/11/2017 LUIS KABA MD, Ot E21 .1 SECONDARY HYPERPARATHYROIDISM, NOT ELSEW 01/11/2017 LUIS KABA MD Ot E66.01 MORBID (SEVERE) OBESITY DUE TO EXCESS CA 01/11/2017 LUIS KABA MD Ot I12 .9 HYPERTENSIVE CHRONIC KIDNEY DISEASE W ST 01/11/2017 LUIS KABA MD Ot N18 .3 CHRONIC KIDNEY DISEASE, STAGE 3 (MODERAT 01/11/2017 LUIS KABA MD Ot N20 .0 CALCULUS OF KIDNEY 01/11/2017 LUIS KABA MD Ot N28 .9 DISORDER OF KIDNEY AND URETER, UNSPECIFI 01/11/2017 LUIS KABA MD Ot R16 .2 HEPATOMEGALY WITH SPLENOMEGALY, NOT ELSE 04/01/2017 POLY STOKESP Ot I67 .2 CEREBRAL ATHEROSCLEROSIS 06/20/2017 POLY STOKESP Ot Z12.31 ENCNTR SCREEN MAMMOGRAM FOR MALIGNANT NE 06/20/2017 COKER HUMBLE LEZAMA Ot Z01.818 ENCOUNTER FOR OTHER PREPROCEDURAL EXAMIN 06/20/2017 JUÁREZ HUMBLE LEZAMA Ot Z12. 11 ENCOUNTER FOR SCREENING FOR MALIGNANT NE 06/20/2017 POLY STOKES Ot Z12.31 ENCNTR SCREEN MAMMOGRAM FOR MALIGNANT NE 06/21/2017 COKER HUMBLE LEZAMA Ot Z01.818 ENCOUNTER FOR OTHER PREPROCEDURAL EXAMIN 06/21/2017 HUMBLE JUÁREZ DO Ot Z12. 11 ENCOUNTER FOR SCREENING FOR MALIGNANT NE 06/26/2017 LUIS KABA MD Ot E21 .1 SECONDARY HYPERPARATHYROIDISM, NOT ELSEW 06/26/2017 LUIS KABA MD Ot I12 .9 HYPERTENSIVE CHRONIC KIDNEY DISEASE W ST 06/26/2017 LUIS KABA MD Ot N18 .3 CHRONIC KIDNEY DISEASE, STAGE 3 (MODERAT 06/26/2017 LUIS KABA MD Ot R60 .9 EDEMA, UNSPECIFIED 07/04/2017 POLY STOKES Ot Z12.31 ENCNTR SCREEN MAMMOGRAM FOR MALIGNANT NE 07/15/2017 LUIS KABA MD Ot E21 .1 SECONDARY HYPERPARATHYROIDISM, NOT ELSEW 07/15/2017 LUIS KABA MD Ot I12 .9 HYPERTENSIVE CHRONIC KIDNEY DISEASE W ST 07/15/2017 LUIS KABA MD Ot N18 .3 CHRONIC KIDNEY DISEASE, STAGE 3 (MODERAT 07/15/2017 LUIS KABA MD Ot R60 .9 EDEMA, UNSPECIFIED 09/11/2017 CAROL WHITLOCK APRN Ot I65.29 OCCLUSION AND STENOSIS OF UNSPECIFIED CA 09/11/2017 CINTHYA MOSCOSO FACC, ALI FACP CCDS Ot R06.02 SHORTNESS OF BREATH 09/11/2017 CINTHYA MOSCOSO FAC, ALI FACP CCDS Ot R07.89 OTHER CHEST PAIN 09/11/2017 CINTHYA MOSCOSO [facility], ALI FACP CCDS Ot R07.89 OTHER CHEST PAIN 09/11/2017 OSMAR GUEVARA MD, V Ot E66.0 1 MORBID (SEVERE) OBESITY DUE TO EXCESS CA 09/11/2017 OSMAR GUEVARA MD, V Ot I12.9 HYPERTENSIVE CHRONIC KIDNEY DISEASE W ST 09/11/2017 OSMAR GUEVARA MD V Ot N18.3 CHRONIC KIDNEY DISEASE, STAGE 3 (MODERAT 09/11/2017 QUINTEN SADLER DO Ot E66. 01 MORBID (SEVERE) OBESITY DUE TO EXCESS CA 09/11/2017 QUINTEN SADLER DO Ot J44. 9 CHRONIC OBSTRUCTIVE PULMONARY DISEASE, U 09/11/2017 QUINTEN SADLER DO Ot J45.909 UNSPECIFIED ASTHMA, UNCOMPLICATED 09/11/2017 OSMAR GUEVARA MD, V Ot E66.0 1 MORBID (SEVERE) OBESITY DUE TO EXCESS CA 09/11/2017 OSMAR GUEVARA MD, V Ot I10 ESSENTIAL (PRIMARY) HYPERTENSION 09/11/2017 OSMAR GUEVARA MD, V Ot J44.9 CHRONIC OBSTRUCTIVE PULMONARY DISEASE, U 09/11/2017 FATOU WHITEHEAD APRN Ot E66.01 MORBID (SEVERE) OBESITY DUE TO EXCESS CA 09/11/2017 FATOU WHITEHEAD PARAMEDIC RN Ot G47.33 OBSTRUCTIVE SLEEP APNEA (ADULT) (PEDIATR 09/11/2017 FATOU WHITEHEAD PARAMEDIC RN Ot J18.9 PNEUMONIA, UNSPECIFIED ORGANISM 09/11/2017 FATOU WHITEHEAD PARAMEDIC RN Ot J30.9 ALLERGIC RHINITIS, UNSPECIFIED 09/11/2017 FATOU WHITEHEAD APRN Ot R06.02 SHORTNESS OF BREATH 09/11/2017 OSMAR GUEVARA MD, V Ot E55.9 VITAMIN D DEFICIENCY, UNSPECIFIED 09/11/2017 OSMAR GUEVARA MD, V Ot J44.9 CHRONIC OBSTRUCTIVE PULMONARY DISEASE, U 09/11/2017 OSMAR GUEVARA MD V Ot N18.3 CHRONIC KIDNEY DISEASE, STAGE 3 (MODERAT 09/11/2017 OSMAR GUEVARA MD V Ot R60.9 EDEMA, UNSPECIFIED 09/11/2017 OSMAR GUEVARA MD, V Ot E55.9 VITAMIN D DEFICIENCY, UNSPECIFIED 09/11/2017 OSMAR GUEVARA MD, V Ot J44.9 CHRONIC OBSTRUCTIVE PULMONARY DISEASE, U 09/11/2017 OSMAR GUEVARA MD, V Ot N18.3 CHRONIC KIDNEY DISEASE, STAGE 3 (MODERAT 09/11/2017 OSMAR GUEVARA MD, V Ot R60.9 EDEMA, UNSPECIFIED 09/11/2017 LUIS KABA MD, Ot E21 .1 SECONDARY HYPERPARATHYROIDISM, NOT ELSEW 09/11/2017 LUIS KABA MD Ot E66.01 MORBID (SEVERE) OBESITY DUE TO EXCESS CA 09/11/2017 LUIS KABA MD, Ot I12 .9 HYPERTENSIVE CHRONIC KIDNEY DISEASE W ST 09/11/2017 LUIS KABA MD, Ot N18 .3 CHRONIC KIDNEY DISEASE, STAGE 3 (MODERAT 09/11/2017 LUIS KABA MD Ot N20 .0 CALCULUS OF KIDNEY 09/11/2017 LUIS KABA MD, Ot N28 .9 DISORDER OF KIDNEY AND URETER, UNSPECIFI 09/11/2017 LUIS KABA MD Ot R16 .2 HEPATOMEGALY WITH SPLENOMEGALY, NOT ELSE 09/11/2017 POLY [employer]OKES [employer] JUDGE Ot I67 .2 CEREBRAL ATHEROSCLEROSIS 09/11/2017 [employer] F[employer] JUDGE Ot Z12.31 ENCNTR SCREEN MAMMOGRAM FOR MALIGNANT NE 09/11/2017 LUIS KABA MD Ot E21 .1 SECONDARY HYPERPARATHYROIDISM, NOT ELSEW 09/11/2017 LUIS KABA MD Ot I12 .9 HYPERTENSIVE CHRONIC KIDNEY DISEASE W ST 09/11/2017 LUIS KABA MD, Ot N18 .3 CHRONIC KIDNEY DISEASE, STAGE 3 (MODERAT 09/11/2017 LUIS KABA MD, Ot R60 .9 EDEMA, UNSPECIFIED 09/12/2017 LUIS KABA MD, Ot D55 .9 ANEMIA DUE TO ENZYME DISORDER, UNSPECIFI 09/12/2017 LUIS KABA MD, Ot E21 .1 SECONDARY HYPERPARATHYROIDISM, NOT ELSEW 09/12/2017 LUIS KABA MD, Ot I12 .9 HYPERTENSIVE CHRONIC KIDNEY DISEASE W ST 09/12/2017 LUIS KABA MD, Ot N18 .3 CHRONIC KIDNEY DISEASE, STAGE 3 (MODERAT 09/27/2017 LUIS KABA MD, Ot D55 .9 ANEMIA DUE TO ENZYME DISORDER, UNSPECIFI 09/27/2017 LUIS KABA MD, Ot E21 .1 SECONDARY HYPERPARATHYROIDISM, NOT ELSEW 09/27/2017 LUIS KABA MD Ot I12 .9 HYPERTENSIVE CHRONIC KIDNEY DISEASE W ST 09/27/2017 LUIS KABA MD, Ot N18 .3 CHRONIC KIDNEY DISEASE, STAGE 3 (MODERAT 11/18/2017 FATOU WHITEHEAD PARAMEDIC RN Ot J98.4 OTHER DISORDERS OF LUNG 03/09/2018 LUIS KABA MD, Ot E21 .1 SECONDARY HYPERPARATHYROIDISM, NOT ELSEW 03/09/2018 LUIS KABA MD Ot E55 .9 VITAMIN D DEFICIENCY, UNSPECIFIED 03/09/2018 LUIS KABA MD Ot I12 .9 HYPERTENSIVE CHRONIC KIDNEY DISEASE W ST 03/09/2018 LUIS KABA MD Ot N18 .3 CHRONIC KIDNEY DISEASE, STAGE 3 (MODERAT 03/09/2018 LUIS KABA MD Ot E21 .1 SECONDARY HYPERPARATHYROIDISM, NOT ELSEW 03/09/2018 LUIS KABA MD Ot E55 .9 VITAMIN D DEFICIENCY, UNSPECIFIED 03/09/2018 LUIS KABA MD Ot I12 .9 HYPERTENSIVE CHRONIC KIDNEY DISEASE W ST 03/09/2018 LUIS KABA MD, Ot N18 .3 CHRONIC KIDNEY DISEASE, STAGE 3 (MODERAT 03/21/2018 LUIS KABA MD Ot E21 .1 SECONDARY HYPERPARATHYROIDISM, NOT ELSEW 03/21/2018 LUIS KABA MD Ot E55 .9 VITAMIN D DEFICIENCY, UNSPECIFIED 03/21/2018 LUIS KABA MD Ot I12 .9 HYPERTENSIVE CHRONIC KIDNEY DISEASE W ST 03/21/2018 LUIS KABA MD, Ot N18 .3 CHRONIC KIDNEY DISEASE, STAGE 3 (MODERAT 03/25/2018 ROB REYNOLDS APRN Ot M19.011 PRIMARY OSTEOARTHRITIS, RIGHT SHOULDER 03/25/2018 ROB REYNOLDS PARAMEDIC RN Ot Z53 .8 PROCEDURE AND TREATMENT NOT CARRIED OUT 04/01/2018 LUIS KABA MD Ot E21 .1 SECONDARY HYPERPARATHYROIDISM, NOT ELSEW 04/01/2018 LUIS KABA MD Ot E55 .9 VITAMIN D DEFICIENCY, UNSPECIFIED 04/01/2018 LUIS KABA MD Ot I12 .9 HYPERTENSIVE CHRONIC KIDNEY DISEASE W ST 04/01/2018 LUIS KABA MD, Ot N18 .3 CHRONIC KIDNEY DISEASE, STAGE 3 (MODERAT 04/01/2018 LUIS KABA MD, Ot N28 .1 CYST OF KIDNEY, ACQUIRED 04/18/2018 LUIS KABA MD, Ot E21 .1 SECONDARY HYPERPARATHYROIDISM, NOT ELSEW 04/18/2018 LUIS KABA MD, Ot E55 .9 VITAMIN D DEFICIENCY, UNSPECIFIED 04/18/2018 LUIS KABA MD, Ot I12 .9 HYPERTENSIVE CHRONIC KIDNEY DISEASE W ST 04/18/2018 LUIS KABA MD, Ot N18 .3 CHRONIC KIDNEY DISEASE, STAGE 3 (MODERAT 04/18/2018 LUIS KABA MD, Ot N28 .1 CYST OF KIDNEY, ACQUIRED 07/21/2018 LUIS KABA MD Ot E21 .1 SECONDARY HYPERPARATHYROIDISM, NOT ELSEW 07/21/2018 LUIS KABA MD Ot E87 .2 ACIDOSIS 07/21/2018 LUIS KABA MD, Ot I12 .9 HYPERTENSIVE CHRONIC KIDNEY DISEASE W ST 07/21/2018 LUIS KABA MD Ot N18 .4 CHRONIC KIDNEY DISEASE, STAGE 4 (SEVERE) 08/27/2018 CINTHYA MOSCOSO FACC, HONEY FACP CCDS Ot E66.8 OTHER OBESITY 08/27/2018 CINTHYA MOSCOSO FACC, HONEY FACP CCDS Ot G47.33 OBSTRUCTIVE SLEEP APNEA (ADULT) (PEDIATR 08/27/2018 CINTHYA MOSCOSO FACC, HONEY FACP CCDS Ot I10 ESSENTIAL (PRIMARY) HYPERTENSION 08/27/2018 CINTHYA MOSCOSO FACC, HONEY FACP CCDS Ot I77.9 DISORDER OF ARTERIES AND ARTERIOLES, UNS 08/27/2018 CINTHYA MOSCOSO FACC, HONEY FACP CCDS Ot R06.02 SHORTNESS OF BREATH 08/27/2018 CINTHYA MOSCOSO FACC, HONEY FACP CCDS Ot R53.81 OTHER MALAISE 09/11/2018 CINTHYA MOSCOSO FACC, ALI FACP CCDS Ot E66.8 OTHER OBESITY 09/11/2018 CINTHYA CAMPBELL, ALI FACP CCDS Ot G47.33 OBSTRUCTIVE SLEEP APNEA (ADULT) (PEDIATR 09/11/2018 CINTHYA CAMPBELL, ALI FACP CCDS Ot I10 ESSENTIAL (PRIMARY) HYPERTENSION 09/11/2018 CINTHYA MOSCOSO [facility], ALI FACP CCDS Ot I77.9 DISORDER OF ARTERIES AND ARTERIOLES, UNS 09/11/2018 CINTHYA CAMPBELL, ALI FACP CCDS Ot R06.02 SHORTNESS OF BREATH 09/11/2018 CINTHYA CAMPBELL, ALI FACP CCDS Ot R53.81 OTHER MALAISE 11/02/2018 SENDY MOSCOSO, LUIS Chinchilla Ot N28 .1 CYST OF KIDNEY, ACQUIRED 11/12/2018 CAROL WHITLOCK APRN Ot I65.29 OCCLUSION AND STENOSIS OF UNSPECIFIED CA 11/12/2018 CINTHYA MOSCOSO [facility], ALI FACP CCDS Ot R06.02 SHORTNESS OF BREATH 11/12/2018 CINTHYA MOSCOSO FACC, ALI FACP CCDS Ot R07.89 OTHER CHEST PAIN 11/12/2018 CINTHYA CAMPBELL, ALI FACP CCDS Ot R07.89 OTHER CHEST PAIN 11/12/2018 OSMAR GUEVARA MD, V Ot E66.0 1 MORBID (SEVERE) OBESITY DUE TO EXCESS CA 11/12/2018 OSMAR GUEVARA MD, V Ot I12.9 HYPERTENSIVE CHRONIC KIDNEY DISEASE W ST 11/12/2018 OSMAR GUEVARA MD, V Ot N18.3 CHRONIC KIDNEY DISEASE, STAGE 3 (MODERAT 11/12/2018 QUINTEN SADLER DO Ot E66. 01 MORBID (SEVERE) OBESITY DUE TO EXCESS CA 11/12/2018 QUINTEN SADLER DO Ot J44. 9 CHRONIC OBSTRUCTIVE PULMONARY DISEASE, U 11/12/2018 QUINTEN SADLER DO Ot J45.909 UNSPECIFIED ASTHMA, UNCOMPLICATED 11/12/2018 OSMAR GUEVARA MD, V Ot E66.0 1 MORBID (SEVERE) OBESITY DUE TO EXCESS CA 11/12/2018 OSMAR GUEVARA MD, V Ot I10 ESSENTIAL (PRIMARY) HYPERTENSION 11/12/2018 OSMAR GUEVARA MD, V Ot J44.9 CHRONIC OBSTRUCTIVE PULMONARY DISEASE, U 11/12/2018 FAOTU WHITEHEAD APRN Ot E66.01 MORBID (SEVERE) OBESITY DUE TO EXCESS CA 11/12/2018 FATOU WHITEHEAD APRN Ot G47.33 OBSTRUCTIVE SLEEP APNEA (ADULT) (PEDIATR 11/12/2018 FATOU WHITEHEAD APRN Ot J18.9 PNEUMONIA, UNSPECIFIED ORGANISM 11/12/2018 FATOU WHITEHEAD PARAMEDIC RN Ot J30.9 ALLERGIC RHINITIS, UNSPECIFIED 11/12/2018 FATOU WHITEHEAD APRN Ot R06.02 SHORTNESS OF BREATH 11/12/2018 OSMAR GUEVARA MD V Ot E55.9 VITAMIN D DEFICIENCY, UNSPECIFIED 11/12/2018 OSMAR GUEVARA MD V Ot J44.9 CHRONIC OBSTRUCTIVE PULMONARY DISEASE, U 11/12/2018 OSMAR GUEVARA MD V Ot N18.3 CHRONIC KIDNEY DISEASE, STAGE 3 (MODERAT 11/12/2018 OSMAR GUEVARA MD V Ot R60.9 EDEMA, UNSPECIFIED 11/12/2018 OSMAR GUEVARA MD V Ot E55.9 VITAMIN D DEFICIENCY, UNSPECIFIED 11/12/2018 OSMAR GUEVARA MD V Ot J44.9 CHRONIC OBSTRUCTIVE PULMONARY DISEASE, U 11/12/2018 OSMAR GUEVARA MD V Ot N18.3 CHRONIC KIDNEY DISEASE, STAGE 3 (MODERAT 11/12/2018 OSMAR GUEVARA MD V Ot R60.9 EDEMA, UNSPECIFIED 11/12/2018 LUIS KABA MD Ot E21 .1 SECONDARY HYPERPARATHYROIDISM, NOT ELSEW 11/12/2018 LUIS KABA MD Ot E66.01 MORBID (SEVERE) OBESITY DUE TO EXCESS CA 11/12/2018 LUIS KABA MD Ot I12 .9 HYPERTENSIVE CHRONIC KIDNEY DISEASE W ST 11/12/2018 LUIS KABA MD Ot N18 .3 CHRONIC KIDNEY DISEASE, STAGE 3 (MODERAT 11/12/2018 LUIS KABA MD Ot N20 .0 CALCULUS OF KIDNEY 11/12/2018 LUIS KABA MD Ot N28 .9 DISORDER OF KIDNEY AND URETER, UNSPECIFI 11/12/2018 LUIS KABA MD Ot R16 .2 HEPATOMEGALY WITH SPLENOMEGALY, NOT ELSE 11/12/2018 [employer] JUDGE Ot I67 .2 CEREBRAL ATHEROSCLEROSIS 11/12/2018 [employer] JUDGE Ot Z12.31 ENCNTR SCREEN MAMMOGRAM FOR MALIGNANT NE 11/12/2018 LUIS KABA MD Ot E21 .1 SECONDARY HYPERPARATHYROIDISM, NOT ELSEW 11/12/2018 LUIS KABA MD Ot I12 .9 HYPERTENSIVE CHRONIC KIDNEY DISEASE W ST 11/12/2018 LUIS KABA MD, Ot N18 .3 CHRONIC KIDNEY DISEASE, STAGE 3 (MODERAT 11/12/2018 LUIS KABA MD Ot R60 .9 EDEMA, UNSPECIFIED 11/12/2018 LUIS KABA MD, Ot D55 .9 ANEMIA DUE TO ENZYME DISORDER, UNSPECIFI 11/12/2018 LUIS KABA MD, Ot E21 .1 SECONDARY HYPERPARATHYROIDISM, NOT ELSEW 11/12/2018 LUIS KABA MD, Ot I12 .9 HYPERTENSIVE CHRONIC KIDNEY DISEASE W ST 11/12/2018 LUIS KABA MD, Ot N18 .3 CHRONIC KIDNEY DISEASE, STAGE 3 (MODERAT 11/12/2018 FATOU WHITEHEAD PARAMEDIC RN Ot J98.4 OTHER DISORDERS OF LUNG 11/12/2018 LUIS KABA MD, Ot E21 .1 SECONDARY HYPERPARATHYROIDISM, NOT ELSEW 11/12/2018 LUIS KABA MD Ot E55 .9 VITAMIN D DEFICIENCY, UNSPECIFIED 11/12/2018 LUIS KABA MD, Ot I12 .9 HYPERTENSIVE CHRONIC KIDNEY DISEASE W ST 11/12/2018 LUIS KABA MD, Ot N18 .3 CHRONIC KIDNEY DISEASE, STAGE 3 (MODERAT 11/12/2018 ROB REYNOLDS PARAMEDIC RN Ot M19.011 PRIMARY OSTEOARTHRITIS, RIGHT SHOULDER 11/12/2018 ROB REYNOLDS PARAMEDIC RN Ot Z53 .8 PROCEDURE AND TREATMENT NOT CARRIED OUT 11/12/2018 LUIS KABA MD Ot E21 .1 SECONDARY HYPERPARATHYROIDISM, NOT ELSEW 11/12/2018 LUIS KABA MD, Ot E55 .9 VITAMIN D DEFICIENCY, UNSPECIFIED 11/12/2018 LUIS KABA MD Ot I12 .9 HYPERTENSIVE CHRONIC KIDNEY DISEASE W ST 11/12/2018 LUIS KABA MD, Ot N18 .3 CHRONIC KIDNEY DISEASE, STAGE 3 (MODERAT 11/12/2018 LUIS KABA MD Ot N28 .1 CYST OF KIDNEY, ACQUIRED 11/12/2018 LUIS KABA MD Ot E21 .1 SECONDARY HYPERPARATHYROIDISM, NOT ELSEW 11/12/2018 LUIS KABA MD R Ot E87 .2 ACIDOSIS 11/12/2018 LUIS KABA MD R Ot I12 .9 HYPERTENSIVE CHRONIC KIDNEY DISEASE W ST 11/12/2018 LUIS KABA MD Ot N18 .4 CHRONIC KIDNEY DISEASE, STAGE 4 (SEVERE) 11/12/2018 CINTHYA MOSCOSO FACC, ALI FACP CCDS Ot E66.8 OTHER OBESITY 11/12/2018 CINTHYA MOSCOSO FACC, ALI FACP CCDS Ot G47.33 OBSTRUCTIVE SLEEP APNEA (ADULT) (PEDIATR 11/12/2018 CINTHYA CAMPBELLC, ALI FACP CCDS Ot I10 ESSENTIAL (PRIMARY) HYPERTENSION 11/12/2018 CINTHYA MOSCOSO FACC, ALI FACP CCDS Ot I77.9 DISORDER OF ARTERIES AND ARTERIOLES, UNS 11/12/2018 CINTHYA CAMPBELLC, ALI FACP CCDS Ot R06.02 SHORTNESS OF BREATH 11/12/2018 CINTHYA MOSCOSO FACC, ALI FACP CCDS Ot R53.81 OTHER MALAISE 11/12/2018 LUIS KABA MD R Ot N28 .1 CYST OF KIDNEY, ACQUIRED 11/13/2018 LUIS KABA MD R Ot N28 .1 CYST OF KIDNEY, ACQUIRED 11/14/2018 CINTHYA MOSCOSO FACC, ALI FACP CCDS Ot E66.8 OTHER OBESITY 11/14/2018 CINTHYA MOSCOSO FACC, ALI FACP CCDS Ot E78.5 HYPERLIPIDEMIA, UNSPECIFIED 11/14/2018 CINTHYA MOSCOSO FACC, ALI FACP CCDS Ot G47.33 OBSTRUCTIVE SLEEP APNEA (ADULT) (PEDIATR 11/14/2018 CINTHYA MOSCOSO FACC, ALI FACP CCDS Ot I12.9 HYPERTENSIVE CHRONIC KIDNEY DISEASE W ST 11/14/2018 CINTHYA MOSCOSO FACC, ALI FACP CCDS Ot N18.4 CHRONIC KIDNEY DISEASE, STAGE 4 (SEVERE) 11/14/2018 CINTYHA MOSCOSO FACC, ALI FACP CCDS Ot R06.02 SHORTNESS OF BREATH 11/14/2018 CINTHYA MOSCOSO FACC, ALI FACP CCDS Ot Z68.44 BODY MASS INDEX (BMI) 60.0-69.9, ADULT 01/21/2019 KHLUIS MILNER MD, Ot E21 .1 SECONDARY HYPERPARATHYROIDISM, 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 Results Test Result Range Serum or plasma renal function panel (Na , K, Cl, CO2, BUN, Cr, glucose,Ca, phos, alb) - 02/01/16 13:03 Serum or plasma sodium measurement (moles/volume) 140 mmol/L 135-145 Serum or plasma potassium measurement (moles/volume) 3.9 mmol/L 3.6-5.0 Serum or plasma chloride measurement (moles/volume) 106 mmol/L 98-107 Carbon dioxide 22 mmol/L 21-32 Serum or plasma anion gap determination (moles/volume) 12 mmol/L 5-14 Serum or plasma urea nitrogen measurement (mass/volume ) 10 mg/dL 7-18 Serum or plasma creatinine measurement (mass/volume) 1.52 mg/dL 0.60-1.30 Serum or plasma urea nitrogen/creatinine mass ratio 7 NRG Serum or plasma creatinine measurement w ith calculation of estimated glomerular filtration rate 36 NRG Serum or plasma glucose measurement (mass/volume) 156 mg/dL 70-105 Serum or plasma calcium measurement (mass/volume) 9.1 mg/dL 8.5-10.1 Serum or plasma albumin measurement (mass/volume) 3.9 g/dL 3.2-4.5 Serum or plasma phosphate measurement (mass/volume) 3.9 mg/dL 2.3-4.7 Magnesium - 02/01/16 13:03 Magnesium 2.3 mg/dL 1.8-2.4 CBC With Differential/Platelet - 11/16/1 6 11:12 WBC 7.9 x10E3/uL 3.4-10.8 RBC 4.91 x10E6/uL 3.77-5.28 Hemoglobin 14.0 g/dL 11.1-15.9 Hematocrit 42.8 % 34.0-46.6 MCV 87 fL 79-97 MCH 28.5 pg 26.6-33.0 MCHC 32.7 g/dL 31.5-35.7 RDW 14.0 % 12.3-15.4 Platelets 235 x10E3/uL 150-379 Neutrophils 64 % Lymphs 28 % Monocytes 5 % Eos 3 % Basos 0 % Neutrophils (Absolute) 5.0 x10E3/uL 1.4- 7.0 Lymphs (Absolute) 2.2 x10E3/uL 0.7-3.1 Monocytes(Absolute) 0.4 x10E3/uL 0.1-0.9 Eos (Absolute) 0.2 x10E3/uL 0.0-0.4 Baso (Absolute) 0.0 x10E3/uL 0.0-0.2 Immature Granulocytes 0 % Immature Grans (Abs) 0.0 x10E3/uL 0.0-0. 1 Comp. Metabolic Panel (14) - 04/04/16 11 :12 Glucose, Serum 112 mg/dL 65-99 BUN 14 mg/dL 6-24 Creatinine, Serum 1.43 mg/dL 0.57-1.00 eGFR If NonAfricn Am 41 mL/min/1.73 >59 eGFR If Africn Am 48 mL/min/1.73 >59 BUN/Creatinine Ratio 10 9-23 Sodium, Serum 144 mmol/L 136-144 Potassium, Serum 4.3 mmol/L 3.5-5.2 Chloride, Serum 102 mmol/L 97-106 Carbon Dioxide, Total 23 mmol/L 18-29 Calcium, Serum 9.4 mg/dL 8.7-10.2 Protein, Total, Serum 6.7 g/dL 6.0-8.5 Albumin, Serum 4.3 g/dL 3.5-5.5 Globulin, Total 2.4 g/dL 1.5-4.5 A/G Ratio 1.8 1.1-2.5 Bilirubin, Total 0.7 mg/dL 0.0-1.2 Alkaline Phosphatase, S 72 IU/L 39-117 AST (SGOT) 28 IU/L 0-40 ALT (SGPT) 25 IU/L 0-32 TSH - 04/04/16 11:12 TSH 7.360 uIU/mL 0.450-4.500 Comp. Metabolic Panel (14) - 05/29/16 15 :16 Glucose, Serum 116 mg/dL 65-99 BUN 18 mg/dL 6-24 Creatinine, Serum 1.63 mg/dL 0.57-1.00 eGFR If NonAfricn Am 35 mL/min/1.73 >59 eGFR If Africn Am 41 mL/min/1.73 >59 BUN/Creatinine Ratio 11 9-23 Sodium, Serum 140 mmol/L 134-144 Potassium, Serum 4.5 mmol/L 3.5-5.2 Chloride, Serum 100 mmol/L 96-106 Carbon Dioxide, Total 19 mmol/L 18-29 Calcium, Serum 9.1 mg/dL 8.7-10.2 Protein, Total, Serum 7.0 g/dL 6.0-8.5 Albumin, Serum 4.6 g/dL 3.5-5.5 Globulin, Total 2.4 g/dL 1.5-4.5 A/G Ratio 1.9 1.1-2.5 Bilirubin, Total 0.7 mg/dL 0.0-1.2 Alkaline Phosphatase, S 78 IU/L 39-117 AST (SGOT) 24 IU/L 0-40 ALT (SGPT) 24 IU/L 0-32 Automated blood complete blood count (he mogram) panel - 06/18/16 16:42 Blood leukocytes automated count (number/volume) 8.0 10*3/uL 4.3-11.0 Blood erythrocytes automated count (number/volume) 4.73 10*6/uL 4.35-5.85 Venous blood hemoglobin measurement (mass/volume) 13.7 g/dL 11.5-16.0 Blood hematocrit (volume fraction) 42 % 35-52 Automated erythrocyte mean corpuscular volume 88 [ foz_us] 80-99 Automated erythrocyte mean corpuscular h emoglobin (mass per erythrocyte) 29 pg 25-34 Automated erythrocyte mean corpuscular h emoglobin concentration measurement (mass/volume) 33 g/dL 32-36 Automated erythrocyte distribution width ratio 14. 8 % 10.0- 14.5 Automated blood platelet count (count/volume) 195 10*3/uL 130-400 Automated blood platelet mean volume measurement 10.9 [foz_us] 7.4-10.4 Serum or plasma renal function panel (Na , K, Cl, CO2, BUN, Cr, glucose,Ca, phos, alb) - 06/18/16 16:42 Serum or plasma sodium measurement (moles/volume) 139 mmol/L 135-145 Serum or plasma potassium measurement (moles/volume) 4.0 mmol/L 3.6-5.0 Serum or plasma chloride measurement (moles/volume) 107 mmol/L 98-107 Carbon dioxide 20 mmol/L 21-32 Serum or plasma anion gap determination (moles/volume) 12 mmol/L 5-14 Serum or plasma urea nitrogen measurement (mass/volume ) 17 mg/dL 7-18 Serum or plasma creatinine measurement (mass/volume) 1.57 mg/dL 0.60-1.30 Serum or plasma urea nitrogen/creatinine mass ratio 11 NRG Serum or plasma creatinine measurement w ith calculation of estimated glomerular filtration rate 34 NRG Serum or plasma glucose measurement (mass/volume) 93 mg/dL 70-105 Serum or plasma calcium measurement (mass/volume) 8.8 mg/dL 8.5-10.1 Serum or plasma albumin measurement (mass/volume) 4.1 g/dL 3.2-4.5 Serum or plasma phosphate measurement (mass/volume) 4.1 mg/dL 2.3-4.7 Magnesium - 06/18/16 16:42 Magnesium 1.9 mg/dL 1.8-2.4 25-hydroxyvitamin D measurement - 16:42 25-hydroxy vitamin D measurement 38 % 30-100 Complete urinalysis with reflex to cultu re - 06/18/16 17:05 Urine color determination YELLOW NRG Urine clarity determination SLIGHTLY CLOUDY NRG Urine pH measurement by test strip 5 5-9 Specific gravity of urine by test strip 1.025 1.016-1.022 Urine protein assay by test strip, semi-quantitative 1+ NEGATIVE Urine glucose detection by automated test strip NE GATIVE NEGATIVE Erythrocytes detection in urine sediment by light micr oscopy 2+ NEGATIVE Urine ketones detection by automated test strip NE GATIVE NEGATIVE Urine nitrite detection by test strip NEGATIVE NEGATIVE Urine total bilirubin detection by test strip NEGA TIVE NEGATIVE Urine urobilinogen measurement by automated test strip (mass/volume) NORMAL NORMAL Urine leukocyte esterase detection by dipstick 3+ NEGATIVE Automated urine sediment erythrocyte cou nt by microscopy (number/high power field) [HPF] NRG Automated urine sediment leukocyte count by microscopy (number/high power field) [HPF] NRG Bacteria detection in urine sediment by light microsco py MODERATE NRG Squamous epithelial cells detection in u rine sediment by light microscopy 25-50 NRG Crystals detection in urine sediment by light microsco py NONE NRG Casts detection in urine sediment by light microscopy NONE NRG Mucus detection in urine sediment by light microscopy TRACE NRG Complete urinalysis with reflex to culture YES NRG Urine protein/creatinine mass ratio - 17:05 Urine protein measurement (mass/volume) 11 mg/dL 6-12 Urine creatinine measurement (mass/volume) 232 mg/ dL 30-125 Urine protein/creatinine mass ratio 0.05 NRG Bacterial urine culture - 06/18/16 17:05 URINE CULTURE RESULTS >100,000/ML NRG TSH - 07/12/16 17:18 TSH 2.630 uIU/mL 0.450-4.500 TSH - 11/13/16 11:35 TSH 4.370 uIU/mL 0.450-4.500 Complete blood count (CBC) with automate d white blood cell (WBC) differential - 12/20/16 12:50 Blood leukocytes automated count (number/volume) 6.0 10*3/uL 4.3-11.0 Blood erythrocytes automated count (number/volume) 4.82 10*6/uL 4.35-5.85 Venous blood hemoglobin measurement (mass/volume) 14.0 g/dL 11.5-16.0 Blood hematocrit (volume fraction) 43 % 35-52 Automated erythrocyte mean corpuscular volume 89 [ foz_us] 80-99 Automated erythrocyte mean corpuscular h emoglobin (mass per erythrocyte) 29 pg 25-34 Automated erythrocyte mean corpuscular h emoglobin concentration measurement (mass/volume) 33 g/dL 32-36 Automated erythrocyte distribution width ratio 14. 3 % 10.0- 14.5 Automated blood platelet count (count/volume) 203 10*3/uL 130-400 Automated blood platelet mean volume measurement 10.7 [foz_us] 7.4-10.4 Automated blood neutrophils/100 leukocytes 64 % 42-75 Automated blood lymphocytes/100 leukocytes 26 % 12-44 Blood monocytes/100 leukocytes 6 % 0-12 Automated blood eosinophils/100 leukocytes 3 % 0-10 Automated blood basophils/100 leukocytes 0 % 0-10 Blood neutrophils automated count (number/volume) 3.8 10*3 1.8-7.8 Blood lymphocytes automated count (number/volume) 1.6 10*3 1.0-4.0 Blood monocytes automated count (number/volume) 0. 4 10*3 0.0-1.0 Automated eosinophil count 0.2 10*3/uL 0 .0-0.3 Automated blood basophil count (count/volume) 0.0 10*3/uL 0.0-0.1 Serum or plasma renal function panel (Na , K, Cl, CO2, BUN, Cr, glucose,Ca, phos, alb) - 12/20/16 12:50 Serum or plasma sodium measurement (moles/volume) 139 mmol/L 135-145 Serum or plasma potassium measurement (moles/volume) 4.1 mmol/L 3.6-5.0 Serum or plasma chloride measurement (moles/volume) 104 mmol/L 98-107 Carbon dioxide 24 mmol/L 21-32 Serum or plasma anion gap determination (moles/volume) 11 mmol/L 5-14 Serum or plasma urea nitrogen measurement (mass/volume ) 17 mg/dL 7-18 Serum or plasma creatinine measurement (mass/volume) 1.31 mg/dL 0.60-1.30 Serum or plasma urea nitrogen/creatinine mass ratio 13 NRG Serum or plasma creatinine measurement w ith calculation of estimated glomerular filtration rate 42 NRG Serum or plasma glucose measurement (mass/volume) 120 mg/dL 70-105 Serum or plasma calcium measurement (mass/volume) 9.4 mg/dL 8.5-10.1 Serum or plasma albumin measurement (mass/volume) 4.3 g/dL 3.2-4.5 Serum or plasma phosphate measurement (mass/volume) 3.5 mg/dL 2.3-4.7 Serum or plasma uric acid measurement (m ass/volume) - 12/20/16 12:50 Serum or plasma uric acid measurement (mass/volume) 8.4 mg/dL 2.6-7.2 Magnesium - 12/20/16 12:50 Magnesium 2.0 mg/dL 1.8-2.4 Serum or plasma folate measurement (mass /volume) - 12/20/16 12:50 Serum or plasma folate measurement (mass/volume) 7 .2 % 1.5- 24.0 Serum iron and total iron binding capaci ty panel - 12/20/16 12:50 Serum or plasma iron measurement (mass/volume) 77 % 35-180 Total iron binding capacity and transferrin saturation measurement 20 % 15-50 Iron binding capacity [mass/volume] in serum or plasma 379 % 280-380 UIBC (unsaturated iron binding capacity) 302 % NRG Cyanocobalamin measurement - 12/20/16 12 :50 Vitamin B12 482 pg/mL 200-1000 25-hydroxyvitamin D measurement - 12:50 25-hydroxy vitamin D measurement 37 % 30-100 Urine protein/creatinine mass ratio - 13:00 Urine protein measurement (mass/volume) 11 mg/dL 6-12 Urine creatinine measurement (mass/volume) 188 mg/ dL 30-125 Urine protein/creatinine mass ratio 0.06 NRG TSH - 02/27/17 14:06 TSH 3.200 uIU/mL 0.450-4.500 B-Type Natriuretic Peptide - 02/27/17 14 :06 B-Type Natriuretic Peptide 13.1 pg/mL 0. 0-100.0 TSH - 02/27/17 14:06 TSH 3.200 uIU/mL 0.450-4.500 BNP - 02/27/17 14:06 B-Type Natriuretic Peptide 13.1 pg/mL 0. 0-100.0 Automated blood complete blood count (he mogram) panel - 09/11/17 13:25 Blood leukocytes automated count (number/volume) 9.8 10*3/uL 4.3-11.0 Blood erythrocytes automated count (number/volume) 5.06 10*6/uL 4.35-5.85 Venous blood hemoglobin measurement (mass/volume) 14.7 g/dL 11.5-16.0 Blood hematocrit (volume fraction) 45 % 35-52 Automated erythrocyte mean corpuscular volume 89 [ foz_us] 80-99 Automated erythrocyte mean corpuscular h emoglobin (mass per erythrocyte) 29 pg 25-34 Automated erythrocyte mean corpuscular h emoglobin concentration measurement (mass/volume) 33 g/dL 32-36 Automated erythrocyte distribution width ratio 14. 1 % 10.0- 14.5 Automated blood platelet count (count/volume) 254 10*3/uL 130-400 Automated blood platelet mean volume measurement 11.1 [foz_us] 7.4-10.4 Serum or plasma renal function panel (Na , K, Cl, CO2, BUN, Cr, glucose,Ca, phos, alb) - 09/11/17 13:25 Serum or plasma sodium measurement (moles/volume) 140 mmol/L 135-145 Serum or plasma potassium measurement (moles/volume) 3.9 mmol/L 3.6-5.0 Serum or plasma chloride measurement (moles/volume) 103 mmol/L 98-107 Carbon dioxide 26 mmol/L 21-32 Serum or plasma anion gap determination (moles/volume) 11 mmol/L 5-14 Serum or plasma urea nitrogen measurement (mass/volume ) 12 mg/dL 7-18 Serum or plasma creatinine measurement (mass/volume) 1.36 mg/dL 0.60-1.30 Serum or plasma urea nitrogen/creatinine mass ratio 9 NRG Serum or plasma creatinine measurement w ith calculation of estimated glomerular filtration rate 40 NRG Serum or plasma glucose measurement (mass/volume) 142 mg/dL 70-105 Serum or plasma calcium measurement (mass/volume) 9.7 mg/dL 8.5-10.1 Serum or plasma albumin measurement (mass/volume) 4.4 g/dL 3.2-4.5 Serum or plasma phosphate measurement (mass/volume) 3.5 mg/dL 2.3-4.7 Serum or plasma uric acid measurement (m ass/volume) - 09/11/17 13:25 Serum or plasma uric acid measurement (mass/volume) 8.4 mg/dL 2.6-7.2 Magnesium - 09/11/17 13:25 Magnesium 2.2 mg/dL 1.8-2.4 Serum or plasma intact pararthyroid horm one measurement (mass/volume) - 09/11/17 13:25 Serum or plasma intact parathyroid hormone measurement (mass/volume) 67.0 pg/mL 10.0-65.0 Bio-intact parathyroid hormone (PTH) measurement with calcium 9.8 % 8.5-10.5 VITAMIN D 25-HYDROXY - 09/11/17 13:25 VITAMIN D 25-HYDROXY (TOTAL) 27 % 3 0-100 Complete urinalysis with reflex to cultu re - 09/11/17 13:55 Urine color determination YELLOW NRG Urine clarity determination CLEAR NR G Urine pH measurement by test strip 5 5-9 Specific gravity of urine by test strip 1.020 1.016-1.022 Urine protein assay by test strip, semi-quantitative NEGATIVE NEGATIVE Urine glucose detection by automated test strip NE GATIVE NEGATIVE Erythrocytes detection in urine sediment by light micr oscopy NEGATIVE NEGATIVE Urine ketones detection by automated test strip NE GATIVE NEGATIVE Urine nitrite detection by test strip NEGATIVE NEGATIVE Urine total bilirubin detection by test strip NEGA TIVE NEGATIVE Urine urobilinogen measurement by automated test strip (mass/volume) NORMAL NORMAL Urine leukocyte esterase detection by dipstick NEG ATIVE NEGATIVE Automated urine sediment erythrocyte cou nt by microscopy (number/high power field) NONE NRG Automated urine sediment leukocyte count by microscopy (number/high power field) NONE NRG Bacteria detection in urine sediment by light microsco py TRACE NRG Squamous epithelial cells detection in u rine sediment by light microscopy 2-5 NRG Crystals detection in urine sediment by light microsco py NONE NRG Casts detection in urine sediment by light microscopy NONE NRG Mucus detection in urine sediment by light microscopy SMALL NRG Complete urinalysis with reflex to culture NO NRG Urine protein/creatinine mass ratio - 13:55 Urine protein measurement (mass/volume) 9 mg/dL 6-12 Urine creatinine measurement (mass/volume) 216 mg/ dL 30-125 Urine protein/creatinine mass ratio 0.04 NRG Arterial blood gas measurement - 8 11:45 Blood pCO2 34 mm[Hg] 35-45 Blood pO2 93 mm[Hg] 79-93 Arterial blood bicarbonate measurement (moles/volume) 21 mmol/L 23-27 Arterial blood base excess by calculation -2.4 mmo l/L -2.5-2.5 Arterial blood oxygen saturation measurement 98 % 94-100 * Inhaled oxygen flow rate ROOM AIR NRG Arterial blood pH measurement with patient temperature correction 7.42 7.37-7.43 Arterial blood carbon dioxide, total measurement (mole s/volume) 22.3 mmol/L 21.0-31.0 Body site RT RAD NRG Assessment of wrist artery patency prior to arterial p uncture YES-POS NRG Setting of ventilation mode NO NR G Measurement of body temperature 99.9 NRG TSH - 12/20/17 14:22 TSH 3.15 mIU/L 0.40-4.50 Automated blood complete blood count (he mogram) panel - 03/05/18 14:29 Blood leukocytes automated count (number/volume) 8.1 10*3/uL 4.3-11.0 Blood erythrocytes automated count (number/volume) 4.55 10*6/uL 4.35-5.85 Venous blood hemoglobin measurement (mass/volume) 13.4 g/dL 11.5-16.0 Blood hematocrit (volume fraction) 39 % 35-52 Automated erythrocyte mean corpuscular volume 86 [ foz_us] 80-99 Automated erythrocyte mean corpuscular h emoglobin (mass per erythrocyte) 30 pg 25-34 Automated erythrocyte mean corpuscular h emoglobin concentration measurement (mass/volume) 34 g/dL 32-36 Automated erythrocyte distribution width ratio 14. 4 % 10.0- 14.5 Automated blood platelet count (count/volume) 209 10*3/uL 130-400 Automated blood platelet mean volume measurement 11.3 [foz_us] 7.4-10.4 Serum or plasma renal function panel (Na , K, Cl, CO2, BUN, Cr, glucose,Ca, phos, alb) - 03/05/18 14:29 Serum or plasma sodium measurement (moles/volume) 139 mmol/L 135-145 Serum or plasma potassium measurement (moles/volume) 4.2 mmol/L 3.6-5.0 Serum or plasma chloride measurement (moles/volume) 107 mmol/L 98-107 Carbon dioxide 18 mmol/L 21-32 Serum or plasma anion gap determination (moles/volume) 14 mmol/L 5-14 Serum or plasma urea nitrogen measurement (mass/volume ) 23 mg/dL 7-18 Serum or plasma creatinine measurement (mass/volume) 1.84 mg/dL 0.60-1.30 Serum or plasma urea nitrogen/creatinine mass ratio 13 NRG Serum or plasma creatinine measurement w ith calculation of estimated glomerular filtration rate 28 NRG Serum or plasma glucose measurement (mass/volume) 188 mg/dL 70-105 Serum or plasma calcium measurement (mass/volume) 9.2 mg/dL 8.5-10.1 Serum or plasma albumin measurement (mass/volume) 4.2 g/dL 3.2-4.5 Serum or plasma phosphate measurement (mass/volume) 3.5 mg/dL 2.3-4.7 Magnesium - 03/05/18 14:29 Magnesium 2.0 mg/dL 1.8-2.4 Serum or plasma intact pararthyroid horm one measurement (mass/volume) - 03/05/18 14:29 Serum or plasma intact parathyroid hormone measurement (mass/volume) 104.7 pg/mL 9.0-77.0 Bio-intact parathyroid hormone (PTH) measurement with calcium 9.2 % 8.5-10.5 VITAMIN D 25-HYDROXY - 03/05/18 14:29 VITAMIN D 25-HYDROXY (TOTAL) 55.7 % 3 0.0-100.0 Automated dipstick urinalysis - 03/05/18 14:40 Urine color determination YELLOW NRG Urine clarity determination CLEAR NR G Urine pH measurement by test strip 5 5-9 Specific gravity of urine by test strip 1.025 1.016-1.022 Urine protein assay by test strip, semi-quantitative 1+ NEGATIVE Urine glucose detection by automated test strip NE GATIVE NEGATIVE Erythrocytes detection in urine sediment by light micr oscopy NEGATIVE NEGATIVE Urine ketones detection by automated test strip NE GATIVE NEGATIVE Urine nitrite detection by test strip NEGATIVE NEGATIVE Urine total bilirubin detection by test strip NEGA TIVE NEGATIVE Urine urobilinogen measurement by automated test strip (mass/volume) NORMAL NORMAL Urine leukocyte esterase detection by dipstick 2+ NEGATIVE Urine protein/creatinine mass ratio - 14:40 Urine protein measurement (mass/volume) 10 mg/dL 6-12 Urine creatinine measurement (mass/volume) 270 mg/ dL 30-125 Urine protein/creatinine mass ratio 0.04 NRG Urine protein/creatinine mass ratio - 13:42 Urine protein measurement (mass/volume) 10 mg/dL 6-12 Urine creatinine measurement (mass/volume) 108 mg/ dL 30-125 Urine protein/creatinine mass ratio 0.09 NRG Complete urinalysis with reflex to cultu re - 03/31/18 13:42 Urine color determination YELLOW NRG Urine clarity determination CLEAR NR G Urine pH measurement by test strip 5 5-9 Specific gravity of urine by test strip 1.015 1.016-1.022 Urine protein assay by test strip, semi-quantitative 1+ NEGATIVE Urine glucose detection by automated test strip NE GATIVE NEGATIVE Erythrocytes detection in urine sediment by light micr oscopy NEGATIVE NEGATIVE Urine ketones detection by automated test strip NE GATIVE NEGATIVE Urine nitrite detection by test strip NEGATIVE NEGATIVE Urine total bilirubin detection by test strip NEGA TIVE NEGATIVE Urine urobilinogen measurement by automated test strip (mass/volume) NORMAL NORMAL Urine leukocyte esterase detection by dipstick 1+ NEGATIVE Automated urine sediment erythrocyte cou nt by microscopy (number/high power field) NONE NRG Automated urine sediment leukocyte count by microscopy (number/high power field) [HPF] NRG Bacteria detection in urine sediment by light microsco py TRACE NRG Squamous epithelial cells detection in u rine sediment by light microscopy 5-10 NRG Crystals detection in urine sediment by light microsco py NONE NRG Casts detection in urine sediment by light microscopy NONE NRG Mucus detection in urine sediment by light microscopy NEGATIVE NRG Complete urinalysis with reflex to culture YES NRG Bacterial urine culture - 03/31/18 13:42 Bacterial urine culture NG NRG MAGNESIUM SERUM - 08/20/18 11:09 MAGNESIUM 2.3 mg/dL 1.5-2.5 VITAMIN D, 25-H - 08/20/18 11:09 VITAMIN D,25-OH,TOTAL,IA 45 ng/mL 30-10 0 Complete blood count (CBC) with automate d white blood cell (WBC) differential - 01/16/19 11:53 Blood leukocytes automated count (number/volume) 9.5 10*3/uL 4.3-11.0 Blood erythrocytes automated count (number/volume) 5.46 10*6/uL 4.35-5.85 Venous blood hemoglobin measurement (mass/volume) 15.4 g/dL 11.5-16.0 Blood hematocrit (volume fraction) 47 % 35-52 Automated erythrocyte mean corpuscular volume 86 [ foz_us] 80-99 Automated erythrocyte mean corpuscular h emoglobin (mass per erythrocyte) 28 pg 25-34 Automated erythrocyte mean corpuscular h emoglobin concentration measurement (mass/volume) 33 g/dL 32-36 Automated erythrocyte distribution width ratio 14. 4 % 10.0- 14.5 Automated blood platelet count (count/volume) 249 10*3/uL 130-400 Automated blood platelet mean volume measurement 11.6 [foz_us] 7.4-10.4 Automated blood neutrophils/100 leukocytes 63 % 42-75 Automated blood lymphocytes/100 leukocytes 28 % 12-44 Blood monocytes/100 leukocytes 6 % 0-12 Automated blood eosinophils/100 leukocytes 3 % 0-10 Automated blood basophils/100 leukocytes 0 % 0-10 Blood neutrophils automated count (number/volume) 6.0 10*3 1.8-7.8 Blood lymphocytes automated count (number/volume) 2.7 10*3 1.0-4.0 Blood monocytes automated count (number/volume) 0. 6 10*3 0.0-1.0 Automated eosinophil count 0.2 10*3/uL 0 .0-0.3 Automated blood basophil count (count/volume) 0.0 10*3/uL 0.0-0.1 Complete urinalysis with reflex to cultu re - 01/16/19 11:53 Urine color determination YELLOW NRG Urine clarity determination CLEAR NR G Urine pH measurement by test strip 5 5-9 Specific gravity of urine by test strip 1.025 1.016-1.022 Urine protein assay by test strip, semi-quantitative 2+ NEGATIVE Urine glucose detection by automated test strip NE GATIVE NEGATIVE Erythrocytes detection in urine sediment by light micr oscopy 3+ NEGATIVE Urine ketones detection by automated test strip 1+ NEGATIVE Urine nitrite detection by test strip NEGATIVE NEGATIVE Urine total bilirubin detection by test strip NEGA TIVE NEGATIVE Urine urobilinogen measurement by automated test strip (mass/volume) NORMAL NORMAL Urine leukocyte esterase detection by dipstick 3+ NEGATIVE Automated urine sediment erythrocyte cou nt by microscopy (number/high power field) [HPF] NRG Automated urine sediment leukocyte count by microscopy (number/high power field) [HPF] NRG Bacteria detection in urine sediment by light microsco py MODERATE NRG Squamous epithelial cells detection in u rine sediment by light microscopy 10-25 NRG Crystals detection in urine sediment by light microsco py NONE NRG Casts detection in urine sediment by light microscopy NONE NRG Mucus detection in urine sediment by light microscopy NEGATIVE NRG Complete urinalysis with reflex to culture YES NRG Urine protein/creatinine mass ratio - 11:53 Urine protein measurement (mass/volume) 17 mg/dL 6-12 Urine creatinine measurement (mass/volume) 258 mg/ dL 30-125 Urine protein/creatinine mass ratio 0.07 NRG Serum or plasma renal function panel (Na , K, Cl, CO2, BUN, Cr, glucose,Ca, phos, alb) - 01/16/19 11:53 Serum or plasma sodium measurement (moles/volume) 140 mmol/L 135-145 Serum or plasma potassium measurement (moles/volume) 4.0 mmol/L 3.6-5.0 Serum or plasma chloride measurement (moles/volume) 101 mmol/L 98-107 Carbon dioxide 22 mmol/L 21-32 Serum or plasma anion gap determination (moles/volume) 17 mmol/L 5-14 Serum or plasma urea nitrogen measurement (mass/volume ) 17 mg/dL 7-18 Serum or plasma creatinine measurement (mass/volume) 1.52 mg/dL 0.60-1.30 Serum or plasma urea nitrogen/creatinine mass ratio 11 NRG Serum or plasma creatinine measurement w ith calculation of estimated glomerular filtration rate 35 NRG Serum or plasma glucose measurement (mass/volume) 179 mg/dL 70-105 Serum or plasma calcium measurement (mass/volume) 10.0 mg/dL 8.5-10.1 Serum or plasma albumin measurement (mass/volume) 4.5 g/dL 3.2-4.5 Serum or plasma phosphate measurement (mass/volume) 3.7 mg/dL 2.3-4.7 Serum or plasma uric acid measurement (m ass/volume) - 01/16/19 11:53 Serum or plasma uric acid measurement (mass/volume) 9.5 mg/dL 2.6-7.2 Magnesium - 01/16/19 11:53 Magnesium 2.2 mg/dL 1.6-2.4 Bacterial urine culture - 01/16/19 11:53 Bacterial urine culture [id number] NRG COLONY COUNT >100,000/ML NRG FTX;REPORTABLE SEE COMMENT NRG Serum or plasma intact pararthyroid horm one measurement (mass/volume) - 01/16/19 11:53 Serum or plasma intact parathyroid hormone measurement (mass/volume) 83.3 pg/mL 9.0-77.0 Bio-intact parathyroid hormone (PTH) measurement with calcium 9.9 % 8.5-10.5 VITAMIN D 25-HYDROXY - 01/16/19 11:53 VITAMIN D 25-HYDROXY (TOTAL) 49.2 % 3 0.0-100.0 TSH - 04/21/19 11:47 TSH 5.30 mIU/L 0.40-4.50 TSH - 06/02/19 11:46 TSH 4.39 mIU/L 0.40-4.50 Complete urinalysis with reflex to cultu re - 11/05/19 20:03 Urine color determination DARK YELLOW N RG Urine clarity determination SL CLOUDY N RG Urine pH measurement by test strip 5.5 5-9 Specific gravity of urine by test strip >= 1.016-1.022 Urine protein assay by test strip, semi-quantitative TRACE NEGATIVE Urine glucose detection by automated test strip NE GATIVE NEGATIVE Erythrocytes detection in urine sediment by light micr oscopy NEGATIVE NEGATIVE Urine ketones detection by automated test strip NE GATIVE NEGATIVE Urine nitrite detection by test strip NEGATIVE NEGATIVE Urine total bilirubin detection by test strip NEGA TIVE NEGATIVE Urine urobilinogen measurement by automated test strip (mass/volume) 0.2 mg/dL < = 1.0 Urine leukocyte esterase detection by dipstick TRA CE NEGATIVE Automated urine sediment erythrocyte cou nt by microscopy (number/high power field) [HPF] NRG Automated urine sediment leukocyte count by microscopy (number/high power field) [HPF] NRG Bacteria detection in urine sediment by light microsco py MODERATE NRG Squamous epithelial cells detection in u rine sediment by light microscopy 10-25 NRG Crystals detection in urine sediment by light microsco py NONE NRG Casts detection in urine sediment by light microscopy PRESENT NRG Mucus detection in urine sediment by light microscopy LARGE NRG Complete urinalysis with reflex to culture YES NRG Hyaline casts detection in urine sediment by light светлана roscopy 5-10 NRG Encounters ACCT No. Visit Date/Time Discharge Status Pt. Type Provider Facility Loc./Unit Complaint [id number] 05/30/2016 10:06:00 Document Registration [id number] 02/28/2017 08:06:00 Document Registration [id number] 02/28/2017 15:11:00 Document Registration [id number] 07/13/2016 08:44:00 Document Registration [id number] 02/17/2019 11:20:00 23:59:59 CLS Outpatient ROB REYNOLDS APRN [facility] ENLARGED LYMPH NODES IN ARMPIT [id number] 01/16/2019 11:46:00 08/30/2 019 23:59:59 CLS Outpatient LUIS KABA MD [facility] LAB [id number] 11/12/2018 11:03:00 23:59:59 CLS Outpatient CINTHYA MOSCOSO FACNevin, HONEY NOVAK CC DS [facility] LIPID,CMP [id number] 10/28/2018 11:07:00 23:59:59 CLS Outpatient LUIS KABA MD [facility] RENAL CYST [id number] 08/26/2018 07:00:00 23:59:59 CLS Outpatient CINTHYA MOSCOSO FACNevin, HONEY NOVAK CC DS [facility] CARD SOB, DYSPNE A,OFELIA [id number] 08/20/2018 15:34:00 23:59:59 CLS Preadmit CINTHYA MOSCOSO FACNevin, HONEY NOVAK CCDS [facility] CARD SOB, DYSPNEA, O SA [id number] 07/18/2018 11:46:00 23:59:59 CLS Outpatient LUIS KABA MD [facility] HYPERTENSION,CKD [id number] 03/31/2018 12:49:00 23:59:59 CLS Outpatient LUIS KABA MD [facility] HYPERTENSION [id number] 03/22/2018 09:26:00 23:59:59 CLS Outpatient ROB REYNOLDS PARAMEDIC RN [facility] PRIMARY OSTEOARTHRITIS OF RIGHT SHOULDER [id number] 03/05/2018 14:12:00 23:59:59 CLS Outpatient LUIS KABA MD [facility] HYPERTENSION,CHRONIC KI DNEY DISEAE [id number] 10/28/2017 11:17:00 23:59:59 CLS Outpatient FATOU WHITEHEAD PARAMEDIC RN [facility] RESTRICTIVE ROXANNE G DISEASE [id number] 10/28/2017 10:51:00 06/11/2 018 23:59:59 CLS Preadmit FATOU WHITEHEAD APRN [facility] SLEEP OBSTRUCTIVE SLE EP APNEA [id number] 09/24/2017 11:30:00 018 23:59:59 CLS Preadmit CINTHYA MOSCOSO FACC, ALI FACP CCDS [facility] CARD I10 HTN [id number] 09/24/2017 10:45:00 018 23:59:59 CLS Preadmit CINTHYA MOSCOSO FACC, ALI FACP CCDS [facility] CARD [id number] 09/23/2017 11:00:00 018 23:59:59 CLS Preadmit CINTHYA MOSCOSO FACC, ALI FACP CCDS [facility] CARD I10 HTN [id number] 09/11/2017 16:27:00 018 23:59:59 CLS Preadmit CINTHYA MOSCOSO FACC, ALI FACP CCDS [facility] CARD I10 HTN [id number] 09/11/2017 13:11:00 018 23:59:59 CLS Outpatient LUIS KABA MD [facility] I10 [id number] 06/25/2017 12:30:00 018 23:59:59 CLS Preadmit HUMBLE JUÁREZ DO [facility] ENDO SCREENING [id number] 06/25/2017 11:55:00 018 23:59:59 CLS Outpatient LUIS KABA MD [facility] LAB N18.3 R 60.9 E21.1 [id number] 06/20/2017 05:38:00 018 10:28:00 DIS Outpatient HUMBLE JUÁREZ DO [facility] PREOP COLONOSCOPY [id number] 06/19/2017 12:27:00 018 23:59:59 CLS Outpatient POLY [employer]OKES [employer] JUDGE [facility] SCREENING [id number] 03/12/2017 09:17:00 017 23:59:59 CLS Outpatient MADLANDRESA L [employer] JUDGE [facility] RAD 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 [id number] 12/20/2016 12:29:00 017 23:59:59 CLS Outpatient LUIS KABA MD [facility] RENAL CYST [id number] 06/18/2016 16:12:00 017 23:59:59 CLS Outpatient OSMAR GUEVARA MD, V [facility] CHRONIC KIDNEY DISEASE, COPD [id number] 02/01/2016 12:34:00 016 23:59:59 CLS Outpatient OSMAR GUEVARA MD, V [facility] CKD STAGE 3,COPD,VIT D DEF,PERIPHERAL EDEMA [id number] 10/13/2015 14:48:00 016 23:59:59 CLS Outpatient FATOU WHITEHEAD APRN [facility] SOB,PNEUMONIA, OBSTRUCTIVE, PNEUMONIA [id number] 10/13/2015 11:30:00 016 23:59:59 CLS Outpatient OSMAR GUEVARA MD, V [facility] COPD, MORBID OBESITY,HY PERENSION [id number] 07/18/2015 16:50:00 016 23:59:59 CLS Outpatient QUINTEN SADLER DO [facility] RT COPD,ASTHMA [id number] 06/23/2015 11:39:00 016 23:59:59 CLS Outpatient OSMAR GUEVARA MD, V [facility] CHRONIC KIDNEY DISEASE [id number] 06/21/2015 19:45:00 016 06:10:00 DIS Outpatient CAROL WHITLOCK APRN [facility] SLEEP SNORING, CHOKIN G, HTN, MORNING HEADACHE [id number] 04/21/2015 07:13:00 015 23:59:59 CLS Outpatient CINTHYA MOSCOSO FACC, HONEY NOVAK CC DS [facility] CARD CP,BUTT,SANYA Y [id number] 04/20/2015 07:26:00 015 23:59:59 CLS Outpatient CINTHYA MOSCOSO FACC, HONEY CAMPBELLP CC DS [facility] CARD CPFILOMENA BRAD Y [id number] 03/01/2015 11:13:00 015 23:59:59 CLS Outpatient CAROL WHITLOCK APRN [facility] ARTERY PLAQUE [id number] 11/05/2019 20:16:00 Document Registration [id number] 04/05/2016 10:05:00 Document Registration [id number] 11/14/2016 07:06:00 Document Registration [id number] 09/23/2019 13:00:00 09/23/2019 23:59: 59 CLS Outpatient ROB REYNOLDS [facility] [id number] 06/02/2019 11:40:00 Document Registration [id number] 04/21/2019 10:20:00 Document Registration [id number] 08/20/2018 10:20:00 Document Registration [id number] 12/20/2017 14:00:00 Document Registration [id number] 02/27/2017 13:20:00 Document Registration
== END 2019-11-05 21:12 | disposition home or self-care (01) ==
LOC: EDUNIT# 19:47 → ER FS 19:48
DX: M17.11 Unilateral primary osteoarthritis, right knee (principal); M25.522 Pain in left elbow; R30.0 Dysuria; Z91.81 History of falling; W18.39XA Other fall on same level, initial encounter
CPT/HCPCS: 73080; 73562; 81000; 87088